=== PATIENT | male | born 1950 | race Caucasian/White ===

== ENCOUNTER 2016-08-16 12:45 | Observation (INO) | payer OTHER ==
[2016-08-16] MEDS ORDERED: SODIUM CHLORIDE 0.9% 1,000 ML IV STA (13:36)
[2016-08-16] MEDS ORDERED: methylPREDNISolone SOD SUCCI 125 MG/2 ML VIAL IV STA (13:36)
[2016-08-16] MEDS ORDERED: IPRATROPIUM-ALBUTEROL 3 ML NEB INHALATION STA ×2 (13:36→14:28)
--- NOTE | 2016-08-16 13:38 | ED ---
General Adult HPI - General Source: patient, RN notes reviewed Mode of arrival: ambulatory Limitations: no limitations <Lopez Pacheco - Last Filed: 08/16/16 15:39> <Nj Escobar - Last Filed: 08/16/16 15:45> - General Chief complaint: Shortness of Breath Stated complaint: ADAN Time Seen by Provider: 08/16/16 13:31 - History of Present Illness Initial comments: Patient 65-year-old male significant past medical history for COPD, who presents emergency room today with chief complaint of increased cough congestion over the last 4 days. Does admit to increased shortness of breath. States he went to [facility] and was advised come here to the emergency room. He does admit that he used to do breathing treatment in the past no longer has at home has not needed in several years. Patient does admit to cough congestion. He denies any other complaints or associated symptoms. Patient denies any recent fever, chills, chest pain, back pain, abdominal pain, nausea or vomiting, numbness or tingling, dysuria or hematuria, constipation or diarrhea, headaches or visual changes, or any other complaints. (Lopez Pacheco) - Related Data Allergies Allergy/AdvReac Type Severity Reaction Status Date / Time No Known Allergies Allergy Verified 08/16/16 12:49 Review of Systems ROS Other: All systems not noted in ROS Statement are negative. <Lopez Pacheco - Last Filed: 08/16/16 15:39> ROS Other: All systems not noted in ROS Statement are negative. <Nj Escobar - Last Filed: 08/16/16 15:45> ROS Statement: Those systems with pertinent positive or pertinent negative responses have been documented in the HPI. Past Medical History Past Medical History: Coronary Artery Disease (CAD), Cancer, Chest Pain / Angina , COPD, CVA/TIA, Hyperlipidemia, Hypertension, Myocardial Infarction ([place]) Additional Past Medical History / Comment(s): prostate cancer History of Any Multi-Drug Resistant Organisms: None Reported Past Surgical History: Coronary Bypass/CABG, Prostate Surgery Additional Past Surgical History / Comment(s): carotid endarectomy Past Psychological History: No Psychological Hx Reported 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 smoker Past Alcohol Use History: None Reported Past Drug Use History: None Reported <Lopez Pacheco - Last Filed: 08/16/16 15:39> General Exam Limitations: no limitations <Lopez Pacheco - Last Filed: 08/16/16 15:39> <Nj Escobar - Last Filed: 08/16/16 15:45> - General Exam Comments Initial Comments: General: The patient is awake and alert, in no distress, and does not appear acutely ill. Eye: Pupils are equal, round and reactive to light, extra-ocular movements are intact. No nystagmus. There is normal conjunctiva bilaterally. No signs of icterus. Ears, nose, mouth and throat: There are moist mucous membranes and no oral lesions. Neck: The neck is supple, there is no tenderness or JVD. Cardiovascular: There is a regular rate and rhythm. No murmur, rub or gallop is appreciated. Respiratory: Decreased breath sounds bilaterally with scattered wheezes and rhonchi. respirations are non-labored, breath sounds are equal. No stridor, rales. Musculoskeletal: Normal ROM, no tenderness. Strength 5/5. Sensation intact. Pulses equal bilaterally 2+. Neurological: A&O x 3. CN II-XII intact, There are no obvious motor or sensory deficits. Coordination appears grossly intact. Speech is normal. Skin: Skin is warm and dry and no rashes or lesions are noted. Psychiatric: Cooperative, appropriate mood & affect, normal judgment. (Lopez Pacheco) Medical Decision Making - Lab Data Result diagrams: 08/16/16 14:05 08/16/16 14:05 <Lopez Pacheco - Last Filed: 08/16/16 15:39> - Lab Data Result diagrams: 08/16/16 14:05 08/16/16 14:05 <Nj Escobar - Last Filed: 08/16/16 15:45> - Medical Decision Making Patient reexamined at this time shows no distress. States still feeling somewhat short of breath. Pulse ox currently 94% on room air. Patient does admit to improvement after breathing treatments. States still feeling somewhat short of breath. Patient has had cough congestion and sputum production over the last 4 days. Patient's chest x-ray reviewed and is negative for any evidence of a pneumonia. Cardiac enzymes negative. Remaining labs have been reviewed. Patient will be admitted to the hospital for continued breathing treatments and steroids for COPD exacerbation. (Lopez Pacheco) The patient is seen and examined. All diagnostics are reviewed. Case is discussed with internal medicine and they are agreeable with admission. The case is discussed with the PA and agree with the findings as documented. (Nj Escobar) - Lab Data Lab Results 08/16/16 08/16/16 08/16/16 Range/Units 14:05 14:05 14:05 WBC 6.0 (3.8-10.6) k/uL RBC 5.02 (4.30-5.90) m/uL Hgb 15.5 (13.0-17.5) gm/dL Hct 44.8 (39.0-53.0) % MCV 89.1 (80.0-100.0) fL MCH 30.8 (25.0-35.0) pg MCHC 34.6 (31.0-37.0) g/dL RDW 13.3 (11.5-15.5) % Plt Count 150 (150-450) k/uL Neutrophils % 74 % Lymphocytes % 12 % Monocytes % 10 % Eosinophils % 1 % Basophils % 1 % Neutrophils # 4.4 (1.3-7.7) k/uL Lymphocytes # 0.7 L (1.0-4.8) k/uL Monocytes # 0.6 (0-1.0) k/uL Eosinophils # 0.1 (0-0.7) k/uL Basophils # 0.0 (0-0.2) k/uL PT (9.0-12.0) sec INR (<1.1) APTT (22.0-30.0) sec Sodium 140 (137-145) mmol/L Potassium 4.3 (3.5-5.1) mmol/L Chloride 105 (98-107) mmol/L Carbon Dioxide 25 (22-30) mmol/L Anion Gap 10 mmol/L BUN 11 (9-20) mg/dL Creatinine 0.90 (0.66-1.25) mg/dL Est GFR (MDRD) Af Amer >60 (>60 ml/min/1.73 sqM) Est GFR (MDRD) Non-Af >60 (>60 ml/min/1.73 sqM) Glucose 116 H (74-99) mg/dL Calcium 9.5 (8.4-10.2) mg/dL Total Bilirubin 1.0 (0.2-1.3) mg/dL AST 48 (17-59) U/L ALT 39 (21-72) U/L Alkaline Phosphatase 71 (38-126) U/L Total Creatine Kinase 854 H (55-170) U/L CK-MB (CK-2) 4.5 H* (0.0-2.4) ng/mL CK-MB (CK-2) Rel Index 0.5 Troponin I 0.017 (0.000-0.034) ng/mL Total Protein 6.7 (6.3-8.2) g/dL Albumin 4.0 (3.5-5.0) g/dL 08/16/16 Range/Units 14:05 WBC (3.8-10.6) k/uL RBC (4.30-5.90) m/uL Hgb (13.0-17.5) gm/dL Hct (39.0-53.0) % MCV (80.0-100.0) fL MCH (25.0-35.0) pg MCHC (31.0-37.0) g/dL RDW (11.5-15.5) % Plt Count (150-450) k/uL Neutrophils % % Lymphocytes % % Monocytes % % Eosinophils % % Basophils % % Neutrophils # (1.3-7.7) k/uL Lymphocytes # (1.0-4.8) k/uL Monocytes # (0-1.0) k/uL Eosinophils # (0-0.7) k/uL Basophils # (0-0.2) k/uL PT 11.3 (9.0-12.0) sec INR 1.1 (<1.1) APTT 26.3 (22.0-30.0) sec Sodium (137-145) mmol/L Potassium (3.5-5.1) mmol/L Chloride (98-107) mmol/L Carbon Dioxide (22-30) mmol/L Anion Gap mmol/L BUN (9-20) mg/dL Creatinine (0.66-1.25) mg/dL Est GFR (MDRD) Af Amer (>60 ml/min/1.73 sqM) Est GFR (MDRD) Non-Af (>60 ml/min/1.73 sqM) Glucose (74-99) mg/dL Calcium (8.4-10.2) mg/dL Total Bilirubin (0.2-1.3) mg/dL AST (17-59) U/L ALT (21-72) U/L Alkaline Phosphatase (38-126) U/L Total Creatine Kinase (55-170) U/L CK-MB (CK-2) (0.0-2.4) ng/mL CK-MB (CK-2) Rel Index Troponin I (0.000-0.034) ng/mL Total Protein (6.3-8.2) g/dL Albumin (3.5-5.0) g/dL Disposition Time of Disposition: 15:32 <Lopez Pacheco - Last Filed: 08/16/16 15:39> <Nj Escobar - Last Filed: 08/16/16 15:45> Clinical Impression: COPD exacerbation, Acute bronchitis Disposition: ADMITTED IP TO THIS HOSP Condition: Stable Referrals: Michael Duran DO [Primary Care Provider] - 1-2 days
--- NOTE | 2016-08-16 14:24 | XR ---
EXAMINATION TYPE: XR chest 2V DATE OF EXAM: 08/16/2016 2:20 PM COMPARISON: 09/17/2012 TECHNIQUE: PA and lateral views submitted. HISTORY: Cough FINDINGS: The lungs are clear and there is no pneumothorax, pleural effusion, or focal pneumonia. Postoperati ve change and mild hyperinflation. Biapical pleural thickening. Arthropathy of the shoulder. Mild deg enerative change of the spine. Coronary artery stenting suggested with epicardial lead. IMPRESSION: 1. No acute process.
[2016-08-16] MEDS ORDERED: MORPHINE SULFATE 4 MG/ML SYRINGE IV STA (14:28)
[2016-08-16 14:31] LABS: Basophils % (A) 1 %; CH 30.6; CHCM 34.5; Eosinophils # (A) 0.1 k/uL (0-0.7); Eosinophils % (A) 1 %; HCT 44.8 % (39.0-53.0); HDW 2.87; HGB 15.5 gm/dL (13.0-17.5); Luc # (Auto) 0.12; Luc % (Auto) 2; Lymphocytes # (A) 0.7 k/uL (1.0-4.8); Lymphocytes % (A) 12 %; MCH 30.8 pg (25.0-35.0); MCHC 34.6 g/dL (31.0-37.0); MCV 89.1 fL (80.0-100.0); Monocytes # (A) 0.6 k/uL (0-1.0); Monocytes % (A) 10 %; Neutrophils # (A) 4.4 k/uL (1.3-7.7); Neutrophils % (A) 74 %; RBC 5.02 m/uL (4.30-5.90); RDW 13.3 % (11.5-15.5); WBC (Perox) 6.07
[2016-08-16 14:37] LABS: INR 1.1 (<1.1); Partial Thromboplastin Time 26.3 sec (22.0-30.0); Prothrombin Time 11.3 sec (9.0-12.0)
[2016-08-16 14:45] LABS: Anion Gap 10 mmol/L; Calcium 9.5 mg/dL (8.4-10.2); Carbon Dioxide 25 mmol/L (22-30); Chloride 105 mmol/L (98-107); Glucose 116 mg/dL (74-99); Non-African American GFR(MDRD) >60 (>60 ml/min/1.73 sqM); Sodium 140 mmol/L (137-145); Total Protein 6.7 g/dL (6.3-8.2)
[2016-08-16 14:46] LABS: ALT 39 U/L (21-72); AST 48 U/L (17-59); Blood Urea Nitrogen 11 mg/dL (9-20); Potassium 4.3 mmol/L (3.5-5.1)
[2016-08-16 14:47] LABS: Alkaline Phosphatase 71 U/L (38-126)
[2016-08-16 15:02] LABS: Troponin I 0.017 ng/mL (0.000-0.034)
[2016-08-16 15:04] LABS: Creatine Kinase MB 4.5 ng/mL (0.0-2.4)
[2016-08-16] MEDS ORDERED: LEVOFLOXACIN 500MG-D5W PMX 500 MG in DEXTROSE/WATER 1 100ML.BAG IVPB STA (15:35)
[2016-08-16] MEDS ORDERED: SODIUM CHLORIDE 0.9% 1,000 ML IV ONE (15:36)
[2016-08-16] MEDS ORDERED: IPRATROPIUM-ALBUTEROL 3 ML NEB INHALATION PRN (15:36)
[2016-08-16 17:33] LABS: Glucose,Whole Blood 133 mg/dL (75-99)
[2016-08-16 18:16] LABS: Hemoglobin A1C 5.4 % (4.2-6.1)
[2016-08-16] MEDS: methylPREDNISolone SOD SUCCI 125 MG/2 ML VIAL IV SCH ×2 (18:42→23:25)
[2016-08-16 21:18] LABS: Glucose,Whole Blood 167 mg/dL (75-99)
[2016-08-16] MEDS: INSULIN LISPRO (humaLOG) 300 UNIT/3 ML VIAL SQ SCH (21:34)
[2016-08-16] MEDS ORDERED: guaiFENesin-DM 100-10MG/5ML 10 ML CUP PO PRN (21:58)
[2016-08-16] MEDS ORDERED: LORazepam 1 MG TAB PO PRN (21:58)
[2016-08-16] MEDS ORDERED: HYDROcodone/APAP 5-325MG 1 EACH TAB PO PRN (22:05)
[2016-08-16] MEDS ORDERED: cloNIDine HCL 0.1 MG TAB PO PRN (22:15)
[2016-08-16] MEDS ORDERED: LEVOFLOXACIN 500MG-D5W PMX 500 MG in DEXTROSE/WATER 1 100ML.BAG IVPB SCH (23:00)
[2016-08-16] MEDS: TEMAZEPAM 30 MG CAP PO PRN (23:26)
[2016-08-16] MEDS: cloNIDine HCL 0.1 MG TAB PO SCH (23:26)
[2016-08-17] MEDS ORDERED: IPRATROPIUM-ALBUTEROL 3 ML NEB INHALATION PRN (04:15)
[2016-08-17] MEDS: methylPREDNISolone SOD SUCCI 125 MG/2 ML VIAL IV SCH ×4 (05:31→23:44)
[2016-08-17 06:34] LABS: Appearance,Urine Clear (Clear); Bilirubin,Urine Negative (Negative); Glucose,Urine (UA) 1+ (Negative); Ketones,Urine 1+ (Negative); Leukocyte Esterase,Urine Negative (Negative); Mucus,Urine Occasional /hpf; Nitrite,Urine Negative (Negative); Particle Count 2550; Protein,Urine Trace (Negative); RBC,Urine 4 /hpf (0-5); UA Billing (MACRO vs. MICRO) MICRO; Urobilinogen,Urine <2.0 mg/dL (<2.0)
[2016-08-17 07:30] LABS: Glucose,Whole Blood 157 mg/dL (75-99)
[2016-08-17] MEDS: IPRATROPIUM 0.5 MG/2.5 ML NEBU INHALATION SCH ×3 (08:02→19:46)
[2016-08-17] MEDS: LEVALBUTEROL NEB (CONC) 1.25 MG/0.5 ML AMP INHALATION SCH ×3 (08:02→19:46)
[2016-08-17] MEDS: BUDESONIDE 1 MG/2 ML NEBU INHALATION SCH ×2 (08:02→19:46)
[2016-08-17] MEDS: FORMOTEROL FUMARATE 20 MCG/2 ML NEBU INHALATION SCH ×2 (08:03→19:46)
[2016-08-17] MEDS: INSULIN LISPRO (humaLOG) 300 UNIT/3 ML VIAL SQ SCH ×4 (08:41→21:51)
[2016-08-17] MEDS: PANTOPRAZOLE 40 MG TABLET PO SCH (09:31)
[2016-08-17] MEDS: HEPARIN SODIUM,PORCINE 5,000 UNIT/ML 1 ML VIAL SQ SCH ×2 (09:31→21:26)
[2016-08-17] MEDS: cloNIDine HCL 0.1 MG TAB PO SCH ×2 (09:31→21:26)
[2016-08-17 09:49] LABS: Anion Gap 15 mmol/L; Blood Urea Nitrogen 18 mg/dL (9-20); Calcium 9.4 mg/dL (8.4-10.2); Carbon Dioxide 21 mmol/L (22-30); Chloride 104 mmol/L (98-107); Glucose 216 mg/dL (74-99); Non-African American GFR(MDRD) >60 (>60 ml/min/1.73 sqM); Potassium 3.9 mmol/L (3.5-5.1); Sodium 140 mmol/L (137-145)
--- NOTE | 2016-08-17 09:52 | HP ---
DATE OF ADMISSION: DATE OF SERVICE: 08/16/2016 This 65-year-old gentleman with a past medical history of COPD, history of CAD, history of CVA, TIA, hypertension, hyperlipidemia, myocardial infarction , DJD, history of pneumonia, history of prostate cancer, history of CAD, CABG with stent [facility] [place] [facility] [place] in [place] was complaining of shortness of breath for the past several days. The patient lives in a single level duplex and sister lives next door. The patient started smoking at age 10 until 1996, but subsequently patient started smoking cigar and quit in 2016. The patient had cough and congestion for the last 4 days and weakness, increasing difficulty. Patient came to [facility] and admitted for further evaluation and treatment. The COPD acute exacerbation was diagnosed and chest x-ray on admission in the ER showed no acute process. There is no history of fever, rigors or chills. PAST MEDICAL HISTORY: COPD, history of CAD, history of CVA, TIA, hypertension, hyperlipidemia, myocardial infarction, history of DJD, pneumonia. Medications prior to admission include home medications are: The list is not available. ALLERGIES: None. FAMILY HISTORY: History of myocardial infarction in the family. SOCIAL HISTORY: Previous history of smoking. Occasional alcohol intake per the patient. REVIEW OF SYSTEMS: ENT: No diminished hearing or vision. CARDIOVASCULAR SYSTEM: As mentioned earlier. RESPIRATORY SYSTEM: As mentioned earlier. GI: As mentioned earlier. : No dysuria. NERVOUS SYSTEM: Patient has diffuse tremors. ALLERGY/IMMUNOLOGY: No history of asthma. MUSCULOSKELETAL: As mentioned earlier. HEMATOLOGY/ONCOLOGY: No history of anemia. ENDOCRINE: No history of diabetes mellitus or hypothyroidism. CONSTITUTIONAL: As mentioned earlier. DERMATOLOGY: Negative. RHEUMATOLOGY: Negative. PSYCHIATRY: As mentioned earlier. PHYSICAL EXAMINATION: The patient is alert and oriented x3. Pulse is 101, blood pressure 175/100, respirations 22, temperature 97.8, pulse ox 96% on 2 L. HEENT: Conjunctivae normal. Oral mucosa moist. Otherwise, significant telangiectasia on the face at present. CARDIOVASCULAR: S1 and S2, muffled. No S3, no S4. RESPIRATORY: Breath sounds diminished at the bases. Bilateral scattered rhonchi and crackles. Expiratory wheezing. Accessory muscles of respiration acting. ABDOMEN: Soft, nontender. No mass palpable. No hepatosplenomegaly. LEGS: No edema, no swelling. NERVOUS SYSTEM: Higher function as mentioned. Moves all 4 limbs. No focal motor deficits. LYMPHATICS: No lymphadenopathy of neck, axillae or groin. SKIN: As mentioned earlier. JOINTS: No acting deformity. LABS: CBC within normal limits. Glucose 116 CK-MB is 4.5. Total creatine kinase 854. ASSESSMENT: 1. Chronic obstructive pulmonary disease acute exacerbation with acute purulent tracheobronchitis. 2. Diffuse tremors for evaluation. 3. Increased random blood sugar. 4. Increased creatine kinase with acute rhabdomyolysis. 5. History of chronic obstructive pulmonary disease. 6. History of coronary artery disease. 7. History of cerebrovascular accident, transient ischemic attack. 8. Hypertension, essential. 9. Hyperlipidemia. 10. History of myocardial infarction. 11. History of degenerative joint disease. 12. History of pneumonia. 13. History of prostate cancer. 14. History of coronary artery disease, coronary artery bypass graft, stent. 15. History of prostate surgery. 16. History of right carotid endarterectomy. 17. Remote history of nicotine dependence. 18. Multiple telangiectasia on the face. 19. NO CODE, NO CPR, NO VENTILATOR. RECOMMENDATIONS AND DISCUSSION: This 65-year-old gentleman who presented with multiple complex medical issues, will monitor the patient closely. Continue the current medications. Continue symptomatic treatment. Will initiate broad-spectrum IV antibiotics. Otherwise, would also recommend IV steroids. Pulmonary consultation. Monitor blood sugars closely. Guarded prognosis because of multiple complex medical issues. Further recommendations to follow. Will repeat labs and resume the home medication once the list is available. See orders for further details. Symptomatic treatment also provided. Ativan p.r.n. for anxiety, tremors and further recommendations to follow. A copy of dictation forwarded to Dr. Duran who is primary physician.
[2016-08-17 10:19] LABS: Basophils % (A) 0 %; CH 30.3; CHCM 32.9; Eosinophils % (A) 0 %; HCT 43.1 % (39.0-53.0); HDW 2.78; HGB 13.6 gm/dL (13.0-17.5); Luc # (Auto) 0.03; Luc % (Auto) 0; Lymphocytes # (A) 0.5 k/uL (1.0-4.8); Lymphocytes % (A) 5 %; MCH 29.3 pg (25.0-35.0); MCHC 31.7 g/dL (31.0-37.0); MCV 92.5 fL (80.0-100.0); Mean Platelet Volume 7.1; Monocytes # (A) 0.2 k/uL (0-1.0); Monocytes % (A) 3 %; Neutrophils # (A) 8.4 k/uL (1.3-7.7); Neutrophils % (A) 92 %; RBC 4.65 m/uL (4.30-5.90); RDW 13.3 % (11.5-15.5); WBC 9.2 k/uL (3.8-10.6); WBC (Perox) 9.82
[2016-08-17 12:01] LABS: Glucose,Whole Blood 108 mg/dL (75-99)
[2016-08-17] MEDS: MULTIVITAMINS, THERA 1 EACH TAB PO SCH (13:07)
[2016-08-17] MEDS: IPRATROPIUM-ALBUTEROL 3 ML NEB INHALATION SCH (13:45)
--- NOTE | 2016-08-17 14:51 | P.CNPUL ---
History of Present Illness Consult date: 08/17/16 Reason for consult: COPD History of present illness: 65-year-old male patient known history of mild COPD along with previous history of coronary artery disease and a bypass surgery and history of CVA/TIA and hypertension and hyperlipidemia and prostate cancer, who [facility] The patient started having increased shortness of breath along with some chest tightness and wheezing. No chest pain no pleurisy. No hemoptysis. No fever chills or night sweats. Review of his worsening shortness of breath the patient came into the hospital and she was diagnosed having an acute COPD exacerbation. His chest x-ray is free of any acute pulmonary infiltrates. He is never been on oxygen. He has never had any Ruiz bouts of pneumonias or respiratory tract infections of bronchitis. In fact this is his first admission for COPD related complications. He is doing well. His much improved. No new complaints otherwise for now. Over the past 24 hours the patient was being treated with accommodation bronco diets and systemic steroids. He has quit smoking and approximately 10 year ago. He carries more than [id number] smoking history. Review of Systems Full review of system was done and the positive findings are almost above in history of present illness Past Medical History Past Medical History: Coronary Artery Disease (CAD), Cancer, Chest Pain / Angina , COPD, CVA/TIA, Hyperlipidemia, Hypertension, Myocardial Infarction ([place]), Osteoarthritis ([place]), Pneumonia Additional Past Medical History / Comment(s): COPD, coronary artery disease with increased bypass surgery, CVA/TIA, hypertension, hyperlipidemia, prostate cancer, right lower extremity fracture, hypertension, osteoarthritis Last Myocardial Infarction Date:: UNK History of Any Multi-Drug Resistant Organisms: None Reported Past Surgical History: Coronary Bypass/CABG, Heart Catheterization With Stent, Prostate Surgery Additional Past Surgical History / Comment(s): Right carotid endarterectomy, coronary bypass surgery, prostatectomy, left shoulder surgery, ORIF of the right lower extremity fracture Past Anesthesia/Blood Transfusion Reactions: No Reported Reaction Date of Last Stent Placement:: UNK Past Psychological History: No Psychological Hx Reported Additional Psychological History / Comment(s): 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 SISTER LIVES IN DUPLEX NEXT DOOR. 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 smoker Past Alcohol Use History: Rare Additional Past Alcohol Use History / Comment(s): STARTED SMOKING AT AGE 10 OR 11 UNTIL 1996 THEN WENT FROM CIGARETTES TO CIGARS UNTIL HE QUIT 2015 Past Drug Use History: None Reported - Past Family History Father Family Medical History: Myocardial Infarction ([place]) Mother Family Medical History: CVA/TIA Medications and Allergies Home Medications Medication Instructions Recorded Confirmed Type Aspirin 325 mg PO DAILY 08/17/16 08/17/16 History Atorvastatin Calcium [Lipitor] 80 mg PO HS 08/17/16 08/17/16 History Clopidogrel Bisulfate [Plavix] 75 mg PO DAILY 08/17/16 08/17/16 History Lisinopril 40 mg PO DAILY 08/17/16 08/17/16 History Metoprolol Tartrate [Lopressor] 12.5 mg PO BID 08/17/16 08/17/16 History Naproxen Sodium [Aleve] 220 mg PO BID PRN 08/17/16 08/17/16 History Temazepam [Restoril] 30 mg PO HS 08/17/16 08/17/16 History amLODIPine BESYLATE [Norvasc] 10 mg PO DAILY 08/17/16 08/17/16 History Allergies Allergy/AdvReac Type Severity Reaction Status Date / Time No Known Allergies Allergy Verified 08/16/16 12:49 Physical Exam Vitals: Vital Signs Temp Pulse Pulse Resp BP BP Pulse Ox 08/17/16 13:56 92 08/17/16 13:46 92 08/17/16 08:25 88 08/17/16 08:15 88 08/17/16 08:14 88 08/17/16 08:06 88 98 08/17/16 07:00 97.4 F L 77 19 126/71 95 08/17/16 04:34 96 08/17/16 04:27 90 08/17/16 04:14 91 16 98 08/16/16 23:00 97.8 F 86 20 139/90 98 08/16/16 18:29 98.1 F 94 19 151/82 96 08/16/16 17:09 97.8 F 101 H 22 175/100 96 08/16/16 17:00 97.8 F 101 H 22 175/100 96 Intake and Output 08/16/16 08/17/16 08/17/16 22:59 06:59 14:59 Other: Voiding Method Toilet Toilet # Voids 2 1 1 Weight 70 kg Head exam was generally normal. There was no scleral icterus or corneal arcus. Mucous membranes were moist.Neck was supple and without jugular venous distension, thyromegaly, or carotid bruits. Carotids were easily palpable bilaterally. There was no adenopathy. Lung sounds are diminished otherwise clear. No wheezes or rhonchi.Cardiac exam revealed the PMI to be normally situated and sized. The rhythm was regular and no extrasystoles were noted during several minutes of auscultation. The first and second heart sounds were normal and physiologic splitting of the second heart sound was noted. There were no murmurs, rubs, clicks, or gallops. Abdominal exam revealed normal bowel sounds. The abdomen was soft, non-tender, and without masses, organomegaly , or appreciable enlargement of the abdominal aorta.Examination of the extremities revealed easily palpable radial, femoral and pedal pulses. There was no cyanosis, clubbing or edema. Results - Laboratory Findings CBC and BMP: 08/17/16 09:13 08/17/16 09:13 PT/INR, D-dimer PT 11.3 sec (9.0-12.0) 08/16/16 14:05 INR 1.1 (<1.1) 08/16/16 14:05 Abnormal lab findings: Abnormal Labs 08/16/16 08/16/16 08/17/16 17:32 21:01 05:40 Plt Count Neutrophils # Lymphocytes # Carbon Dioxide Glucose POC Glucose (mg/dL) 133 H 167 H Urine Protein Trace H Urine Glucose (UA) 1+ H Urine Ketones 1+ H Urine Blood Trace H Urine Mucus Occasional H Urine Opiates Screen Detected H U Benzodiazepines Scrn Detected H 08/17/16 08/17/16 08/17/16 07:21 09:13 09:13 Plt Count 147 L Neutrophils # 8.4 H Lymphocytes # 0.5 L Carbon Dioxide 21 L Glucose 216 H POC Glucose (mg/dL) 157 H Urine Protein Urine Glucose (UA) Urine Ketones Urine Blood Urine Mucus Urine Opiates Screen U Benzodiazepines Scrn 08/17/16 11:58 Plt Count Neutrophils # Lymphocytes # Carbon Dioxide Glucose POC Glucose (mg/dL) 108 H Urine Protein Urine Glucose (UA) Urine Ketones Urine Blood Urine Mucus Urine Opiates Screen U Benzodiazepines Scrn - Diagnostic Findings Chest x-ray: image reviewed Assessment and Plan Plan: Assessment 1 acute COPD exacerbation, improving 2 shortness of breath recovered. Shortness of breath was secondary to above 3 coronary artery disease with previous bypass surgery 4 prostate cancer status post prostatectomy 5 CVA/TIA with complete recovery 6 remote history of smoking 7 carotid artery disease with a previous endarterectomy. 8 hypertension 9 hyperlipidemia Plan Clinically stable. Shortness of breath improved. May discharge this patient home on albuterol rescue inhaler, Levaquin and a prednisone burst taper. Final decision will be left up to hospitalist. Will be that to follow them up on outpatient basis.
[2016-08-17] MEDS ORDERED: LEVOFLOXACIN 500 MG TAB PO SCH (16:00)
[2016-08-17 16:59] LABS: Glucose,Whole Blood 171 mg/dL (75-99)
--- NOTE | 2016-08-17 17:25 | P.PN ---
Subjective Date of service 08/17/2016. Progress note being dictated for Dr. Reeves. Interval history: This is a 65-year-old gentleman admitted with acute exacerbation of COPD, purulent tracheobronchitis and multiple other medical issues. Maintained on broad-spectrum IV antibiotics, systemic IV steroids, nebulized bronchodilators with breathing improving. Evaluated by pulmonary with recommendations noted. Objective - Vital Signs Vital signs: Vital Signs Temp 97.4 F L 08/17/16 07:00 Pulse 92 08/17/16 13:56 Resp 19 08/17/16 07:00 BP 126/71 08/17/16 07:00 Pulse Ox 98 08/17/16 08:06 Intake & Output 08/16/16 08/17/16 08/17/16 18:59 06:59 18:59 Weight 70 kg Other: Voiding Method Toilet Toilet # Voids 1 1 - Exam PHYSICAL EXAM: VITAL SIGNS: As above GENERAL: [Sitting up in bed, no acute distress] HEENT: [Pupils equal conjunctiva normal.] NECK: [Supple, no JVD] RESPIRATORY EFFORT:[Normal] LUNGS: [Bilateral bases diminished, no wheezes rhonchi or crackles] CARDIOVASCULAR[regular S1 and S2, no murmurs rubs or gallops, no edema] GI: [Abdomen soft, nontender, nondistended positive bowel sounds. No organomegaly] PSYCH: [Alert and oriented -3, mood and affect normal.] NEURO: No focal deficits, moves all 4 extremities, strength and sensation grossly intact - Labs CBC & Chem 7: 08/17/16 09:13 08/17/16 09:13 Labs: Abnormal Lab Results - Last 24 Hours (Table) 08/16/16 08/16/16 08/17/16 Range/Units 17:32 21:01 05:40 Plt Count (150-450) k/uL Neutrophils # (1.3-7.7) k/uL Lymphocytes # (1.0-4.8) k/uL Carbon Dioxide (22-30) mmol/L Glucose (74-99) mg/dL POC Glucose (mg/dL) 133 H 167 H (75-99) mg/dL Urine Protein Trace H (Negative) Urine Glucose (UA) 1+ H (Negative) Urine Ketones 1+ H (Negative) Urine Blood Trace H (Negative) Urine Mucus Occasional H (None) /hpf Urine Opiates Screen Detected H (NotDetected) U Benzodiazepines Scrn Detected H (NotDetected) 08/17/16 08/17/16 08/17/16 Range/Units 07:21 09:13 09:13 Plt Count 147 L (150-450) k/uL Neutrophils # 8.4 H (1.3-7.7) k/uL Lymphocytes # 0.5 L (1.0-4.8) k/uL Carbon Dioxide 21 L (22-30) mmol/L Glucose 216 H (74-99) mg/dL POC Glucose (mg/dL) 157 H (75-99) mg/dL Urine Protein (Negative) Urine Glucose (UA) (Negative) Urine Ketones (Negative) Urine Blood (Negative) Urine Mucus (None) /hpf Urine Opiates Screen (NotDetected) U Benzodiazepines Scrn (NotDetected) 08/17/16 08/17/16 Range/Units 11:58 16:57 Plt Count (150-450) k/uL Neutrophils # (1.3-7.7) k/uL Lymphocytes # (1.0-4.8) k/uL Carbon Dioxide (22-30) mmol/L Glucose (74-99) mg/dL POC Glucose (mg/dL) 108 H 171 H (75-99) mg/dL Urine Protein (Negative) Urine Glucose (UA) (Negative) Urine Ketones (Negative) Urine Blood (Negative) Urine Mucus (None) /hpf Urine Opiates Screen (NotDetected) U Benzodiazepines Scrn (NotDetected) Assessment and Plan Plan: 1. [Acute COPD exacerbation with pearly and tracheobronchitis]. 2. [Diffuse tremors further evaluation, treated with Ativan]. 3. [Acute rhabdomyolysis, elevated CK]. 4. [History of COPD]. 5. [CAD, history of [place], CABG]. 6. [History of CVA, TIA]. 7. [Essential hypertension]. 8. Degenerative joint disease 9. History of right carotid endarterectomy 10. History of [id number] nicotine dependence, quit 10 years ago. 11. Multiple telangiectasia on face. 12. No Code, No CPR, No Ventilator Plan: Continue on current medication regime, nebulized bronchodilators, steroids , antibiotics, monitoring and symptomatic treatment. Continue increasing activity as tolerated. Evaluated by pulmonary with recommendations appreciated. Discharge planning in progress for tomorrow. The impression and plan of care has been dictated as directed. : I performed a H&P examination of this patient and discussed the same with the dictator. I agree with the dictator's note. Any additional findings/opinions/ etc. will be noted.
[2016-08-17] MEDS: LEVOFLOXACIN 500MG-D5W PMX 500 MG in DEXTROSE/WATER 1 100ML.BAG IVPB SCH (17:33)
[2016-08-17 20:35] LABS: Glucose,Whole Blood 133 mg/dL (75-99)
--- NOTE | 2016-08-17 21:14 | PN ---
DATE OF SERVICE: 08/17/2016 This 65-year-old gentleman, admitted with COPD exacerbation, has improved significantly. The patient has diffuse tremors, which are also improving. Seen and evaluated the patient along with the nurse practitioner. Please refer to the nurse practitioner's notes and impressions documented as a scribe for further information. Guarded prognosis. Further recommendations to follow. Ativan for tremors. Patient did not give history of any alcohol intake at this time.
[2016-08-17] MEDS: TEMAZEPAM 30 MG CAP PO PRN (23:45)
[2016-08-18] MEDS: methylPREDNISolone SOD SUCCI 125 MG/2 ML VIAL IV SCH ×3 (06:26→17:44)
[2016-08-18 06:58] LABS: Glucose,Whole Blood 135 mg/dL (75-99)
[2016-08-18] MEDS: FORMOTEROL FUMARATE 20 MCG/2 ML NEBU INHALATION SCH ×2 (08:08→20:04)
[2016-08-18] MEDS: PANTOPRAZOLE 40 MG TABLET PO SCH (08:08)
[2016-08-18] MEDS: HEPARIN SODIUM,PORCINE 5,000 UNIT/ML 1 ML VIAL SQ SCH ×2 (08:08→21:13)
[2016-08-18] MEDS: cloNIDine HCL 0.1 MG TAB PO SCH ×2 (08:08→21:13)
[2016-08-18] MEDS: IPRATROPIUM-ALBUTEROL 3 ML NEB INHALATION SCH ×4 (08:08→20:04)
[2016-08-18] MEDS: BUDESONIDE 1 MG/2 ML NEBU INHALATION SCH ×2 (08:08→20:04)
[2016-08-18] MEDS: INSULIN LISPRO (humaLOG) 300 UNIT/3 ML VIAL SQ SCH ×4 (08:09→21:14)
[2016-08-18 09:20] LABS: Basophils % (A) 0 %; CH 30.3; CHCM 32.7; Eosinophils % (A) 0 %; HCT 41.6 % (39.0-53.0); HDW 2.78; HGB 13.7 gm/dL (13.0-17.5); Luc # (Auto) 0.03; Luc % (Auto) 0; Lymphocytes # (A) 0.6 k/uL (1.0-4.8); Lymphocytes % (A) 7 %; MCH 30.8 pg (25.0-35.0); MCHC 33.1 g/dL (31.0-37.0); MCV 93.1 fL (80.0-100.0); Mean Platelet Volume 7.4; Monocytes # (A) 0.2 k/uL (0-1.0); Monocytes % (A) 3 %; Neutrophils # (A) 7.7 k/uL (1.3-7.7); Neutrophils % (A) 90 %; RBC 4.47 m/uL (4.30-5.90); RDW 13.7 % (11.5-15.5); WBC 8.6 k/uL (3.8-10.6)
[2016-08-18 09:48] LABS: Anion Gap 15 mmol/L; Blood Urea Nitrogen 23 mg/dL (9-20); Calcium 9.3 mg/dL (8.4-10.2); Carbon Dioxide 22 mmol/L (22-30); Chloride 102 mmol/L (98-107); Glucose 226 mg/dL (74-99); Non-African American GFR(MDRD) >60 (>60 ml/min/1.73 sqM); Potassium 3.9 mmol/L (3.5-5.1); Sodium 139 mmol/L (137-145)
[2016-08-18 11:41] LABS: Glucose,Whole Blood 151 mg/dL (75-99)
[2016-08-18] MEDS: MULTIVITAMINS, THERA 1 EACH TAB PO SCH (12:25)
--- NOTE | 2016-08-18 12:33 | P.PN ---
Subjective 65-year-old male patient known history of mild COPD along with previous history of coronary artery disease and a bypass surgery and history of CVA/TIA and hypertension and hyperlipidemia and prostate cancer, who [facility] The patient started having increased shortness of breath along with some chest tightness and wheezing. No chest pain no pleurisy. No hemoptysis. No fever chills or night sweats. Review of his worsening shortness of breath the patient came into the hospital and she was diagnosed having an acute COPD exacerbation. His chest x-ray is free of any acute pulmonary infiltrates. He is never been on oxygen. He has never had any Ruiz bouts of pneumonias or respiratory tract infections of bronchitis. In fact this is his first admission for COPD related complications. He is doing well. His much improved. No new complaints otherwise for now. Over the past 24 hours the patient was being treated with accommodation bronco diets and systemic steroids. He has quit smoking and approximately 10 year ago. He carries more than [id number] smoking history. He is seen again today 08/18/2016 in follow-up on the regular medical floor. He is awake and alert in no acute distress. He states he is breathing much easier today as compared to yesterday. He is anxious to go home. He is maintaining good O2 saturations in the mid to upper 90s on room air. He's been afebrile. No leukocytosis. Culture reveals no growth to date. He has been treated for COPD exacerbation with IV Solu-Medrol, bronchodilators and empiric antibiotics in the form of Levaquin. Objective - Vital Signs Vital signs: Vital Signs Temp 98.0 F 08/18/16 07:00 Pulse 96 08/18/16 08:30 Resp 20 08/18/16 07:00 BP 129/79 08/18/16 07:00 Pulse Ox 95 08/18/16 07:00 Intake & Output 08/17/16 08/18/16 08/18/16 18:59 06:59 18:59 Other: Voiding Method Toilet Toilet # Voids 3 2 # Bowel Movements 1 0 - Exam Head exam was generally normal. There was no scleral icterus or corneal arcus. Mucous membranes were moist.Neck was supple and without jugular venous distension, thyromegaly, or carotid bruits. Carotids were easily palpable bilaterally. There was no adenopathy. Lung sounds are diminished otherwise clear. No wheezes or rhonchi.Cardiac exam revealed the PMI to be normally situated and sized. The rhythm was regular and no extrasystoles were noted during several minutes of auscultation. The first and second heart sounds were normal and physiologic splitting of the second heart sound was noted. There were no murmurs, rubs, clicks, or gallops. Abdominal exam revealed normal bowel sounds. The abdomen was soft, non-tender, and without masses, organomegaly , or appreciable enlargement of the abdominal aorta.Examination of the extremities revealed easily palpable radial, femoral and pedal pulses. There was no cyanosis, clubbing or edema. - Labs CBC & Chem 7: 08/18/16 08:53 08/18/16 08:53 Labs: Abnormal Lab Results - Last 24 Hours (Table) 08/17/16 08/17/16 08/18/16 Range/Units 16:57 20:33 06:57 Plt Count (150-450) k/uL Lymphocytes # (1.0-4.8) k/uL BUN (9-20) mg/dL Glucose (74-99) mg/dL POC Glucose (mg/dL) 171 H 133 H 135 H (75-99) mg/dL 08/18/16 08/18/16 08/18/16 Range/Units 08:53 08:53 11:39 Plt Count 132 L (150-450) k/uL Lymphocytes # 0.6 L (1.0-4.8) k/uL BUN 23 H (9-20) mg/dL Glucose 226 H (74-99) mg/dL POC Glucose (mg/dL) 151 H (75-99) mg/dL Assessment and Plan Plan: Assessment 1 acute COPD exacerbation, improving 2 shortness of breath recovered. Shortness of breath was secondary to above 3 coronary artery disease with previous bypass surgery 4 prostate cancer status post prostatectomy 5 CVA/TIA with complete recovery 6 remote history of smoking 7 carotid artery disease with a previous endarterectomy. 8 hypertension 9 hyperlipidemia Plan The patient was seen and evaluated by Dr. Vazquez. He is quite stable from the pulmonary standpoint. He could be discharged home today and completed a prednisone taper and his antibiotics in the form of Levaquin. He'll be utilizing albuterol rescue inhaler. We did see him in our office in 1-2 weeks' time and perform pulmonary function testing to evaluate the severity of his suspected COPD and make recommendations for her maintenance medications. He is however encouraged to call sooner with any recurrence of symptoms or any other questions or concerns.
[2016-08-18] MEDS: LEVOFLOXACIN 500MG-D5W PMX 500 MG in DEXTROSE/WATER 1 100ML.BAG IVPB SCH (17:04)
[2016-08-18 17:12] LABS: Glucose,Whole Blood 137 mg/dL (75-99)
[2016-08-18 20:31] LABS: Glucose,Whole Blood 140 mg/dL (75-99)
[2016-08-18] MEDS: TEMAZEPAM 30 MG CAP PO PRN (22:40)
[2016-08-18] MEDS: methylPREDNISolone SOD SUCCI 40 MG/ML 1 ML VIAL IV SCH (23:44)
[2016-08-19 07:05] LABS: Glucose,Whole Blood 131 mg/dL (75-99)
[2016-08-19 08:15] VITALS: BP 140/88; RESP 20; TEMP 97.5
[2016-08-19] MEDS: FORMOTEROL FUMARATE 20 MCG/2 ML NEBU INHALATION SCH (08:25)
[2016-08-19] MEDS: IPRATROPIUM-ALBUTEROL 3 ML NEB INHALATION SCH ×2 (08:25→12:17)
[2016-08-19] MEDS: BUDESONIDE 1 MG/2 ML NEBU INHALATION SCH (08:25)
[2016-08-19 08:40] LABS: Basophils % (A) 0 %; CH 30.2; CHCM 33.1; Eosinophils % (A) 0 %; HCT 42.2 % (39.0-53.0); HGB 13.8 gm/dL (13.0-17.5); Luc # (Auto) 0.03; Luc % (Auto) 0; Lymphocytes # (A) 0.5 k/uL (1.0-4.8); Lymphocytes % (A) 7 %; MCH 30.1 pg (25.0-35.0); MCHC 32.8 g/dL (31.0-37.0); MCV 91.9 fL (80.0-100.0); Mean Platelet Volume 7.4; Monocytes # (A) 0.3 k/uL (0-1.0); Monocytes % (A) 4 %; Neutrophils # (A) 6.8 k/uL (1.3-7.7); Neutrophils % (A) 89 %; RBC 4.59 m/uL (4.30-5.90); RDW 13.7 % (11.5-15.5); WBC 7.6 k/uL (3.8-10.6); WBC (Perox) 7.98
[2016-08-19 08:56] LABS: Anion Gap 11 mmol/L; Blood Urea Nitrogen 19 mg/dL (9-20); Calcium 9.6 mg/dL (8.4-10.2); Carbon Dioxide 25 mmol/L (22-30); Chloride 103 mmol/L (98-107); Glucose 147 mg/dL (74-99); Non-African American GFR(MDRD) >60 (>60 ml/min/1.73 sqM); Sodium 139 mmol/L (137-145)
[2016-08-19] MEDS: cloNIDine HCL 0.1 MG TAB PO SCH (09:54)
[2016-08-19] MEDS: PANTOPRAZOLE 40 MG TABLET PO SCH (09:54)
[2016-08-19] MEDS: HEPARIN SODIUM,PORCINE 5,000 UNIT/ML 1 ML VIAL SQ SCH (09:54)
[2016-08-19] MEDS: methylPREDNISolone SOD SUCCI 40 MG/ML 1 ML VIAL IV SCH (09:54)
[2016-08-19] MEDS: INSULIN LISPRO (humaLOG) 300 UNIT/3 ML VIAL SQ SCH ×2 (09:55→12:35)
--- NOTE | 2016-08-19 11:10 | PN ---
DATE OF SERVICE: 08/18/2016 This 65-year-old gentleman who was admitted with COPD acute exacerbation is being closely monitored. No chest pain. No palpitations. No fever. Patient also had some tremors, improving. On exam, alert and oriented times three. Pulse 82. Blood pressure 120/84. Respiratory rate 16. Temperature 97.7. Pulse ox 94% on room air. HEENT: Conjunctivae normal. NECK: No jugular venous distention. CARDIOVASCULAR: S1, S2 muffled. RESPIRATORY: Breath sounds diminished at the bases. A few scattered rhonchi and crackles. ABDOMEN: Soft, nontender. LEGS: No edema. No swelling. CENTRAL NERVOUS SYSTEM: No focal deficits. LABS: At this time shows CBC within normal limits. Platelets 132. ASSESSMENT: 1. Chronic obstructive pulmonary disease exacerbation, with acute purulent tracheobronchitis. 2. Diffuse tremors for evaluation treated with Ativan. 3. Acute rhabdomyolysis, elevated CK improving. 4. History of chronic obstructive pulmonary disease. 5. History of coronary artery disease, myocardial infarction, coronary artery bypass grafting. 6. Mild thrombocytopenia. 7. History of cerebrovascular accident, transient ischemic attack. 8. Essential hypertension. 9. Degenerative joint disease. 10. History of right carotid endarterectomy. 11. History of 50 pack year history of nicotine dependence. 12. History of events multiple . 13. NO CODE, NO CPR, NO VENTILATOR. RECOMMENDATIONS AND DISCUSSION: Recommend to continue current medications, continue to monitoring, symptomatic treatment. Otherwise, at this time, I recommend taper the steroids and continue to monitor. Follow the rest of the medications. Otherwise, closely follow with pulmonary. Further recommendations to follow. MTDD
[2016-08-19 12:30] LABS: Glucose,Whole Blood 110 mg/dL (75-99)
[2016-08-19] MEDS: MULTIVITAMINS, THERA 1 EACH TAB PO SCH (12:36)
[2016-08-19 15:12] VITALS: PULSE 86
--- NOTE | 2016-08-20 18:09 | DS ---
DATE OF ADMISSION: 08/16/2016 DATE OF DISCHARGE: 08/19/2016 FINAL DIAGNOSIS(ES): 1. Chronic obstructive pulmonary disease acute exacerbation with acute purulent tracheobronchitis. 2. Diffuse tremors for evaluation and treated with Ativan. 3. Acute rhabdomyolysis elevated CK improving. 4. History of chronic obstructive pulmonary disease. 5. History of coronary artery disease and coronary artery bypass grafting. 6. Mild thrombocytopenia. 7. History of cerebrovascular accident, transient ischemic attack. 8. Essential hypertension. 9. History of degenerative joint disease. 10. Right carotid endarterectomy. 11. History of 50 pack year history of nicotine dependence. 12. NO CODE, NO CPR, NO VENT. DISCHARGE DISPOSITION: Patient will be discharged in a stable condition with guarded prognosis Discharge cleared by pulmonary. HISTORY OF PRESENT ILLNESS: This 65-year-old gentleman with a past medical history of multiple medical problems admitted with COPD and multiple medical issues, treated symptomatically with bronchodilators and antibiotics. Pulmonary Dr. Vazquez saw the patient. Vitals are stable. CARDIOVASCULAR: S1, S2 muffled. RESPIRATORY: A few rhonchi. DISCHARGE ADVICE AND MEDICATIONS: 1. Diet is cardiac. 2. Follow-up with Dr. Michael Duran in 1 to 2 days. 3. Follow up with Dr. Vazquez in one week. 4. Aspirin 320 mg p.o. daily. 5. Lipitor 80 mg q.h.s. 6. Pulmicort 1 puff b.i.d. 7. Plavix 75 milligrams p.o. daily. 8. Albuterol Atrovent updrafts q.i.d. and p.r.n. 9. Ativan 1 mg p.o. t.i.d. 10. Levaquin 500 mg daily for 5 days. 11. Lisinopril 40 mg p.o. daily. 12. Lopressor 12.5 mg p.o. b.i.d. 13. Multivitamins one p.o. daily. 14. Aleve 220 mg b.i.d. p.r.n. 15. Protonix 40 mg daily. 16. Restoril 30 mg q.h.s. p.r.n. 17. Norvasc 10 mg p.o. daily. 18. Catapres 0.1 p.o. b.i.d. 19. Prednisone taper 40 mg daily for 3 days, 30 for 3 days, 20 for 3 days, 10 for three days and stop. Once again, the patient will be discharged in a stable condition with guarded prognosis.
== END 2016-08-19 13:12 | disposition home or self-care (01) ==
LOC: EC 12:45 → 4MS4W 16:30
PROVIDERS: ADMIT Hospitalist; ATTEND Hospitalist
DX: J44.1 Chronic obstructive pulmonary disease with (acute) exacerbation (principal); J44.0 Chronic obstructive pulmonary disease with (acute) lower respiratory infection; J20.9 Acute bronchitis, unspecified; R25.1 Tremor, unspecified; M62.82 Rhabdomyolysis; I25.10 Atherosclerotic heart disease of native coronary artery without angina pectoris; Z95.1 Presence of aortocoronary bypass graft; D69.6 Thrombocytopenia, unspecified; Z86.73 Personal history of transient ischemic attack (TIA), and cerebral infarction without residual deficits; I10 Essential (primary) hypertension; M19.90 Unspecified osteoarthritis, unspecified site; Z87.891 Personal history of nicotine dependence; E78.5 Hyperlipidemia, unspecified; I25.2 Old myocardial infarction; I78.1 Nevus, non-neoplastic; Z79.52 Long term (current) use of systemic steroids; Z79.82 Long term (current) use of aspirin; Z79.899 Other long term (current) drug therapy; Z87.01 Personal history of pneumonia (recurrent); Z95.5 Presence of coronary angioplasty implant and graft; Z79.02 Long term (current) use of antithrombotics/antiplatelets; Z85.46 Personal history of malignant neoplasm of prostate
CPT/HCPCS: 99285 ×2; 96365 ×2; 96375 ×2; 36415; 94640 ×8; 94760; 93005; 83880; 80053; 80048 ×3; 83036; 82550; 82553; 84484; 85025 ×4; 85610; 85730; 81001; 87040; 80306; 87502; 71020; G0378 ×4; J1644 ×3; J2920 ×2; J2930 ×3; J1956 ×3; 96366; 96372; 96376

== ENCOUNTER 2017-06-26 16:09 | Emergency (ER) | payer OTHER ==
[2017-06-26 16:16] VITALS: BP 143/91; PULSE 94; RESP 20; TEMP 98.6
[2017-06-26] MEDS ORDERED: SODIUM CHLORIDE 0.9% 1,000 ML IV STA (16:21)
[2017-06-26 16:24] LABS: Glucose,Whole Blood 90 mg/dL (75-99)
--- NOTE | 2017-06-26 16:27 | ED ---
General Adult HPI - General Chief complaint: Fall Stated complaint: Fall off Ladder Time Seen by Provider: 06/26/17 16:20 Source: patient, RN notes reviewed, old records reviewed Mode of arrival: wheelchair Limitations: no limitations - History of Present Illness Initial comments: This is a 66-year-old male the ER for evaluation. Patient was essay for evaluation regarding fall. Fall from ladder. Patient's called level II trauma secondary to mechanism of fall 10 feet and Plavix. Patient's complaining of left elbow pain left arm pain and bilateral knee pain. Patient denies any had no loss of consciousness denies chest pain shortness of breath or abdominal pain. - Related Data Home Medications Medication Instructions Recorded Confirmed Aspirin 325 mg PO DAILY 08/17/16 06/26/17 Atorvastatin Calcium [Lipitor] 80 mg PO HS 08/17/16 06/26/17 Clopidogrel Bisulfate [Plavix] 75 mg PO DAILY 08/17/16 06/26/17 Lisinopril 40 mg PO DAILY 08/17/16 06/26/17 Temazepam [Restoril] 30 mg PO HS 08/17/16 06/26/17 amLODIPine BESYLATE [Norvasc] 10 mg PO DAILY 08/17/16 06/26/17 Albuterol Inhaler [Ventolin Hfa 2 puff INHALATION RT-TID PRN 06/26/17 06/26/17 Inhaler] Budesonide/Formoterol Fumarate 1 puff INHALATION RT-BID 06/26/17 06/26/17 [Symbicort 160-4.5 Mcg Inhaler] Meloxicam 7.5 mg PO BID 06/26/17 06/26/17 Multivitamins, Thera [Multivitamin 1 tab PO DAILY 06/26/17 06/26/17 (formulary)] Allergies Allergy/AdvReac Type Severity Reaction Status Date / Time No Known Allergies Allergy Verified 06/26/17 18:01 Review of Systems ROS Statement: Those systems with pertinent positive or pertinent negative responses have been documented in the HPI. ROS Other: All systems not noted in ROS Statement are negative. Past Medical History Past Medical History: Coronary Artery Disease (CAD), Cancer, Chest Pain / Angina , COPD, CVA/TIA, Hyperlipidemia, Hypertension, Myocardial Infarction ([place]), Osteoarthritis (OA), Pneumonia Additional Past Medical History / Comment(s): COPD, coronary artery disease with increased bypass surgery, CVA/TIA, hypertension, hyperlipidemia, prostate cancer, right lower extremity fracture, hypertension, osteoarthritis Last Myocardial Infarction Date:: UNK History of Any Multi-Drug Resistant Organisms: None Reported Past Surgical History: Coronary Bypass/CABG, Heart Catheterization With Stent, Prostate Surgery Additional Past Surgical History / Comment(s): Right carotid endarterectomy, coronary bypass surgery, prostatectomy, left shoulder surgery, ORIF of the right lower extremity fracture Past Anesthesia/Blood Transfusion Reactions: No Reported Reaction Date of Last Stent Placement:: UNK Past Psychological History: No Psychological Hx Reported 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 smoker Past Alcohol Use History: Rare Past Drug Use History: None Reported - Past Family History Father Family Medical History: Myocardial Infarction ([place]) Mother Family Medical History: CVA/TIA General Exam Limitations: no limitations General appearance: alert, in no apparent distress Head exam: Present: atraumatic, normocephalic, normal inspection Eye exam: Present: normal appearance, PERRL, EOMI. Absent: scleral icterus, conjunctival injection, periorbital swelling ENT exam: Present: normal exam, mucous membranes moist Neck exam: Present: normal inspection. Absent: tenderness, meningismus, lymphadenopathy Respiratory exam: Present: normal lung sounds bilaterally. Absent: respiratory distress, wheezes, rales, rhonchi, stridor Cardiovascular Exam: Present: regular rate, normal rhythm, normal heart sounds. Absent: systolic murmur, diastolic murmur, rubs, gallop, clicks GI/Abdominal exam: Present: soft, normal bowel sounds. Absent: distended, tenderness, guarding, rebound, rigid Extremities exam: Present: normal inspection, full ROM, normal capillary refill. Absent: tenderness, pedal edema, joint swelling, calf tenderness Back exam: Present: normal inspection Neurological exam: Present: alert, oriented X3, CN II-XII intact Psychiatric exam: Present: normal affect, normal mood Skin exam: Present: warm, dry, intact, normal color. Absent: rash Course Vital Signs 06/26/17 16:13 Temperature 98.6 F Pulse Rate 94 Respiratory 20 Rate Blood Pressure 143/91 O2 Sat by Pulse 98 Oximetry - Reevaluation(s) Reevaluation #1: 06/26/17 20:33 Patient warned of elevated troponin, CT chest and pelvis is negative, second troponin is around same as the first troponin, patient again denies chest pain denies shortness of breath and wants to go home Reevaluation #2: Patient did have initially elevated troponin second troponin is the same, patient denies chest pain states he has significant history of heart disease and knows what heart pain feels like he has noted pain EKG Findings - EKG Comments: EKG Findings:: EKG shows sinus rhythm rate of 91, FL 140, QRS 100, QTC 450 Medical Decision Making - Medical Decision Making 66 male the ER for evaluation. Patient presents today for evaluation regards to fall. Testing is normal pain is controlled and patient can be discharged home( - Lab Data Result diagrams: 06/26/17 16:25 06/26/17 16:25 Lab Results 06/26/17 06/26/17 06/26/17 Range/Units 16:20 16:25 16:25 WBC 8.8 (3.8-10.6) k/uL RBC 4.49 (4.30-5.90) m/uL Hgb 13.2 (13.0-17.5) gm/dL Hct 40.5 (39.0-53.0) % MCV 90.4 (80.0-100.0) fL MCH 29.4 (25.0-35.0) pg MCHC 32.5 (31.0-37.0) g/dL RDW 12.5 (11.5-15.5) % Plt Count 244 (150-450) k/uL Neutrophils % 71 % Lymphocytes % 17 % Monocytes % 7 % Eosinophils % 3 % Basophils % 1 % Neutrophils # 6.3 (1.3-7.7) k/uL Lymphocytes # 1.5 (1.0-4.8) k/uL Monocytes # 0.6 (0-1.0) k/uL Eosinophils # 0.2 (0-0.7) k/uL Basophils # 0.1 (0-0.2) k/uL PT (9.0-12.0) sec INR (<1.2) APTT (22.0-30.0) sec Sodium 141 (137-145) mmol/L Potassium 4.4 (3.5-5.1) mmol/L Chloride 103 (98-107) mmol/L Carbon Dioxide 24 (22-30) mmol/L Anion Gap 14 mmol/L BUN 13 (9-20) mg/dL Creatinine 1.20 (0.66-1.25) mg/dL Est GFR (MDRD) Af Amer >60 (>60 ml/min/1.73 sqM) Est GFR (MDRD) Non-Af >60 (>60 ml/min/1.73 sqM) Glucose 89 (74-99) mg/dL POC Glucose (mg/dL) 90 (75-99) mg/dL POC Glu Operations Coordinator ID Ronan Xiong Plasma Lactic Acid [place] (0.7-2.0) mmol/L Calcium 9.9 (8.4-10.2) mg/dL Total Bilirubin 0.4 (0.2-1.3) mg/dL AST 27 (17-59) U/L ALT 30 (21-72) U/L Alkaline Phosphatase 86 (38-126) U/L Total Creatine Kinase (55-170) U/L CK-MB (CK-2) (0.0-2.4) ng/mL CK-MB (CK-2) Rel Index Troponin I (0.000-0.034) ng/mL Total Protein 7.1 (6.3-8.2) g/dL Albumin 4.7 (3.5-5.0) g/dL Amylase 70 (30-110) U/L Lipase 114 (23-300) U/L Urine Color Urine Appearance (Clear) Urine pH (5.0-8.0) Ur Specific [place] (1.001-1.035) Urine Protein (Negative) Urine Glucose (UA) (Negative) Urine Ketones (Negative) Urine Blood (Negative) Urine Nitrite (Negative) Urine Bilirubin (Negative) Urine Urobilinogen (<2.0) mg/dL Ur Leukocyte Esterase (Negative) Urine Opiates Screen (NotDetected) Ur Oxycodone Screen (NotDetected) Urine Methadone Screen (NotDetected) Ur Propoxyphene Screen (NotDetected) Ur Barbiturates Screen (NotDetected) U Tricyclic Antidepress (NotDetected) Ur Phencyclidine Scrn (NotDetected) Ur Amphetamines Screen (NotDetected) U Methamphetamines Scrn (NotDetected) U Benzodiazepines Scrn (NotDetected) Urine Cocaine Screen (NotDetected) U Marijuana (THC) Screen (NotDetected) Serum Alcohol <10 mg/dL Blood Type Blood Type Recheck Antibody Screen Spec Expiration Date 06/26/17 06/26/17 06/26/17 Range/Units 16:25 16:25 16:25 WBC (3.8-10.6) k/uL RBC (4.30-5.90) m/uL Hgb (13.0-17.5) gm/dL Hct (39.0-53.0) % MCV (80.0-100.0) fL MCH (25.0-35.0) pg MCHC (31.0-37.0) g/dL RDW (11.5-15.5) % Plt Count (150-450) k/uL Neutrophils % % Lymphocytes % % Monocytes % % Eosinophils % % Basophils % % Neutrophils # (1.3-7.7) k/uL Lymphocytes # (1.0-4.8) k/uL Monocytes # (0-1.0) k/uL Eosinophils # (0-0.7) k/uL Basophils # (0-0.2) k/uL PT 10.2 (9.0-12.0) sec INR 1.0 (<1.2) APTT 22.7 (22.0-30.0) sec Sodium (137-145) mmol/L Potassium (3.5-5.1) mmol/L Chloride (98-107) mmol/L Carbon Dioxide (22-30) mmol/L Anion Gap mmol/L BUN (9-20) mg/dL Creatinine (0.66-1.25) mg/dL Est GFR (MDRD) Af Amer (>60 ml/min/1.73 sqM) Est GFR (MDRD) Non-Af (>60 ml/min/1.73 sqM) Glucose (74-99) mg/dL POC Glucose (mg/dL) (75-99) mg/dL POC Glu Operations Coordinator ID Plasma Lactic Acid [place] 1.6 (0.7-2.0) mmol/L Calcium (8.4-10.2) mg/dL Total Bilirubin (0.2-1.3) mg/dL AST (17-59) U/L ALT (21-72) U/L Alkaline Phosphatase (38-126) U/L Total Creatine Kinase 221 H (55-170) U/L CK-MB (CK-2) 3.3 H* (0.0-2.4) ng/mL CK-MB (CK-2) Rel Index 1.5 Troponin I 0.047 H* (0.000-0.034) ng/mL Total Protein (6.3-8.2) g/dL Albumin (3.5-5.0) g/dL Amylase (30-110) U/L Lipase (23-300) U/L Urine Color Urine Appearance (Clear) Urine pH (5.0-8.0) Ur Specific [place] (1.001-1.035) Urine Protein (Negative) Urine Glucose (UA) (Negative) Urine Ketones (Negative) Urine Blood (Negative) Urine Nitrite (Negative) Urine Bilirubin (Negative) Urine Urobilinogen (<2.0) mg/dL Ur Leukocyte Esterase (Negative) Urine Opiates Screen (NotDetected) Ur Oxycodone Screen (NotDetected) Urine Methadone Screen (NotDetected) Ur Propoxyphene Screen (NotDetected) Ur Barbiturates Screen (NotDetected) U Tricyclic Antidepress (NotDetected) Ur Phencyclidine Scrn (NotDetected) Ur Amphetamines Screen (NotDetected) U Methamphetamines Scrn (NotDetected) U Benzodiazepines Scrn (NotDetected) Urine Cocaine Screen (NotDetected) U Marijuana (THC) Screen (NotDetected) Serum Alcohol mg/dL Blood Type Blood Type Recheck Antibody Screen Spec Expiration Date 06/26/17 06/26/17 06/26/17 Range/Units 16:25 19:07 19:34 WBC (3.8-10.6) k/uL RBC (4.30-5.90) m/uL Hgb (13.0-17.5) gm/dL Hct (39.0-53.0) % MCV (80.0-100.0) fL MCH (25.0-35.0) pg MCHC (31.0-37.0) g/dL RDW (11.5-15.5) % Plt Count (150-450) k/uL Neutrophils % % Lymphocytes % % Monocytes % % Eosinophils % % Basophils % % Neutrophils # (1.3-7.7) k/uL Lymphocytes # (1.0-4.8) k/uL Monocytes # (0-1.0) k/uL Eosinophils # (0-0.7) k/uL Basophils # (0-0.2) k/uL PT (9.0-12.0) sec INR (<1.2) APTT (22.0-30.0) sec Sodium (137-145) mmol/L Potassium (3.5-5.1) mmol/L Chloride (98-107) mmol/L Carbon Dioxide (22-30) mmol/L Anion Gap mmol/L BUN (9-20) mg/dL Creatinine (0.66-1.25) mg/dL Est GFR (MDRD) Af Amer (>60 ml/min/1.73 sqM) Est GFR (MDRD) Non-Af (>60 ml/min/1.73 sqM) Glucose (74-99) mg/dL POC Glucose (mg/dL) (75-99) mg/dL POC Glu Operations Coordinator ID Plasma Lactic Acid [place] (0.7-2.0) mmol/L Calcium (8.4-10.2) mg/dL Total Bilirubin (0.2-1.3) mg/dL AST (17-59) U/L ALT (21-72) U/L Alkaline Phosphatase (38-126) U/L Total Creatine Kinase (55-170) U/L CK-MB (CK-2) (0.0-2.4) ng/mL CK-MB (CK-2) Rel Index Troponin I 0.055 H* (0.000-0.034) ng/mL Total Protein (6.3-8.2) g/dL Albumin (3.5-5.0) g/dL Amylase (30-110) U/L Lipase (23-300) U/L Urine Color Colorless Urine Appearance Clear (Clear) Urine pH 6.5 (5.0-8.0) Ur Specific [place] 1.005 (1.001-1.035) Urine Protein Negative (Negative) Urine Glucose (UA) Negative (Negative) Urine Ketones Negative (Negative) Urine Blood Negative (Negative) Urine Nitrite Negative (Negative) Urine Bilirubin Negative (Negative) Urine Urobilinogen <2.0 (<2.0) mg/dL Ur Leukocyte Esterase Negative (Negative) Urine Opiates Screen Detected H (NotDetected) Ur Oxycodone Screen Not Detected (NotDetected) Urine Methadone Screen Not Detected (NotDetected) Ur Propoxyphene Screen Not Detected (NotDetected) Ur Barbiturates Screen Not Detected (NotDetected) U Tricyclic Antidepress Not Detected (NotDetected) Ur Phencyclidine Scrn Not Detected (NotDetected) Ur Amphetamines Screen Not Detected (NotDetected) U Methamphetamines Scrn Not Detected (NotDetected) U Benzodiazepines Scrn Detected H (NotDetected) Urine Cocaine Screen Not Detected (NotDetected) U Marijuana (THC) Screen Not Detected (NotDetected) Serum Alcohol mg/dL Blood Type A Positive Blood Type Recheck CABO Indicated Antibody Screen NEGATIVE Spec Expiration Date 06/29/2017 - 4039 - Radiology Data Radiology results: report reviewed (CT chest abdomen pelvis pain C-spine and multiple x-rays are all negative for traumatic injury), image reviewed Disposition Clinical Impression: Fall, Contusion of left arm, Contusion of leg Disposition: HOME SELF-CARE Condition: Good Instructions: Fall Prevention for Older Adults (ED), Contusion in Adults (ED) Referrals: [facility],Clinic [Primary Care Provider] - 1-2 days
--- NOTE | 2017-06-26 16:38 | XR ---
EXAMINATION TYPE: XR chest 1V portable DATE OF EXAM: 06/26/2017 Comparison: 08/16/2016 Clinical History: 66-year-old male trauma, pain after fall Findings: Median sternotomy wires are present with post-CABG clips in the mediastinum. Heart upper limits of no rmal in size. Mild interstitial prominence is unchanged. No consolidation, pneumothorax, or pleural e ffusion. Impression: Chronic changes without acute cardiopulmonary process.
[2017-06-26 16:40] LABS: Basophils # (A) 0.1 k/uL (0-0.2); Basophils % (A) 1 %; Eosinophils # (A) 0.2 k/uL (0-0.7); Eosinophils % (A) 3 %; HCT 40.5 % (39.0-53.0); HGB 13.2 gm/dL (13.0-17.5); Lymphocytes # (A) 1.5 k/uL (1.0-4.8); Lymphocytes % (A) 17 %; MCH 29.4 pg (25.0-35.0); MCHC 32.5 g/dL (31.0-37.0); MCV 90.4 fL (80.0-100.0); Monocytes # (A) 0.6 k/uL (0-1.0); Monocytes % (A) 7 %; Neutrophils # (A) 6.3 k/uL (1.3-7.7); Neutrophils % (A) 71 %; Platelet Count 244 k/uL (150-450); RBC 4.49 m/uL (4.30-5.90); RDW 12.5 % (11.5-15.5); WBC 8.8 k/uL (3.8-10.6)
--- NOTE | 2017-06-26 16:44 | XR ---
EXAMINATION TYPE: XR pelvis AP view DATE OF EXAM: 06/26/2017 COMPARISON: NONE HISTORY: Hip pain TECHNIQUE: Single view FINDINGS: The pelvic ring is intact. There are numerous surgical clips in the pelvis. Proximal femurs are intact. Sacroiliac joints appear normal. IMPRESSION: No acute abnormality of the pelvis.
[2017-06-26 16:50] LABS: Partial Thromboplastin Time 22.7 sec (22.0-30.0); Prothrombin Time 10.2 sec (9.0-12.0)
[2017-06-26 16:53] LABS: ALT 30 U/L (21-72); AST 27 U/L (17-59); Albumin 4.7 g/dL (3.5-5.0); Alcohol <10 mg/dL; Alkaline Phosphatase 86 U/L (38-126); Amylase 70 U/L (30-110); Anion Gap 14 mmol/L; Blood Urea Nitrogen 13 mg/dL (9-20); Calcium 9.9 mg/dL (8.4-10.2); Carbon Dioxide 24 mmol/L (22-30); Chloride 103 mmol/L (98-107); Glucose 89 mg/dL (74-99); Lipase 114 U/L (23-300); Potassium 4.4 mmol/L (3.5-5.1); Sodium 141 mmol/L (137-145); Total Bilirubin 0.4 mg/dL (0.2-1.3); Total Protein 7.1 g/dL (6.3-8.2)
--- NOTE | 2017-06-26 17:03 | CT ---
EXAMINATION TYPE: CT brain suzanne carpenter DATE OF EXAM: 06/26/2017 COMPARISON: NONE HISTORY: Fall from approx. 10 feet. Denies head injury CT DLP: 1459.2 mGycm Automated exposure control for dose reduction was used. TECHNIQUE: CT scan of the head and cervical spine are performed without contrast. FINDINGS: There is mild cerebral cortical atrophy. There is no mass effect nor midline shift. There is no sign of intracranial hemorrhage. The calvarium is intact. There is some deformity of the anter ior wall of the left maxillary sinus that could relate to an old fracture. The cervical vertebra have normal alignment. There is some narrowing and spurring at C4-5 C5-6 C6-7. Facet joints are intact. The skull base is intact. There is no sign of a fracture. IMPRESSION: Spondylotic changes in the cervical spine. No fracture. Cerebral atrophy. No acute intracranial abnormality. There is probably a 4 mm lacunar infarct in the anterior left internal capsule.
[2017-06-26 17:15] LABS: Creatine Kinase MB 3.3 ng/mL (0.0-2.4); Troponin I 0.047 ng/mL (0.000-0.034)
[2017-06-26] MEDS ORDERED: MORPHINE SULFATE 4 MG/ML SYRINGE IVP STA (17:40)
[2017-06-26] MEDS ORDERED: RX INFO: IV CONTRAST WAS GIVEN 1 EACH MISC MISCELLANE PRN (17:43)
--- NOTE | 2017-06-26 18:54 | CT ---
EXAMINATION TYPE: CT abdomen pelvis w con DATE OF EXAM: 06/26/2017 COMPARISON: NONE HISTORY: Fall today. Patient complains of back pain. CT DLP: 1239.7 mGycm Automated exposure control for dose reduction was used. TECHNIQUE: Helical acquisition of images was performed from the lung bases through the pelvis. CONTRAST: Performed without Oral Contrast and with IV Contrast, patient injected with 100 mL of Omnipaque 350. FINDINGS: Lung bases are clear. There is no pleural effusion. Liver spleen pancreas gallbladder appear normal. Bile ducts are not dilated. There is no adrenal mass. There is some vascular calcification. Kidneys s how satisfactory contrast opacification. There is no hydronephrosis. Ureters are not dilated. There i s no retroperitoneal adenopathy. There is no ascites. I see no intestinal wall thickening. There are no dilated loops. Appendix appears normal. Bladder distends smoothly. There is no sign of a pelvic ma ss. There are spondylotic mild changes in the lumbar spine. There is no sign of free air. Bony pelvis appears intact. IMPRESSION: NEGATIVE CT SCAN OF THE ABDOMEN AND PELVIS. NO EVIDENCE OF TRAUMATIC INJURY. I DO NOT SEE A CAUSE FOR BACK PAIN. MILD ATHEROSCLEROTIC VASCULAR DISEASE.
--- NOTE | 2017-06-26 18:58 | CT ---
EXAMINATION TYPE: CT angio chest DATE OF EXAM: 06/26/2017 6:47 PM COMPARISON: NONE HISTORY: Fall today. Patient complains of back pain. CT DLP: 345.7 mGycm Automated exposure control for dose reduction was used. CONTRAST: CTA scan of the thorax is performed with IV Contrast, patient injected with 100 mL of Omnipaque 350, pulmonary embolism protocol. There are 3-D post processed images.. FINDINGS: There is some mild bullous emphysema at the lung apices. There is no evidence of a pulmonary mass. Th oracic aorta is atheromatous. There is no mediastinal adenopathy. There are no hilar masses. There is no pericardial effusion. There is no pleural effusion. Thoracic aorta shows mild atheromatous change . There is no evidence of aneurysm or dissection. There is mild 10% anterior wedging of T8 vertebra t hat is probably old. I see no filling defects in the pulmonary arteries. IMPRESSION: NEGATIVE CT ANGIOGRAM OF THE CHEST. NO EVIDENCE OF PULMONARY EMBOLISM. MILD PULMONARY EMPHYSEMA.
[2017-06-26 19:17] LABS: Appearance,Urine Clear (Clear); Bilirubin,Urine Negative (Negative); Blood,Urine Negative (Negative); Color,Urine Colorless; Glucose,Urine (UA) Negative (Negative); Ketones,Urine Negative (Negative); Leukocyte Esterase,Urine Negative (Negative); Nitrite,Urine Negative (Negative); PH, Urine 6.5 (5.0-8.0); Protein,Urine Negative (Negative); Specific Gravity,Urine 1.005 (1.001-1.035); Urobilinogen,Urine <2.0 mg/dL (<2.0)
--- NOTE | 2017-06-26 19:23 | XR ---
EXAMINATION TYPE: XR ankle complete bilateral DATE OF EXAM: 06/26/2017 COMPARISON: NONE HISTORY: Pain TECHNIQUE: 6 views FINDINGS: The left and right ankle mortise is intact. Joint spaces are fairly well-maintained. There is a moderate left-sided plantar calcaneal spur. There is a small right-sided plantar calcaneal spur. IMPRESSION: Mild calcaneal spurring. No fracture.
--- NOTE | 2017-06-26 19:24 | XR ---
EXAMINATION TYPE: XR knee complete bilateral DATE OF EXAM: 06/26/2017 COMPARISON: NONE HISTORY: Knee pain TECHNIQUE: 6 views FINDINGS: I see no fracture nor dislocation. Joint spaces are normal. There is no sign of knee joint effusion. IMPRESSION: Negative bilateral knee exam.
--- NOTE | 2017-06-26 19:25 | XR ---
EXAMINATION TYPE: XR wrist complete LT DATE OF EXAM: 06/26/2017 COMPARISON: NONE HISTORY: Pain TECHNIQUE: 4 views FINDINGS: There is mild spurring at the first carpometacarpal joint. I see no fracture nor dislocatio n. There is a 4 mm metallic foreign body in the soft tissues posterior to the mid forearm. IMPRESSION: Metal foreign body in the forearm. No fracture.
--- NOTE | 2017-06-26 19:26 | XR ---
EXAMINATION TYPE: XR elbow complete LT DATE OF EXAM: 06/26/2017 COMPARISON: NONE HISTORY: Elbow pain TECHNIQUE: 3 views FINDINGS: I see no fracture nor dislocation. Joint spaces are fairly normal. There is no sign of elbo w joint effusion. IMPRESSION: Negative left elbow exam.
[2017-06-26 19:30] LABS: Amphetamine Screen,Urine Not Detected (NotDetected); Barbiturate Screen,Urine Not Detected (NotDetected); Benzodiazepines Screen,Urine Detected (NotDetected); Cocaine Screen,Urine Not Detected (NotDetected); Methadone Screen, Urine Not Detected (NotDetected); Opiate Screen,Urine Detected (NotDetected); Oxycodone Screen, Urine Not Detected (NotDetected); Phencyclidine Screen,Urine Not Detected (NotDetected); Tricyclic Antidepressant,Urine Not Detected (NotDetected); Urn Cannabinoid Scrn Not Detected (NotDetected)
== END 2017-06-26 21:24 | disposition home or self-care (01) ==
LOC: EC 16:09
DX: S40.022A Contusion of left upper arm, initial encounter (principal); S80.11XA Contusion of right lower leg, initial encounter; S80.12XA Contusion of left lower leg, initial encounter; R22.0 Localized swelling, mass and lump, head; I25.10 Atherosclerotic heart disease of native coronary artery without angina pectoris; J44.9 Chronic obstructive pulmonary disease, unspecified; E78.5 Hyperlipidemia, unspecified; I10 Essential (primary) hypertension; I25.2 Old myocardial infarction; Z87.891 Personal history of nicotine dependence; W11.XXXA Fall on and from ladder, initial encounter; Y92.009 Unspecified place in unspecified non-institutional (private) residence as the place of occurrence of the external cause; Z79.02 Long term (current) use of antithrombotics/antiplatelets; Z79.1 Long term (current) use of non-steroidal anti-inflammatories (NSAID); Z79.51 Long term (current) use of inhaled steroids; Z79.82 Long term (current) use of aspirin; Z79.899 Other long term (current) drug therapy
CPT/HCPCS: 36415; 93005; 86900; 86901; 80053; 82150; 82550; 82553; 83605; 83690; 84484; 85025; 85610; 85730; 86850; 81003; 80306; 80320; 73562; 73610; 72170; 73080; 73110; 71045; 72125; 70450; 71275; 74177; 99284; 96374; 96361 ×5; J2270; Q9967

== ENCOUNTER → 2017-08-01 | Outpatient (CLI) | payer OTHER ==
[~2017-08-01] MED LIST: REGADENOSON 0.4 MG/5 ML SYRINGE IV ONE
--- NOTE | 2017-08-01 11:04 | EST ---
EXERCISE STRESS DATE OF SERVICE: 08/01/2017 AGE: 66 SEX: Male HT: 65" WT: 164 pounds PROTOCOL: Lexiscan Cardiolite STAGE: DURATION OF EXERCISE: HEART RATE REST: 64 BLOOD PRESSURE REST: 149/86 MAXIMUM HEART RATE ACHIEVED: 81 MAXIMUM BLOOD PRESSURE: 122/83 85% MPHR: 133 100% MPHR: 156 METS: INDICATIONS: Physical. CLINICAL INFORMATION: Baseline EKG revealed normal sinus rhythm with evidence of old inferior LA, right bundle branch block pattern with repolarization abnormality. The patient was administered Lexiscan as per protocol. Heart rate changed from 64 to 81 beats per minute. Blood pressure changed from 149/86 to 122/83 and then came back to baseline. EKG remained inconclusive. Patient did not have any significant symptoms. By EKG criteria, this is an inconclusive Lexiscan stress test because of resting EKG changes. The nuclear scan results, which are more pertinent, will be reported by the radiologist. MMMONTYL / JAMIEN: [id number] /
--- NOTE | 2017-08-01 16:21 | NM ---
EXAMINATION TYPE: NM stress lexiscan cardiolite DATE OF EXAM: 08/01/2017 COMPARISON: NONE HISTORY: I 25.10 TECHNIQUE: After the intravenous administration of 10.2 mCi Tc 99m Sestamibi - Cardiolite resting SP ECT images acquired 45 minutes post injection. The patient received 0.4mg Lexiscan, 25 mCi Tc 99m Sestamibi - Stress images obtained 35 minutes post injection FINDINGS: Review of stress and rest SPECT images demonstrates decreased radiotracer uptake along the inferior a nd lateral left ventricle on stress and rest images. There is some decreased reaffirms aquatic along the lateral wall stress images as compared to rest images as well as some inferoseptal decreased upta ke on stress as compared to rest images. Gated analysis shows questionable paradoxical septal wall m otion, some global hypokinesis with an estimated left ventricular ejection fraction of 32 %. 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 [facility] staff to nurse practitioner following inter pretation of the exam.
== END | disposition home or self-care (01) ==
LOC: RADNMMAIN 07:45
DX: I25.10 Atherosclerotic heart disease of native coronary artery without angina pectoris (principal)
CPT/HCPCS: 93017; 78452; A9500; J2785

== ENCOUNTER → 2018-05-05 | Outpatient (CLI) | payer OTHER ==
--- NOTE | 2018-05-05 08:52 | XR ---
EXAMINATION TYPE: XR chest 2V DATE OF EXAM: 05/05/2018 COMPARISON: Prior chest x-ray June 26, 2017. HISTORY: Prostate cancer. TECHNIQUE: Frontal and lateral views of the chest are obtained. FINDINGS: Post-CABG changes with mediastinal clips and sternal wires is redemonstrated. There is chr onic parenchymal change without suspicious focal air space opacity, pleural effusion, or pneumothorax seen. The cardiac silhouette size is mildly enlarged with atherosclerotic aorta. There is coronary stent seen on lateral view. Epicardial pacer wires are present. The osseous structures are intact. IMPRESSION: Mild cardiomegaly without acute pulmonary process. No significant change from prior.
--- NOTE | 2018-05-05 10:30 | CT ---
EXAMINATION TYPE: CT abdomen pelvis w con DATE OF EXAM: 05/05/2018 COMPARISON: CT abdomen and pelvis June 26, 2017 HISTORY: Prostate CA CT DLP: 719.3 mGycm, Automated Exposure Control for Dose Reduction was Utilized. CONTRAST: CT scan of the abdomen and pelvis is performed with oral and with IV Contrast, patient injected with 100 mL of Isovue 300. FINDINGS: LUNG BASES: There is right coronary artery calcification and/or stent redemonstrated. LIVER/GB: No significant abnormality is appreciated. PANCREAS: No significant abnormality is seen. SPLEEN: No significant abnormality is seen. ADRENALS: No significant abnormality is seen. KIDNEYS: Symmetric cortical medullary uptake and excretion from both kidneys is seen without hydronep hrosis bilaterally. Bladder is felt within normal limits and midline of the anterior pelvis. BOWEL: Oral contrast extends to splenic flexure. There is no suspicious small or large bowel dilatati on. Few scattered colonic diverticula are seen without CT evidence for acute diverticulitis. PROSTATE/SEMINAL VESICLES: Prostate gland is redemonstrated surgically absent with numerous surgical clips in the pelvis extending into bilateral groin region redemonstrated. LYMPH NODES: No greater than 1cm abdominal or pelvic lymph nodes are appreciated. OSSEOUS STRUCTURES: Moderate disc space narrowing L3-L4 level is redemonstrated. There is multilevel facet arthropathy in the lower lumbar spine. Moderate axial joint space loss in both hips is seen. OTHER: Moderate mixed plaque in the aorta extends into branch vessels. IMPRESSION: No suspicious new mass or adenopathy identified to suggest recurrent or metastatic malig mary.
--- NOTE | 2018-05-05 12:54 | NM ---
EXAMINATION TYPE: NM bone scan whole body DATE OF EXAM: 05/05/2018 COMPARISON: Correlation CT same day HISTORY: 67-year-old male with prostate cancer Technique: Delayed whole-body scanning was performed following the injection of 24.2 mCi Tc 99m MDP. Whole-body anterior and posterior Images acquired 3 hours post injection. FINDINGS: The degenerative changes are seen at the left greater than right shoulder and also along the left-jackie ed posterior elements of the lower lumbar spine. No suspicious distribution of tracer to suggest osse ous metastatic disease. IMPRESSION: No scintigraphic evidence for osseous metastatic disease.
== END ==
LOC: RADNMMAIN 08:00
PROVIDERS: ATTEND Urology
DX: C61 Malignant neoplasm of prostate (principal); I51.7 Cardiomegaly
CPT/HCPCS: 82565; 84520; 71046; 74177; 78306; 36415; A9503; Q9967

== ENCOUNTER 2019-03-14 08:02 | Emergency (ER) | payer OTHER ==
[2019-03-14 08:25] VITALS: RESP 16
[2019-03-14] MEDS ORDERED: FUROSEMIDE 10 MG/ML 4 ML VIAL IV STA (08:37)
--- NOTE | 2019-03-14 08:41 | ED ---
General Adult HPI - General Chief complaint: Shortness of Breath Stated complaint: Diff Breathing Time Seen by Provider: 03/14/19 08:05 Source: patient, RN notes reviewed Mode of arrival: wheelchair Limitations: no limitations - History of Present Illness Initial comments: This is a 68-year-old male who presents emergency Department complaining of cough shortness of breath for 3-4 days. Patient states his cough up quite a bit of sputum but it's mostly clear. Patient states she does have a history of just heart failure and has had bypass surgery. Patient denies any known fever today. Patient denies any palpitations. Patient denies any chest pain. Patient denies abdominal pain patient denies nausea vomiting or diarrhea. Patient denies headache patient denies numbness weakness. Patient denies lightheadedness or dizziness. Patient denies swelling to the legs or calf tenderness. - Related Data Home Medications Medication Instructions Recorded Confirmed Aspirin 325 mg PO DAILY 08/17/16 03/14/19 Clopidogrel Bisulfate [Plavix] 75 mg PO DAILY 08/17/16 03/14/19 Lisinopril 40 mg PO DAILY 08/17/16 03/14/19 Temazepam [Restoril] 30 mg PO HS 08/17/16 03/14/19 amLODIPine BESYLATE [Norvasc] 10 mg PO DAILY 08/17/16 03/14/19 Budesonide/Formoterol Fumarate 1 puff INHALATION RT-BID PRN 06/26/17 03/14/19 [Symbicort 160-4.5 Mcg Inhaler] Albuterol Sulfate [Proair Hfa] 1 puff INHALATION RT-Q6H PRN 03/14/19 03/14/19 Atorvastatin [Lipitor] 40 mg PO DAILY 03/14/19 03/14/19 Metoprolol Tartrate [Lopressor] 25 mg PO DAILY 03/14/19 03/14/19 Previous Rx's Medication Instructions Recorded Albuterol Inhaler [Ventolin Hfa 1 - 2 puff INHALATION Q6HR PRN #2 03/14/19 Inhaler] puff Azithromycin [Zithromax Tri-Efraín] 500 mg PO DAILY #3 tab 03/14/19 predniSONE 40 mg PO DAILY #8 tab 03/14/19 Allergies Allergy/AdvReac Type Severity Reaction Status Date / Time No Known Allergies Allergy Verified 03/14/19 09:18 Review of Systems ROS Statement: Those systems with pertinent positive or pertinent negative responses have been documented in the HPI. ROS Other: All systems not noted in ROS Statement are negative. Past Medical History Past Medical History: Coronary Artery Disease (CAD), Cancer, Chest Pain / Angina, COPD, CVA/TIA, Hyperlipidemia, Hypertension, Myocardial Infarction ([place]), Osteoarthritis ([place]), Pneumonia Additional Past Medical History / Comment(s): COPD, coronary artery disease with increased bypass surgery, CVA/TIA, hypertension, hyperlipidemia, prostate cancer, right lower extremity fracture, hypertension, osteoarthritis Last Myocardial Infarction Date:: UNK History of Any Multi-Drug Resistant Organisms: None Reported Past Surgical History: Coronary Bypass/CABG, Heart Catheterization With Stent, Prostate Surgery Additional Past Surgical History / Comment(s): Right carotid endarterectomy, coronary bypass surgery, prostatectomy, left shoulder surgery, ORIF of the right lower extremity fracture Past Anesthesia/Blood Transfusion Reactions: No Reported Reaction Date of Last Stent Placement:: UNK Past Psychological History: No Psychological Hx Reported 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 smoker Past Alcohol Use History: Rare Past Drug Use History: None Reported - Past Family History Father Family Medical History: Myocardial Infarction ([place]) Mother Family Medical History: CVA/TIA General Exam - General Exam Comments Initial Comments: GENERAL: Patient is well-developed and well-nourished. Patient is nontoxic and well- hydrated and is in moderate distress. ENT: Neck is soft and supple. No significant lymphadenopathy is noted. Oropharynx is clear. Moist mucous membranes. Neck has full range of motion without eliciting any pain. EYES: The sclera were anicteric and conjunctiva were pink and moist. Extraocular movements were intact and pupils were equal round and reactive to light. Eyelids were unremarkable. PULMONARY: Patient has crackles throughout. CARDIOVASCULAR: There is a regular rate and rhythm without any murmurs gallops or rubs. ABDOMEN: Soft and nontender with normal bowel sounds. SKIN: Skin is clear with no lesions or rashes and otherwise unremarkable. NEUROLOGIC: Patient is alert and oriented x3. Cranial nerves II through XII are grossly intact. Motor and sensory are also intact. Normal speech, volume and content. Symmetrical smile. MUSCULOSKELETAL: Normal extremities with adequate strength and full range of motion. No lower extremity swelling or edema. No calf tenderness. LYMPHATICS: No significant lymphadenopathy is noted PSYCHIATRIC: Normal psychiatric evaluation. Limitations: no limitations Course Vital Signs 11/02/19 11/02/19 11/02/19 08:05 08:24 08:33 Temperature 98.2 F 98.6 F Pulse Rate 109 H 91 Respiratory 24 16 16 Rate Blood Pressure 111/76 127/75 O2 Sat by Pulse 94 L 96 Oximetry 03/14/19 03/14/19 03/14/19 08:40 09:23 09:33 Temperature 100.0 F H Pulse Rate 100 100 Respiratory Rate Blood Pressure O2 Sat by Pulse Oximetry 03/14/19 03/14/19 03/14/19 10:02 10:15 10:26 Temperature Pulse Rate 93 93 93 Respiratory 16 Rate Blood Pressure 129/90 O2 Sat by Pulse 98 Oximetry Medical Decision Making - Medical Decision Making EKG shows normal sinus rhythm at 92 bpm SC interval 150 QRS 108 QT interval is 354 QTC is 437. Patient's EKG shows no ST segment elevation or depression. There are T-wave inversions in leads V5 and V6. Patient has those same inversions in previous EKGs. Patient also has Q waves inferiorly which were also seen on an old EKG. Chest x-ray showed no acute abnormality Patient received antibiotics in the emergency room as well as albuterol and Jasmin u-Medrol. Patient was doing considerably better when I reevaluated the patient. Patient's lungs were clear. Patient stated he wanted to go home at this point. - Lab Data Result diagrams: 03/14/19 08:23 03/14/19 08:23 Lab Results 03/14/19 03/14/19 03/14/19 Range/Units 08:23 08:23 08:23 WBC 8.5 (3.8-10.6) k/uL RBC 4.62 (4.30-5.90) m/uL Hgb 14.1 (13.0-17.5) gm/dL Hct 41.0 (39.0-53.0) % MCV 88.7 (80.0-100.0) fL MCH 30.5 (25.0-35.0) pg MCHC 34.3 (31.0-37.0) g/dL RDW 12.7 (11.5-15.5) % Plt Count 192 (150-450) k/uL Neutrophils % 86 % Lymphocytes % 6 % Monocytes % 6 % Eosinophils % 1 % Basophils % 1 % Neutrophils # 7.3 (1.3-7.7) k/uL Lymphocytes # 0.5 L (1.0-4.8) k/uL Monocytes # 0.5 (0-1.0) k/uL Eosinophils # 0.1 (0-0.7) k/uL Basophils # 0.0 (0-0.2) k/uL PT (9.0-12.0) sec INR (<1.2) APTT (22.0-30.0) sec Sodium 138 (137-145) mmol/L Potassium 4.5 (3.5-5.1) mmol/L Chloride 103 (98-107) mmol/L Carbon Dioxide 24 (22-30) mmol/L Anion Gap 11 mmol/L BUN 16 (9-20) mg/dL Creatinine 1.04 (0.66-1.25) mg/dL Est GFR (CKD-EPI)AfAm 87 (>60 ml/min/1.73 sqM) Est GFR (CKD-EPI)NonAf 75 (>60 ml/min/1.73 sqM) Glucose 151 H (74-99) mg/dL Plasma Lactic Acid Lobito (0.7-2.0) mmol/L Calcium 9.5 (8.4-10.2) mg/dL Magnesium 2.0 (1.6-2.3) mg/dL Total Bilirubin 0.7 (0.2-1.3) mg/dL AST 27 (17-59) U/L ALT 28 (21-72) U/L Alkaline Phosphatase 86 (38-126) U/L Troponin I (0.000-0.034) ng/mL NT-Pro-B Natriuret Pep 516 pg/mL Total Protein 6.7 (6.3-8.2) g/dL Albumin 4.2 (3.5-5.0) g/dL 03/14/19 03/14/19 03/14/19 Range/Units 08:23 08:23 08:55 WBC (3.8-10.6) k/uL RBC (4.30-5.90) m/uL Hgb (13.0-17.5) gm/dL Hct (39.0-53.0) % MCV (80.0-100.0) fL MCH (25.0-35.0) pg MCHC (31.0-37.0) g/dL RDW (11.5-15.5) % Plt Count (150-450) k/uL Neutrophils % % Lymphocytes % % Monocytes % % Eosinophils % % Basophils % % Neutrophils # (1.3-7.7) k/uL Lymphocytes # (1.0-4.8) k/uL Monocytes # (0-1.0) k/uL Eosinophils # (0-0.7) k/uL Basophils # (0-0.2) k/uL PT 10.3 (9.0-12.0) sec INR 1.0 (<1.2) APTT 24.3 (22.0-30.0) sec Sodium (137-145) mmol/L Potassium (3.5-5.1) mmol/L Chloride (98-107) mmol/L Carbon Dioxide (22-30) mmol/L Anion Gap mmol/L BUN (9-20) mg/dL Creatinine (0.66-1.25) mg/dL Est GFR (CKD-EPI)AfAm (>60 ml/min/1.73 sqM) Est GFR (CKD-EPI)NonAf (>60 ml/min/1.73 sqM) Glucose (74-99) mg/dL Plasma Lactic Acid Lobito 3.2 H* (0.7-2.0) mmol/L Calcium (8.4-10.2) mg/dL Magnesium (1.6-2.3) mg/dL Total Bilirubin (0.2-1.3) mg/dL AST (17-59) U/L ALT (21-72) U/L Alkaline Phosphatase (38-126) U/L Troponin I 0.013 (0.000-0.034) ng/mL NT-Pro-B Natriuret Pep pg/mL Total Protein (6.3-8.2) g/dL Albumin (3.5-5.0) g/dL Disposition Clinical Impression: Acute exacerbation of chronic obstructive pulmonary disease, Acute bronchitis Disposition: HOME SELF-CARE Instructions (If sedation given, give patient instructions): Acute Bronchitis (ED), COPD (Chronic Obstructive Pulmonary Disease) (ED) Prescriptions: predniSONE 40 mg PO DAILY #8 tab Albuterol Inhaler [Ventolin Hfa Inhaler] 1 - 2 puff INHALATION Q6HR PRN #2 puff PRN Reason: Difficulty breathing Azithromycin [Zithromax Tri-Efraín] 500 mg PO DAILY #3 tab Is patient prescribed a controlled substance at d/c from ED?: No Referrals: [facility] [Primary Care Provider] - 1-2 days Time of Disposition: 10:55
[2019-03-14 08:57] LABS: Basophils % (A) 1 %; Eosinophils # (A) 0.1 k/uL (0-0.7); Eosinophils % (A) 1 %; HGB 14.1 gm/dL (13.0-17.5); Lymphocytes # (A) 0.5 k/uL (1.0-4.8); Lymphocytes % (A) 6 %; MCH 30.5 pg (25.0-35.0); MCHC 34.3 g/dL (31.0-37.0); MCV 88.7 fL (80.0-100.0); Mean Platelet Volume 6.6; Monocytes # (A) 0.5 k/uL (0-1.0); Monocytes % (A) 6 %; Neutrophils # (A) 7.3 k/uL (1.3-7.7); Neutrophils % (A) 86 %; Platelet Count 192 k/uL (150-450); RBC 4.62 m/uL (4.30-5.90); RDW 12.7 % (11.5-15.5); WBC 8.5 k/uL (3.8-10.6)
[2019-03-14 09:06] LABS: Partial Thromboplastin Time 24.3 sec (22.0-30.0); Prothrombin Time 10.3 sec (9.0-12.0)
[2019-03-14 09:07] LABS: Albumin 4.2 g/dL (3.5-5.0); Calcium 9.5 mg/dL (8.4-10.2); Potassium 4.5 mmol/L (3.5-5.1); Total Bilirubin 0.7 mg/dL (0.2-1.3); Total Protein 6.7 g/dL (6.3-8.2)
[2019-03-14] MEDS ORDERED: IPRATROPIUM-ALBUTEROL 3 ML NEB INHALATION STA ×2 (09:16→09:54)
--- NOTE | 2019-03-14 09:24 | XR ---
EXAMINATION TYPE: XR chest 2V DATE OF EXAM: 03/14/2019 HISTORY: difficulty breathing. REFERENCE: Previous study dated 05/05/2018. FINDINGS: There has been a midline sternotomy. The lungs are overinflated lungs are clear. The heart is not enlarged. Pleural spaces are clear. IMPRESSION: COPD.
[2019-03-14] MEDS ORDERED: ACETAMINOPHEN TAB 500 MG TAB PO STA (09:53)
[2019-03-14] MEDS ORDERED: SODIUM CHLORIDE 0.9% 1,000 ML IV ONE (09:53)
[2019-03-14] MEDS ORDERED: cefTRIAXone IN SWFI 1,000 MG/10 ML SYRINGE IVP STA (09:54)
[2019-03-14] MEDS ORDERED: methylPREDNISolone SOD SUCCI 125 MG/2 ML VIAL IV STA (09:54)
[2019-03-14 11:11] VITALS: BP 136/74; PULSE 91; TEMP 98.6
== END 2019-03-14 11:10 | disposition home or self-care (01) ==
LOC: EC 08:02
DX: J44.0 Chronic obstructive pulmonary disease with (acute) lower respiratory infection (principal); J20.9 Acute bronchitis, unspecified; J44.1 Chronic obstructive pulmonary disease with (acute) exacerbation; R94.31 Abnormal electrocardiogram [ECG] [EKG]; I25.119 Atherosclerotic heart disease of native coronary artery with unspecified angina pectoris; E78.5 Hyperlipidemia, unspecified; I11.0 Hypertensive heart disease with heart failure; I50.9 Heart failure, unspecified; I25.2 Old myocardial infarction; M19.90 Unspecified osteoarthritis, unspecified site; Z87.891 Personal history of nicotine dependence; Z79.02 Long term (current) use of antithrombotics/antiplatelets; Z79.51 Long term (current) use of inhaled steroids; Z79.82 Long term (current) use of aspirin; Z79.899 Other long term (current) drug therapy; Z85.46 Personal history of malignant neoplasm of prostate; Z86.73 Personal history of transient ischemic attack (TIA), and cerebral infarction without residual deficits; Z87.01 Personal history of pneumonia (recurrent); Z95.1 Presence of aortocoronary bypass graft; Z95.5 Presence of coronary angioplasty implant and graft; Z90.79 Acquired absence of other genital organ(s); Z82.49 Family history of ischemic heart disease and other diseases of the circulatory system
CPT/HCPCS: 36415; 94640 ×2; 93005; 83880; 80053; 83605; 83735; 84484; 85025; 85610; 85730; 87040; 71046; 99285; 96374; 96375 ×2; 96361; J1940; J2930; J0696

== ENCOUNTER → 2019-12-25 | Outpatient (CLI) | payer OTHER ==
--- NOTE | 2019-12-25 10:34 | US ---
EXAMINATION TYPE: US carotid duplex BILAT DATE OF EXAM: 12/25/2019 COMPARISON: NONE CLINICAL HISTORY: 69-year-old male I65.21 OCCLUSION AND STENOSIS OF RT CAROTID ARTERY. Stenosis, pt h as history of right endart 4-5 years ago TECHNIQUE: Carotid duplex ultrasound examination. Indirect Doppler criteria was utilized. FINDINGS: EXAM MEASUREMENTS: RIGHT: Peak Systolic Velocity (PSV) cm/sec ----- Right CCA: 73.4 ----- Right ICA: 58.2 ----- Right ECA: 107 ICA/CCA ratio: 0.8 RIGHT: End Diastole cm/sec ----- Right CCA: 12.9 ----- Right ICA: 13.2 ----- Right ECA: 13.8 LEFT: Peak Systolic Velocity (PSV) cm/sec ----- Left CCA: 85.2 ----- Left ICA: 103 ----- Left ECA: 130 ICA/CCA ratio: 1.2 LEFT: End Diastole cm/sec ----- Left CCA: 13.2 ----- Left ICA: 24.5 ----- Left ECA: 12.9 VERTEBRALS (direction of flow): Right Vertebral: Antegrade Left Vertebral: Antegrade Rhythm: Normal No significant stenosis seen IMPRESSION: No hemodynamically significant internal carotid artery stenosis on either side. Criteria for Assigning % of Stenosis / Diameter reduction (Estimation based on the indirect measurements of the internal carotid artery velocities (ICA PSV). 1. Normal (no stenosis)=ICA PSV < 125 cm/s: ratio < 2.0: ICA EDV<40 cm/s. 2. Less than 50% stenosis=ICA PSV < 125 cm/s: ratio < 2.0: ICA EDV<40 cm/s. 3. 50 to 69% stenosis=ICA PSV of 125 to 230 cm/s: ration 2.0 ? 4.0: ICA EDV 40-100 cm/s. 4. Greater than 70% stenosis to near occlusion= ICA PSV > 230 cm/s: ratio > 4.0: ICA EDV > 100 cm/s. 5. Near occlusion= ICA PSV velocities may be low or undetectable: variable ratio and ICA EDV. 6. Total occlusion=unable to detect flow.
== END | disposition home or self-care (01) ==
LOC: RADUSWWP 08:00
DX: I65.21 Occlusion and stenosis of right carotid artery (principal)
CPT/HCPCS: 93880

== ENCOUNTER → 2020-01-29 | Outpatient (CLI) | payer OTHER ==
--- NOTE | 2020-01-29 10:43 | XR ---
EXAMINATION TYPE: XR chest 2V DATE OF EXAM: 01/29/2020 COMPARISON: Prior chest x-ray 03/14/2019 HISTORY: Prostate carcinoma, abnormal PSA TECHNIQUE: Frontal and lateral views of the chest are obtained. FINDINGS: There is no focal air space opacity, pleural effusion, or pneumothorax seen. The cardiac silhouette size is within normal limits. The osseous structures are intact, patient is post median sternotomy and the shoulder show arthropathy, high riding shoulders may be indicative of chronic rota tor cuff tears. There is thoracic spondylosis present. Prominent lung volume may be indicative of und erlying COPD. There are coronary artery calcifications present as well as epicardial pacing lead. IMPRESSION: No acute cardiopulmonary process. Artery disease and emphysema. Additional findings abov e.
--- NOTE | 2020-01-29 14:08 | NM ---
EXAMINATION TYPE: NM bone scan whole body DATE OF EXAM: 01/29/2020 COMPARISON: CT same date, prior bone scan 05/05/2018 HISTORY: Prostate carcinoma Delayed whole-body scanning was performed following the injection of 25.3 mCi Tc 99m MDP. Images acq uired 3 hours post injection. FINDINGS: Mild uptake in the feet, knees, elbows, shoulders, sternoclavicular joints, spine is likely degenerat ankit. Soft tissue uptake is normal. No focal area of increased or decreased radio pharmaceutical uptak e to suggest metastatic disease. IMPRESSION: Metastatic disease is not evident.
--- NOTE | 2020-01-29 16:39 | CT ---
EXAMINATION TYPE: CT abdomen pelvis w con DATE OF EXAM: 01/29/2020 COMPARISON: 05/05/2018 CT abdomen pelvis HISTORY: Prostate CA CT DLP: 603.4 mGycm Automated exposure control for dose reduction was used. TECHNIQUE: Helical acquisition of images was performed from the lung bases through the pelvis. CONTRAST: Performed with Oral Contrast and with IV Contrast, patient injected with 100 mL of Isovue 300. FINDINGS: LUNG BASES: 3 mm left lower lobe pulmonary nodule unchanged versus 2018 comparison, likely benign. Ca lcified coronary artery disease. LIVER: Normal. BILIARY SYSTEM: Normal. PANCREAS: Normal. SPLEEN: Normal. ADRENALS: Normal. KIDNEYS: Normal. BOWEL: No obstruction or thickening. Minimal colonic diverticulosis. No acute diverticulitis. PERITONEUM: No free air is visualized. No free fluid. ADENOPATHY: No lymphadenopathy. PELVIS: Normal. VASCULATURE: No abdominal aortic aneurysm. MUSCULOSKELETAL: No aggressive lytic or blastic lesions. Degenerative changes of the spine. IMPRESSION: No evidence of recurrent or metastatic prostate cancer of the abdomen or pelvis.
== END | disposition home or self-care (01) ==
LOC: RADNMMAIN 09:47
PROVIDERS: ATTEND Urology
DX: J43.9 Emphysema, unspecified (principal); C61 Malignant neoplasm of prostate
CPT/HCPCS: 82565; 84520; 71046; 74177; 36415 ×2; 78306; A9503; Q9967

== ENCOUNTER 2020-12-26 15:11 | Emergency (ER) | payer OTHER ==
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
[2020-12-26 15:40] VITALS: TEMP 98.2
[2020-12-26 15:54] LABS: Basophils # (A) 0.1 k/uL (0-0.2); Basophils % (A) 1 %; Eosinophils # (A) 0.1 k/uL (0-0.7); Eosinophils % (A) 2 %; HCT 43.2 % (39.0-53.0); HGB 14.6 gm/dL (13.0-17.5); Lymphocytes # (A) 1.1 k/uL (1.0-4.8); Lymphocytes % (A) 17 %; MCH 30.8 pg (25.0-35.0); MCHC 33.7 g/dL (31.0-37.0); MCV 91.3 fL (80.0-100.0); Mean Platelet Volume 7.3; Monocytes # (A) 0.4 k/uL (0-1.0); Monocytes % (A) 6 %; Neutrophils # (A) 4.5 k/uL (1.3-7.7); Neutrophils % (A) 72 %; Platelet Count 172 k/uL (150-450); RBC 4.73 m/uL (4.30-5.90); RDW 13.1 % (11.5-15.5); WBC 6.3 k/uL (3.8-10.6)
[2020-12-26 16:10] LABS: Partial Thromboplastin Time 22.7 sec (22.0-30.0); Prothrombin Time 10.8 sec (9.0-12.0)
[2020-12-26 16:11] LABS: ALT 18 U/L (4-49); AST 27 U/L (17-59); Acetaminophen <10.0 ug/mL; African American GFR (CKD) >90 (>60 ml/min/1.73 sqM); Albumin 3.5 g/dL (3.5-5.0); Alcohol <10 mg/dL; Alkaline Phosphatase 75 U/L (38-126); Anion Gap 6 mmol/L; Blood Urea Nitrogen 17 mg/dL (9-20); Calcium 8.8 mg/dL (8.4-10.2); Carbon Dioxide 21 mmol/L (22-30); Chloride 106 mmol/L (98-107); Glucose 90 mg/dL (74-99); Non-African American GFR(CKD) 86 (>60 ml/min/1.73 sqM); Potassium 4.1 mmol/L (3.5-5.1); Salicylate <1.0 mg/dL; Sodium 133 mmol/L (137-145); Total Bilirubin 0.7 mg/dL (0.2-1.3); Total Protein 5.7 g/dL (6.3-8.2)
[2020-12-26 17:23] LABS: Amphetamine Screen,Urine Not Detected (NotDetected); Barbiturate Screen,Urine Not Detected (NotDetected); Benzodiazepines Screen,Urine Detected (NotDetected); Cocaine Screen,Urine Not Detected (NotDetected); Methadone Screen, Urine Not Detected (NotDetected); Opiate Screen,Urine Not Detected (NotDetected); Oxycodone Screen, Urine Not Detected (NotDetected); Phencyclidine Screen,Urine Not Detected (NotDetected); Tricyclic Antidepressant,Urine Not Detected (NotDetected); Urn Cannabinoid Scrn Not Detected (NotDetected)
[2020-12-26 22:02] LABS: Appearance,Urine Clear (Clear); Bilirubin,Urine Negative (Negative); Blood,Urine Negative (Negative); Color,Urine Light Yellow; Glucose,Urine (UA) Negative (Negative); Ketones,Urine Negative (Negative); Leukocyte Esterase,Urine Negative (Negative); Nitrite,Urine Negative (Negative); Protein,Urine Negative (Negative); Specific Gravity,Urine 1.005 (1.001-1.035); Urobilinogen,Urine <2.0 mg/dL (<2.0)
[2020-12-28 01:26] VITALS: PULSE 77; RESP 20
[2020-12-28 04:53] VITALS: BP 136/86
== END 2020-12-28 05:35 ==
LOC: EC 15:11
DX: S11.91XA Laceration without foreign body of unspecified part of neck, initial encounter (principal); R45.851 Suicidal ideations; J44.9 Chronic obstructive pulmonary disease, unspecified; I10 Essential (primary) hypertension; I25.10 Atherosclerotic heart disease of native coronary artery without angina pectoris; I25.2 Old myocardial infarction; E78.5 Hyperlipidemia, unspecified; M19.90 Unspecified osteoarthritis, unspecified site; Z95.1 Presence of aortocoronary bypass graft; Z86.73 Personal history of transient ischemic attack (TIA), and cerebral infarction without residual deficits; Z79.82 Long term (current) use of aspirin; Z79.899 Other long term (current) drug therapy; X78.1XXA Intentional self-harm by knife, initial encounter
CPT/HCPCS: 36415; 80053; 80143; 80179; 80306; 80320; 81003; 82075; 84443; 85025; 85610; 85730; 87635; 93005; 99285

== ENCOUNTER 2021-12-29 12:13 | Emergency (ER) | payer OTHER ==
--- NOTE | 2021-12-29 13:19 | ED ---
General Adult HPI - General Chief complaint: Fall Stated complaint: Eye Ltzeha-Hpwm-Dyusn Thinners Time Seen by Provider: 12/29/21 12:32 Source: patient, RN notes reviewed, old records reviewed Mode of arrival: ambulatory Limitations: no limitations - History of Present Illness Initial comments: 71-year-old male presents after syncopal episode. Patient states he was coughing after taking a sip of water and coughed so hard that he blacked out, fell striking the left side of his face. He states he was only momentarily unconscious. He contacted his provider today who requested he presented emergency department for evaluation. He does report he is on blood thinners but does not know which one. No neck pain. No focal numbness or weakness. No c hest pain or palpitations. - Related Data Home Medications Medication Instructions Recorded Confirmed Temazepam [Restoril] 30 mg PO HS 08/17/16 12/26/20 amLODIPine BESYLATE [Norvasc] 10 mg PO DAILY 08/17/16 12/26/20 Metoprolol Tartrate [Lopressor] 12.5 mg PO BID 03/14/19 12/26/20 Aspirin EC [Ecotrin Low Dose] 81 mg PO DAILY 12/26/20 12/26/20 Atorvastatin [Lipitor] 40 mg PO HS 12/26/20 12/26/20 Escitalopram [Lexapro] 20 mg PO DAILY 12/26/20 12/26/20 lisinopriL [Prinivil] 20 mg PO DAILY 12/26/20 12/26/20 Allergies Allergy/AdvReac Type Severity Reaction Status Date / Time No Known Allergies Allergy Verified 12/29/21 12:27 Review of Systems ROS Statement: Those systems with pertinent positive or pertinent negative responses have been documented in the HPI. ROS Other: All systems not noted in ROS Statement are negative. Past Medical History Past Medical History: Coronary Artery Disease (CAD), Cancer, Chest Pain / Angina, COPD, CVA/TIA, Hyperlipidemia, Hypertension, Myocardial Infarction ([place]), Osteoarthritis (OA), Pneumonia Additional Past Medical History / Comment(s): COPD, coronary artery disease with increased bypass surgery, CVA/TIA, hypertension, hyperlipidemia, prostate cancer, right lower extremity fracture, hypertension, osteoarthritis Last Myocardial Infarction Date:: UNK History of Any Multi-Drug Resistant Organisms: None Reported Past Surgical History: Coronary Bypass/CABG, Heart Catheterization With Stent, Prostate Surgery Additional Past Surgical History / Comment(s): Right carotid endarterectomy, coronary bypass surgery, prostatectomy, left shoulder surgery, ORIF of the right lower extremity fracture Past Anesthesia/Blood Transfusion Reactions: No Reported Reaction Date of Last Stent Placement:: UNK Past Psychological History: No Psychological Hx Reported Past Alcohol Use History: Rare Past Drug Use History: None Reported - Past Family History Father Family Medical History: Myocardial Infarction ([place]) Mother Family Medical History: CVA/TIA General Exam General appearance: alert, in no apparent distress Head exam: Present: other ((Frontal abrasion and ecchymosis) Eye exam: Present: PERRL, periorbital swelling, periorbital tenderness, other (Left subconjunctival hemorrhage) Neck exam: Present: normal inspection. Absent: tenderness, meningismus Respiratory exam: Present: normal lung sounds bilaterally. Absent: respiratory distress, wheezes Cardiovascular Exam: Present: regular rate, normal rhythm GI/Abdominal exam: Present: soft. Absent: distended, tenderness, guarding Extremities exam: Present: normal inspection, normal capillary refill. Absent: pedal edema Neurological exam: Present: alert, oriented X3, CN II-XII intact. Absent: motor sensory deficit Skin exam: Present: warm, dry Course Vital Signs 12/29/21 12/29/21 12:23 13:30 Temperature 98.2 F Pulse Rate 70 57 L Respiratory 18 18 Rate Blood Pressure 149/95 134/88 O2 Sat by Pulse 97 98 Oximetry EKG Findings - EKG Comments: EKG Findings:: EKG: Sinus bradycardia T-wave inversion in the lateral precordial leads ventricular rate of 52, MN interval 151, QRS duration 120, QTC [address] segment elevation. Medical Decision Making - Medical Decision Making 71-year-old male with fall facial trauma that occurred yesterday. Patient does have external signs of trauma, facial abrasion and subconjunctival hemorrhage. No hyphema. The extraocular motions are intact. Pupils are reactive. Head CT is negative for intracranial hemorrhage or mass effect. Facial bones negative for fracture dislocation. There is no subluxation or fracture of the cervical spine. Patient's laboratory testing is unremarkable with exception of a mildly low blood glucose are patient is fed in the emergency department. He should follow with his primary care physician. - Lab Data Result diagrams: 12/29/21 13:28 12/29/21 13:28 Lab Results 12/29/21 12/29/21 12/29/21 Range/Units 13:28 13:28 13:28 WBC 8.7 (3.8-10.6) k/uL RBC 5.80 (4.30-5.90) m/uL Hgb 16.7 (13.0-17.5) gm/dL Hct 50.9 (39.0-53.0) % MCV 87.8 (80.0-100.0) fL MCH 28.7 (25.0-35.0) pg MCHC 32.7 (31.0-37.0) g/dL RDW 14.0 (11.5-15.5) % Plt Count 181 (150-450) k/uL MPV 6.7 Neutrophils % 69 % Lymphocytes % 19 % Monocytes % 8 % Eosinophils % 2 % Basophils % 1 % Neutrophils # 6.0 (1.3-7.7) k/uL Lymphocytes # 1.7 (1.0-4.8) k/uL Monocytes # 0.7 (0-1.0) k/uL Eosinophils # 0.2 (0-0.7) k/uL Basophils # 0.1 (0-0.2) k/uL PT 10.9 (9.0-12.0) sec INR 1.0 (<1.2) APTT 23.4 (22.0-30.0) sec Sodium 138 (137-145) mmol/L Potassium 4.9 (3.5-5.1) mmol/L Chloride 102 (98-107) mmol/L Carbon Dioxide 25 (22-30) mmol/L Anion Gap 11 mmol/L BUN 12 (9-20) mg/dL Creatinine 1.03 (0.66-1.25) mg/dL Est GFR (CKD-EPI)AfAm 86 (>60 ml/min/1.73 sqM) Est GFR (CKD-EPI)NonAf 74 (>60 ml/min/1.73 sqM) Glucose 62 L (74-99) mg/dL Calcium 9.3 (8.4-10.2) mg/dL Magnesium 2.3 (1.6-2.3) mg/dL Total Bilirubin 0.5 (0.2-1.3) mg/dL AST 41 (17-59) U/L ALT 44 (4-49) U/L Alkaline Phosphatase 72 (38-126) U/L Troponin I (0.000-0.034) ng/mL Total Protein 6.8 (6.3-8.2) g/dL Albumin 4.3 (3.5-5.0) g/dL 12/29/21 Range/Units 13:28 WBC (3.8-10.6) k/uL RBC (4.30-5.90) m/uL Hgb (13.0-17.5) gm/dL Hct (39.0-53.0) % MCV (80.0-100.0) fL MCH (25.0-35.0) pg MCHC (31.0-37.0) g/dL RDW (11.5-15.5) % Plt Count (150-450) k/uL MPV Neutrophils % % Lymphocytes % % Monocytes % % Eosinophils % % Basophils % % Neutrophils # (1.3-7.7) k/uL Lymphocytes # (1.0-4.8) k/uL Monocytes # (0-1.0) k/uL Eosinophils # (0-0.7) k/uL Basophils # (0-0.2) k/uL PT (9.0-12.0) sec INR (<1.2) APTT (22.0-30.0) sec Sodium (137-145) mmol/L Potassium (3.5-5.1) mmol/L Chloride (98-107) mmol/L Carbon Dioxide (22-30) mmol/L Anion Gap mmol/L BUN (9-20) mg/dL Creatinine (0.66-1.25) mg/dL Est GFR (CKD-EPI)AfAm (>60 ml/min/1.73 sqM) Est GFR (CKD-EPI)NonAf (>60 ml/min/1.73 sqM) Glucose (74-99) mg/dL Calcium (8.4-10.2) mg/dL Magnesium (1.6-2.3) mg/dL Total Bilirubin (0.2-1.3) mg/dL AST (17-59) U/L ALT (4-49) U/L Alkaline Phosphatase (38-126) U/L Troponin I <0.012 (0.000-0.034) ng/mL Total Protein (6.3-8.2) g/dL Albumin (3.5-5.0) g/dL Disposition Clinical Impression: Concussion, Fall Disposition: HOME SELF-CARE Condition: Good Instructions (If sedation given, give patient instructions): Concussion (ED) Is patient prescribed a controlled substance at d/c from ED?: No Referrals: [facility] [REFERRING] - 1-2 days Time of Disposition: 14:24
--- NOTE | 2021-12-29 13:19 | CT ---
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 CT DLP: 1209.[address] of the brain was performed. The ventricles, basal cisterns and sulci overlying the cerebral convexities demonstrate mild to moder ate enlargement. There is no evidence for intracranial hemorrhage or sulcal effacement. There is decreased attenuatio n about the periventricular white matter and deep white matter of both cerebral hemispheres, compatib le with chronic small vessel ischemia. No mass effects are seen. If symptoms persist consider MRI. Osseous calvarium is intact. IMPRESSION: 1. Age related atrophic and chronic small vessel ischemic change without acute intracranial process seen at this time. CT Cervical Spine: Unenhanced CT of the cervical spine was performed with bone and soft tissue window settings submitted . Coronal and sagittal reconstruction is obtained. There is normal alignment and prevertebral soft tissues. No evidence for acute cervical fracture . Scattered degenerative disc disease and spondylosis. Biapical scarring. IMPRESSION: 1. No evidence for acute fracture or subluxation of the cervical spine.
--- NOTE | 2021-12-29 13:26 | CT ---
EXAMINATION TYPE: CT facial bones wo con DATE OF EXAM: 12/29/2021 COMPARISON: None HISTORY: Left Eye injury from fall. CT DLP: 1209.[address] of the facial bones was performed in the axial and coronal planes. Bone and soft tissu e window settings are submitted. Left infra-ocular soft tissue edema compatible with posttraumatic change. I do not see evidence for displaced facial bone fracture or depressed facial bone fracture. The globes are intact. Mucosal thickening posterior ethmoid air cells. IMPRESSION: 1. No evidence for depressed or displaced facial bone fracture.
[2021-12-29 13:45] LABS: Basophils # (A) 0.1 k/uL (0-0.2); Basophils % (A) 1 %; Eosinophils # (A) 0.2 k/uL (0-0.7); Eosinophils % (A) 2 %; HCT 50.9 % (39.0-53.0); HGB 16.7 gm/dL (13.0-17.5); Lymphocytes # (A) 1.7 k/uL (1.0-4.8); Lymphocytes % (A) 19 %; MCH 28.7 pg (25.0-35.0); MCHC 32.7 g/dL (31.0-37.0); MCV 87.8 fL (80.0-100.0); Mean Platelet Volume 6.7; Monocytes # (A) 0.7 k/uL (0-1.0); Monocytes % (A) 8 %; Neutrophils % (A) 69 %; Platelet Count 181 k/uL (150-450); WBC 8.7 k/uL (3.8-10.6)
--- NOTE | 2021-12-29 13:46 | XR ---
EXAMINATION TYPE: XR chest 2V DATE OF EXAM: 12/29/2021 COMPARISON: Chest x-ray January 29, 2020 HISTORY: Syncope and weakness. TECHNIQUE: Frontal and lateral views of the chest are obtained. FINDINGS: Overlying sternal wires and mediastinal clips are redemonstrated. There is no focal air sp re opacity, pleural effusion, or pneumothorax seen. Mild underlying emphysematous change felt prese nt. The cardiac silhouette size is stable and within normal limits. The osseous structures are inta ct. IMPRESSION: Chronic changes without acute pulmonary process. No significant change from prior chest x-ray.
[2021-12-29 13:58] LABS: Partial Thromboplastin Time 23.4 sec (22.0-30.0); Prothrombin Time 10.9 sec (9.0-12.0)
[2021-12-29 14:00] LABS: Albumin 4.3 g/dL (3.5-5.0); Calcium 9.3 mg/dL (8.4-10.2); Magnesium 2.3 mg/dL (1.6-2.3); Potassium 4.9 mmol/L (3.5-5.1); Total Bilirubin 0.5 mg/dL (0.2-1.3); Total Protein 6.8 g/dL (6.3-8.2)
[2021-12-29] MEDS ORDERED: ACETAMINOPHEN TAB 500 MG TAB PO STA (14:34)
[2021-12-29 14:57] VITALS: BP 134/70; PULSE 66; RESP 16; TEMP 98.1
== END 2021-12-29 14:56 | disposition home or self-care (01) ==
LOC: EC 12:13
DX: S06.0X9A Concussion with loss of consciousness of unspecified duration, initial encounter (principal); I25.10 Atherosclerotic heart disease of native coronary artery without angina pectoris; Z82.49 Family history of ischemic heart disease and other diseases of the circulatory system; E78.5 Hyperlipidemia, unspecified; I10 Essential (primary) hypertension; Z79.82 Long term (current) use of aspirin; W19.XXXA Unspecified fall, initial encounter
CPT/HCPCS: 36415; 70450; 70486; 71046; 72125; 80053; 83735; 84484; 85025; 85610; 85730; 93005

== ENCOUNTER 2022-05-04 14:33 | Inpatient (IN) | payer MEDICARE, OTHER ==
--- NOTE | 2022-05-04 14:42 | ED ---
SOB HPI - General Stated Complaint: SOB Time Seen by Provider: 05/04/22 14:33 Source: patient, EMS, RN notes reviewed Mode of arrival: EMS - History of Present Illness Initial Comments: 70-year-old male history of COPD history of [place] and stroke in the past with no residual deficits who was outside for about an hour today he started developing shortness of breath. EMS was called he was given 2 albuterol and Atrovent treatment with some improvement he denies any chest pain fevers chills or sweats per paramedics the was clammy and flushed upon her first contact. His respiratory rate was between 42 and 44 breaths per minute. He does have inhalers at home is a former smoker. Patient had a erratic heart rate and monitoring. This is per paramedics. MD Complaint: shortness of breath, cough - Related Data Home Medications Medication Instructions Recorded Confirmed Aspirin EC [Ecotrin Low Dose] 81 mg PO DAILY 12/26/20 05/04/22 Atorvastatin [Lipitor] 40 mg PO HS 12/26/20 05/04/22 Albuterol Inhaler [Ventolin Hfa 1 - 2 puff INHALATION RT-Q6H PRN 05/04/22 05/04/22 Inhaler] Melatonin 3 mg PO HS PRN 05/04/22 05/04/22 Metoprolol Succinate [Metoprolol 12.5 mg PO DAILY 05/04/22 05/04/22 Succinate ER] Mirtazapine [Remeron] 15 mg PO HS 05/04/22 05/04/22 Sertraline [Zoloft] 200 mg PO DAILY 05/04/22 05/04/22 hydrOXYzine pamoate [Vistaril] 25 mg PO HS PRN 05/04/22 05/04/22 lisinopriL [Zestril] 10 mg PO DAILY 05/04/22 05/04/22 Allergies Allergy/AdvReac Type Severity Reaction Status Date / Time No Known Allergies Allergy Verified 05/04/22 18:18 Review of Systems ROS Statement: Those systems with pertinent positive or pertinent negative responses have been documented in the HPI. ROS Other: All systems not noted in ROS Statement are negative. Past Medical History Past Medical History: Coronary Artery Disease (CAD), Cancer, Chest Pain / Angina, COPD, CVA/TIA, Hyperlipidemia, Hypertension, Myocardial Infarction ([place]), Osteoarthritis (OA), Pneumonia Additional Past Medical History / Comment(s): COPD, coronary artery disease with increased bypass surgery, CVA/TIA, hypertension, hyperlipidemia, prostate cancer, right lower extremity fracture, hypertension, osteoarthritis Last Myocardial Infarction Date:: UNK History of Any Multi-Drug Resistant Organisms: None Reported Past Surgical History: Coronary Bypass/CABG, Heart Catheterization With Stent, Prostate Surgery Additional Past Surgical History / Comment(s): Right carotid endarterectomy, coronary bypass surgery, prostatectomy, left shoulder surgery, ORIF of the right lower extremity fracture Past Anesthesia/Blood Transfusion Reactions: No Reported Reaction Date of Last Stent Placement:: UNK Past Psychological History: No Psychological Hx Reported Past Alcohol Use History: Rare Past Drug Use History: None Reported - Past Family History Father Family Medical History: Myocardial Infarction ([place]) Mother Family Medical History: CVA/TIA General Exam - General Exam Comments Initial Comments: This is a well-developed well-nourished awake alert oriented 4 male General appearance: alert, anxious Head exam: Present: atraumatic, normocephalic, normal inspection Eye exam: Present: normal appearance, PERRL, EOMI. Absent: scleral icterus, conjunctival injection, periorbital swelling ENT exam: Present: normal exam, mucous membranes moist Neck exam: Present: normal inspection, full ROM, other. Absent: tenderness, meningismus, lymphadenopathy Respiratory exam: Present: wheezes (No surgery or bruits), decreased breath sounds. Absent: respiratory distress, rales, rhonchi, stridor Cardiovascular Exam: Present: regular rate, normal rhythm, normal heart sounds. Absent: systolic murmur, diastolic murmur, rubs, gallop, clicks GI/Abdominal exam: Present: soft, normal bowel sounds. Absent: distended, tenderness, guarding, rebound, rigid Extremities exam: Present: normal inspection, full ROM, normal capillary refill. Absent: tenderness, pedal edema, joint swelling, calf tenderness Back exam: Present: normal inspection Neurological exam: Present: alert, oriented X3, CN II-XII intact Psychiatric exam: Present: normal affect, normal mood Skin exam: Present: warm, dry, intact, normal color. Absent: rash Course Vital Signs 05/04/22 05/04/22 05/04/22 14:35 15:53 18:00 Temperature 96.8 F L Pulse Rate 116 H 92 Respiratory 28 H 21 20 Rate Blood Pressure 84/63 112/67 102/53 O2 Sat by Pulse 100 97 Oximetry - Reevaluation(s) Reevaluation #1: 05/04/22 18:52 EKG compared with one dated 03/14/19 showing similar configuration Procedures - Sepsis Sepsis Focused Exam #1 Time Sepsis Criteria Met: 15:50 Sepsis Focused Exam Date: 05/04/22 Sepsis Focused Exam Time: 15:50 Sepsis Focused Exam Complete: Yes Vital Signs & RN Notes Reviewed: Yes Capillary Refill: > 2 Seconds: Fingers, Toes Peripheral Pulses: Normal: Radial (R), Radial (L) Skin Color: Erythema Respiratory Exam: decreased breath sounds Cardiovascular Exam: normal rhythm, other (Sepsis criteria met at 1550 p.m. evaluation done. Patient did respond to IV fluids. She he was initially hypotensive and didn't respond after 1 L lactic acid is elevated) Medical Decision Making - Medical Decision Making Was pt. sent in by a medical professional or institution? @ No-[by , PA, STAMP CLERK, urgent care, hospital, or care home] Did you speak to anyone other than the patient for history? @ EMS EMS-[EMS, parent, family, police, friend?] Did you review nursing and triage notes? @Yes and I agree-[agree or disagree, why?] Were old charts reviewed? @ Yes previous EKG compared to today's-[outside hosp., previous admissions, EMS record, old EKG, old radiological studies, urgent care reports/EKGs, care home records?] Differential Diagnosis? @ Dyspnea which included considerations of pneumonia pulmonary embolism pneumothorax -[chest pain, altered mental status abdominal pain women, abdominal pain men, vaginal bleeding, weakness, fever, dyspnea, syncope, headache, dizziness, GI bleed, back pain, seizure] EKG interpreted by me (3pts min.)? @ Yes old one also compared -[none] X-rays interpreted by me (1pt min.)? @ Yes right lower lobe infiltrate -[none] CT interpreted by me (1pt min.)? @ Yes right lower lobe infiltrate no PE-[none] U/S interpreted by me (1pt. min.)? @ -[none] What testing was considered but not performed? (CT, X-rays, U/S, labs)? Why? @ Not applicable [CT, X-rays, U/S, labs? Why?] What meds were considered but not given? Why? @ -[none] Did you discuss the management of the patient with other professionals? @ Yes with the admitting service-[professionals i.e. Dr, PA, STAMP CLERK, Lab, RT, Psych Nurse, Bond Runner, Compressor Mechanic, Teacher, Policy Issue Clerk, binder caser? Give summary] Did you reconcile home meds? @ Yes-[none] Was smoking cessation discussed for >3mins.? @ -[none] Was critical care preformed (if so, how long)? @ Yes 39 minutes-[none] Were there social determinants of health that impacted care today? How? (Homelessness, low income, unemployed, alcoholism, drug addiction, transportation, low edu. Level, literacy, decrease access to med. care, usp, rehab)? @ Applicable-[Homelessness, low income, unemployed, alcoholism, drug addiction, transportation, low edu. Level, literacy, decrease access to med. care, usp, rehab?] Was there de-escalation of care discussed even if they declined? (Discuss DNR or withdrawal of care, Hospice)? @ No-[Discuss DNR or withdrawal of care, Hospice?] What co-morbidities impacted this encounter? (DM, HTN, Smoking, COPD, CAD, Cancer, CVA, Hep., AIDS, mental health diagnosis, sleep apnea, morbid obesity)? @ COPD exacerbation, right lower lobe pneumonia, sepsis, hypotensive episode- [DM, HTN, Smoking, COPD, CAD, Cancer, CVA, Hep., AIDS, mental health diagnosis, sleep apnea, morbid obesity?] Was patient admitted / discharged? @ Patient was admitted-[hospital course] Undiagnosed new problem with uncertain prognosis? @ -[none] Drug Therapy requiring intensive monitoring for toxicity (Heparin, Nitro, Insulin, Cardizem)? @ -[none] Were any procedures done? @ -[none] Diagnosis/symptom? @ Right lower lobe pneumonia, COPD exacerbation, sepsis, hypotensive episode, dehydration-[default] Acute, or Chronic, or Acute on Chronic? @ -Acute [default] Uncomplicated (without systemic symptoms) or Complicated (systemic symptoms)? @ Complications with hypotension -[default] Side effects of treatment? @ -[none] Exacerbation, Progression, or Severe Exacerbation] @ -[no] Poses a threat to life or bodily function? @ Yes-[no] - Lab Data Result diagrams: 05/04/22 14:57 05/04/22 14:57 Lab Results 05/04/22 05/04/22 05/04/22 Range/Units 14:57 14:57 14:57 WBC 6.4 (3.8-10.6) k/uL RBC 5.89 (4.30-5.90) m/uL Hgb 17.7 H (13.0-17.5) gm/dL Hct 53.3 H (39.0-53.0) % MCV 90.5 (80.0-100.0) fL MCH 30.1 (25.0-35.0) pg MCHC 33.3 (31.0-37.0) g/dL RDW 13.1 (11.5-15.5) % Plt Count 140 L (150-450) k/uL MPV 7.5 Neutrophils % 62 % Lymphocytes % 27 % Monocytes % 4 % Eosinophils % 3 % Basophils % 1 % Neutrophils # 4.0 (1.3-7.7) k/uL Lymphocytes # 1.7 (1.0-4.8) k/uL Monocytes # 0.3 (0-1.0) k/uL Eosinophils # 0.2 (0-0.7) k/uL Basophils # 0.1 (0-0.2) k/uL PT 11.2 (9.0-12.0) sec INR 1.1 (<1.2) APTT 24.2 (22.0-30.0) sec D-Dimer 2.23 H (<0.60) mg/L FEU Sodium 138 (137-145) mmol/L Potassium 3.9 (3.5-5.1) mmol/L Chloride 102 (98-107) mmol/L Carbon Dioxide 14 L (22-30) mmol/L Anion Gap 22 mmol/L BUN 12 (9-20) mg/dL Creatinine 1.23 (0.66-1.25) mg/dL Est GFR (CKD-EPI)AfAm 69 (>60 ml/min/1.73 sqM) Est GFR (CKD-EPI)NonAf 60 (>60 ml/min/1.73 sqM) Glucose 165 H (74-99) mg/dL Lactic Ac Sepsis Rflx Plasma Lactic Acid Lobito (0.7-2.0) mmol/L Calcium 9.3 (8.4-10.2) mg/dL Magnesium 2.4 H (1.6-2.3) mg/dL Total Bilirubin 0.6 (0.2-1.3) mg/dL AST 91 H (17-59) U/L ALT 58 H (4-49) U/L Alkaline Phosphatase 103 (38-126) U/L Troponin I (0.000-0.034) ng/mL NT-Pro-B Natriuret Pep pg/mL Total Protein 7.3 (6.3-8.2) g/dL Albumin 4.8 (3.5-5.0) g/dL Coronavirus (PCR) (Not Detectd) Influenza Type A RNA (Not Detectd) Influenza Type B (PCR) (Not Detectd) 05/04/22 05/04/22 05/04/22 Range/Units 14:57 14:57 14:57 WBC (3.8-10.6) k/uL RBC (4.30-5.90) m/uL Hgb (13.0-17.5) gm/dL Hct (39.0-53.0) % MCV (80.0-100.0) fL MCH (25.0-35.0) pg MCHC (31.0-37.0) g/dL RDW (11.5-15.5) % Plt Count (150-450) k/uL MPV Neutrophils % % Lymphocytes % % Monocytes % % Eosinophils % % Basophils % % Neutrophils # (1.3-7.7) k/uL Lymphocytes # (1.0-4.8) k/uL Monocytes # (0-1.0) k/uL Eosinophils # (0-0.7) k/uL Basophils # (0-0.2) k/uL PT (9.0-12.0) sec INR (<1.2) APTT (22.0-30.0) sec D-Dimer (<0.60) mg/L FEU Sodium (137-145) mmol/L Potassium (3.5-5.1) mmol/L Chloride (98-107) mmol/L Carbon Dioxide (22-30) mmol/L Anion Gap mmol/L BUN (9-20) mg/dL Creatinine (0.66-1.25) mg/dL Est GFR (CKD-EPI)AfAm (>60 ml/min/1.73 sqM) Est GFR (CKD-EPI)NonAf (>60 ml/min/1.73 sqM) Glucose (74-99) mg/dL Lactic Ac Sepsis Rflx Plasma Lactic Acid Lobito (0.7-2.0) mmol/L Calcium (8.4-10.2) mg/dL Magnesium (1.6-2.3) mg/dL Total Bilirubin (0.2-1.3) mg/dL AST (17-59) U/L ALT (4-49) U/L Alkaline Phosphatase (38-126) U/L Troponin I 0.033 (0.000-0.034) ng/mL NT-Pro-B Natriuret Pep 672 pg/mL Total Protein (6.3-8.2) g/dL Albumin (3.5-5.0) g/dL Coronavirus (PCR) (Not Detectd) Influenza Type A RNA Not Detected (Not Detectd) Influenza Type B (PCR) Not Detected (Not Detectd) 05/04/22 05/04/22 05/04/22 Range/Units 14:57 14:57 15:47 WBC (3.8-10.6) k/uL RBC (4.30-5.90) m/uL Hgb (13.0-17.5) gm/dL Hct (39.0-53.0) % MCV (80.0-100.0) fL MCH (25.0-35.0) pg MCHC (31.0-37.0) g/dL RDW (11.5-15.5) % Plt Count (150-450) k/uL MPV Neutrophils % % Lymphocytes % % Monocytes % % Eosinophils % % Basophils % % Neutrophils # (1.3-7.7) k/uL Lymphocytes # (1.0-4.8) k/uL Monocytes # (0-1.0) k/uL Eosinophils # (0-0.7) k/uL Basophils # (0-0.2) k/uL PT (9.0-12.0) sec INR (<1.2) APTT (22.0-30.0) sec D-Dimer (<0.60) mg/L FEU Sodium (137-145) mmol/L Potassium (3.5-5.1) mmol/L Chloride (98-107) mmol/L Carbon Dioxide (22-30) mmol/L Anion Gap mmol/L BUN (9-20) mg/dL Creatinine (0.66-1.25) mg/dL Est GFR (CKD-EPI)AfAm (>60 ml/min/1.73 sqM) Est GFR (CKD-EPI)NonAf (>60 ml/min/1.73 sqM) Glucose (74-99) mg/dL Lactic Ac Sepsis Rflx Y Plasma Lactic Acid Lobito 8.9 H* (0.7-2.0) mmol/L Calcium (8.4-10.2) mg/dL Magnesium (1.6-2.3) mg/dL Total Bilirubin (0.2-1.3) mg/dL AST (17-59) U/L ALT (4-49) U/L Alkaline Phosphatase (38-126) U/L Troponin I (0.000-0.034) ng/mL NT-Pro-B Natriuret Pep pg/mL Total Protein (6.3-8.2) g/dL Albumin (3.5-5.0) g/dL Coronavirus (PCR) Not Detected (Not Detectd) Influenza Type A RNA (Not Detectd) Influenza Type B (PCR) (Not Detectd) - EKG Data -: EKG Interpreted by Me EKG Comments: EKG interpreted by me atrial flutter rate 119 QRS 136 QT since QTC 342/412 and ventricular conduction delay left ventricular hypertrophy nonspecific inferior changes - Radiology Data Interpreted by me: I did interpret the x-ray evidence of right lower lobe infiltrate. Computed tomography scan interpreted by me shows no evidence of PE or infiltrate as read demonstrated Critical Care Time Critical Care Time: Yes Total Critical Care Time: 39 Critical Care Time: Critical care time includes initial presentation with history physical discussed with paramedics labs x-rays multiple reevaluation the patient responsive therapy review of old charting was available discussed with the admitting physician initial orders sec mentation the above Disposition Clinical Impression: Pneumonia, Sepsis, COPD with exacerbation, Dehydration, Lactic acidosis, Hypotensive episode Disposition: ADMITTED IP TO THIS HOSP Condition: Fair Referrals: None,Stated [Primary Care Provider] - 1-2 days Decision Date: 05/04/22 Decision Time: 18:00
[2022-05-04] MEDS ORDERED: SODIUM CHLORIDE 0.9% 1,000 ML IV STA ×4 (14:43→15:57)
[2022-05-04 15:17] LABS: Basophils # (A) 0.1 k/uL (0-0.2); Basophils % (A) 1 %; Eosinophils # (A) 0.2 k/uL (0-0.7); Eosinophils % (A) 3 %; HCT 53.3 % (39.0-53.0); HGB 17.7 gm/dL (13.0-17.5); Lymphocytes # (A) 1.7 k/uL (1.0-4.8); Lymphocytes % (A) 27 %; MCH 30.1 pg (25.0-35.0); MCHC 33.3 g/dL (31.0-37.0); MCV 90.5 fL (80.0-100.0); Mean Platelet Volume 7.5; Monocytes # (A) 0.3 k/uL (0-1.0); Monocytes % (A) 4 %; Neutrophils % (A) 62 %; Platelet Count 140 k/uL (150-450); RBC 5.89 m/uL (4.30-5.90); RDW 13.1 % (11.5-15.5); WBC 6.4 k/uL (3.8-10.6)
--- NOTE | 2022-05-04 15:21 | XR ---
EXAMINATION TYPE: XR chest 2V DATE OF EXAM: 05/04/2022 COMPARISON: 12/29/2021 HISTORY: Difficulty breathing TECHNIQUE: Frontal and lateral views of the chest are obtained. FINDINGS: There is been interval development of a large partially consolidative airspace opacity in the right l ower lobe suspicious for pneumonia. The left lung is clear. Heart size normal. The pulmonary vasculature is not congested. There is been prior CABG surgery. There is no large pleural effusion or pneumothorax. IMPRESSION: Interval development of acute cardiopulmonary disease with a large partially consolidati ve infiltrate in the right lower lobe suspicious for pneumonia. Clinical correlation short-term follo w-up to resolution is recommended.
[2022-05-04 15:23] LABS: INR 1.1 (<1.2); Partial Thromboplastin Time 24.2 sec (22.0-30.0); Prothrombin Time 11.2 sec (9.0-12.0)
[2022-05-04 15:35] LABS: Albumin 4.8 g/dL (3.5-5.0); Calcium 9.3 mg/dL (8.4-10.2); Magnesium 2.4 mg/dL (1.6-2.3); Potassium 3.9 mmol/L (3.5-5.1); Total Bilirubin 0.6 mg/dL (0.2-1.3); Total Protein 7.3 g/dL (6.3-8.2)
[2022-05-04] MEDS ORDERED: cefTRIAXone IN SWFI 1,000 MG/10 ML SYRINGE IVP STA (15:58)
[2022-05-04] MEDS ORDERED: AZITHROMYCIN 500 MG in SODIUM CHLORIDE 0.9% 250 ML IVPB STA (16:03)
--- NOTE | 2022-05-04 16:31 | CT ---
EXAMINATION TYPE: CT angio chest DATE OF EXAM: 05/04/2022 4:23 PM COMPARISON: None HISTORY: PE suspected CT DLP: 547.3 mGycm Automated exposure control for dose reduction was used. CONTRAST: CTA scan of the thorax is performed with IV Contrast, patient injected with 100cc mL of Isovue 370, p ulmonary embolism protocol. 3-D postprocessing was performed.. FINDINGS: There are diffuse groundglass densities scattered throughout both lungs. There is no pleural effusion or pneumothorax. The great vessels chest are normal is no mediastinal, hilar or axillary adenopathy. There are no filling defects pulmonary artery or branches to suggest pulmonary embolism. The osseous structures are intact. Limited scanning through the upper abdomen reveals no gross abnormality. IMPRESSION: 1. No evidence of pulmonary and was an. 2. Diffuse groundglass densities within the lung consistent with acute inflammatory process possibly Covid pneumonia and clinical correlation is recommended.
[2022-05-04] MEDS ORDERED: VANCOMYCIN IV PER PHARMACY 1 EACH MISC MISCELLANE PRN (19:00)
[2022-05-04] MEDS: IPRATROPIUM-ALBUTEROL 3 ML NEB INHALATION SCH (19:38)
[2022-05-04] MEDS ORDERED: VANCOMYCIN 1,500 MG in SODIUM CHLORIDE 0.9% 500 ML 500 ML IVPB ONE (20:00)
[2022-05-04] MEDS ORDERED: PIPERACILLIN-TAZOBACTAM 3.375 GM in SODIUM CHLORIDE 0.9% 100 ML IVPB SCH (20:00)
[2022-05-04] MEDS: MIRTAZAPINE 15 MG TAB PO SCH (23:18)
[2022-05-04] MEDS: ACETAMINOPHEN TAB 325 MG TAB PO PRN (23:19)
[2022-05-04] MEDS: methylPREDNISolone SOD SUCCI 125 MG/2 ML VIAL IV SCH (23:26)
[2022-05-05] MEDS ORDERED: IPRATROPIUM-ALBUTEROL 3 ML NEB INHALATION SCH (02:00)
[2022-05-05] MEDS: methylPREDNISolone SOD SUCCI 125 MG/2 ML VIAL IV SCH ×4 (06:43→23:32)
[2022-05-05] MEDS: IPRATROPIUM-ALBUTEROL 3 ML NEB INHALATION SCH ×4 (07:47→19:54)
[2022-05-05] MEDS: PIPERACILLIN-TAZOBACTAM 3.375 GM in SODIUM CHLORIDE 0.9% 100 ML IVPB SCH ×3 (08:37→23:32)
[2022-05-05] MEDS: VANCOMYCIN 1,500 MG in SODIUM CHLORIDE 0.9% 500 ML 500 ML IVPB SCH (08:39)
[2022-05-05] MEDS: lisinopriL 10 MG TAB PO SCH (08:44)
[2022-05-05] MEDS: ASPIRIN 81 MG PO SCH (08:44)
[2022-05-05] MEDS: METOPROLOL TARTRATE 12.5 MG TAB PO SCH (08:44)
[2022-05-05] MEDS: PANTOPRAZOLE 40 MG/10 ML VIAL IV SCH (08:45)
[2022-05-05] MEDS: IPRATROPIUM-ALBUTEROL 3 ML NEB INHALATION PRN (08:50)
[2022-05-05] MEDS ORDERED: SERTRALINE 100 MG TAB PO SCH (09:00)
[2022-05-05] MEDS ORDERED: HEPARIN SODIUM 1,000 UN/ML (10ML VL) IV PRN (13:18)
[2022-05-05] MEDS ORDERED: HEPARIN SODIUM 1,000 UN/ML (10ML VL) IV ONE (13:18)
--- NOTE | 2022-05-05 13:46 | P.CNPUL ---
History of Present Illness Consult date: 05/05/22 Requesting physician: Dari Ho Reason for consult: pneumonia Chief complaint: shortness of breath History of present illness: this is a 71-year-old white male with history of COPD, previous history of [place], previous history of stroke without any residual deficits, patient was out in the cold yesterday for about one hour, and he developed shortness of breath cough and wheezing. EMS was called, patient was given albuterol and Atrovent treatment with minimal improvement, patient was brought into the ER, he had no fever, no chills, he had no chest pain, apparently when EMS arrived to pick him up, the patient was clammy and flushed upon his initial evaluation, his respiratory rate was in the 40s, patient was evaluated in the ER, chest x-ray and CT of the chest showed bilateral infiltrates, right more so than left, although the patient denies any history of aspiration, and no history of passing out episodes except he had 1 previous syncopal episode over [address] angiogram ruled out pulmonary embolism although he had a slightly elevated d- dimer of 2.23, and I reviewed the CT angiogram myself, definitely no evidence of pulmonary embolism. His WBC count is 6.4 hemoglobin is 17.7.lactic acid on it is initial evaluation was 8.9, went down to 1.6.his serology came back negative for carbon 19, influenza A, influenza B, and RSV.troponin was noted to be a bit high on presentation 0.033, follow-up troponin was 0.597, and BNP was normal. In spite of significant air space disease noted in both lungs especially in the right lung, patient maintained his O2 saturation, he was on room air with O2 sat showed 94%patient was placed on antibiotics in the form of Rocephin and Zith romax,initially, and he is now on Zosyn and vancomycin. he was also placed on bronchodilators and on steroids/methylprednisolone,considering his elevated troponin, patient was alsoplaced on heparin, full cardiac consultation is pending. Review of Systems constitutional: Negative. No fever no chills, no weight loss. HEENT: Negative Pulmonary: As noted in HPI Cardiac: As noted in HPI GI: Negative Genitourinary: Negative Musculoskeletal: Negative Hematologic: Negative Urologic: Negative Acute: Negative Past Medical History Past Medical History: Coronary Artery Disease (CAD), Cancer, Chest Pain / Angina, COPD, CVA/TIA, Hyperlipidemia, Hypertension, Myocardial Infarction ([place]), Osteoarthritis (OA), Pneumonia Additional Past Medical History / Comment(s): COPD, coronary artery disease with increased bypass surgery, CVA/TIA, hypertension, hyperlipidemia, prostate cancer, right lower extremity fracture, hypertension, osteoarthritis Last Myocardial Infarction Date:: UNK History of Any Multi-Drug Resistant Organisms: None Reported Past Surgical History: Coronary Bypass/CABG, Heart Catheterization With Stent, Prostate Surgery Additional Past Surgical History / Comment(s): Right carotid endarterectomy, coronary bypass surgery, prostatectomy, left shoulder surgery, ORIF of the right lower extremity fracture Past Anesthesia/Blood Transfusion Reactions: No Reported Reaction Date of Last Stent Placement:: UNK Past Psychological History: No Psychological Hx Reported Additional Psychological History / Comment(s): 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 SISTER LIVES IN DUPLEX NEXT DOOR. 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 smoker Past Alcohol Use History: Rare Additional Past Alcohol Use History / Comment(s): STARTED SMOKING AT AGE 10 OR 11 UNTIL 1996 THEN WENT FROM CIGARETTES TO CIGARS UNTIL HE QUIT 2015 Past Drug Use History: None Reported - Past Family History Father Family Medical History: Myocardial Infarction ([place]) Mother Family Medical History: CVA/TIA Medications and Allergies Home Medications Medication Instructions Recorded Confirmed Type Aspirin EC [Ecotrin Low Dose] 81 mg PO DAILY 12/26/20 05/04/22 History Atorvastatin [Lipitor] 40 mg PO HS 12/26/20 05/04/22 History Albuterol Inhaler [Ventolin Hfa 1 - 2 puff INHALATION RT-Q6H PRN 05/04/22 05/04/22 History Inhaler] Melatonin 3 mg PO HS PRN 05/04/22 05/04/22 History Metoprolol Succinate [Metoprolol 12.5 mg PO DAILY 05/04/22 05/04/22 History Succinate ER] Mirtazapine [Remeron] 15 mg PO HS 05/04/22 05/04/22 History Sertraline [Zoloft] 200 mg PO DAILY 05/04/22 05/04/22 History hydrOXYzine pamoate [Vistaril] 25 mg PO HS PRN 05/04/22 05/04/22 History lisinopriL [Zestril] 10 mg PO DAILY 05/04/22 05/04/22 History Allergies Allergy/AdvReac Type Severity Reaction Status Date / Time No Known Allergies Allergy Verified 05/04/22 18:18 Physical Exam Vitals: Vital Signs Temp Pulse Pulse Resp BP BP Pulse Ox 05/05/22 12:00 96.0 F L 82 24 117/66 94 L 05/05/22 11:53 78 05/05/22 11:41 76 05/05/22 09:00 88 05/05/22 08:50 88 05/05/22 08:30 97.6 F 75 16 133/76 95 05/05/22 07:47 96 05/05/22 04:00 98.1 F 72 19 112/62 96 05/05/22 00:13 98.0 F 72 20 122/72 96 05/05/22 00:09 22 05/04/22 22:46 98.1 F 59 L 20 116/72 98 05/04/22 22:02 90 29 H 129/87 100 05/04/22 19:45 84 05/04/22 19:40 88 05/04/22 18:00 20 102/53 05/04/22 15:53 92 21 112/67 97 05/04/22 14:35 96.8 F L 116 H 28 H 84/63 100 Intake and Output 05/04/22 05/05/22 05/05/22 22:59 06:59 14:59 Intake Total 118 Output Total 100 200 Balance -100 -82 Intake: Oral 118 Output: Urine 100 200 Other: Voiding Method Toilet Weight 79.379 kg Physical Exam: Revealed a 71-year-old white male, pleasant, in no distress, on room air. Head: Atraumatic, normocephalic. HEENT:[Neck is supple.] [No neck masses.] [No thyromegaly.] [No JVD.] Chest: diminished breath sounds at the bases, minimal crackles at the bases, some wheezing on forced expiratory maneuver Cardiac Exam: [Normal S1 and S2, no S3 gallop, no murmur.] Abdomen: [Soft, nontender, no megaly, no rebound, no guarding, normal bowel sounds.] Extremities: [No clubbing, no edema, no cyanosis.] Neurological Exam: [No focal neurologic deficit.]alert oriented 3. Psychiatric: Normal mood affect and normal mental status examination. Skin: No rashes. Results - Laboratory Findings CBC and BMP: 05/04/22 14:57 05/04/22 14:57 PT/INR, D-dimer PT 11.2 sec (9.0-12.0) 05/04/22 14:57 INR 1.1 (<1.2) 05/04/22 14:57 D-Dimer 2.23 mg/L FEU (<0.60) H 05/04/22 14:57 Abnormal lab findings: Abnormal Labs 05/04/22 05/04/22 05/04/22 14:57 14:57 14:57 Hgb 17.7 H Hct 53.3 H Plt Count 140 L D-Dimer 2.23 H Carbon Dioxide 14 L Glucose 165 H Plasma Lactic Acid Lobito Magnesium 2.4 H AST 91 H ALT 58 H Troponin I 05/04/22 05/05/22 14:57 11:03 Hgb Hct Plt Count D-Dimer Carbon Dioxide Glucose Plasma Lactic Acid Lobito 8.9 H* Magnesium AST ALT Troponin I 0.597 H* - Diagnostic Findings CT scan - chest: image reviewed (as noted in HPI, diffuse groundglass densities within both lungs, right more so than left,) Assessment and Plan Assessment: impression: Acute bilateral pneumonia, community-acquired, doubt aspiration pneumonia, doubt COVID-19 pneumonia considering the patient had negative screening for COVID-19 infection, negative screening for influenza A, influenza B, and RSV. Acute non-ST elevation myocardial infarction Acute exacerbation of COPD History of coronary artery disease and previous CABG History of previous CVA/TIA Benign essential hypertension Dyslipidemia History of prostate cancer Recommendations: antibiotics empirically Awaiting pro calcitonin level. Cardiology consultation for troponin trending up, and possible non-ST elevation myocardial infarction Continue bronchodilators including DuoNeb, and including methylprednisolone. Sputum and blood cultures Are pending CT angiogram of the chest was reviewed. We will continue to follow. Time with Patient: Greater than 30
[2022-05-05] MEDS: HEPARIN SOD,PORK IN 0.45% NACL 25,000 UNIT in 0.45% NACL 1 250ML.BAG IV SCH (15:31)
[2022-05-05] MEDS: ACETAMINOPHEN TAB 325 MG TAB PO PRN (15:37)
[2022-05-05] MEDS ORDERED: DEXTROSE 50% SYRINGE 50 ML IVP PRN ×2 (15:51)
[2022-05-05 17:11] LABS: Glucose,Whole Blood 203 mg/dL (70-110)
[2022-05-05] MEDS: INSULIN ASPART (NovoLOG) 100 UNIT/ML VIAL SQ SCH ×2 (17:58→19:56)
[2022-05-05 19:43] LABS: Glucose,Whole Blood 238 mg/dL (70-110)
[2022-05-05] MEDS: MIRTAZAPINE 15 MG TAB PO SCH (19:56)
[2022-05-05] MEDS: ATORVASTATIN 80 MG TAB PO SCH (19:56)
--- NOTE | 2022-05-05 21:54 | P.HPIM ---
History of Present Illness H&P Date: 05/05/22 Chief Complaint: Shortness of breath Patient is a 71-year-old male with a known history of coronary disease status post CABG, history of stent placement, hypertension, hyperlipidemia, history of GA, prostate cancer status postsurgery, COPD and prior history of smoking prese nts to ER with complaints of shortness of breath. Patient states that he went out in the cold to feed cats and felt very short of breath with cough and wheezing. Patient was able to come back inside the home and EMS was called. Patient was given albuterol Atrovent treatments with minimal improvement and was brought to ER. Patient was tachycardic, tachypneic on admission with blood pressure 84/63. Denies any complaints of fever or chills. Patient states that he has been having sinus infection and cough with yellow sputum production recently. Chest x-ray showed interval development of acute cardiopulmonary disease with large partially consolidated infiltrate in the right lower lobe suspicious for pneumonia. Clinical correlation and short-term follow-up to resolution is recommended. CTA chest showed no evidence of PE. Diffuse groundglass densities within the lung consistent with acute inflammatory process possibly COVID-pneumonia and clinical correlation is recommended. EKG showed atrial flutter/tachycardia with heart rate 119 Laboratory data WBC 6.4 hemoglobin 17.7 and platelets 140 D-dimer is 2.23 Sodium 138 potassium 3.9 chloride 102 bicarb is 40 BUN 12 and creatinine 1.23 a nd lactic acid 8.9 and magnesium 2.4, AST 91 ALT 58 and alk phos 103 Troponin 0.033 and 0.597 and proBNP 672 RSV, influenza A and B and coronavirus PCR not detected. Review of Systems Constitutional: Patient denies any fever or chills . No generalized weakness or weight loss. Abdomen: Patient denied nausea vomiting and diarrhea and abdominal pain. Cardiovascular: Patient denies any chest pain. Patient does have short of breath no palpitations. No leg swelling. Respiratory: Patient does have cough congestion and sputum production Elois. Shortness of breath and wheezing. neurologic: Patient denied any numbness or tingling headache. Musculoskeletal: Patient denies any complaints of joint swelling or deformity. Skin: Negative Psychiatric: Negative Endocrine: No heat or cold intolerance. No recent weight gain. Genitourinary: No dysuria or hematuria. All other 14 point ROS negative except the above Past Medical History Past Medical History: Coronary Artery Disease (CAD), Cancer, Chest Pain / Angina, COPD, CVA/TIA, Hyperlipidemia, Hypertension, Myocardial Infarction (GA), Osteoarthritis (OA), Pneumonia Additional Past Medical History / Comment(s): COPD, coronary artery disease with increased bypass surgery, CVA/TIA, hypertension, hyperlipidemia, prostate cancer, right lower extremity fracture, hypertension, osteoarthritis Last Myocardial Infarction Date:: UNK History of Any Multi-Drug Resistant Organisms: None Reported Past Surgical History: Coronary Bypass/CABG, Heart Catheterization With Stent, Prostate Surgery Additional Past Surgical History / Comment(s): Right carotid endarterectomy, coronary bypass surgery, prostatectomy, left shoulder surgery, ORIF of the right lower extremity fracture Past Anesthesia/Blood Transfusion Reactions: No Reported Reaction Date of Last Stent Placement:: UNK Past Psychological History: No Psychological Hx Reported Additional Psychological History / Comment(s): 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 SISTER LIVES IN DUPLEX NEXT DOOR. 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 smoker Past Alcohol Use History: Rare Additional Past Alcohol Use History / Comment(s): STARTED SMOKING AT AGE 10 OR 11 UNTIL 1996 THEN WENT FROM CIGARETTES TO CIGARS UNTIL HE QUIT 2015 Past Drug Use History: None Reported - Past Family History Father Family Medical History: Myocardial Infarction (GA) Mother Family Medical History: CVA/TIA Medications and Allergies Home Medications Medication Instructions Recorded Confirmed Type Aspirin EC [Ecotrin Low Dose] 81 mg PO DAILY 12/26/20 05/04/22 History Atorvastatin [Lipitor] 40 mg PO HS 12/26/20 05/04/22 History Albuterol Inhaler [Ventolin Hfa 1 - 2 puff INHALATION RT-Q6H PRN 05/04/22 05/04/22 History Inhaler] Melatonin 3 mg PO HS PRN 05/04/22 05/04/22 History Metoprolol Succinate [Metoprolol 12.5 mg PO DAILY 05/04/22 05/04/22 History Succinate ER] Mirtazapine [Remeron] 15 mg PO HS 05/04/22 05/04/22 History Sertraline [Zoloft] 200 mg PO DAILY 05/04/22 05/04/22 History hydrOXYzine pamoate [Vistaril] 25 mg PO HS PRN 05/04/22 05/04/22 History lisinopriL [Zestril] 10 mg PO DAILY 05/04/22 05/04/22 History Allergies Allergy/AdvReac Type Severity Reaction Status Date / Time No Known Allergies Allergy Verified 05/04/22 18:18 Physical Exam Vitals: Vital Signs Temp Pulse Pulse Resp BP BP Pulse Ox 05/05/22 09:00 88 05/05/22 08:50 88 05/05/22 07:47 96 05/05/22 04:00 98.1 F 72 19 112/62 96 05/05/22 00:13 98.0 F 72 20 122/72 96 05/05/22 00:09 22 05/04/22 22:46 98.1 F 59 L 20 116/72 98 05/04/22 22:02 90 29 H 129/87 100 05/04/22 19:45 84 05/04/22 19:40 88 05/04/22 18:00 20 102/53 05/04/22 15:53 92 21 112/67 97 05/04/22 14:35 96.8 F L 116 H 28 H 84/63 100 Intake and Output 05/04/22 05/05/22 05/05/22 22:59 06:59 14:59 Intake Total 118 Output Total 100 Balance -100 118 Intake: Oral 118 Output: Urine 100 Other: Voiding Method Toilet Weight 79.379 kg PHYSICAL EXAMINATION: Patient is lying in the bed comfortably, no acute distress, awake alert and oriented.. HEENT: Normocephalic. Neck is supple. Pupils reactive. Nostrils clear. Oral cavity is moist. Neck reveals no JVD, carotid bruits, or thyromegaly. CHEST EXAMINATION: Trachea is central. Symmetrical expansion. Right basilar crackles. Positive expiratory wheeze. Nonlabored breathing. CARDIAC: Normal S1, S2 with no gallops. No murmurs ABDOMEN: Soft. Bowel sounds normal. No organomegaly. No abdominal bruits. Extremities: reveal no edema. No clubbing or cyanosis Neurologically awake, alert, oriented x3 with well-coordinated movements. No focal deficits noted Skin: No rash or skin lesions. Psychiatric: Cooperative. Nonsuicidal Musculoskeletal: No joint swelling or deformity. Normal range of motion. Results CBC & Chem 7: 05/04/22 14:57 05/04/22 14:57 Labs: Abnormal Lab Results - Last 24 Hours (Table) 05/04/22 05/04/22 05/04/22 Range/Units 14:57 14:57 14:57 Hgb 17.7 H (13.0-17.5) gm/dL Hct 53.3 H (39.0-53.0) % Plt Count 140 L (150-450) k/uL D-Dimer 2.23 H (<0.60) mg/L FEU Carbon Dioxide 14 L (22-30) mmol/L Glucose 165 H (74-99) mg/dL Plasma Lactic Acid Lobito (0.7-2.0) mmol/L Magnesium 2.4 H (1.6-2.3) mg/dL AST 91 H (17-59) U/L ALT 58 H (4-49) U/L 05/04/22 Range/Units 14:57 Hgb (13.0-17.5) gm/dL Hct (39.0-53.0) % Plt Count (150-450) k/uL D-Dimer (<0.60) mg/L FEU Carbon Dioxide (22-30) mmol/L Glucose (74-99) mg/dL Plasma Lactic Acid Lobito 8.9 H* (0.7-2.0) mmol/L Magnesium (1.6-2.3) mg/dL AST (17-59) U/L ALT (4-49) U/L Thrombosis Risk Factor Assmnt - DVT/VTE Prophylaxis DVT/VTE Prophylaxis: Pharmacologic Prophylaxis ordered - Choose All That Apply Any of the Below Risk Factors Present?: Yes Each Factor Represents 1 point: Obesity (BMI >25) Other Risk Factors: Yes Each Risk Factor Represents 2 Points: Age 61-74 years Other congenital or acquired thrombophilia - If yes, enter type in comment: No Thrombosis Risk Factor Assessment Total Risk Factor Score: 3 Thrombosis Risk Factor Assessment Level: Moderate Risk Assessment and Plan Assessment: Right lower lobe pneumonia with consolidative changes in the CT thorax. COVID- 19 PCR not detected. Acute hypoxic respiratory failure secondary to above requiring oxygen 3 L via nasal cannula Acute COPD exacerbation Atrial flutter possible new onset Elevated troponin level Coronary arteries with history of CABG For history of CVA/TIA Prostate cancer status post surgery Hypertension Hyperlipidemia Prior history of smoking DVT prophylaxis. Plan: Patient will be continued on broad-spectrum antibiotics in the form of vancomycin and Zosyn. Continue with oxygen supplementation. Procalcitonin level was ordered. Continue with IV Solu-Medrol and duo nebs. Continue with home medications inclu ding metoprolol and cardiology was consulted due to elevated troponin level. Patient was started on heparin drip and follow-up closely. Pulmonary and cardiology is on board. Prognosis is guarded with multiple medical problems and comorbid conditions. Time with Patient: Greater than 30
[2022-05-05] MEDS: MELATONIN 3 MG TABLET PO PRN (22:24)
[2022-05-06] MEDS: VANCOMYCIN 1,500 MG in SODIUM CHLORIDE 0.9% 500 ML 500 ML IVPB SCH ×3 (00:47→23:59)
[2022-05-06 06:07] LABS: Glucose,Whole Blood 153 mg/dL (70-110)
[2022-05-06] MEDS: methylPREDNISolone SOD SUCCI 125 MG/2 ML VIAL IV SCH ×4 (06:33→23:59)
[2022-05-06] MEDS: INSULIN ASPART (NovoLOG) 100 UNIT/ML VIAL SQ SCH ×4 (06:34→21:37)
[2022-05-06 07:49] LABS: Basophils % (A) 0 %; Eosinophils % (A) 0 %; HCT 40.9 % (39.0-53.0); Lymphocytes # (A) 0.5 k/uL (1.0-4.8); Lymphocytes % (A) 4 %; MCH 29.2 pg (25.0-35.0); MCHC 31.9 g/dL (31.0-37.0); MCV 91.6 fL (80.0-100.0); Mean Platelet Volume 8.2; Monocytes # (A) 0.3 k/uL (0-1.0); Monocytes % (A) 3 %; Neutrophils % (A) 92 %; Platelet Count 124 k/uL (150-450); RBC 4.46 m/uL (4.30-5.90); RDW 13.5 % (11.5-15.5); WBC 10.9 k/uL (3.8-10.6)
[2022-05-06 08:05] LABS: African American GFR (CKD) >90 (>60 ml/min/1.73 sqM); Anion Gap 9 mmol/L; Blood Urea Nitrogen 13 mg/dL (9-20); Calcium 8.3 mg/dL (8.4-10.2); Carbon Dioxide 18 mmol/L (22-30); Chloride 111 mmol/L (98-107); Glucose 145 mg/dL (74-99); Non-African American GFR(CKD) 88 (>60 ml/min/1.73 sqM); Potassium 4.4 mmol/L (3.5-5.1); Sodium 138 mmol/L (137-145)
[2022-05-06] MEDS: PIPERACILLIN-TAZOBACTAM 3.375 GM in SODIUM CHLORIDE 0.9% 100 ML IVPB SCH ×3 (08:48→23:59)
[2022-05-06] MEDS: lisinopriL 10 MG TAB PO SCH (08:48)
[2022-05-06] MEDS: PANTOPRAZOLE 40 MG/10 ML VIAL IV SCH (08:48)
[2022-05-06] MEDS: ASPIRIN 81 MG PO SCH (08:48)
[2022-05-06] MEDS: METOPROLOL TARTRATE 12.5 MG TAB PO SCH (08:48)
[2022-05-06] MEDS: IPRATROPIUM-ALBUTEROL 3 ML NEB INHALATION SCH ×4 (09:16→20:24)
[2022-05-06] MEDS ORDERED: METOPROLOL TARTRATE 12.5 MG TAB PO STA (09:19)
[2022-05-06] MEDS: ISOSORBIDE MONONITRATE ER 30 MG TAB.ER.24H PO SCH (10:39)
--- NOTE | 2022-05-06 11:08 | CA ---
Transthoracic Echo Report Name: Dominic Pacheco Age: 71 Gender: M : 1950 Exam Date: 05/05/2022 12:23 Exam Location: [facility] Ht (in): 65 Wt (lb): 175 Ordering Physician: Tamara Harden Attending/Referring Phys: Torch Straightener Mary Carmen Denney RDCS Procedure CPT: Indications: Chest Pain Cardiac Hx: Technical Quality: Fair Contrast 1: Total Dose (mL): Contrast 2: Total Dose (mL): MEASUREMENTS (Male / Female) Normal Values 2D ECHO LV Diastolic Diameter PLAX 5.3 cm 4.2 - 5.9 / 3.9 - 5.3 cm LV Systolic Diameter PLAX 3.7 cm IVS Diastolic Thickness 1.4 cm 0.6 - 1.0 / 0.6 - 0.9 cm LVPW Diastolic Thickness 1.5 cm 0.6 - 1.0 / 0.6 - 0.9 cm LV Relative Wall Thickness 0.5 RV Internal Dim ED PLAX 3.8 cm LA Volume 75.6 cm??? 18 - 58 / 22 - 52 cm??? M-MODE Aortic Root Diameter MM 3.1 cm LA Systolic Diameter MM 5.4 cm LA Ao Ratio MM 1.7 AV Cusp Separation MM 1.7 cm DOPPLER AV Peak Velocity 191.9 cm/s AV Peak Gradient 14.7 mmHg LVOT Peak Velocity 131.4 cm/s LVOT Peak Gradient 6.9 mmHg MV Area PHT 4.2 cm??? Mitral E Point Velocity 98.6 cm/s Mitral A Point Velocity 52.7 cm/s Mitral E to A Ratio 1.9 MV Deceleration Time 180.0 ms TR Peak Velocity 199.4 cm/s TR Peak Gradient 15.9 mmHg Right Ventricular Systolic Press 20.6 mmHg FINDINGS Left Ventricle Mildly increased septal wall thickness. No obvious regional wall motion abnormalities. Left ventricular ejection fraction is estimated at 50-55 %. Abnormal (paradoxical) septal motion consistent with postoperative state. Right Ventricle Mild right ventricular dilatation. Right ventricular systolic pressure within normal limits. Right Atrium Normal right atrial size. Left Atrium Moderately increased left atrial volume. Mildly increased left atrial area. Mitral Valve Structurally normal mitral valve. Mitral valve thickened. Mild mitral annular calcification. Mild to moderate mitral regurgitation. Aortic Valve No aortic valve stenosis or regurgitation. Diffuse thickening of the aortic valve cusps with reduced excursion. Thickened aortic valve without stenosis. Tricuspid Valve Structurally normal tricuspid valve. Mild tricuspid regurgitation. Pulmonic Valve Trace pulmonic regurgitation. Pericardium No pericardial effusion. Aorta Normal size aortic root and proximal ascending aorta. CONCLUSIONS Normal LV systolic function Mild to moderate mitral regurgitation Aortic sclerosis without significant stenosis Previewed by: Dr. Ramo Tripp MD (Electronically Signed) Final Date: 06 May 2022 11:07
[2022-05-06 11:26] LABS: Glucose,Whole Blood 136 mg/dL (70-110)
--- NOTE | 2022-05-06 11:35 | P.CRDCN ---
History of Present Illness Consult date: 05/06/22 Reason for Consult (text): Elevated troponin, syncope History of present illness: HISTORY OF PRESENT ILLNESS This is a 71-year-old male with past medical history of hypertension, hyperlipidemia, coronary artery disease with previous OR 3, CABG, cardiac stent 5, COPD, TIA, carotid artery disease status post surgery, prostate cancer. 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 He denies having any stress test or cardiac catheterization this year. We have been asked to see the patient due to elevated troponins and syncope Patient presented to the hospital due to shortness of breath which is chronic and exacerbated as well as cough. He denies having any chest pain, no orthopnea. EKG CTA of the chest negative for pulmonary embolism. Diffuse groundglass densities within the lung consistent with acute inflammatory process possibly Covid pneumonia Chest x-ray right lower lobe pneumonia WBC 10.9, hemoglobin 13, platelet count 124. Potassium 4.4, BUN 13 creatinine 0.89. Pro-calcitonin 0.35. Troponin 0.033 and 0.59. Home cardiac medications: Aspirin 81 mg daily, Lipitor 40 mg daily, lisinopril 10 mg daily, metoprolol succinate 12.5 mg daily Echocardiogram on this admission reveals normal LV systolic function. Mild to moderate mitral regurgitation, aortic sclerosis without significant stenosis REVIEW OF SYSTEMS Constitutional: No fever, no chills. No weakness, fatigue or lethargy. EENT: No headache. No dizziness. Lungs: Reports chronic shortness of breath, reports cough, no sputum production. No wheezing. Cardiovascular: No chest pain, no lower extremity edema. No palpitations. No paroxysmal nocturnal dyspnea. No orthopnea. No lightheadedness or dizziness. No syncopal episodes. Abdominal: No abdominal pain. No nausea, vomiting. No diarrhea. No constipation. No bloody or tarry stools. No loss of appetite. Genitourinary: No dysuria.. No urinary retention. Musculoskeletal: No myalgias. No muscle weakness, no gait dysfunction, no frequent falls. No back pain. No neck pain. Integumentary: No wounds, no lesions. No rash or pruritus. No unusual bruisin g. Neurologic: No aphasia. No facial droop. No change in mentation. No head injury. No headache. No paralysis. No paresthesia. Psychiatric: No depression. No anxiety. Endocrine: No abnormal blood sugars. PHYSICAL EXAMINATION Gen: This is a 71-year-old male. He appears comfortable and in no acute distress VS: reviewed HEENT: Head is atraumatic, normocephalic. Pupils equal, round. Sclerae is anicteric. NECK: Supple. No JVD. No lymphadenopathy. No thyromegaly. LUNGS: A few crackles in the bases. No intercostal retractions. HEART: Regular rate and rhythm. No murmur. ABDOMEN: Soft. Bowel sounds are present. No masses. No tenderness. EXTREMITIES: No pedal edema. No calf tenderness. NEUROLOGICAL: Patient is awake, alert and oriented x3. Cranial nerves 2 through 12 are grossly intact. ASSESSMENT Acute non-ST elevated myocardial infarction Bilateral pneumonia Acute exacerbation of COPD No evidence of recent syncope. Patient states syncope happened 6-7 months ago when he was diagnosed with TIA Coronary artery disease with previous CABG and stents TIA Hypertension Hyperlipidemia PLAN Continue patient on heparin drip for 48 hours. At that time, patient may be ev aluated for stress testing and/or cardiac catheterization depending on stress test results Start patient on Imdur 30 mg daily Increase metoprolol to 25 mg twice daily Continue patient's other home cardiac medications Further recommendations to follow based upon clinical course Thank you kindly for this consultation. Nurse practitioner note has been reviewed, I agree with documented findings and plan of care. Patient was seen and examined. Past Medical History Past Medical History: Coronary Artery Disease (CAD), Cancer, Chest Pain / Angina, COPD, CVA/TIA, Hyperlipidemia, Hypertension, Myocardial Infarction (OR), Osteoarthritis (OA), Pneumonia Additional Past Medical History / Comment(s): COPD, coronary artery disease with increased bypass surgery, CVA/TIA, hypertension, hyperlipidemia, prostate cancer, right lower extremity fracture, hypertension, osteoarthritis Last Myocardial Infarction Date:: UNK History of Any Multi-Drug Resistant Organisms: None Reported Past Surgical History: Coronary Bypass/CABG, Heart Catheterization With Stent, Prostate Surgery Additional Past Surgical History / Comment(s): Right carotid endarterectomy, coronary bypass surgery, prostatectomy, left shoulder surgery, ORIF of the right lower extremity fracture Past Anesthesia/Blood Transfusion Reactions: No Reported Reaction Date of Last Stent Placement:: UNK Past Psychological History: No Psychological Hx Reported Additional Psychological History / Comment(s): 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 SISTER LIVES IN DUPLEX NEXT DOOR. 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 smoker Past Alcohol Use History: Rare Additional Past Alcohol Use History / Comment(s): STARTED SMOKING AT AGE 10 OR 11 UNTIL 1996 THEN WENT FROM CIGARETTES TO CIGARS UNTIL HE QUIT 2015 Past Drug Use History: None Reported - Past Family History Father Family Medical History: Myocardial Infarction (OR) Mother Family Medical History: CVA/TIA Medications and Allergies Home Medications Medication Instructions Recorded Confirmed Type Aspirin EC [Ecotrin Low Dose] 81 mg PO DAILY 12/26/20 05/04/22 History Atorvastatin [Lipitor] 40 mg PO HS 12/26/20 05/04/22 History Albuterol Inhaler [Ventolin Hfa 1 - 2 puff INHALATION RT-Q6H PRN 05/04/22 05/04/22 History Inhaler] Melatonin 3 mg PO HS PRN 05/04/22 05/04/22 History Metoprolol Succinate [Metoprolol 12.5 mg PO DAILY 05/04/22 05/04/22 History Succinate ER] Mirtazapine [Remeron] 15 mg PO HS 05/04/22 05/04/22 History Sertraline [Zoloft] 200 mg PO DAILY 05/04/22 05/04/22 History hydrOXYzine pamoate [Vistaril] 25 mg PO HS PRN 05/04/22 05/04/22 History lisinopriL [Zestril] 10 mg PO DAILY 05/04/22 05/04/22 History Allergies Allergy/AdvReac Type Severity Reaction Status Date / Time No Known Allergies Allergy Verified 05/04/22 18:18 Physical Exam Vitals: Vital Signs Temp Pulse Pulse Resp BP Pulse Ox 05/06/22 04:00 18 126/72 96 05/06/22 01:36 20 05/06/22 00:00 98.1 F 99 20 130/70 99 05/05/22 20:03 95 05/05/22 20:00 98.0 F 97 20 137/72 98 05/05/22 19:55 92 05/05/22 16:07 80 05/05/22 15:55 80 05/05/22 15:25 96.5 F L 87 18 111/80 94 L 05/05/22 12:00 96.0 F L 82 24 117/66 94 L 05/05/22 11:53 78 05/05/22 11:41 76 05/05/22 09:00 88 05/05/22 08:50 88 Intake and Output 05/05/22 05/06/22 05/06/22 22:59 06:59 14:59 Intake Total 600 76.041 Output Total 200 Balance 600 -123.959 Intake: Intake, IV Titration 76.041 Amount Heparin Sod,Pork in 0.45% 76.041 NaCl 25,000 unit In 0.45 % NaCl 1 250ml.bag @ 12 UNITS/KG/HR 9.525 mls/hr IV .Q24H [facility] Rx#: [id number] Oral 600 Output: Urine 200 Other: Voiding Method Toilet # Voids 1 Results 05/06/22 06:44 05/06/22 06:44 Cardiac Enzymes 05/05/22 Range/Units 11:03 Troponin I 0.597 H* (0.000-0.034) ng/mL Coagulation 05/05/22 05/06/22 Range/Units 21:11 06:44 APTT 59.3 H 53.9 H (22.0-30.0) sec CBC 05/06/22 Range/Units 06:44 WBC 10.9 H (3.8-10.6) k/uL RBC 4.46 (4.30-5.90) m/uL Hgb 13.0 D (13.0-17.5) gm/dL Hct 40.9 (39.0-53.0) % Plt Count 124 L (150-450) k/uL Comprehensive Metabolic Panel 05/06/22 Range/Units 06:44 Sodium 138 (137-145) mmol/L Potassium 4.4 (3.5-5.1) mmol/L Chloride 111 H (98-107) mmol/L Carbon Dioxide 18 L (22-30) mmol/L BUN 13 (9-20) mg/dL Creatinine 0.89 (0.66-1.25) mg/dL Glucose 145 H (74-99) mg/dL Calcium 8.3 L (8.4-10.2) mg/dL Current Medications Generic Name Dose Route Start Last Admin Trade Name Freq PRN Reason Stop Dose Admin Acetaminophen 650 mg 05/05/22 00:00 05/05/22 15:37 Acetaminophen Tab 325 Mg Tab PO 650 mg Q6HR PRN Administration Fever and/ or Pain Albuterol/Ipratropium 3 ml 05/04/22 20:00 05/05/22 19:54 Ipratropium-Albuterol 3 Ml Neb INHALATION 3 ml RT-QID JAYSON Administration Albuterol/Ipratropium 3 ml 05/04/22 19:24 05/05/22 08:50 Ipratropium-Albuterol 3 Ml Neb INHALATION 3 ml RT-Q2H PRN Administration Shortness Of Breath Or Wheezing Aspirin 81 mg 05/05/22 09:00 05/05/22 08:44 Aspirin 81 Mg PO 81 mg DAILY JAYSON Administration Atorvastatin Calcium 40 mg 05/05/22 21:00 05/05/22 19:56 Atorvastatin 80 Mg Tab PO 40 mg HS JAYSON Administration Dextrose/Water 25 ml 05/05/22 15:51 Dextrose 50% Syringe 50 Ml IVP PER PROTOCOL PRN Hypoglycemia Protocol Dextrose/Water 50 ml 05/05/22 15:51 Dextrose 50% Syringe 50 Ml IVP PER PROTOCOL PRN Hypoglycemia Protocol Heparin Sodium (Porcine) 0 unit 05/05/22 13:18 Heparin Sodium 1,000 Un/Ml (10ml Vl) IV PER PROTOCOL PRN Low PTT Protocol Hydroxyzine Pamoate 25 mg 05/04/22 23:30 Hydroxyzine Pamoate 25 Mg Cap PO HS PRN ANXIETY/SLEEP Vancomycin HCl 1,500 mg/ 500 mls @ 167 mls/hr 05/05/22 09:00 05/06/22 00:47 Sodium Chloride IVPB 167 mls/hr Q16H JAYSON Administration Piperacillin Sod/Tazobactam 100 mls @ 25 mls/hr 05/05/22 08:00 05/05/22 23:32 Sod 3.375 gm/ Sodium Chloride IVPB 25 mls/hr Q8H JAYSON Administration Heparin Sodium/Sodium Chloride 250 mls @ 9.525 mls/hr 05/05/22 13:30 05/05/22 23:30 25,000 unit/ Sodium Chloride IV 12 units/kg/hr .Q24H JAYSON 9.525 mls/hr Titration Protocol 12 UNITS/KG/HR Insulin Aspart 0 unit 05/05/22 17:30 05/06/22 06:34 Insulin Aspart (Novolog) 100 Unit/Ml Vial SQ 2 unit ACHS JAYSON Administration Protocol Lisinopril 10 mg 05/05/22 09:00 05/05/22 08:44 Lisinopril 10 Mg Tab PO 10 mg DAILY JAYSON Administration Melatonin 3 mg 05/04/22 23:15 05/05/22 22:24 Melatonin 3 Mg Tablet PO 3 mg HS PRN Administration SLEEP Methylprednisolone Sodium Succinate 60 mg 05/05/22 00:00 05/06/22 06:33 Methylprednisolone Sod Succi 125 Mg/2 Ml Vial IV 60 mg Q6HR JAYSON Administration Metoprolol Tartrate 12.5 mg 05/05/22 09:00 05/05/22 08:44 Metoprolol Tartrate 12.5 Mg Tab PO 12.5 mg DAILY JAYSON Administration Mirtazapine 15 mg 05/04/22 21:00 05/05/22 19:56 Mirtazapine 15 Mg Tab PO 15 mg HS JAYSON Administration Miscellaneous Information 0 each 05/07/22 08:00 Vancomycin Trough Due 1 Each Misc MISCELLANE 05/07/22 08:01 DIRECTED ONE Pantoprazole Sodium 40 mg 05/05/22 09:00 05/05/22 08:45 Pantoprazole 40 Mg/10 Ml Vial IV 40 mg DAILY JAYSON Administration Sertraline HCl 200 mg 05/06/22 21:00 Sertraline 100 Mg Tab PO HS JAYSON Intake and Output 05/05/22 05/06/22 05/06/22 22:59 06:59 14:59 Intake Total 600 76.041 Output Total 200 Balance 600 -123.959 Intake: Intake, IV Titration 76.041 Amount Heparin Sod,Pork in 0.45% 76.041 NaCl 25,000 unit In 0.45 % NaCl 1 250ml.bag @ 12 UNITS/KG/HR 9.525 mls/hr IV .Q24H [facility] Rx#: [id number] Oral 600 Output: Urine 200 Other: Voiding Method Toilet # Voids 1 05/06/22 06:44 05/06/22 06:44
--- NOTE | 2022-05-06 12:02 | P.PN ---
Subjective Progress Note Date: 05/06/22 Principal diagnosis: Acute bilateral pneumonia this is a 71-year-old white male with history of COPD, previous history of MA, previous history of stroke without any residual deficits, patient was out in the cold yesterday for about one hour, and he developed shortness of breath cough and wheezing. EMS was called, patient was given albuterol and Atrovent treatment with minimal improvement, patient was brought into the ER, he had no fever, no chills, he had no chest pain, apparently when EMS arrived to pick him up, the patient was clammy and flushed upon his initial evaluation, his respiratory rate was in the 40s, patient was evaluated in the ER, chest x-ray and CT of the chest showed bilateral infiltrates, right more so than left, although the patient denies any history of aspiration, and no history of passing out episodes except he had 1 previous syncopal episode over [address] angiogram ruled out pulmonary embolism although he had a slightly elevated d-dimer of 2.23, and I reviewed the CT angiogram myself, definitely no evidence of pulmonary embolism. His WBC count is 6.4 hemoglobin is 17.7.lactic acid on it is initial evaluation was 8.9, went down to 1.6.his serology came back negative for carbon 19, influenza A, influenza B, and RSV.troponin was noted to be a bit high on presentation 0.033, follow-up troponin was 0.597, and BNP was normal. In spite of significant air space disease noted in both lungs especially in the right lung, patient maintained his O2 saturation, he was on room air with O2 sat showed 94%patient was placed on antibiotics in the form of Rocephin and Zithromax,initially, and he is now on Zosyn and vancomycin. he was also placed on bronchodilators and on steroids/methylprednisolone,considering his elevated troponin, patient was alsoplaced on heparin, full cardiac consultation is pending. Reevaluated today on 05/06/22, patient is doing better today, breathing easier, less cough and less wheezing less shortness of breath, remains on room air, does not seem to be in any distress, he does have intermittent cough, his cough is nonproductive. No fever no chills no hemoptysis no chest pain. CBC is relatively normal electrolytes are normal renal profile is normal, COVID-19 screening RSV screening were negative. Pro-calcitonin level was elevated at 0.35. Objective - Vital Signs Vital signs: Vital Signs Temp 98.2 F 05/06/22 08:35 Pulse 80 05/06/22 09:29 Resp 22 05/06/22 08:35 BP 117/69 05/06/22 08:35 Pulse Ox 94 L 05/06/22 08:35 FiO2 Intake & Output 05/05/22 05/06/22 05/06/22 18:59 06:59 18:59 Intake Total 718 76.041 260.963 Output Total 200 200 Balance 518 -123.959 260.963 Intake: Intake, IV Titration 76.041 80.963 Amount Heparin Sod,Pork in 0.45% 76.041 80.963 NaCl 25,000 unit In 0.45 % NaCl 1 250ml.bag @ 12 UNITS/KG/HR 9.525 mls/hr IV .Q24H [facility] Rx#: [id number] Oral 718 180 Output: Urine 200 200 Other: Voiding Method Toilet Toilet # Voids 1 - Exam Physical Exam: Revealed a 71-year-old white male, pleasant, in no distress, on room air. Head: Atraumatic, normocephalic. HEENT:[Neck is supple.] [No neck masses.] [No thyromegaly.] [No JVD.] Chest: diminished breath sounds at the bases, minimal crackles at the bases, some wheezing on forced expiratory maneuver Cardiac Exam: [Normal S1 and S2, no S3 gallop, no murmur.] Abdomen: [Soft, nontender, no megaly, no rebound, no guarding, normal bowel sounds.] Extremities: [No clubbing, no edema, no cyanosis.] Neurological Exam: [No focal neurologic deficit.]alert oriented 3. Psychiatric: Normal mood affect and normal mental status examination. Skin: No rashes. - Labs CBC & Chem 7: 05/06/22 06:44 05/06/22 06:44 Labs: Abnormal Lab Results - Last 24 Hours (Table) 05/05/22 05/05/22 05/05/22 Range/Units 11:03 11:03 16:42 WBC (3.8-10.6) k/uL Plt Count (150-450) k/uL Neutrophils # (1.3-7.7) k/uL Lymphocytes # (1.0-4.8) k/uL APTT (22.0-30.0) sec Chloride (98-107) mmol/L Carbon Dioxide (22-30) mmol/L Glucose (74-99) mg/dL POC Glucose (mg/dL) 203 H (70-110) mg/dL Calcium (8.4-10.2) mg/dL Troponin I 0.597 H* (0.000-0.034) ng/mL Procalcitonin 0.35 H (0.02-0.09) ng/mL 05/05/22 05/05/22 05/06/22 Range/Units 19:41 21:11 06:06 WBC (3.8-10.6) k/uL Plt Count (150-450) k/uL Neutrophils # (1.3-7.7) k/uL Lymphocytes # (1.0-4.8) k/uL APTT 59.3 H (22.0-30.0) sec Chloride (98-107) mmol/L Carbon Dioxide (22-30) mmol/L Glucose (74-99) mg/dL POC Glucose (mg/dL) 238 H 153 H (70-110) mg/dL Calcium (8.4-10.2) mg/dL Troponin I (0.000-0.034) ng/mL Procalcitonin (0.02-0.09) ng/mL 05/06/22 05/06/22 05/06/22 Range/Units 06:44 06:44 06:44 WBC 10.9 H (3.8-10.6) k/uL Plt Count 124 L (150-450) k/uL Neutrophils # 10.0 H (1.3-7.7) k/uL Lymphocytes # 0.5 L (1.0-4.8) k/uL APTT 53.9 H (22.0-30.0) sec Chloride 111 H (98-107) mmol/L Carbon Dioxide 18 L (22-30) mmol/L Glucose 145 H (74-99) mg/dL POC Glucose (mg/dL) (70-110) mg/dL Calcium 8.3 L (8.4-10.2) mg/dL Troponin I (0.000-0.034) ng/mL Procalcitonin (0.02-0.09) ng/mL 05/06/22 Range/Units 11:24 WBC (3.8-10.6) k/uL Plt Count (150-450) k/uL Neutrophils # (1.3-7.7) k/uL Lymphocytes # (1.0-4.8) k/uL APTT (22.0-30.0) sec Chloride (98-107) mmol/L Carbon Dioxide (22-30) mmol/L Glucose (74-99) mg/dL POC Glucose (mg/dL) 136 H (70-110) mg/dL Calcium (8.4-10.2) mg/dL Troponin I (0.000-0.034) ng/mL Procalcitonin (0.02-0.09) ng/mL Microbiology - Last 24 Hours (Table) 05/04/22 14:58 Blood Culture - Preliminary Blood No Growth after 24 hours 05/04/22 14:57 Blood Culture - Preliminary Blood No Growth after 24 hours Assessment and Plan Assessment: impression: Acute bilateral pneumonia, community-acquired, doubt aspiration pneumonia, doubt COVID-19 pneumonia considering the patient had negative screening for COVID-19 infection, negative screening for influenza A, influenza B, and RSV. Acute non-ST elevation myocardial infarction Acute exacerbation of COPD History of coronary artery disease and previous CABG History of previous CVA/TIA Benign essential hypertension Dyslipidemia History of prostate cancer Recommendations: Continue antibiotics, pro calcitonin level is elevated Cardiology is seeing for elevated troponin Continue bronchodilators including DuoNeb, and including methylprednisolone. Sputum and blood cultures Are pending Repeat chest x-ray in a.m. We will continue to follow. Time with Patient: Less than 30
[2022-05-06] MEDS: HEPARIN SOD,PORK IN 0.45% NACL 25,000 UNIT in 0.45% NACL 1 250ML.BAG IV SCH (16:07)
[2022-05-06 16:31] LABS: Glucose,Whole Blood 184 mg/dL (70-110)
[2022-05-06 19:50] LABS: Glucose,Whole Blood 95 mg/dL (70-110)
[2022-05-06] MEDS: ATORVASTATIN 80 MG TAB PO SCH (21:35)
[2022-05-06] MEDS: METOPROLOL TARTRATE 25 MG TAB PO SCH (21:36)
[2022-05-06] MEDS: MELATONIN 3 MG TABLET PO PRN (21:36)
[2022-05-06] MEDS: SERTRALINE 100 MG TAB PO SCH (21:36)
[2022-05-06] MEDS: MIRTAZAPINE 15 MG TAB PO SCH (21:37)
[2022-05-07] MEDS: hydrOXYzine pamoate 25 MG CAP PO PRN (03:20)
[2022-05-07] MEDS: IPRATROPIUM-ALBUTEROL 3 ML NEB INHALATION PRN (03:32)
[2022-05-07 05:49] LABS: Glucose,Whole Blood 163 mg/dL (70-110)
[2022-05-07] MEDS: methylPREDNISolone SOD SUCCI 125 MG/2 ML VIAL IV SCH ×4 (07:04→23:38)
[2022-05-07] MEDS: INSULIN ASPART (NovoLOG) 100 UNIT/ML VIAL SQ SCH ×4 (07:04→21:05)
[2022-05-07] MEDS: ACETAMINOPHEN TAB 325 MG TAB PO PRN (07:06)
--- NOTE | 2022-05-07 07:11 | XR ---
EXAMINATION TYPE: XR chest 1V portable DATE OF EXAM: 05/07/2022 6:56 AM COMPARISON: Chest radiographs from 05/04/2022 TECHNIQUE: XR chest 1V portable Portable AP radiograph of the chest. CLINICAL INDICATION:Male, 71 years old with history of pneumonia; FINDINGS: Lungs/Pleura: Improved aeration of lungs on today's exam with persistent airspace opacities scattered throughout the lungs. No evidence of pneumothorax or large pleural effusion. Pulmonary vascularity: Unremarkable. Heart/mediastinum: Cardiomediastinal silhouette is enlarged and stable. Musculoskeletal: No acute osseous pathology. Midline sternotomy wires are noted. IMPRESSION: Improved aeration of the lungs with persistent multifocal airspace opacities.
[2022-05-07] MEDS: IPRATROPIUM-ALBUTEROL 3 ML NEB INHALATION SCH ×4 (07:38→19:44)
[2022-05-07] MEDS: PIPERACILLIN-TAZOBACTAM 3.375 GM in SODIUM CHLORIDE 0.9% 100 ML IVPB SCH ×3 (08:26→23:38)
[2022-05-07] MEDS: lisinopriL 10 MG TAB PO SCH (08:27)
[2022-05-07] MEDS: ISOSORBIDE MONONITRATE ER 30 MG TAB.ER.24H PO SCH (08:27)
[2022-05-07] MEDS: PANTOPRAZOLE 40 MG/10 ML VIAL IV SCH (08:27)
[2022-05-07] MEDS: ASPIRIN 81 MG PO SCH (08:27)
[2022-05-07] MEDS: METOPROLOL TARTRATE 25 MG TAB PO SCH ×2 (08:27→21:05)
[2022-05-07] MEDS ORDERED: VANCOMYCIN TROUGH DUE 1 EACH MISC MISCELLANE ONE (11:00)
[2022-05-07 11:45] LABS: Basophils % (A) 0 %; Eosinophils % (A) 0 %; HCT 35.3 % (39.0-53.0); HGB 11.7 gm/dL (13.0-17.5); Lymphocytes # (A) 0.3 k/uL (1.0-4.8); Lymphocytes % (A) 4 %; MCHC 33.2 g/dL (31.0-37.0); MCV 90.3 fL (80.0-100.0); Mean Platelet Volume 8.2; Monocytes # (A) 0.4 k/uL (0-1.0); Monocytes % (A) 5 %; Neutrophils # (A) 7.4 k/uL (1.3-7.7); Neutrophils % (A) 90 %; Platelet Count 128 k/uL (150-450); RBC 3.91 m/uL (4.30-5.90); RDW 13.7 % (11.5-15.5); WBC 8.2 k/uL (3.8-10.6)
[2022-05-07 12:02] LABS: Glucose,Whole Blood 142 mg/dL (70-110)
--- NOTE | 2022-05-07 12:36 | P.PN ---
Subjective Progress Note Date: 05/07/22 this is a 71-year-old white male with history of COPD, previous history of ME, previous history of stroke without any residual deficits, patient was out in the cold yesterday for about one hour, and he developed shortness of breath cough and wheezing. EMS was called, patient was given albuterol and Atrovent treatment with minimal improvement, patient was brought into the ER, he had no fever, no chills, he had no chest pain, apparently when EMS arrived to pick him up, the patient was clammy and flushed upon his initial evaluation, his respiratory rate was in the 40s, patient was evaluated in the ER, chest x-ray and CT of the chest showed bilateral infiltrates, right more so than left, although the patient denies any history of aspiration, and no history of passing out episodes except he had 1 previous syncopal episode over [address] angiogram ruled out pulmonary embolism although he had a slightly elevated d- dimer of 2.23, and I reviewed the CT angiogram myself, definitely no evidence of pulmonary embolism. His WBC count is 6.4 hemoglobin is 17.7.lactic acid on it is initial evaluation was 8.9, went down to 1.6.his serology came back negative for carbon 19, influenza A, influenza B, and RSV.troponin was noted to be a bit high on presentation 0.033, follow-up troponin was 0.597, and BNP was normal. In spite of significant air space disease noted in both lungs especially in the right lung, patient maintained his O2 saturation, he was on room air with O2 sat showed 94%patient was placed on antibiotics in the form of Rocephin and Zithromax,initially, and he is now on Zosyn and vancomycin. he was also placed on bronchodilators and on steroids/methylprednisolone,considering his elevated troponin, patient was alsoplaced on heparin, full cardiac consultation is pending. Reevaluated today on 05/06/22, patient is doing better today, breathing easier, less cough and less wheezing less shortness of breath, remains on room air, does not seem to be in any distress, he does have intermittent cough, his cough is nonproductive. No fever no chills no hemoptysis no chest pain. CBC is relatively normal electrolytes are normal renal profile is normal, COVID-19 screening RSV screening were negative. Pro-calcitonin level was elevated at 0.35. The patient is seen today 05/07/2022 in follow-up on the selective care unit. He is currently resting comfortably in bed. Awake and alert in no acute distress. He is maintaining O2 saturations in the 90s on room air. He is still short of breath with minimal exertion. He continues with crackles in the right lung. He remains on Zosyn. He is on a heparin drip per cardiology. Non-ST segment elevation myocardial infarction. Echocardiogram revealed preserved left ventricular systolic function. Today's chest x-ray does reveal improved aeration of the lungs with persistent multifocal airspace opacities. Blood cultures reveal no growth. White count 8.2. Hemoglobin 11.7. Platelets 128. Glucose 142. He remains on antibiotics in the form of vancomycin and Zosyn. Continued on bronchodilators, IV Solu-Medrol. Objective - Vital Signs Vital signs: Vital Signs Temp 98.5 F 05/07/22 08:25 Pulse 72 05/07/22 11:56 Resp 20 05/07/22 08:25 BP 110/58 05/07/22 08:25 Pulse Ox 95 05/07/22 08:25 FiO2 Intake & Output 05/06/22 05/07/22 05/07/22 18:59 06:59 18:59 Intake Total 2478.274 420 Balance 2478.274 420 Intake: Intake, IV Titration 858.274 Amount Heparin Sod,Pork in 0.45% 158.274 NaCl 25,000 unit In 0.45 % NaCl 1 250ml.bag @ 12 UNITS/KG/HR 9.525 mls/hr IV .Q24H [facility] Rx#: [id number] Piperacillin-Tazobactam 3 200 .375 gm In Sodium Chloride 0.9% 100 ml @ 25 mls/hr IVPB Q8H [facility] Rx#: [id number] Vancomycin 1,500 mg In 500 Sodium Chloride 0.9% 500 ml 500 ml @ 167 mls/hr IVPB Q12H [facility] Rx#: [id number] Oral 1620 420 Other: Voiding Method Toilet Toilet Toilet # Voids 3 2 - Exam GENERAL EXAM: Alert, pleasant 71-year-old male patient, currently on room air, comfortable in no apparent distress. HEAD: Normocephalic. EYES: Normal reaction of pupils, equal size. NOSE: Clear with pink turbinates. THROAT: No erythema or exudates. NECK: No masses, no JVD. CHEST: No chest wall deformity. LUNGS: Equal air entry with bilateral scattered rhonchi more so on the right lung. CVS: S1 and S2 normal with no audible murmur, regular rhythm. ABDOMEN: No hepatosplenomegaly, normal bowel sounds, no guarding or rigidity. SPINE: No scoliosis or deformity SKIN: No rashes CENTRAL NERVOUS SYSTEM: No focal deficits, tone is normal in all 4 extremities. EXTREMITIES: There is no peripheral edema. No clubbing, no cyanosis. Peripheral pulses are intact. - Labs CBC & Chem 7: 05/07/22 10:59 05/06/22 06:44 Labs: Abnormal Lab Results - Last 24 Hours (Table) 05/06/22 05/07/22 05/07/22 Range/Units 16:30 05:47 10:59 RBC 3.91 L (4.30-5.90) m/uL Hgb 11.7 L (13.0-17.5) gm/dL Hct 35.3 L (39.0-53.0) % Plt Count 128 L (150-450) k/uL Lymphocytes # 0.3 L (1.0-4.8) k/uL APTT (22.0-30.0) sec POC Glucose (mg/dL) 184 H 163 H (70-110) mg/dL 05/07/22 05/07/22 Range/Units 11:05 12:00 RBC (4.30-5.90) m/uL Hgb (13.0-17.5) gm/dL Hct (39.0-53.0) % Plt Count (150-450) k/uL Lymphocytes # (1.0-4.8) k/uL APTT 80.6 H (22.0-30.0) sec POC Glucose (mg/dL) 142 H (70-110) mg/dL Microbiology - Last 24 Hours (Table) 05/04/22 14:58 Blood Culture - Preliminary Blood No Growth after 48 hours 05/04/22 14:57 Blood Culture - Preliminary Blood No Growth after 48 hours Assessment and Plan Assessment: Acute bilateral pneumonia, community-acquired, doubt aspiration pneumonia, doubt COVID-19 pneumonia considering the patient had negative screening for COVID-19 infection, negative screening for influenza A, influenza B, and RSV. Acute non-ST elevation myocardial infarction Acute exacerbation of COPD History of coronary artery disease and previous CABG History of previous CVA/TIA Benign essential hypertension Dyslipidemia History of prostate cancer Plan: The patient was seen and evaluated Chest x-ray, labs and medications reviewed Continue vancomycin and Zosyn Continue bronchodilators Continued on a heparin drip per cardiology We will continue to follow and make further recommendations based on his clinical status I have personally seen and examined the patient, performed the documentation and the assessment and plan as written. Number of minutes spent on the visit: 10.
--- NOTE | 2022-05-07 12:42 | P.PN ---
Subjective Progress Note Date: 05/07/22 HISTORY OF PRESENT ILLNESS This is a 71-year-old male with past medical history of hypertension, hyperlipi demia, coronary artery disease with previous [place] 3, CABG, cardiac stent 5, COPD, TIA, carotid artery disease status post surgery, prostate cancer. 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 He denies having any stress test or cardiac catheterization this year. We have been asked to see the patient due to elevated troponins and syncope Patient presented to the hospital due to shortness of breath which is chronic and exacerbated as well as cough. He denies having any chest pain, no orthopnea. EKG sinus rhythm with ST-T wave changes but same when compared to old EKGs CTA of the chest negative for pulmonary embolism. Diffuse groundglass densities within the lung consistent with acute inflammatory process possibly Covid pneumonia Chest x-ray right lower lobe pneumonia WBC 10.9, hemoglobin 13, platelet count 124. Potassium 4.4, BUN 13 creatinine 0.89. Pro-calcitonin 0.35. Troponin 0.033 and 0.59. Home cardiac medications: Aspirin 81 mg daily, Lipitor 40 mg daily, lisinopril 10 mg daily, metoprolol succinate 12.5 mg daily Echocardiogram on this admission reveals normal LV systolic function. Mild to moderate mitral regurgitation, aortic sclerosis without significant stenosis 05/07 Patient complains of shortness of breath with exertion and wheezing states it is hard to take a deep breath. Heart rate has been in the 80s, blood pressure 110/58. Repeat chest x-ray reveals improved aeration of the lungs with persistent multifocal airspace opacities. Patient is currently on a heparin drip. Yesterday we added indoor and increase metoprolol frequency.. No intercostal retractions. PHYSICAL EXAMINATION Gen: This is a 71-year-old male. He appears comfortable and in no acute distress VS: reviewed HEENT: Head is atraumatic, normocephalic. Pupils equal, round. Sclerae is anicteric. NECK: Supple. No JVD. No lymphadenopathy. No thyromegaly. LUNGS: Bilateral rhonchi and expiratory wheeze. HEART: Regular rate and rhythm. No murmur. ABDOMEN: Soft. Bowel sounds are present. No masses. No tenderness. EXTREMITIES: No pedal edema. No calf tenderness. NEUROLOGICAL: Patient is awake, alert and oriented x3. Cranial nerves 2 through 12 are grossly intact. ASSESSMENT Acute non-ST elevated myocardial infarction Bilateral pneumonia Acute exacerbation of COPD No evidence of recent syncope. Patient states syncope happened 6-7 months ago when he was diagnosed with TIA Coronary artery disease with previous CABG and stents TIA Hypertension Hyperlipidemia PLAN Discontinue heparin drip and start patient on subcu heparin Recommended medical therapy at this point and patient may follow-up with his possum trapper at [place] following discharge and have outpatient stress testing done. Continue patient on Imdur 30 mg daily Continue increased frequency of metoprolol 25 mg twice daily Continue patient's other home cardiac medications. Nurse practitioner note has been reviewed, I agree with documented findings and plan of care. Patient was seen and examined. Objective - Vital Signs Vital signs: Vital Signs Temp 98.2 F 05/07/22 00:00 Pulse 86 05/07/22 07:48 Resp 20 05/07/22 04:00 BP 133/83 05/07/22 04:00 Pulse Ox 95 05/07/22 07:41 FiO2 Intake & Output 05/06/22 05/07/22 05/07/22 18:59 06:59 18:59 Intake Total 2478.274 Balance 2478.274 Intake: Intake, IV Titration 858.274 Amount Heparin Sod,Pork in 0.45% 158.274 NaCl 25,000 unit In 0.45 % NaCl 1 250ml.bag @ 12 UNITS/KG/HR 9.525 mls/hr IV .Q24H [facility] Rx#: [id number] Piperacillin-Tazobactam 3 200 .375 gm In Sodium Chloride 0.9% 100 ml @ 25 mls/hr IVPB Q8H [facility] Rx#: [id number] Vancomycin 1,500 mg In 500 Sodium Chloride 0.9% 500 ml 500 ml @ 167 mls/hr IVPB Q12H [facility] Rx#: [id number] Oral 1620 Other: Voiding Method Toilet Toilet # Voids 3 2 - Labs CBC & Chem 7: 05/07/22 10:59 05/07/22 10:59 Labs: Abnormal Lab Results - Last 24 Hours (Table) 05/06/22 05/06/22 05/07/22 Range/Units 11:24 16:30 05:47 POC Glucose (mg/dL) 136 H 184 H 163 H (70-110) mg/dL Microbiology - Last 24 Hours (Table) 05/04/22 14:58 Blood Culture - Preliminary Blood No Growth after 48 hours 05/04/22 14:57 Blood Culture - Preliminary Blood No Growth after 48 hours
[2022-05-07 12:53] LABS: Potassium 4.3 mmol/L (3.5-5.1)
[2022-05-07] MEDS: VANCOMYCIN 1,500 MG in SODIUM CHLORIDE 0.9% 500 ML 500 ML IVPB SCH ×2 (12:58→23:38)
[2022-05-07] MEDS: HEPARIN SODIUM,PORCINE/PF 5,000 UNIT/0.5 ML SYRINGE SQ SCH ×2 (16:07→23:38)
[2022-05-07 16:21] LABS: Glucose,Whole Blood 190 mg/dL (70-110)
[2022-05-07 20:31] LABS: Glucose,Whole Blood 160 mg/dL (70-110)
[2022-05-07] MEDS: ATORVASTATIN 80 MG TAB PO SCH (21:05)
[2022-05-07] MEDS: SERTRALINE 100 MG TAB PO SCH (21:05)
[2022-05-07] MEDS: MIRTAZAPINE 15 MG TAB PO SCH (21:05)
[2022-05-07] MEDS: MELATONIN 3 MG TABLET PO PRN (21:05)
[2022-05-08] MEDS: hydrOXYzine pamoate 25 MG CAP PO PRN (03:26)
[2022-05-08] MEDS: IPRATROPIUM-ALBUTEROL 3 ML NEB INHALATION PRN ×2 (03:42→22:42)
[2022-05-08 06:00] LABS: Glucose,Whole Blood 156 mg/dL (70-110)
[2022-05-08] MEDS: INSULIN ASPART (NovoLOG) 100 UNIT/ML VIAL SQ SCH ×4 (06:28→21:04)
[2022-05-08] MEDS: methylPREDNISolone SOD SUCCI 125 MG/2 ML VIAL IV SCH ×4 (06:28→23:20)
[2022-05-08] MEDS: IPRATROPIUM-ALBUTEROL 3 ML NEB INHALATION SCH ×4 (07:38→20:10)
[2022-05-08 08:44] LABS: Basophils % (A) 0 %; Eosinophils # (A) 0.1 k/uL (0-0.7); Eosinophils % (A) 0 %; HCT 43.5 % (39.0-53.0); HGB 14.5 gm/dL (13.0-17.5); Hypochromasia Slight; Lymphocytes # (A) 0.6 k/uL (1.0-4.8); Lymphocytes % (A) 4 %; MCH 31.1 pg (25.0-35.0); MCHC 33.5 g/dL (31.0-37.0); MCV 92.9 fL (80.0-100.0); Mean Platelet Volume 7.9; Monocytes # (A) 0.8 k/uL (0-1.0); Monocytes % (A) 5 %; Neutrophils # (A) 14.4 k/uL (1.3-7.7); Neutrophils % (A) 91 %; Platelet Count 167 k/uL (150-450); RBC 4.68 m/uL (4.30-5.90); RDW 13.6 % (11.5-15.5); WBC 15.9 k/uL (3.8-10.6)
[2022-05-08 08:53] LABS: Calcium 8.5 mg/dL (8.4-10.2); Potassium 4.3 mmol/L (3.5-5.1)
[2022-05-08] MEDS: PIPERACILLIN-TAZOBACTAM 3.375 GM in SODIUM CHLORIDE 0.9% 100 ML IVPB SCH ×2 (09:42→17:38)
[2022-05-08] MEDS: lisinopriL 10 MG TAB PO SCH (09:44)
[2022-05-08] MEDS: HEPARIN SODIUM,PORCINE/PF 5,000 UNIT/0.5 ML SYRINGE SQ SCH ×3 (09:44→23:20)
[2022-05-08] MEDS: PANTOPRAZOLE 40 MG/10 ML VIAL IV SCH (09:44)
[2022-05-08] MEDS: ISOSORBIDE MONONITRATE ER 30 MG TAB.ER.24H PO SCH (09:44)
[2022-05-08] MEDS: ASPIRIN 81 MG PO SCH (09:44)
[2022-05-08] MEDS: METOPROLOL TARTRATE 25 MG TAB PO SCH ×2 (09:44→21:04)
[2022-05-08 11:20] LABS: Glucose,Whole Blood 138 mg/dL (70-110)
[2022-05-08] MEDS: VANCOMYCIN 1,500 MG in SODIUM CHLORIDE 0.9% 500 ML 500 ML IVPB SCH (12:05)
--- NOTE | 2022-05-08 14:08 | P.PN ---
Subjective Progress Note Date: 05/08/22 this is a 71-year-old white male with history of COPD, previous history of NV, previous history of stroke without any residual deficits, patient was out in the cold yesterday for about one hour, and he developed shortness of breath cough and wheezing. EMS was called, patient was given albuterol and Atrovent treatment with minimal improvement, patient was brought into the ER, he had no fever, no chills, he had no chest pain, apparently when EMS arrived to pick him up, the patient was clammy and flushed upon his initial evaluation, his respiratory rate was in the 40s, patient was evaluated in the ER, chest x-ray and CT of the chest showed bilateral infiltrates, right more so than left, although the patient denies any history of aspiration, and no history of passing out episodes except he had 1 previous syncopal episode over [address] angiogram ruled out pulmonary embolism although he had a slightly elevated d- dimer of 2.23, and I reviewed the CT angiogram myself, definitely no evidence of pulmonary embolism. His WBC count is 6.4 hemoglobin is 17.7.lactic acid on it is initial evaluation was 8.9, went down to 1.6.his serology came back negative for carbon 19, influenza A, influenza B, and RSV.troponin was noted to be a bit high on presentation 0.033, follow-up troponin was 0.597, and BNP was normal. In spite of significant air space disease noted in both lungs especially in the right lung, patient maintained his O2 saturation, he was on room air with O2 sat showed 94%patient was placed on antibiotics in the form of Rocephin and Zithromax,initially, and he is now on Zosyn and vancomycin. he was also placed on bronchodilators and on steroids/methylprednisolone,considering his elevated troponin, patient was alsoplaced on heparin, full cardiac consultation is pending. Reevaluated today on 05/06/22, patient is doing better today, breathing easier, less cough and less wheezing less shortness of breath, remains on room air, does not seem to be in any distress, he does have intermittent cough, his cough is nonproductive. No fever no chills no hemoptysis no chest pain. CBC is relatively normal electrolytes are normal renal profile is normal, COVID-19 screening RSV screening were negative. Pro-calcitonin level was elevated at 0.35. The patient is seen today 05/07/2022 in follow-up on the selective care unit. He is currently resting comfortably in bed. Awake and alert in no acute distress. He is maintaining O2 saturations in the 90s on room air. He is still short of breath with minimal exertion. He continues with crackles in the right lung. He remains on Zosyn. He is on a heparin drip per cardiology. Non-ST segment elevation myocardial infarction. Echocardiogram revealed preserved left ventricular systolic function. Today's chest x-ray does reveal improved aeration of the lungs with persistent multifocal airspace opacities. Blood cultures reveal no growth. White count 8.2. Hemoglobin 11.7. Platelets 128. Glucose 142. He remains on antibiotics in the form of vancomycin and Zosyn. Continued on bronchodilators, IV Solu-Medrol. Patient is seen today 05/08/2022 in follow-up on the selective care unit. He is currently sitting up in a chair at the bedside. Awake and alert in no acute distress. His O2 saturations drop in the mid 80s while on room air and up and walking. Recovers into the 90s on 2 L/m per nasal cannula. Blood cultures revealed no growth. We count 15.9. Hemoglobin 14.5. Sodium 141. Potassium 4.3. BUN 20. Creatinine 1.07. Glucose 118. He remains on Symbicort, DuoNeb inhalations, IV Solu-Medrol. Antibiotics in the form of Zosyn. Vancomycin discontinued. Objective - Vital Signs Vital signs: Vital Signs Temp 97.9 F 05/08/22 08:00 Pulse 89 05/08/22 11:58 Resp 24 05/08/22 08:00 BP 161/99 05/08/22 08:00 Pulse Ox 91 L 05/08/22 11:58 FiO2 Intake & Output 05/07/22 05/08/22 05/08/22 18:59 06:59 18:59 Intake Total 1360 180 Balance 1360 180 Intake: Intake, IV Titration 100 Amount Piperacillin-Tazobactam 3 100 .375 gm In Sodium Chloride 0.9% 100 ml @ 25 mls/hr IVPB Q8H JAYSON Rx#: [id number] Oral 1260 180 Other: Voiding Method Toilet Toilet Toilet # Voids 2 2 - Exam GENERAL EXAM: Alert, 71-year-old male patient, currently on 2 L nasal cannula, up in a chair, comfortable in no apparent distress. HEAD: Normocephalic. EYES: Normal reaction of pupils, equal size. NOSE: Clear with pink turbinates. THROAT: No erythema or exudates. NECK: No masses, no JVD. CHEST: No chest wall deformity. LUNGS: Equal air entry with bilateral scattered rhonchi more so on the right lung. CVS: S1 and S2 normal with no audible murmur, regular rhythm. ABDOMEN: No hepatosplenomegaly, normal bowel sounds, no guarding or rigidity. SPINE: No scoliosis or deformity SKIN: No rashes CENTRAL NERVOUS SYSTEM: No focal deficits, tone is normal in all 4 extremities. EXTREMITIES: There is no peripheral edema. No clubbing, no cyanosis. Peripheral pulses are intact. - Labs CBC & Chem 7: 05/08/22 08:11 05/08/22 08:11 Labs: Abnormal Lab Results - Last 24 Hours (Table) 05/07/22 05/07/22 05/08/22 Range/Units 16:20 20:30 05:59 WBC (3.8-10.6) k/uL Neutrophils # (1.3-7.7) k/uL Lymphocytes # (1.0-4.8) k/uL Chloride (98-107) mmol/L Carbon Dioxide (22-30) mmol/L Glucose (74-99) mg/dL POC Glucose (mg/dL) 190 H 160 H 156 H (70-110) mg/dL 05/08/22 05/08/22 05/08/22 Range/Units 08:11 08:11 11:19 WBC 15.9 H (3.8-10.6) k/uL Neutrophils # 14.4 H (1.3-7.7) k/uL Lymphocytes # 0.6 L (1.0-4.8) k/uL Chloride 110 H (98-107) mmol/L Carbon Dioxide 21 L (22-30) mmol/L Glucose 118 H (74-99) mg/dL POC Glucose (mg/dL) 138 H (70-110) mg/dL Microbiology - Last 24 Hours (Table) 05/04/22 14:57 Blood Culture - Preliminary Blood No Growth after 72 hours 05/04/22 14:58 Blood Culture - Preliminary Blood No Growth after 72 hours Assessment and Plan Assessment: Acute bilateral pneumonia, community-acquired, doubt aspiration pneumonia, doubt COVID-19 pneumonia considering the patient had negative screening for COVID-19 infection, negative screening for influenza A, influenza B, and RSV. Acute non-ST elevation myocardial infarction Acute exacerbation of COPD History of coronary artery disease and previous CABG History of previous CVA/TIA Benign essential hypertension Dyslipidemia History of prostate cancer Plan: The patient was seen and evaluated Labs and medications reviewed Continue Zosyn Continue bronchodilators Titrate the FiO2 as tolerated, may need home oxygen Follow-up chest x-ray in a.m. We will continue to follow I have personally seen and examined the patient, performed the documentation and the assessment and plan as written. Number of minutes spent on the visit: 10.
[2022-05-08] MEDS ORDERED: FUROSEMIDE 10 MG/ML 2 ML VIAL IV ONE (14:34)
[2022-05-08 16:12] LABS: Glucose,Whole Blood 227 mg/dL (70-110)
[2022-05-08] MEDS: SYMBICORT 160-4.5 MCG INHALER INHALATION SCH (20:10)
[2022-05-08 20:23] LABS: Glucose,Whole Blood 122 mg/dL (70-110)
[2022-05-08] MEDS: ATORVASTATIN 80 MG TAB PO SCH (21:03)
[2022-05-08] MEDS: MIRTAZAPINE 15 MG TAB PO SCH (21:04)
[2022-05-08] MEDS: SERTRALINE 100 MG TAB PO SCH (21:04)
[2022-05-08] MEDS: MELATONIN 3 MG TABLET PO PRN (23:22)
[2022-05-09] MEDS: PIPERACILLIN-TAZOBACTAM 3.375 GM in SODIUM CHLORIDE 0.9% 100 ML IVPB SCH ×3 (00:28→16:43)
[2022-05-09] MEDS: diphenhydrAMINE 25 MG CAP PO PRN ×2 (03:27→20:30)
[2022-05-09] MEDS: IPRATROPIUM-ALBUTEROL 3 ML NEB INHALATION PRN ×2 (05:01→18:25)
[2022-05-09 05:56] LABS: Glucose,Whole Blood 162 mg/dL (70-110)
[2022-05-09] MEDS: methylPREDNISolone SOD SUCCI 125 MG/2 ML VIAL IV SCH ×3 (06:23→18:11)
[2022-05-09] MEDS: INSULIN ASPART (NovoLOG) 100 UNIT/ML VIAL SQ SCH ×4 (06:24→20:26)
[2022-05-09] MEDS: IPRATROPIUM-ALBUTEROL 3 ML NEB INHALATION SCH ×5 (07:48→19:25)
[2022-05-09] MEDS: SYMBICORT 160-4.5 MCG INHALER INHALATION SCH ×3 (07:48→19:25)
--- NOTE | 2022-05-09 08:26 | PN ---
PROGRESS NOTE SUBJECTIVE: Mr. Pacheco had a mxq-[id number] [place] and also pneumonia. He is, however, doing better today. He has no chest pain. He has some shortness of breath, which has been stable. I am recommending that we continue his current medical regimen and risk factor modification. EKG revealed sinus mechanism with precordial nonspecific ST-T changes and LVH-type picture. His pulmonary status has also shown some improvement. He has history of CAD, prior bypass surgery, and PCI and also carotid disease. PHYSICAL EXAMINATION: VITALS: Stable. HEART: S1, S2 heard normally. Short systolic murmur audible at the base. Second heart sound is preserved. LUNGS: Reveal diminished air entry. ABDOMEN: Soft, nontender. LOWER EXTREMITIES: Reveal diminished pulses. CENTRAL NERVOUS SYSTEM: Grossly within normal limits. IMPRESSION: 1. Exacerbation of chronic obstructive pulmonary disease. 2. Mzx-PE-ycmeqnpca myocardial infarction, probably with oxygen mismatch. 3. Known coronary artery disease with prior bypass surgery and PCI. RECOMMENDATIONS: Optimize medical therapy and patient can be discharged. We will see him as needed. MMODL / IJN: [id number] /
[2022-05-09] MEDS: HEPARIN SODIUM,PORCINE/PF 5,000 UNIT/0.5 ML SYRINGE SQ SCH ×2 (09:09→16:44)
[2022-05-09] MEDS: lisinopriL 10 MG TAB PO SCH (09:09)
[2022-05-09] MEDS: ASPIRIN 81 MG PO SCH (09:09)
[2022-05-09] MEDS: ISOSORBIDE MONONITRATE ER 30 MG TAB.ER.24H PO SCH (09:09)
[2022-05-09] MEDS: PANTOPRAZOLE 40 MG/10 ML VIAL IV SCH (09:10)
[2022-05-09] MEDS: METOPROLOL TARTRATE 25 MG TAB PO SCH ×2 (09:10→20:26)
--- NOTE | 2022-05-09 10:38 | XR ---
EXAMINATION TYPE: XR chest 2V DATE OF EXAM: 05/09/2022 6:19 AM COMPARISON: Chest radiograph from two days prior. TECHNIQUE: XR chest 2V Frontal and lateral views of the chest. CLINICAL INDICATION:Male, 71 years old with history of Follow up pneumonia; FINDINGS: Lungs/Pleura: Worsening scattered airspace opacities throughout the lungs. There is no evidence of pl eural effusion, focal consolidation, or pneumothorax. Pulmonary vascularity: Pulmonary vascular congestion. Heart/mediastinum: Cardiomediastinal silhouette is enlarged and stable. Musculoskeletal: No acute osseous pathology. Midline sternotomy wires are noted. IMPRESSION: Worsening scattered airspace opacities correlate for pneumonia. Correlate with serum BNP to rule out superimposed underlying congestive heart failure.
[2022-05-09] MEDS ORDERED: VANCOMYCIN TROUGH DUE 1 EACH MISC MISCELLANE ONE (11:00)
[2022-05-09 11:39] LABS: Glucose,Whole Blood 259 mg/dL (70-110)
--- NOTE | 2022-05-09 11:45 | CDI ---
Documentation Clarification Form Date: 05/09/2022 11:23:47 AM From: Michelle Dias CCS, CCDS Admit Date: 05/04/2022 07:00:00 PM Patient Name: Dominic Pacheco Visit Number: [id number] Discharge Date: ATTENTION: The Clinical Documentation Specialists (CDI) and [facility] Coding Staff appreciate your assistance in clarifying documentation. Please respond to the clarification below the line at the bottom and electronically sign. The CDI & [facility] Coding staff will review the response and follow-up if needed. Please note: Queries are made part of the Legal Health Record. If you have any questions, please contact the author of this message via ITS. Dr. Madison Finch: Acute Non-STEMI is documented in the 05/05 Pulmonary Consult and the 05/06 Cardiology Consult and also in subsequent Progress Notes. Per the 05/08 Cardiology Progress Note: Cez-WQ-wrwbyvrpp myocardial infarction, probably with oxygen mismatch. Additional clarification regarding the type of IL is requested. Patient History/Risk Factors per the 05/05 H/P: CAD status post CABG and Heart Catheterization with Stent, TIA, Prostate Cancer status post Prostatectomy, Hypertension, Hyperlipidemia, Former smoker. Clinical Indicators: Presented to the ED on 05/04 with SOB via EMS from home. Admit with Sepsis, Pneumonia, COPD with exacerbation, Dehydration, Lactic Acid, Hypotensive episode. 05/04 VS: T 96.8, P 116, R 28, BP 84/63, PO 100 3Lnc 05/04 LAB: D dimer 2.23; CO2 14, Glucose 165, Lactic Acid 8.9, Magnesium 2.4, AST 91, ALT 58, Troponin 0.033, 0.597. 05/04 RAD: CXR: Interval development of acute cardiopulmonary disease partially consolidative infiltrate in the right lower lobe suspicious for pneumonia. CT Chest: Diffuse groundglass densities within the lung consistent with acute inflammatory process possibly COVID pneumonia. 05/04 EKG: R 119 Atrial flutter/Tachycardia w/RVR, Intraventricular conduction delay, Left ventricular hypertrophy & ST-T change, Inferior IL of indeterminate age, Abnormal ECG. Treatment 05/04: Blood cultures, O2 3Lnc, IVF 1,000 mls @ 999 mls/hr q1H x2, IV Rocephin 2,000 mg x1, IV Azithromycin 250 mls @ 250 mls/hr x1, INH Duoneb 3 ml q2H/prn, - QID; IV zosyn 100 mls @ 25 mls/hr q8H, IV Vancomycin 500 mls @ 157 mls/hr x1. Please clarify the Type of IL if known: [ ] Type 2 IL, please specify cause if known: [ ] NSTEMI [ ] Unable to determine [ ] Other, please specify: (Template Last Revised: July 2020) MTDD
[2022-05-09 12:20] LABS: Calcium 8.1 mg/dL (8.4-10.2); Potassium 3.7 mmol/L (3.5-5.1)
[2022-05-09 14:22] VITALS: BMI 29.1
--- NOTE | 2022-05-09 14:31 | P.PN ---
Subjective Progress Note Date: 05/09/22 this is a 71-year-old white male with history of COPD, previous history of DC, previous history of stroke without any residual deficits, patient was out in the cold yesterday for about one hour, and he developed shortness of breath cough and wheezing. EMS was called, patient was given albuterol and Atrovent treatment with minimal improvement, patient was brought into the ER, he had no fever, no chills, he had no chest pain, apparently when EMS arrived to pick him up, the patient was clammy and flushed upon his initial evaluation, his respiratory rate was in the 40s, patient was evaluated in the ER, chest x-ray and CT of the chest showed bilateral infiltrates, right more so than left, although the patient denies any history of aspiration, and no history of passing out episodes except he had 1 previous syncopal episode over [address] angiogram ruled out pulmonary embolism although he had a slightly elevated d- dimer of 2.23, and I reviewed the CT angiogram myself, definitely no evidence of pulmonary embolism. His WBC count is 6.4 hemoglobin is 17.7.lactic acid on it is initial evaluation was 8.9, went down to 1.6.his serology came back negative for carbon 19, influenza A, influenza B, and RSV.troponin was noted to be a bit high on presentation 0.033, follow-up troponin was 0.597, and BNP was normal. In spite of significant air space disease noted in both lungs especially in the right lung, patient maintained his O2 saturation, he was on room air with O2 sat showed 94%patient was placed on antibiotics in the form of Rocephin and Zithromax,initially, and he is now on Zosyn and vancomycin. he was also placed on bronchodilators and on steroids/methylprednisolone,considering his elevated troponin, patient was alsoplaced on heparin, full cardiac consultation is pending. Reevaluated today on 05/06/22, patient is doing better today, breathing easier, less cough and less wheezing less shortness of breath, remains on room air, does not seem to be in any distress, he does have intermittent cough, his cough is nonproductive. No fever no chills no hemoptysis no chest pain. CBC is relatively normal electrolytes are normal renal profile is normal, COVID-19 screening RSV screening were negative. Pro-calcitonin level was elevated at 0.35. The patient is seen today 05/07/2022 in follow-up on the selective care unit. He is currently resting comfortably in bed. Awake and alert in no acute distress. He is maintaining O2 saturations in the 90s on room air. He is still short of breath with minimal exertion. He continues with crackles in the right lung. He remains on Zosyn. He is on a heparin drip per cardiology. Non-ST segment elevation myocardial infarction. Echocardiogram revealed preserved left ventricular systolic function. Today's chest x-ray does reveal improved aeration of the lungs with persistent multifocal airspace opacities. Blood cultures reveal no growth. White count 8.2. Hemoglobin 11.7. Platelets 128. Glucose 142. He remains on antibiotics in the form of vancomycin and Zosyn. Continued on bronchodilators, IV Solu-Medrol. Patient is seen today 05/08/2022 in follow-up on the selective care unit. He is currently sitting up in a chair at the bedside. Awake and alert in no acute distress. His O2 saturations drop in the mid 80s while on room air and up and walking. Recovers into the 90s on 2 L/m per nasal cannula. Blood cultures revealed no growth. We count 15.9. Hemoglobin 14.5. Sodium 141. Potassium 4.3. BUN 20. Creatinine 1.07. Glucose 118. He remains on Symbicort, DuoNeb inhalations, IV Solu-Medrol. Antibiotics in the form of Zosyn. Vancomycin discontinued. The patient is seen today 05/09/2022 in follow-up on the selective care unit. He is currently resting comfortably in bed. Awake and alert in no acute distress. He is doing better today compared to yesterday. Not quite back to his baseline. Still congested. Still is some spasm and wheezing. He is maintaining O2 saturations in the 90s on 4 L/m per nasal cannula. Follow-up chest x-ray reveals worsening airspace opacities. No evidence of pleural effusion. No focal consolidation. No pneumothorax. Blood cultures revealed no growth. Sputum cultures pending. Sodium 138. Potassium 3.7. BUN 24. Creatinine 1.05. Glucose 262. He is continued on DuoNeb inhalations, Symbicort, IV Solu-Medrol. Antibiotics in the form of Zosyn. Objective - Vital Signs Vital signs: Vital Signs Temp 97.9 F 05/09/22 12:15 Pulse 90 05/09/22 12:15 Resp 20 05/09/22 12:15 BP 118/70 05/09/22 12:15 Pulse Ox 91 L 05/09/22 12:15 FiO2 Intake & Output 05/08/22 05/09/22 05/09/22 18:59 06:59 18:59 Intake Total 540 750 Output Total 500 Balance 40 750 Weight 79.379 kg Intake: IV 20 Invasive Line 1 10 Invasive Line 2 10 Oral 540 730 Output: Urine 500 Other: Voiding Method Toilet Toilet Toilet # Voids 3 3 1 - Exam GENERAL EXAM: Alert, 71-year-old male, currently on 4 L nasal cannula, comfortable in no apparent distress. HEAD: Normocephalic. EYES: Normal reaction of pupils, equal size. NOSE: Clear with pink turbinates. THROAT: No erythema or exudates. NECK: No masses, no JVD. CHEST: No chest wall deformity. LUNGS: Equal air entry with bilateral scattered rhonchi more so on the right lung. CVS: S1 and S2 normal with no audible murmur, regular rhythm. ABDOMEN: No hepatosplenomegaly, normal bowel sounds, no guarding or rigidity. SPINE: No scoliosis or deformity SKIN: No rashes CENTRAL NERVOUS SYSTEM: No focal deficits, tone is normal in all 4 extremities. EXTREMITIES: There is no peripheral edema. No clubbing, no cyanosis. Peripheral pulses are intact. - Labs CBC & Chem 7: 05/08/22 08:11 05/09/22 11:10 Labs: Abnormal Lab Results - Last 24 Hours (Table) 05/08/22 05/08/22 05/09/22 Range/Units 16:10 20:22 05:54 Chloride (98-107) mmol/L BUN (9-20) mg/dL Glucose (74-99) mg/dL POC Glucose (mg/dL) 227 H 122 H 162 H (70-110) mg/dL Calcium (8.4-10.2) mg/dL 05/09/22 05/09/22 Range/Units 11:10 11:38 Chloride 108 H (98-107) mmol/L BUN 24 H (9-20) mg/dL Glucose 262 H (74-99) mg/dL POC Glucose (mg/dL) 259 H (70-110) mg/dL Calcium 8.1 L (8.4-10.2) mg/dL Microbiology - Last 24 Hours (Table) 05/08/22 10:00 Gram Stain - Preliminary Sputum Sputum Culture - Preliminary 05/04/22 14:58 Blood Culture - Preliminary Blood No Growth after 96 hours 05/04/22 14:57 Blood Culture - Preliminary Blood No Growth after 96 hours Assessment and Plan Assessment: Acute bilateral pneumonia, community-acquired, doubt aspiration pneumonia, doubt COVID-19 pneumonia considering the patient had negative screening for COVID-19 infection, negative screening for influenza A, influenza B, and RSV. Acute non-ST elevation myocardial infarction Acute exacerbation of COPD History of coronary artery disease and previous CABG History of previous CVA/TIA Benign essential hypertension Dyslipidemia History of prostate cancer Plan: The patient was seen and evaluated Chest x-ray, labs and medications reviewed Still with significant bilateral infiltrates Continue Zosyn Continue bronchodilators Titrate the FiO2 as tolerated We will continue to follow I have personally seen and examined the patient, performed the documentation and the assessment and plan as written. Number of minutes spent on the visit: 10.
[2022-05-09 14:49] LABS: Basophils % (A) 0 %; Eosinophils % (A) 0 %; HCT 34.5 % (39.0-53.0); HGB 11.6 gm/dL (13.0-17.5); Lymphocytes # (A) 0.2 k/uL (1.0-4.8); Lymphocytes % (A) 2 %; MCH 30.6 pg (25.0-35.0); MCHC 33.5 g/dL (31.0-37.0); MCV 91.3 fL (80.0-100.0); Mean Platelet Volume 8.6; Monocytes # (A) 0.5 k/uL (0-1.0); Monocytes % (A) 6 %; Neutrophils # (A) 8.3 k/uL (1.3-7.7); Neutrophils % (A) 91 %; Platelet Count 134 k/uL (150-450); RBC 3.79 m/uL (4.30-5.90); WBC 9.1 k/uL (3.8-10.6)
[2022-05-09 16:36] LABS: Glucose,Whole Blood 128 mg/dL (70-110)
[2022-05-09 19:56] LABS: Glucose,Whole Blood 272 mg/dL (70-110)
[2022-05-09] MEDS: MIRTAZAPINE 15 MG TAB PO SCH (20:25)
[2022-05-09] MEDS: SERTRALINE 100 MG TAB PO SCH (20:25)
[2022-05-09] MEDS: ATORVASTATIN 80 MG TAB PO SCH (20:26)
[2022-05-09] MEDS: MELATONIN 3 MG TABLET PO PRN (20:26)
--- NOTE | 2022-05-09 23:44 | P.PN ---
Subjective Progress Note Date: 05/06/22 Patient is a 71-year-old male with a known history of coronary disease status post CABG, history of stent placement, hypertension, hyperlipidemia, history of [place], prostate cancer status postsurgery, COPD and prior history of smoking presents to ER with complaints of shortness of breath. Patient states that he went out in the cold to feed cats and felt very short of breath with cough and wheezing. Patient was able to come back inside the home and EMS was called. Patient was given albuterol Atrovent treatments with minimal improvement and was brought to ER. Patient was tachycardic, tachypneic on admission with blood pressure 84/63. Denies any complaints of fever or chills. Patient states that he has been having sinus infection and cough with yellow sputum production recently. Chest x-ray showed interval development of acute cardiopulmonary disease with large partially consolidated infiltrate in the right lower lobe suspicious for pneumonia. Clinical correlation and short-term follow-up to resolution is recommended. CTA chest showed no evidence of PE. Diffuse groundglass densities within the lung consistent with acute inflammatory process possibly COVID-pneumonia and clinical correlation is recommended. EKG showed atrial flutter/tachycardia with heart rate 119 Laboratory data WBC 6.4 hemoglobin 17.7 and platelets 140 D-dimer is 2.23 Sodium 138 potassium 3.9 chloride 102 bicarb is 40 BUN 12 and creatinine 1.23 and lactic acid 8.9 and magnesium 2.4, AST 91 ALT 58 and alk phos 103 Troponin 0.033 and 0.597 and proBNP 672 RSV, influenza A and B and coronavirus PCR not detected. 05/06/2022 Patient is currently sitting in the bed. Awake alert and oriented x3. Currently requiring oxygen and is being titrated down to room air. Saturating at 94%. Patient does have cough without any sputum production. No fever no chills. Is better. Procalcitonin level is elevated 0.35. Patient is being arranged antibiotics in the form of Zosyn. Pulmonary is on board. Current medications reviewed. Objective - Vital Signs Vital signs: Vital Signs Temp 98 F 05/06/22 12:00 Pulse 82 05/06/22 12:30 Resp 20 05/06/22 12:00 BP 114/62 05/06/22 12:00 Pulse Ox 94 L 05/06/22 12:00 FiO2 Intake & Output 1205/06/22 05/06/22 18:59 06:59 18:59 Intake Total 718 76.041 260.963 Output Total 200 200 Balance 518 -123.959 260.963 Intake: Intake, IV Titration 76.041 80.963 Amount Heparin Sod,Pork in 0.45% 76.041 80.963 NaCl 25,000 unit In 0.45 % NaCl 1 250ml.bag @ 12 UNITS/KG/HR 9.525 mls/hr IV .Q24H [facility] Rx#: [id number] Oral 718 180 Output: Urine 200 200 Other: Voiding Method Toilet Toilet # Voids 1 - Exam PHYSICAL EXAMINATION: Patient is lying in the bed comfortably, no acute distress, awake alert and oriented.. HEENT: Normocephalic. Neck is supple. Pupils reactive. Nostrils clear. Oral cavity is moist. Neck reveals no JVD, carotid bruits, or thyromegaly. CHEST EXAMINATION: Trachea is central. Symmetrical expansion. Right basilar crackles. Positive expiratory wheeze. Nonlabored breathing. CARDIAC: Normal S1, S2 with no gallops. No murmurs ABDOMEN: Soft. Bowel sounds normal. No organomegaly. No abdominal bruits. Extremities: reveal no edema. No clubbing or cyanosis Neurologically awake, alert, oriented x3 with well-coordinated movements. No focal deficits noted Skin: No rash or skin lesions. Psychiatric: Cooperative. Nonsuicidal Musculoskeletal: No joint swelling or deformity. Normal range of motion. - Labs CBC & Chem 7: 05/09/22 11:10 05/09/22 11:10 Labs: Abnormal Lab Results - Last 24 Hours (Table) 05/05/22 05/05/22 05/05/22 Range/Units 11:03 16:42 19:41 WBC (3.8-10.6) k/uL Plt Count (150-450) k/uL Neutrophils # (1.3-7.7) k/uL Lymphocytes # (1.0-4.8) k/uL APTT (22.0-30.0) sec Chloride (98-107) mmol/L Carbon Dioxide (22-30) mmol/L Glucose (74-99) mg/dL POC Glucose (mg/dL) 203 H 238 H (70-110) mg/dL Calcium (8.4-10.2) mg/dL Procalcitonin 0.35 H (0.02-0.09) ng/mL 05/05/22 05/06/22 05/06/22 Range/Units 21:11 06:06 06:44 WBC (3.8-10.6) k/uL Plt Count (150-450) k/uL Neutrophils # (1.3-7.7) k/uL Lymphocytes # (1.0-4.8) k/uL APTT 59.3 H (22.0-30.0) sec Chloride 111 H (98-107) mmol/L Carbon Dioxide 18 L (22-30) mmol/L Glucose 145 H (74-99) mg/dL POC Glucose (mg/dL) 153 H (70-110) mg/dL Calcium 8.3 L (8.4-10.2) mg/dL Procalcitonin (0.02-0.09) ng/mL 05/06/22 05/06/22 05/06/22 Range/Units 06:44 06:44 11:24 WBC 10.9 H (3.8-10.6) k/uL Plt Count 124 L (150-450) k/uL Neutrophils # 10.0 H (1.3-7.7) k/uL Lymphocytes # 0.5 L (1.0-4.8) k/uL APTT 53.9 H (22.0-30.0) sec Chloride (98-107) mmol/L Carbon Dioxide (22-30) mmol/L Glucose (74-99) mg/dL POC Glucose (mg/dL) 136 H (70-110) mg/dL Calcium (8.4-10.2) mg/dL Procalcitonin (0.02-0.09) ng/mL Microbiology - Last 24 Hours (Table) 05/04/22 14:58 Blood Culture - Preliminary Blood No Growth after 24 hours 05/04/22 14:57 Blood Culture - Preliminary Blood No Growth after 24 hours Assessment and Plan Assessment: Right lower lobe pneumonia with consolidative changes in the CT thorax. Likely community-acquired pneumonia. COVID-19 PCR not detected. Acute hypoxic respiratory failure secondary to above requiring oxygen 3 L via nasal cannula. Titrate down to room air. Acute COPD exacerbation Atrial flutter possible new onset Elevated troponin level Coronary arteries with history of CABG For history of CVA/TIA Prostate cancer status post surgery Hypertension Hyperlipidemia Prior history of smoking DVT prophylaxis. Plan: Patient will be continued on broad-spectrum antibiotics in the form of Zosyn. Continue with oxygen supplementation. Vancomycin has been discontinued. Titrated down to oxygen to room air. Continue with IV Solu-Medrol and duo nebs. Continue with home medications including metoprolol and cardiology was consulted due to elevated troponin level. Patient was seen by cardiology. Unlikely ACS. Heparin drip has been disconti nued. Pulmonary and cardiology is on board. Prognosis is guarded with multiple medical problems and comorbid conditions. Time with Patient: Greater than 30
--- NOTE | 2022-05-09 23:48 | P.PN ---
Subjective Progress Note Date: 05/07/22 Patient is a 71-year-old male with a known history of coronary disease status post CABG, history of stent placement, hypertension, hyperlipidemia, history of [place], prostate cancer status postsurgery, COPD and prior history of smoking presents to ER with complaints of shortness of breath. Patient states that he went out in the cold to feed cats and felt very short of breath with cough and wheezing. Patient was able to come back inside the home and EMS was called. Patient was given albuterol Atrovent treatments with minimal improvement and was brought to ER. Patient was tachycardic, tachypneic on admission with blood pressure 84/63. Denies any complaints of fever or chills. Patient states that he has been having sinus infection and cough with yellow sputum production recently. Chest x-ray showed interval development of acute cardiopulmonary disease with large partially consolidated infiltrate in the right lower lobe suspicious for pneumonia. Clinical correlation and short-term follow-up to resolution is recommended. CTA chest showed no evidence of PE. Diffuse groundglass densities within the lung consistent with acute inflammatory process possibly COVID-pneumonia and clinical correlation is recommended. EKG showed atrial flutter/tachycardia with heart rate 119 Laboratory data WBC 6.4 hemoglobin 17.7 and platelets 140 D-dimer is 2.23 Sodium 138 potassium 3.9 chloride 102 bicarb is 40 BUN 12 and creatinine 1.23 and lactic acid 8.9 and magnesium 2.4, AST 91 ALT 58 and alk phos 103 Troponin 0.033 and 0.597 and proBNP 672 RSV, influenza A and B and coronavirus PCR not detected. 05/06/2022 Patient is currently sitting in the bed. Awake alert and oriented x3. Currently requiring oxygen and is being titrated down to room air. Saturating at 94%. Patient does have cough without any sputum production. No fever no chills. Is better. Procalcitonin level is elevated 0.35. Patient is being arranged antibiotics in the form of Zosyn. Pulmonary is on board. 05/07/2022 Patient is currently resting in bed. Awake alert and oriented. Saturating at 90% on room air. Still having shortness of breath with minimal exertion. Patient is being continued antibiotics in the form of Zosyn. Chest x-ray showed improved aeration of the lungs with persistent multifocal airspace opacities. Cultures have been negative. Blood cultures negative. Laboratory data showed WBC 8.2 hemoglobin 11.7 and platelets 128 Sodium 137 potassium 4.3 chloride 109 bicarb is 20 BUN 23 and creatinine 1.0 and blood sugar is 168. Cardiology is on board. Heparin is being continued. 2D echocardiogram was done. Showed normal LV systolic function. Moderate MR. Aortic sclerosis without significant stenosis.. Current medications reviewed. Objective - Vital Signs Vital signs: Vital Signs Temp 97.8 F 05/07/22 12:43 Pulse 80 05/07/22 19:54 Resp 18 05/07/22 16:05 BP 115/66 05/07/22 16:05 Pulse Ox 93 L 05/07/22 16:05 FiO2 Intake & Output 05/07/22 05/07/22 05/08/22 06:59 18:59 06:59 Intake Total 1360 Balance 1360 Intake: Intake, IV Titration 100 Amount Piperacillin-Tazobactam 3 100 .375 gm In Sodium Chloride 0.9% 100 ml @ 25 mls/hr IVPB Q8H [facility] Rx#: [id number] Oral 1260 Other: Voiding Method Toilet Toilet # Voids 2 2 - Exam PHYSICAL EXAMINATION: Patient is lying in the bed comfortably, no acute distress, awake alert and oriented.. HEENT: Normocephalic. Neck is supple. Pupils reactive. Nostrils clear. Oral cavity is moist. Neck reveals no JVD, carotid bruits, or thyromegaly. CHEST EXAMINATION: Trachea is central. Symmetrical expansion. Right basilar crackles. no wheeze. Nonlabored breathing. CARDIAC: Normal S1, S2 with no gallops. No murmurs ABDOMEN: Soft. Bowel sounds normal. No organomegaly. No abdominal bruits. Extremities: reveal no edema. No clubbing or cyanosis Neurologically awake, alert, oriented x3 with well-coordinated movements. No focal deficits noted Skin: No rash or skin lesions. Psychiatric: Cooperative. Nonsuicidal Musculoskeletal: No joint swelling or deformity. Normal range of motion. - Labs CBC & Chem 7: 05/09/22 11:10 05/09/22 11:10 Labs: Abnormal Lab Results - Last 24 Hours (Table) 05/07/22 05/07/22 05/07/22 Range/Units 05:47 10:59 10:59 RBC 3.91 L (4.30-5.90) m/uL Hgb 11.7 L (13.0-17.5) gm/dL Hct 35.3 L (39.0-53.0) % Plt Count 128 L (150-450) k/uL Lymphocytes # 0.3 L (1.0-4.8) k/uL APTT (22.0-30.0) sec Chloride 109 H (98-107) mmol/L Carbon Dioxide 20 L (22-30) mmol/L BUN 23 H (9-20) mg/dL Glucose 168 H (74-99) mg/dL POC Glucose (mg/dL) 163 H (70-110) mg/dL Calcium 8.0 L (8.4-10.2) mg/dL 05/07/22 05/07/22 05/07/22 Range/Units 11:05 12:00 16:20 RBC (4.30-5.90) m/uL Hgb (13.0-17.5) gm/dL Hct (39.0-53.0) % Plt Count (150-450) k/uL Lymphocytes # (1.0-4.8) k/uL APTT 80.6 H (22.0-30.0) sec Chloride (98-107) mmol/L Carbon Dioxide (22-30) mmol/L BUN (9-20) mg/dL Glucose (74-99) mg/dL POC Glucose (mg/dL) 142 H 190 H (70-110) mg/dL Calcium (8.4-10.2) mg/dL 05/07/22 Range/Units 20:30 RBC (4.30-5.90) m/uL Hgb (13.0-17.5) gm/dL Hct (39.0-53.0) % Plt Count (150-450) k/uL Lymphocytes # (1.0-4.8) k/uL APTT (22.0-30.0) sec Chloride (98-107) mmol/L Carbon Dioxide (22-30) mmol/L BUN (9-20) mg/dL Glucose (74-99) mg/dL POC Glucose (mg/dL) 160 H (70-110) mg/dL Calcium (8.4-10.2) mg/dL Microbiology - Last 24 Hours (Table) 05/04/22 14:57 Blood Culture - Preliminary Blood No Growth after 72 hours 05/04/22 14:58 Blood Culture - Preliminary Blood No Growth after 72 hours Assessment and Plan Assessment: Right lower lobe pneumonia with consolidative changes in the CT thorax. Likely community-acquired pneumonia. COVID-19 PCR not detected. Acute hypoxic respiratory failure secondary to above requiring oxygen 3 L via nasal cannula. Titrate down to room air. Acute COPD exacerbation Elevated troponin levelLikely demand mismatch.No new EKG changes compared to old Coronary arteries with history of CABG For history of CVA/TIA Prostate cancer status post surgery Hypertension Hyperlipidemia Prior history of smoking DVT prophylaxis. Plan: Patient will be continued on broad-spectrum antibiotics in the form of Zosyn. Continue with oxygen supplementation. Vancomycin has been discontinued. Titrated down to oxygen to room air. Continue with IV Solu-Medrol and duo nebs. Continue with home medications including metoprolol and cardiology was consulted due to elevated troponin level. Patient was seen by cardiology. Unlikely ACS. Heparin drip has been discontinued. Pulmonary and cardiology is on board. Prognosis is guarded with multiple medical problems and comorbid conditions. Time with Patient: Greater than 30
--- NOTE | 2022-05-09 23:50 | P.PN ---
Subjective Progress Note Date: 05/08/22 Patient is a 71-year-old male with a known history of coronary disease status post CABG, history of stent placement, hypertension, hyperlipidemia, history of [place], prostate cancer status postsurgery, COPD and prior history of smoking presents to ER with complaints of shortness of breath. Patient states that he went out in the cold to feed cats and felt very short of breath with cough and wheezing. Patient was able to come back inside the home and EMS was called. Patient was given albuterol Atrovent treatments with minimal improvement and was brought to ER. Patient was tachycardic, tachypneic on admission with blood pressure 84/63. Denies any complaints of fever or chills. Patient states that he has been having sinus infection and cough with yellow sputum production recently. Chest x-ray showed interval development of acute cardiopulmonary disease with large partially consolidated infiltrate in the right lower lobe suspicious for pneumonia. Clinical correlation and short-term follow-up to resolution is recommended. CTA chest showed no evidence of PE. Diffuse groundglass densities within the lung consistent with acute inflammatory process possibly COVID-pneumonia and clinical correlation is recommended. EKG showed atrial flutter/tachycardia with heart rate 119 Laboratory data WBC 6.4 hemoglobin 17.7 and platelets 140 D-dimer is 2.23 Sodium 138 potassium 3.9 chloride 102 bicarb is 40 BUN 12 and creatinine 1.23 and lactic acid 8.9 and magnesium 2.4, AST 91 ALT 58 and alk phos 103 Troponin 0.033 and 0.597 and proBNP 672 RSV, influenza A and B and coronavirus PCR not detected. 05/06/2022 Patient is currently sitting in the bed. Awake alert and oriented x3. Currently requiring oxygen and is being titrated down to room air. Saturating at 94%. Patient does have cough without any sputum production. No fever no chills. Is better. Procalcitonin level is elevated 0.35. Patient is being arranged antibiotics in the form of Zosyn. Pulmonary is on board. 05/07/2022 Patient is currently resting in bed. Awake alert and oriented. Saturating at 90% on room air. Still having shortness of breath with minimal exertion. Patient is being continued antibiotics in the form of Zosyn. Chest x-ray showed improved aeration of the lungs with persistent multifocal airspace opacities. Cultures have been negative. Blood cultures negative. Laboratory data showed WBC 8.2 hemoglobin 11.7 and platelets 128 Sodium 137 potassium 4.3 chloride 109 bicarb is 20 BUN 23 and creatinine 1.0 and blood sugar is 168. Cardiology is on board. Heparin is being continued. 2D echocardiogram was done. Showed normal LV systolic function. Moderate MR. Aortic sclerosis without significant stenosis.. 05/08/2022 Patient is sitting in the bed. Awake alert and oriented x3. Patient is requiring oxygen today at 2 L via nasal cannula. No complaints of chest pain. Still having exertional dyspnea. No nausea vomiting abdominal pain or diarrhea. Patient is being current on antibiotics in form of Zosyn. Laboratory data showed WBC 15.9 hemoglobin 14.4 and platelets 167 Sodium 141 potassium 4.3 chloride 110 bicarb is 21 BUN 20 and creatinine 1.07 calcium 8.5. Pulmonary and cardiology is on board. Patient is also being continued on IV Solu-Medrol and duo nebs. Current medications reviewed. Objective - Vital Signs Vital signs: Vital Signs Temp 97.6 F 05/08/22 20:00 Pulse 82 05/08/22 20:22 Resp 14 05/08/22 20:00 BP 146/74 05/08/22 20:00 Pulse Ox 94 L 05/08/22 20:00 FiO2 Intake & Output 05/08/22 05/08/22 05/09/22 06:59 18:59 06:59 Intake Total 540 Output Total 500 Balance 40 Intake: Oral 540 Output: Urine 500 Other: Voiding Method Toilet Toilet # Voids 2 3 - Exam PHYSICAL EXAMINATION: Patient is lying in the bed comfortably, no acute distress, awake alert and oriented.. HEENT: Normocephalic. Neck is supple. Pupils reactive. Nostrils clear. Oral cavity is moist. Neck reveals no JVD, carotid bruits, or thyromegaly. CHEST EXAMINATION: Trachea is central. Symmetrical expansion. Right basilar crackles. no wheeze. Nonlabored breathing. CARDIAC: Normal S1, S2 with no gallops. No murmurs ABDOMEN: Soft. Bowel sounds normal. No organomegaly. No abdominal bruits. Extremities: reveal no edema. No clubbing or cyanosis Neurologically awake, alert, oriented x3 with well-coordinated movements. No focal deficits noted Skin: No rash or skin lesions. Psychiatric: Cooperative. Nonsuicidal Musculoskeletal: No joint swelling or deformity. Normal range of motion. - Labs CBC & Chem 7: 05/09/22 11:10 05/09/22 11:10 Labs: Abnormal Lab Results - Last 24 Hours (Table) 05/08/22 05/08/22 05/08/22 Range/Units 05:59 08:11 08:11 WBC 15.9 H (3.8-10.6) k/uL Neutrophils # 14.4 H (1.3-7.7) k/uL Lymphocytes # 0.6 L (1.0-4.8) k/uL Chloride 110 H (98-107) mmol/L Carbon Dioxide 21 L (22-30) mmol/L Glucose 118 H (74-99) mg/dL POC Glucose (mg/dL) 156 H (70-110) mg/dL 05/08/22 05/08/22 05/08/22 Range/Units 11:19 16:10 20:22 WBC (3.8-10.6) k/uL Neutrophils # (1.3-7.7) k/uL Lymphocytes # (1.0-4.8) k/uL Chloride (98-107) mmol/L Carbon Dioxide (22-30) mmol/L Glucose (74-99) mg/dL POC Glucose (mg/dL) 138 H 227 H 122 H (70-110) mg/dL Microbiology - Last 24 Hours (Table) 05/08/22 10:00 Sputum Culture - Preliminary Sputum 05/04/22 14:58 Blood Culture - Preliminary Blood No Growth after 96 hours 05/04/22 14:57 Blood Culture - Preliminary Blood No Growth after 96 hours Assessment and Plan Assessment: Right lower lobe pneumonia with consolidative changes in the CT thorax. Likely community-acquired pneumonia. COVID-19 PCR not detected. Acute hypoxic respiratory failure secondary to above requiring oxygen 3 L via nasal cannula. On 2 L oxygen today. Acute COPD exacerbation Elevated troponin levelLikely demand mismatch.No new EKG changes compared to old Coronary arteries with history of CABG For history of CVA/TIA Prostate cancer status post surgery Hypertension Hyperlipidemia Prior history of smoking DVT prophylaxis. Plan: Patient will be continued on broad-spectrum antibiotics in the form of Zosyn. Continue with oxygen supplementation. Vancomycin has been discontinued. Titrated down to oxygen to room air. Continue with IV Solu-Medrol and duo nebs. Continue with home medications including metoprolol.. Patient was seen by cardiology. Unlikely ACS. Heparin drip has been discontinued. Today echocardiogram showed normal ejection fraction. Moderate MR. Pulmonary and cardiology is on board. Prognosis is guarded with multiple medical problems and comorbid conditions. Time with Patient: Greater than 30
--- NOTE | 2022-05-09 23:54 | P.PN ---
Subjective Progress Note Date: 05/09/22 Patient is a 71-year-old male with a known history of coronary disease status post CABG, history of stent placement, hypertension, hyperlipidemia, history of SC, prostate cancer status postsurgery, COPD and prior history of smoking presents to ER with complaints of shortness of breath. Patient states that he went out in the cold to feed cats and felt very short of breath with cough and wheezing. Patient was able to come back inside the home and EMS was called. Patient was given albuterol Atrovent treatments with minimal improvement and was brought to ER. Patient was tachycardic, tachypneic on admission with blood pressure 84/63. Denies any complaints of fever or chills. Patient states that he has been having sinus infection and cough with yellow sputum production recently. Chest x-ray showed interval development of acute cardiopulmonary disease with large partially consolidated infiltrate in the right lower lobe suspicious for pneumonia. Clinical correlation and short-term follow-up to resolution is recommended. CTA chest showed no evidence of PE. Diffuse groundglass densities within the lung consistent with acute inflammatory process possibly COVID-pneumonia and clinical correlation is recommended. EKG showed atrial flutter/tachycardia with heart rate 119 Laboratory data WBC 6.4 hemoglobin 17.7 and platelets 140 D-dimer is 2.23 Sodium 138 potassium 3.9 chloride 102 bicarb is 40 BUN 12 and creatinine 1.23 and lactic acid 8.9 and magnesium 2.4, AST 91 ALT 58 and alk phos 103 Troponin 0.033 and 0.597 and proBNP 672 RSV, influenza A and B and coronavirus PCR not detected. 05/06/2022 Patient is currently sitting in the bed. Awake alert and oriented x3. Currently requiring oxygen and is being titrated down to room air. Saturating at 94%. Patient does have cough without any sputum production. No fever no chills. Is better. Procalcitonin level is elevated 0.35. Patient is being arranged antibiotics in the form of Zosyn. Pulmonary is on board. 05/07/2022 Patient is currently resting in bed. Awake alert and oriented. Saturating at 90% on room air. Still having shortness of breath with minimal exertion. Patient is being continued antibiotics in the form of Zosyn. Chest x-ray showed improved aeration of the lungs with persistent multifocal airspace opacities. Cultures have been negative. Blood cultures negative. Laboratory data showed WBC 8.2 hemoglobin 11.7 and platelets 128 Sodium 137 potassium 4.3 chloride 109 bicarb is 20 BUN 23 and creatinine 1.0 and blood sugar is 168. Cardiology is on board. Heparin is being continued. 2D echocardiogram was done. Showed normal LV systolic function. Moderate MR. Aortic sclerosis without significant stenosis.. 05/08/2022 Patient is sitting in the bed. Awake alert and oriented x3. Patient is requiring oxygen today at 2 L via nasal cannula. No complaints of chest pain. Still having exertional dyspnea. No nausea vomiting abdominal pain or diarrhea. Patient is being current on antibiotics in form of Zosyn. Laboratory data showed WBC 15.9 hemoglobin 14.4 and platelets 167 Sodium 141 potassium 4.3 chloride 110 bicarb is 21 BUN 20 and creatinine 1.07 calcium 8.5. Pulmonary and cardiology is on board. Patient is also being continued on IV Solu-Medrol and duo nebs. 05/09/2022 Patient is able to walk to the bathroom. Breathing status is about the same. Today patient is requiring oxygen at 4 L via nasal cannula. No complaints of chest pain. No nausea vomiting abdominal pain or diarrhea. Chest x-ray showed worsening scattered airspace opacities correlate for pneumonia. Correlate with serum BNP to rule out superimposed underlying congestive heart failure. Patient remains on antibiotics Zosyn and also IV steroids. Patient was given a dose of IV Lasix yesterday. Current medications reviewed. Objective - Vital Signs Vital signs: Vital Signs Temp 98 F 05/09/22 20:00 Pulse 100 05/09/22 20:00 Resp 18 05/09/22 20:00 BP 129/63 05/09/22 20:00 Pulse Ox 90 L 05/09/22 20:00 FiO2 Intake & Output 05/09/22 05/09/22 05/10/22 06:59 18:59 06:59 Intake Total 1040 Balance 1040 Weight 79.379 kg Intake: IV 40 Invasive Line 1 20 Invasive Line 2 20 Oral 1000 Other: Voiding Method Toilet Toilet # Voids 3 1 - Exam PHYSICAL EXAMINATION: Patient is lying in the bed comfortably, no acute distress, awake alert and oriented.. HEENT: Normocephalic. Neck is supple. Pupils reactive. Nostrils clear. Oral cavity is moist. Neck reveals no JVD, carotid bruits, or thyromegaly. CHEST EXAMINATION: Trachea is central. Symmetrical expansion. Right basilar crackles. no wheeze. Nonlabored breathing. CARDIAC: Normal S1, S2 with no gallops. No murmurs ABDOMEN: Soft. Bowel sounds normal. No organomegaly. No abdominal bruits. Extremities: reveal no edema. No clubbing or cyanosis Neurologically awake, alert, oriented x3 with well-coordinated movements. No focal deficits noted Skin: No rash or skin lesions. Psychiatric: Cooperative. Nonsuicidal Musculoskeletal: No joint swelling or deformity. Normal range of motion. - Labs CBC & Chem 7: 05/09/22 11:10 05/09/22 11:10 Labs: Abnormal Lab Results - Last 24 Hours (Table) 05/09/22 05/09/22 05/09/22 Range/Units 05:54 11:10 11:10 RBC 3.79 L (4.30-5.90) m/uL Hgb 11.6 L (13.0-17.5) gm/dL Hct 34.5 L (39.0-53.0) % Plt Count 134 L (150-450) k/uL Neutrophils # 8.3 H (1.3-7.7) k/uL Lymphocytes # 0.2 L (1.0-4.8) k/uL Chloride 108 H (98-107) mmol/L BUN 24 H (9-20) mg/dL Glucose 262 H (74-99) mg/dL POC Glucose (mg/dL) 162 H (70-110) mg/dL Calcium 8.1 L (8.4-10.2) mg/dL 05/09/22 05/09/22 05/09/22 Range/Units 11:38 16:35 19:55 RBC (4.30-5.90) m/uL Hgb (13.0-17.5) gm/dL Hct (39.0-53.0) % Plt Count (150-450) k/uL Neutrophils # (1.3-7.7) k/uL Lymphocytes # (1.0-4.8) k/uL Chloride (98-107) mmol/L BUN (9-20) mg/dL Glucose (74-99) mg/dL POC Glucose (mg/dL) 259 H 128 H 272 H (70-110) mg/dL Calcium (8.4-10.2) mg/dL Microbiology - Last 24 Hours (Table) 05/04/22 14:58 Blood Culture - Preliminary Blood No Growth after 120 hours 05/04/22 14:57 Blood Culture - Preliminary Blood No Growth after 120 hours 05/08/22 10:00 Gram Stain - Preliminary Sputum Sputum Culture - Preliminary Assessment and Plan Assessment: Right lower lobe pneumonia with consolidative changes in the CT thorax. Likely community-acquired pneumonia. COVID-19 PCR not detected. Acute hypoxic respiratory failure secondary to above requiring oxygen 3 L via nasal cannula. On 4 L oxygen today. Acute COPD exacerbation Elevated troponin levelLikely demand mismatch.No new EKG changes compared to old Coronary arteries with history of CABG For history of CVA/TIA Prostate cancer status post surgery Hypertension Hyperlipidemia Prior history of smoking DVT prophylaxis. Plan: Patient will be continued on broad-spectrum antibiotics in the form of Zosyn. Continue with oxygen supplementation. She will be given a dose of IV Lasix. Vancomycin has been discontinued. Titrated down to oxygen to room air. Continue with IV Solu-Medrol and duo nebs. Continue with home medications including metoprolol.. Patient was seen by cardiology. Unlikely ACS. Heparin drip has been discontinued. Today echocardiogram showed normal ejection fraction. Moderate MR. Pulmonary and cardiology is on board. Prognosis is guarded with multiple medical problems and comorbid conditions. Time with Patient: Greater than 30
[2022-05-10] MEDS: FUROSEMIDE 10 MG/ML 2 ML VIAL IV SCH ×2 (00:04→09:49)
[2022-05-10] MEDS: methylPREDNISolone SOD SUCCI 125 MG/2 ML VIAL IV SCH ×5 (00:06→23:05)
[2022-05-10] MEDS: HEPARIN SODIUM,PORCINE/PF 5,000 UNIT/0.5 ML SYRINGE SQ SCH ×4 (00:07→23:05)
[2022-05-10] MEDS: PIPERACILLIN-TAZOBACTAM 3.375 GM in SODIUM CHLORIDE 0.9% 100 ML IVPB SCH ×4 (00:09→23:05)
[2022-05-10] MEDS: IPRATROPIUM-ALBUTEROL 3 ML NEB INHALATION PRN ×2 (00:50→03:35)
[2022-05-10 06:04] LABS: Glucose,Whole Blood 173 mg/dL (70-110)
[2022-05-10] MEDS: INSULIN ASPART (NovoLOG) 100 UNIT/ML VIAL SQ SCH ×4 (06:27→19:59)
[2022-05-10] MEDS: IPRATROPIUM-ALBUTEROL 3 ML NEB INHALATION SCH ×4 (07:29→19:37)
[2022-05-10] MEDS: SYMBICORT 160-4.5 MCG INHALER INHALATION SCH (07:40)
[2022-05-10 09:47] LABS: Basophils % (A) 0 %; Eosinophils % (A) 0 %; HCT 35.4 % (39.0-53.0); HGB 11.8 gm/dL (13.0-17.5); Lymphocytes # (A) 0.2 k/uL (1.0-4.8); Lymphocytes % (A) 2 %; MCH 30.1 pg (25.0-35.0); MCHC 33.3 g/dL (31.0-37.0); MCV 90.4 fL (80.0-100.0); Mean Platelet Volume 8.3; Monocytes # (A) 0.4 k/uL (0-1.0); Monocytes % (A) 4 %; Neutrophils # (A) 9.2 k/uL (1.3-7.7); Neutrophils % (A) 93 %; Platelet Count 121 k/uL (150-450); RBC 3.92 m/uL (4.30-5.90); RDW 14.1 % (11.5-15.5); WBC 9.9 k/uL (3.8-10.6)
[2022-05-10] MEDS: ISOSORBIDE MONONITRATE ER 30 MG TAB.ER.24H PO SCH (09:49)
[2022-05-10] MEDS: ASPIRIN 81 MG PO SCH (09:49)
[2022-05-10] MEDS: PANTOPRAZOLE 40 MG/10 ML VIAL IV SCH (09:49)
[2022-05-10] MEDS: lisinopriL 10 MG TAB PO SCH (09:50)
[2022-05-10] MEDS: hydrOXYzine pamoate 25 MG CAP PO PRN (09:50)
[2022-05-10] MEDS: METOPROLOL TARTRATE 25 MG TAB PO SCH ×2 (09:50→20:11)
[2022-05-10 10:23] LABS: Potassium 3.8 mmol/L (3.5-5.1)
[2022-05-10 11:32] LABS: Glucose,Whole Blood 163 mg/dL (70-110)
--- NOTE | 2022-05-10 14:02 | CDI ---
Documentation Clarification Form Date: 05/10/2022 01:54:03 PM From: Michelle Dias CCS, CCDS Admit Date: 05/04/2022 07:00:00 PM Patient Name: Dominic Pacheco Visit Number: [id number] Discharge Date: ATTENTION: The Clinical Documentation Specialists (CDI) and [facility] Coding Staff appreciate your assistance in clarifying documentation. Please respond to the clarification below the line at the bottom and electronically sign. The CDI & [facility] Coding staff will review the response and follow-up if needed. Please note: Queries are made part of the Legal Health Record. If you have any questions, please contact the author of this message via ITS. Dr. Minna Reeves: The patient presented with the following clinical indicators. Additional clarification regarding the etiology/cause of the clinical indicators is requested. Per the 05/04 ED Note, admit with Pneumonia, Sepsis, COPD with Exacerbation, Dehydration, Lactic Acidosis & Hypotensive Episode. History/Risk Factors per the H/P 05/05: CAD status post CABG & stent placement, Hypertension, Hyperlipidemia, Prostate Cancer status post surgery, COPD, Former smoker. Clinical Indicators: Presented to the ED on 05/04 via EMS from home, became SOB after being outside for about an hour. Admit as per above. 05/04 VS: T 96.8, P 116, R 28, BP 84/63, PO 100 3Lnc, BMI: 29.1 05/04 LAB: WBC 6.4, Hgb 17.7, Hct 53.3, Plt Ct 140, Neutrophils 4.0; D Dimer 2.23; CO2 14, Glucose 165, Lactic Acid 8.9, Mag 2.4, AST 91, ALT 58. 05/04 CXR: Interval development of acute cardiopulmonary disease with a large partially consolidative infiltrate in the right lower lobe suspicious for pneumonia. Treatment 05/04: Blood cultures, O2, IV Na Chl 1,000 mls @ 999 mls/hr q1H x2, IV Rocephin 2,000 mg x1, IV Azithromycin 250 mls @ 250 mls/hr x1, INH Duoneb 3 ml q2H/prn - QID, IV Zosyn 100 mls @ 25 mls/hr q8H, IV Vancomycin 500 mls @ 167 mls/hr x1 In your professional opinion, please clarify if these findings signify one of the following conditions: [ ] Sepsis POA [ ] Sepsis, Not POA [ ] Sepsis ruled out [ ] Severe Sepsis with organ failure [ ] Other, please specify: [ ] Unable to determine (Template Last Reviewed: June 2020) Unable to determine MTDD
--- NOTE | 2022-05-10 16:03 | P.PN ---
Subjective Progress Note Date: 05/10/22 this is a 71-year-old white male with history of COPD, previous history of DE, previous history of stroke without any residual deficits, patient was out in the cold yesterday for about one hour, and he developed shortness of breath cough and wheezing. EMS was called, patient was given albuterol and Atrovent treatment with minimal improvement, patient was brought into the ER, he had no fever, no chills, he had no chest pain, apparently when EMS arrived to pick him up, the patient was clammy and flushed upon his initial evaluation, his respiratory rate was in the 40s, patient was evaluated in the ER, chest x-ray and CT of the chest showed bilateral infiltrates, right more so than left, although the patient denies any history of aspiration, and no history of passing out episodes except he had 1 previous syncopal episode over [address] angiogram ruled out pulmonary embolism although he had a slightly elevated d- dimer of 2.23, and I reviewed the CT angiogram myself, definitely no evidence of pulmonary embolism. His WBC count is 6.4 hemoglobin is 17.7.lactic acid on it is initial evaluation was 8.9, went down to 1.6.his serology came back negative for carbon 19, influenza A, influenza B, and RSV.troponin was noted to be a bit high on presentation 0.033, follow-up troponin was 0.597, and BNP was normal. In spite of significant air space disease noted in both lungs especially in the right lung, patient maintained his O2 saturation, he was on room air with O2 sat showed 94%patient was placed on antibiotics in the form of Rocephin and Zithromax,initially, and he is now on Zosyn and vancomycin. he was also placed on bronchodilators and on steroids/methylprednisolone,considering his elevated troponin, patient was alsoplaced on heparin, full cardiac consultation is pending. Reevaluated today on 05/06/22, patient is doing better today, breathing easier, less cough and less wheezing less shortness of breath, remains on room air, does not seem to be in any distress, he does have intermittent cough, his cough is nonproductive. No fever no chills no hemoptysis no chest pain. CBC is relatively normal electrolytes are normal renal profile is normal, COVID-19 screening RSV screening were negative. Pro-calcitonin level was elevated at 0.35. The patient is seen today 05/07/2022 in follow-up on the selective care unit. He is currently resting comfortably in bed. Awake and alert in no acute distress. He is maintaining O2 saturations in the 90s on room air. He is still short of breath with minimal exertion. He continues with crackles in the right lung. He remains on Zosyn. He is on a heparin drip per cardiology. Non-ST segment elevation myocardial infarction. Echocardiogram revealed preserved left ventricular systolic function. Today's chest x-ray does reveal improved aeration of the lungs with persistent multifocal airspace opacities. Blood cultures reveal no growth. White count 8.2. Hemoglobin 11.7. Platelets 128. Glucose 142. He remains on antibiotics in the form of vancomycin and Zosyn. Continued on bronchodilators, IV Solu-Medrol. Patient is seen today 05/08/2022 in follow-up on the selective care unit. He is currently sitting up in a chair at the bedside. Awake and alert in no acute distress. His O2 saturations drop in the mid 80s while on room air and up and walking. Recovers into the 90s on 2 L/m per nasal cannula. Blood cultures revealed no growth. We count 15.9. Hemoglobin 14.5. Sodium 141. Potassium 4.3. BUN 20. Creatinine 1.07. Glucose 118. He remains on Symbicort, DuoNeb inhalations, IV Solu-Medrol. Antibiotics in the form of Zosyn. Vancomycin discontinued. The patient is seen today 05/09/2022 in follow-up on the selective care unit. He is currently resting comfortably in bed. Awake and alert in no acute distress. He is doing better today compared to yesterday. Not quite back to his baseline. Still congested. Still is some spasm and wheezing. He is maintaining O2 saturations in the 90s on 4 L/m per nasal cannula. Follow-up chest x-ray reveals worsening airspace opacities. No evidence of pleural effusion. No focal consolidation. No pneumothorax. Blood cultures revealed no growth. Sputum cultures pending. Sodium 138. Potassium 3.7. BUN 24. Creatinine 1.05. Glucose 262. He is continued on DuoNeb inhalations, Symbicort, IV Solu-Medrol. Antibiotics in the form of Zosyn. The patient is seen today 05/10/2022 in follow-up on the selective care unit. He did have an episode of worsening shortness of breath and oxygen desaturations last evening. He required BiPAP support which is currently on at 16/8 and 60% FiO2. Sputum culture revealed no growth. Blood cultures revealed no growth. White count 9.9. Hemoglobin 11.8. Platelets 121. Sodium 138. Potassium 3.8. BUN 25. Creatinine 1.0. Glucose 164. ProBNP 7690. ProCalcitonin 0.56. Brooks virus by PCR not detected. He remains on Zosyn, IV Solu-Medrol, Symbicort and DuoNeb inhalations. Heparin for DVT prophylaxis. Continued on IV diuretics. No accurate I&O recorded. Objective - Vital Signs Vital signs: Vital Signs Temp 97.4 F L 05/10/22 15:21 Pulse 82 05/10/22 15:46 Resp 24 05/10/22 15:21 BP 117/79 05/10/22 15:21 Pulse Ox 95 05/10/22 15:21 FiO2 60 05/10/22 15:45 Intake & Output 05/09/22 05/10/22 05/10/22 18:59 06:59 18:59 Intake Total 1040 173 Output Total 1350 Balance 1040 -1177 Weight 79.379 kg Intake: IV 40 Invasive Line 1 20 Invasive Line 2 20 Oral 1000 173 Output: Urine 1350 Other: Voiding Method Toilet Urinal Urinal # Voids 1 3 1 - Exam GENERAL EXAM: Alert, 71-year-old male, currently on BiPAP 16/6 and 60% FiO2, comfortable in no apparent distress. HEAD: Normocephalic. EYES: Normal reaction of pupils, equal size. NOSE: Clear with pink turbinates. THROAT: No erythema or exudates. NECK: No masses, no JVD. CHEST: No chest wall deformity. LUNGS: Equal air entry with bilateral scattered rhonchi more so on the right lung. CVS: S1 and S2 normal with no audible murmur, regular rhythm. ABDOMEN: No hepatosplenomegaly, normal bowel sounds, no guarding or rigidity. SPINE: No scoliosis or deformity SKIN: No rashes CENTRAL NERVOUS SYSTEM: No focal deficits, tone is normal in all 4 extremities. EXTREMITIES: There is no peripheral edema. No clubbing, no cyanosis. Peripheral pulses are intact. - Labs CBC & Chem 7: 05/10/22 08:57 05/10/22 08:57 Labs: Abnormal Lab Results - Last 24 Hours (Table) 05/09/22 05/09/22 05/10/22 Range/Units 16:35 19:55 06:03 RBC (4.30-5.90) m/uL Hgb (13.0-17.5) gm/dL Hct (39.0-53.0) % Plt Count (150-450) k/uL Neutrophils # (1.3-7.7) k/uL Lymphocytes # (1.0-4.8) k/uL Chloride (98-107) mmol/L BUN (9-20) mg/dL Glucose (74-99) mg/dL POC Glucose (mg/dL) 128 H 272 H 173 H (70-110) mg/dL Calcium (8.4-10.2) mg/dL Procalcitonin (0.02-0.09) ng/mL 05/10/22 05/10/22 05/10/22 Range/Units 08:57 08:57 08:57 RBC 3.92 L (4.30-5.90) m/uL Hgb 11.8 L (13.0-17.5) gm/dL Hct 35.4 L (39.0-53.0) % Plt Count 121 L (150-450) k/uL Neutrophils # 9.2 H (1.3-7.7) k/uL Lymphocytes # 0.2 L (1.0-4.8) k/uL Chloride 109 H (98-107) mmol/L BUN 25 H (9-20) mg/dL Glucose 164 H (74-99) mg/dL POC Glucose (mg/dL) (70-110) mg/dL Calcium 8.0 L (8.4-10.2) mg/dL Procalcitonin 0.56 H (0.02-0.09) ng/mL 05/10/22 Range/Units 11:30 RBC (4.30-5.90) m/uL Hgb (13.0-17.5) gm/dL Hct (39.0-53.0) % Plt Count (150-450) k/uL Neutrophils # (1.3-7.7) k/uL Lymphocytes # (1.0-4.8) k/uL Chloride (98-107) mmol/L BUN (9-20) mg/dL Glucose (74-99) mg/dL POC Glucose (mg/dL) 163 H (70-110) mg/dL Calcium (8.4-10.2) mg/dL Procalcitonin (0.02-0.09) ng/mL Microbiology - Last 24 Hours (Table) 05/08/22 10:00 Gram Stain - Final Sputum Sputum Culture - Final 05/04/22 14:58 Blood Culture - Preliminary Blood No Growth after 120 hours 05/04/22 14:57 Blood Culture - Preliminary Blood No Growth after 120 hours Assessment and Plan Assessment: Acute hypoxic respiratory failure requiring BiPAP support secondary to an acute bilateral pneumonia, community-acquired, doubt aspiration pneumonia, doubt COVID-19 pneumonia considering the patient had negative screening for COVID-19 infection, negative screening for influenza A, influenza B, and RSV. The patient developed worsening shortness of breath and hypoxemia on 05/09/2022 requiring BiPAP support. Acute non-ST elevation myocardial infarction Acute exacerbation of suspected diastolic congestive heart failure Acute exacerbation of COPD History of coronary artery disease and previous CABG History of previous CVA/TIA Benign essential hypertension Dyslipidemia History of prostate cancer Plan: The patient was seen and evaluated Labs and medications reviewed Still with significant bilateral infiltrates Worsening oxygen requirements Increase Lasix to 40 mg IV every 12 hours Continue Zosyn Discontinue Symbicort, add Pulmicort and Perforomist inhalations Continue IV Solu-Medrol 60 mg every 6 hours Titrate the FiO2 as tolerated The patient is a DO NOT RESUSCITATE/DO NOT INTUBATE CODE STATUS We will continue to follow I have personally seen and examined the patient, performed the documentation and the assessment and plan as written. Number of minutes spent on the visit: 10.
[2022-05-10 16:31] LABS: Glucose,Whole Blood 161 mg/dL (70-110)
[2022-05-10] MEDS: FORMOTEROL FUMARATE 20 MCG/2 ML NEBU INHALATION SCH (19:37)
[2022-05-10] MEDS: BUDESONIDE 1 MG/2 ML NEBU INHALATION SCH (19:37)
[2022-05-10 19:58] LABS: Glucose,Whole Blood 147 mg/dL (70-110)
[2022-05-10] MEDS: ACETAMINOPHEN TAB 325 MG TAB PO PRN (20:11)
[2022-05-10] MEDS: FUROSEMIDE 10 MG/ML 4 ML VIAL IV SCH (20:11)
[2022-05-10] MEDS: SERTRALINE 100 MG TAB PO SCH (20:11)
[2022-05-10] MEDS: ATORVASTATIN 80 MG TAB PO SCH (20:11)
[2022-05-10] MEDS: MIRTAZAPINE 15 MG TAB PO SCH (20:11)
[2022-05-10] MEDS: MELATONIN 3 MG TABLET PO PRN (20:16)
[2022-05-10] MEDS: diphenhydrAMINE 25 MG CAP PO PRN (20:16)
[2022-05-11 01:03] LABS: Basophils % (A) 0 %; Eosinophils # (A) 0.1 k/uL (0-0.7); Eosinophils % (A) 1 %; HCT 34.2 % (39.0-53.0); HGB 11.4 gm/dL (13.0-17.5); Lymphocytes # (A) 0.2 k/uL (1.0-4.8); Lymphocytes % (A) 2 %; MCH 30.4 pg (25.0-35.0); MCHC 33.4 g/dL (31.0-37.0); MCV 91.1 fL (80.0-100.0); Mean Platelet Volume 8.1; Monocytes # (A) 0.5 k/uL (0-1.0); Monocytes % (A) 5 %; Neutrophils # (A) 8.7 k/uL (1.3-7.7); Neutrophils % (A) 92 %; Platelet Count 120 k/uL (150-450); RBC 3.75 m/uL (4.30-5.90); RDW 13.5 % (11.5-15.5); WBC 9.5 k/uL (3.8-10.6)
[2022-05-11 03:41] LABS: Calcium 7.8 mg/dL (8.4-10.2)
[2022-05-11 03:53] LABS: Potassium 3.9 mmol/L (3.5-5.1)
[2022-05-11 05:59] LABS: Glucose,Whole Blood 162 mg/dL (70-110)
[2022-05-11] MEDS: INSULIN ASPART (NovoLOG) 100 UNIT/ML VIAL SQ SCH ×4 (06:04→20:55)
[2022-05-11] MEDS: methylPREDNISolone SOD SUCCI 125 MG/2 ML VIAL IV SCH ×4 (06:12→23:31)
[2022-05-11] MEDS: FORMOTEROL FUMARATE 20 MCG/2 ML NEBU INHALATION SCH ×2 (07:32→20:16)
[2022-05-11] MEDS: IPRATROPIUM-ALBUTEROL 3 ML NEB INHALATION SCH ×4 (07:32→20:16)
[2022-05-11] MEDS: BUDESONIDE 1 MG/2 ML NEBU INHALATION SCH ×2 (07:32→20:15)
[2022-05-11 08:00] LABS: Basophils % (A) 0 %; Eosinophils % (A) 0 %; HCT 36.7 % (39.0-53.0); HGB 12.3 gm/dL (13.0-17.5); Lymphocytes # (A) 0.2 k/uL (1.0-4.8); Lymphocytes % (A) 2 %; MCH 30.4 pg (25.0-35.0); MCHC 33.5 g/dL (31.0-37.0); MCV 90.7 fL (80.0-100.0); Monocytes # (A) 0.4 k/uL (0-1.0); Monocytes % (A) 4 %; Neutrophils # (A) 9.4 k/uL (1.3-7.7); Neutrophils % (A) 93 %; Platelet Count 141 k/uL (150-450); RBC 4.04 m/uL (4.30-5.90); RDW 13.9 % (11.5-15.5); WBC 10.1 k/uL (3.8-10.6)
[2022-05-11] MEDS: HEPARIN SODIUM,PORCINE/PF 5,000 UNIT/0.5 ML SYRINGE SQ SCH ×3 (08:36→23:31)
[2022-05-11] MEDS: PANTOPRAZOLE 40 MG/10 ML VIAL IV SCH (08:36)
[2022-05-11] MEDS: FUROSEMIDE 10 MG/ML 4 ML VIAL IV SCH ×2 (08:36→20:54)
[2022-05-11] MEDS: PIPERACILLIN-TAZOBACTAM 3.375 GM in SODIUM CHLORIDE 0.9% 100 ML IVPB SCH ×3 (08:36→23:32)
[2022-05-11] MEDS: ISOSORBIDE MONONITRATE ER 30 MG TAB.ER.24H PO SCH (08:36)
[2022-05-11] MEDS: METOPROLOL TARTRATE 25 MG TAB PO SCH ×2 (08:36→20:54)
[2022-05-11] MEDS: ASPIRIN 81 MG PO SCH (08:36)
[2022-05-11] MEDS: lisinopriL 10 MG TAB PO SCH (08:36)
[2022-05-11 08:45] LABS: Potassium 3.3 mmol/L (3.5-5.1)
--- NOTE | 2022-05-11 08:51 | XR ---
EXAMINATION TYPE: XR chest 1V portable DATE OF EXAM: 05/11/2022 Comparison: 05/09/2022 Clinical History: 71-year-old male shortness of breath Findings: Median sternotomy wires and post-CABG clips the mediastinum. Bilateral airspace opacities persist wit hout significant change. No pleural effusion. Heart borderline in size. Impression: Diffuse bilateral airspace opacities, not significantly changed.
[2022-05-11 12:07] LABS: Glucose,Whole Blood 164 mg/dL (70-110)
[2022-05-11] MEDS: POTASSIUM CHLORIDE ER 20 MEQ TAB.ER PO SCH ×2 (12:36→13:53)
--- NOTE | 2022-05-11 14:51 | P.PN ---
Subjective Progress Note Date: 05/11/22 this is a 71-year-old white male with history of COPD, previous history of NC, previous history of stroke without any residual deficits, patient was out in the cold yesterday for about one hour, and he developed shortness of breath cough and wheezing. EMS was called, patient was given albuterol and Atrovent treatment with minimal improvement, patient was brought into the ER, he had no fever, no chills, he had no chest pain, apparently when EMS arrived to pick him up, the patient was clammy and flushed upon his initial evaluation, his respiratory rate was in the 40s, patient was evaluated in the ER, chest x-ray and CT of the chest showed bilateral infiltrates, right more so than left, although the patient denies any history of aspiration, and no history of passing out episodes except he had 1 previous syncopal episode over [address] angiogram ruled out pulmonary embolism although he had a slightly elevated d- dimer of 2.23, and I reviewed the CT angiogram myself, definitely no evidence of pulmonary embolism. His WBC count is 6.4 hemoglobin is 17.7.lactic acid on it is initial evaluation was 8.9, went down to 1.6.his serology came back negative for carbon 19, influenza A, influenza B, and RSV.troponin was noted to be a bit high on presentation 0.033, follow-up troponin was 0.597, and BNP was normal. In spite of significant air space disease noted in both lungs especially in the right lung, patient maintained his O2 saturation, he was on room air with O2 sat showed 94%patient was placed on antibiotics in the form of Rocephin and Zithromax,initially, and he is now on Zosyn and vancomycin. he was also placed on bronchodilators and on steroids/methylprednisolone,considering his elevated troponin, patient was alsoplaced on heparin, full cardiac consultation is pending. Reevaluated today on 05/06/22, patient is doing better today, breathing easier, less cough and less wheezing less shortness of breath, remains on room air, does not seem to be in any distress, he does have intermittent cough, his cough is nonproductive. No fever no chills no hemoptysis no chest pain. CBC is relatively normal electrolytes are normal renal profile is normal, COVID-19 screening RSV screening were negative. Pro-calcitonin level was elevated at 0.35. The patient is seen today 05/07/2022 in follow-up on the selective care unit. He is currently resting comfortably in bed. Awake and alert in no acute distress. He is maintaining O2 saturations in the 90s on room air. He is still short of breath with minimal exertion. He continues with crackles in the right lung. He remains on Zosyn. He is on a heparin drip per cardiology. Non-ST segment elevation myocardial infarction. Echocardiogram revealed preserved left ventricular systolic function. Today's chest x-ray does reveal improved aeration of the lungs with persistent multifocal airspace opacities. Blood cultures reveal no growth. White count 8.2. Hemoglobin 11.7. Platelets 128. Glucose 142. He remains on antibiotics in the form of vancomycin and Zosyn. Continued on bronchodilators, IV Solu-Medrol. Patient is seen today 05/08/2022 in follow-up on the selective care unit. He is currently sitting up in a chair at the bedside. Awake and alert in no acute distress. His O2 saturations drop in the mid 80s while on room air and up and walking. Recovers into the 90s on 2 L/m per nasal cannula. Blood cultures revealed no growth. We count 15.9. Hemoglobin 14.5. Sodium 141. Potassium 4.3. BUN 20. Creatinine 1.07. Glucose 118. He remains on Symbicort, DuoNeb inhalations, IV Solu-Medrol. Antibiotics in the form of Zosyn. Vancomycin discontinued. The patient is seen today 05/09/2022 in follow-up on the selective care unit. He is currently resting comfortably in bed. Awake and alert in no acute distress. He is doing better today compared to yesterday. Not quite back to his baseline. Still congested. Still is some spasm and wheezing. He is maintaining O2 saturations in the 90s on 4 L/m per nasal cannula. Follow-up chest x-ray reveals worsening airspace opacities. No evidence of pleural effusion. No focal consolidation. No pneumothorax. Blood cultures revealed no growth. Sputum cultures pending. Sodium 138. Potassium 3.7. BUN 24. Creatinine 1.05. Glucose 262. He is continued on DuoNeb inhalations, Symbicort, IV Solu-Medrol. Antibiotics in the form of Zosyn. The patient is seen today 05/10/2022 in follow-up on the selective care unit. He did have an episode of worsening shortness of breath and oxygen desaturations last evening. He required BiPAP support which is currently on at 16/8 and 60% FiO2. Sputum culture revealed no growth. Blood cultures revealed no growth. White count 9.9. Hemoglobin 11.8. Platelets 121. Sodium 138. Potassium 3.8. BUN 25. Creatinine 1.0. Glucose 164. ProBNP 7690. ProCalcitonin 0.56. Brooks virus by PCR not detected. He remains on Zosyn, IV Solu-Medrol, Symbicort and DuoNeb inhalations. Heparin for DVT prophylaxis. Continued on IV diuretics. No accurate I&O recorded. Patient is seen today 05/11/2022 in follow-up on the selective care unit. He is currently resting fairly comfortably in bed. Awake and alert in no acute distress. He remains on BiPAP 16/80 and 60% FiO2. He was attempted on high flow nasal cannula with oxygen desaturations down into the 70s. He'll be given a trial of AirVo high flow oxygen at 60 L and 85% FiO2 for meals. Chest x-ray revealed diffuse bilateral airspace opacities. No significant change compared to previous. He is continued on bronchodilators, IV Solu-Medrol, antibiotics in the form of Zosyn. Remains on IV diuretics. Currently in a -2.6 L balance. Blood cultures revealed no growth. Sputum culture revealed no growth. White count 10.1. Hemoglobin 13.3. Sodium 141 potassium 3.3. Bicarb 32. BUN 31. Creatinine 1.07. Glucose 164. Objective - Vital Signs Vital signs: Vital Signs Temp 97.3 F L 05/11/22 12:31 Pulse 92 05/11/22 12:31 Resp 22 05/11/22 12:31 BP 124/72 05/11/22 12:31 Pulse Ox 97 05/11/22 12:31 FiO2 80 05/11/22 12:38 Intake & Output 05/10/22 05/11/22 05/11/22 18:59 06:59 18:59 Intake Total 173 600 Output Total 1350 1500 350 Balance -1177 -1500 250 Intake: Oral 173 600 Output: Urine 1350 1500 350 Other: Voiding Method Urinal Urinal Urinal # Voids 1 1 - Exam GENERAL EXAM: Alert, pleasant 71-year-old male, currently on BiPAP 16/8 and 60% FiO2, fairly comfortable in no apparent distress. HEAD: Normocephalic. EYES: Normal reaction of pupils, equal size. NOSE: Clear with pink turbinates. THROAT: No erythema or exudates. NECK: No masses, no JVD. CHEST: No chest wall deformity. LUNGS: Equal air entry with bilateral scattered rhonchi more so on the right lung. CVS: S1 and S2 normal with no audible murmur, regular rhythm. ABDOMEN: No hepatosplenomegaly, normal bowel sounds, no guarding or rigidity. SPINE: No scoliosis or deformity SKIN: No rashes CENTRAL NERVOUS SYSTEM: No focal deficits, tone is normal in all 4 extremities. EXTREMITIES: There is no peripheral edema. No clubbing, no cyanosis. Peripheral pulses are intact. - Labs CBC & Chem 7: 05/11/22 07:15 05/11/22 07:15 Labs: Abnormal Lab Results - Last 24 Hours (Table) 05/10/22 05/10/22 05/10/22 Range/Units 08:57 16:29 19:57 RBC (4.30-5.90) m/uL Hgb (13.0-17.5) gm/dL Hct (39.0-53.0) % Plt Count (150-450) k/uL Neutrophils # (1.3-7.7) k/uL Lymphocytes # (1.0-4.8) k/uL Potassium (3.5-5.1) mmol/L Carbon Dioxide (22-30) mmol/L BUN (9-20) mg/dL Glucose (74-99) mg/dL POC Glucose (mg/dL) 161 H 147 H (70-110) mg/dL Calcium (8.4-10.2) mg/dL Procalcitonin 0.56 H (0.02-0.09) ng/mL 05/10/22 05/11/22 05/11/22 Range/Units 23:57 02:56 05:55 RBC 3.75 L (4.30-5.90) m/uL Hgb 11.4 L (13.0-17.5) gm/dL Hct 34.2 L (39.0-53.0) % Plt Count 120 L (150-450) k/uL Neutrophils # 8.7 H (1.3-7.7) k/uL Lymphocytes # 0.2 L (1.0-4.8) k/uL Potassium (3.5-5.1) mmol/L Carbon Dioxide (22-30) mmol/L BUN 31 H (9-20) mg/dL Glucose 164 H (74-99) mg/dL POC Glucose (mg/dL) 162 H (70-110) mg/dL Calcium 7.8 L (8.4-10.2) mg/dL Procalcitonin (0.02-0.09) ng/mL 05/11/22 05/11/22 05/11/22 Range/Units 07:15 07:15 12:05 RBC 4.04 L (4.30-5.90) m/uL Hgb 12.3 L (13.0-17.5) gm/dL Hct 36.7 L (39.0-53.0) % Plt Count 141 L (150-450) k/uL Neutrophils # 9.4 H (1.3-7.7) k/uL Lymphocytes # 0.2 L (1.0-4.8) k/uL Potassium 3.3 L (3.5-5.1) mmol/L Carbon Dioxide 32 H (22-30) mmol/L BUN 31 H (9-20) mg/dL Glucose 162 H (74-99) mg/dL POC Glucose (mg/dL) 164 H (70-110) mg/dL Calcium 8.0 L (8.4-10.2) mg/dL Procalcitonin (0.02-0.09) ng/mL Microbiology - Last 24 Hours (Table) 05/04/22 14:58 Blood Culture - Final Blood No Growth after 144 hours 05/04/22 14:57 Blood Culture - Final Blood No Growth after 144 hours 05/08/22 10:00 Gram Stain - Final Sputum Sputum Culture - Final Assessment and Plan Assessment: Acute hypoxic respiratory failure requiring BiPAP support secondary to an acute bilateral pneumonia, community-acquired, doubt aspiration pneumonia, doubt COVID-19 pneumonia considering the patient had negative screening for COVID-19 infection, negative screening for influenza A, influenza B, and RSV. The patient developed worsening shortness of breath and hypoxemia on 05/09/2022 requiring BiPAP support. Acute non-ST elevation myocardial infarction Acute exacerbation of suspected diastolic congestive heart failure Acute exacerbation of COPD History of coronary artery disease and previous CABG History of previous CVA/TIA Benign essential hypertension Dyslipidemia History of prostate cancer Plan: The patient was seen and evaluated Chest x-ray, labs and medications reviewed Continue Lasix to 40 mg IV every 12 hours Continue Zosyn, Pulmicort and Perforomist inhalations Continue IV Solu-Medrol 60 mg every 6 hours Titrate the FiO2 as tolerated DO NOT RESUSCITATE/DO NOT INTUBATE CODE STATUS We will continue to follow I have personally seen and examined the patient, performed the documentation and the assessment and plan as written. Number of minutes spent on the visit: 10.
[2022-05-11 16:57] LABS: Glucose,Whole Blood 155 mg/dL (70-110)
[2022-05-11 20:20] LABS: Glucose,Whole Blood 239 mg/dL (70-110)
[2022-05-11] MEDS: MIRTAZAPINE 15 MG TAB PO SCH (20:54)
[2022-05-11] MEDS: SERTRALINE 100 MG TAB PO SCH (20:54)
[2022-05-11] MEDS: ATORVASTATIN 80 MG TAB PO SCH (20:55)
[2022-05-11] MEDS: MELATONIN 3 MG TABLET PO PRN (21:07)
[2022-05-12] MEDS: methylPREDNISolone SOD SUCCI 125 MG/2 ML VIAL IV SCH ×4 (05:25→23:34)
[2022-05-12 06:12] LABS: Glucose,Whole Blood 174 mg/dL (70-110)
[2022-05-12] MEDS: INSULIN ASPART (NovoLOG) 100 UNIT/ML VIAL SQ SCH ×5 (06:19→20:29)
[2022-05-12] MEDS: FORMOTEROL FUMARATE 20 MCG/2 ML NEBU INHALATION SCH ×2 (08:34→19:14)
[2022-05-12] MEDS: BUDESONIDE 1 MG/2 ML NEBU INHALATION SCH ×2 (08:34→19:14)
[2022-05-12] MEDS: IPRATROPIUM-ALBUTEROL 3 ML NEB INHALATION SCH ×4 (08:35→19:14)
[2022-05-12 08:42] LABS: Basophils # (A) 0.1 k/uL (0-0.2); Basophils % (A) 0 %; Eosinophils # (A) 0.1 k/uL (0-0.7); Eosinophils % (A) 0 %; HCT 37.2 % (39.0-53.0); HGB 12.7 gm/dL (13.0-17.5); Lymphocytes # (A) 0.2 k/uL (1.0-4.8); Lymphocytes % (A) 1 %; MCHC 34.2 g/dL (31.0-37.0); MCV 90.5 fL (80.0-100.0); Mean Platelet Volume 8.3; Monocytes # (A) 0.4 k/uL (0-1.0); Monocytes % (A) 3 %; Neutrophils # (A) 12.4 k/uL (1.3-7.7); Neutrophils % (A) 93 %; Platelet Count 147 k/uL (150-450); RBC 4.11 m/uL (4.30-5.90); RDW 13.9 % (11.5-15.5); WBC 13.3 k/uL (3.8-10.6)
[2022-05-12 08:56] LABS: Calcium 8.1 mg/dL (8.4-10.2); Potassium 3.5 mmol/L (3.5-5.1)
[2022-05-12] MEDS: ASPIRIN 81 MG PO SCH (09:01)
[2022-05-12] MEDS: PIPERACILLIN-TAZOBACTAM 3.375 GM in SODIUM CHLORIDE 0.9% 100 ML IVPB SCH (09:01)
[2022-05-12] MEDS: lisinopriL 10 MG TAB PO SCH (09:01)
[2022-05-12] MEDS: METOPROLOL TARTRATE 25 MG TAB PO SCH ×2 (09:01→20:29)
[2022-05-12] MEDS: PANTOPRAZOLE 40 MG/10 ML VIAL IV SCH (09:01)
[2022-05-12] MEDS: FUROSEMIDE 10 MG/ML 4 ML VIAL IV SCH ×2 (09:01→20:29)
[2022-05-12] MEDS: HEPARIN SODIUM,PORCINE/PF 5,000 UNIT/0.5 ML SYRINGE SQ SCH ×3 (09:01→23:34)
[2022-05-12] MEDS: ISOSORBIDE MONONITRATE ER 30 MG TAB.ER.24H PO SCH (09:01)
[2022-05-12] MEDS: ACETAMINOPHEN TAB 325 MG TAB PO PRN (09:13)
[2022-05-12 11:46] LABS: Glucose,Whole Blood 260 mg/dL (70-110)
--- NOTE | 2022-05-12 12:43 | P.PN ---
Subjective Progress Note Date: 05/10/22 Patient is a 71-year-old male with a known history of coronary disease status post CABG, history of stent placement, hypertension, hyperlipidemia, history of MD, prostate cancer status postsurgery, COPD and prior history of smoking presents to ER with complaints of shortness of breath. Patient states that he went out in the cold to feed cats and felt very short of breath with cough and wheezing. Patient was able to come back inside the home and EMS was called. Patient was given albuterol Atrovent treatments with minimal improvement and was brought to ER. Patient was tachycardic, tachypneic on admission with blood pressure 84/63. Denies any complaints of fever or chills. Patient states that he has been having sinus infection and cough with yellow sputum production recently. Chest x-ray showed interval development of acute cardiopulmonary disease with large partially consolidated infiltrate in the right lower lobe suspicious for pneumonia. Clinical correlation and short-term follow-up to resolution is recommended. CTA chest showed no evidence of PE. Diffuse groundglass densities within the lung consistent with acute inflammatory process possibly COVID-pneumonia and clinical correlation is recommended. EKG showed atrial flutter/tachycardia with heart rate 119 Laboratory data WBC 6.4 hemoglobin 17.7 and platelets 140 D-dimer is 2.23 Sodium 138 potassium 3.9 chloride 102 bicarb is 40 BUN 12 and creatinine 1.23 and lactic acid 8.9 and magnesium 2.4, AST 91 ALT 58 and alk phos 103 Troponin 0.033 and 0.597 and proBNP 672 RSV, influenza A and B and coronavirus PCR not detected. 05/06/2022 Patient is currently sitting in the bed. Awake alert and oriented x3. Currently requiring oxygen and is being titrated down to room air. Saturating at 94%. Patient does have cough without any sputum production. No fever no chills. Is better. Procalcitonin level is elevated 0.35. Patient is being arranged antibiotics in the form of Zosyn. Pulmonary is on board. 05/07/2022 Patient is currently resting in bed. Awake alert and oriented. Saturating at 90% on room air. Still having shortness of breath with minimal exertion. Patient is being continued antibiotics in the form of Zosyn. Chest x-ray showed improved aeration of the lungs with persistent multifocal airspace opacities. Cultures have been negative. Blood cultures negative. Laboratory data showed WBC 8.2 hemoglobin 11.7 and platelets 128 Sodium 137 potassium 4.3 chloride 109 bicarb is 20 BUN 23 and creatinine 1.0 and blood sugar is 168. Cardiology is on board. Heparin is being continued. 2D echocardiogram was done. Showed normal LV systolic function. Moderate MR. Aortic sclerosis without significant stenosis.. 05/08/2022 Patient is sitting in the bed. Awake alert and oriented x3. Patient is requiring oxygen today at 2 L via nasal cannula. No complaints of chest pain. Still having exertional dyspnea. No nausea vomiting abdominal pain or diarrhea. Patient is being current on antibiotics in form of Zosyn. Laboratory data showed WBC 15.9 hemoglobin 14.4 and platelets 167 Sodium 141 potassium 4.3 chloride 110 bicarb is 21 BUN 20 and creatinine 1.07 calcium 8.5. Pulmonary and cardiology is on board. Patient is also being continued on IV Solu-Medrol and duo nebs. 05/09/2022 Patient is able to walk to the bathroom. Breathing status is about the same. Today patient is requiring oxygen at 4 L via nasal cannula. No complaints of chest pain. No nausea vomiting abdominal pain or diarrhea. Chest x-ray showed worsening scattered airspace opacities correlate for pneumonia. Correlate with serum BNP to rule out superimposed underlying congestive heart failure. Patient remains on antibiotics Zosyn and also IV steroids. Patient was given a dose of IV Lasix yesterday. 05/10/2022 Patient is in the telemetry unit. Currently on BiPAP. Patient seems to be drowsy and lethargic. Able to open his eyes with verbal stimuli. No complaints of chest pain. Patient has been afebrile. Cultures have been negative. Patient is being continued on IV Solu-Medrol and also IV diuretics and duo nebs. proBNP increased to 70 690. Other laboratory test showed WBC 9.9 hemoglobin 11.8 and platelets 121 sodium 138 potassium 3.8 chloride 109 bicarb is 26 BUN 25 and creatinine 1.1 and calcium 8.0 and procalcitonin level is 0.56. Patient remains on antibiotics in the form of Zosyn. Current medications reviewed. Objective - Vital Signs Vital signs: Vital Signs Temp 97.7 F 05/10/22 19:45 Pulse 80 05/10/22 19:58 Resp 26 H 05/10/22 19:45 BP 123/76 05/10/22 19:45 Pulse Ox 97 05/10/22 19:45 FiO2 60 05/10/22 19:45 Intake & Output 05/10/22 05/10/22 05/11/22 06:59 18:59 06:59 Intake Total 173 Output Total 1350 Balance -1177 Intake: Oral 173 Output: Urine 1350 Other: Voiding Method Urinal Urinal Urinal # Voids 3 1 - Exam PHYSICAL EXAMINATION: Patient is lying in the bed comfortably, no acute distress, awake alert and oriented.. HEENT: Normocephalic. Neck is supple. Pupils reactive. Nostrils clear. Oral cavity is moist. Neck reveals no JVD, carotid bruits, or thyromegaly. CHEST EXAMINATION: Trachea is central. Symmetrical expansion. Right basilar crackles. no wheeze. Nonlabored breathing. CARDIAC: Normal S1, S2 with no gallops. No murmurs ABDOMEN: Soft. Bowel sounds normal. No organomegaly. No abdominal bruits. Extremities: reveal no edema. No clubbing or cyanosis Neurologically awake, alert, oriented x3 with well-coordinated movements. No focal deficits noted Skin: No rash or skin lesions. Psychiatric: Cooperative. Nonsuicidal Musculoskeletal: No joint swelling or deformity. Normal range of motion. - Labs CBC & Chem 7: 05/12/22 07:59 05/12/22 07:59 Labs: Abnormal Lab Results - Last 24 Hours (Table) 05/10/22 05/10/22 05/10/22 Range/Units 06:03 08:57 08:57 RBC 3.92 L (4.30-5.90) m/uL Hgb 11.8 L (13.0-17.5) gm/dL Hct 35.4 L (39.0-53.0) % Plt Count 121 L (150-450) k/uL Neutrophils # 9.2 H (1.3-7.7) k/uL Lymphocytes # 0.2 L (1.0-4.8) k/uL Chloride 109 H (98-107) mmol/L BUN 25 H (9-20) mg/dL Glucose 164 H (74-99) mg/dL POC Glucose (mg/dL) 173 H (70-110) mg/dL Calcium 8.0 L (8.4-10.2) mg/dL Procalcitonin (0.02-0.09) ng/mL 05/10/22 05/10/22 05/10/22 Range/Units 08:57 11:30 16:29 RBC (4.30-5.90) m/uL Hgb (13.0-17.5) gm/dL Hct (39.0-53.0) % Plt Count (150-450) k/uL Neutrophils # (1.3-7.7) k/uL Lymphocytes # (1.0-4.8) k/uL Chloride (98-107) mmol/L BUN (9-20) mg/dL Glucose (74-99) mg/dL POC Glucose (mg/dL) 163 H 161 H (70-110) mg/dL Calcium (8.4-10.2) mg/dL Procalcitonin 0.56 H (0.02-0.09) ng/mL 05/10/22 Range/Units 19:57 RBC (4.30-5.90) m/uL Hgb (13.0-17.5) gm/dL Hct (39.0-53.0) % Plt Count (150-450) k/uL Neutrophils # (1.3-7.7) k/uL Lymphocytes # (1.0-4.8) k/uL Chloride (98-107) mmol/L BUN (9-20) mg/dL Glucose (74-99) mg/dL POC Glucose (mg/dL) 147 H (70-110) mg/dL Calcium (8.4-10.2) mg/dL Procalcitonin (0.02-0.09) ng/mL Microbiology - Last 24 Hours (Table) 05/04/22 14:58 Blood Culture - Final Blood No Growth after 144 hours 05/04/22 14:57 Blood Culture - Final Blood No Growth after 144 hours 05/08/22 10:00 Gram Stain - Final Sputum Sputum Culture - Final Assessment and Plan Assessment: Right lower lobe pneumonia with consolidative changes in the CT thorax. Likely community-acquired pneumonia. COVID-19 PCR not detected. Acute hypoxic respiratory failure secondary to above requiring oxygen 3 L via nasal cannula. On 4 L oxygen ---Requiring BiPAP now. Acute COPD exacerbation Acute CHF with preserved ejection fraction. Mild to moderate MR. Elevated troponin levelLikely demand mismatch.No new EKG changes compared to old Coronary arteries with history of CABG For history of CVA/TIA Prostate cancer status post surgery Hypertension Hyperlipidemia Prior history of smoking DVT prophylaxis. Plan: Patient will be started on IV Lasix increased to 40 mg twice daily. Continue with antibiotics , zosyn and IV steroids. Vancomycin has been discontinued. Continue with IV Solu-Medrol and duo nebs. Continue with home medications including metoprolol.. Patient was seen by cardiology. Unlikely ACS. Heparin drip has been discontinued. Today echocardiogram showed normal ejection fraction. Moderate MR. Pulmonary and cardiology is on board. Prognosis is guarded with multiple medical problems and comorbid conditions. Time with Patient: Greater than 30
--- NOTE | 2022-05-12 12:45 | P.PN ---
Subjective Progress Note Date: 05/11/22 Patient is a 71-year-old male with a known history of coronary disease status post CABG, history of stent placement, hypertension, hyperlipidemia, history of MD, prostate cancer status postsurgery, COPD and prior history of smoking presents to ER with complaints of shortness of breath. Patient states that he went out in the cold to feed cats and felt very short of breath with cough and wheezing. Patient was able to come back inside the home and EMS was called. Patient was given albuterol Atrovent treatments with minimal improvement and was brought to ER. Patient was tachycardic, tachypneic on admission with blood pressure 84/63. Denies any complaints of fever or chills. Patient states that he has been having sinus infection and cough with yellow sputum production recently. Chest x-ray showed interval development of acute cardiopulmonary disease with large partially consolidated infiltrate in the right lower lobe suspicious for pneumonia. Clinical correlation and short-term follow-up to resolution is recommended. CTA chest showed no evidence of PE. Diffuse groundglass densities within the lung consistent with acute inflammatory process possibly COVID-pneumonia and clinical correlation is recommended. EKG showed atrial flutter/tachycardia with heart rate 119 Laboratory data WBC 6.4 hemoglobin 17.7 and platelets 140 D-dimer is 2.23 Sodium 138 potassium 3.9 chloride 102 bicarb is 40 BUN 12 and creatinine 1.23 and lactic acid 8.9 and magnesium 2.4, AST 91 ALT 58 and alk phos 103 Troponin 0.033 and 0.597 and proBNP 672 RSV, influenza A and B and coronavirus PCR not detected. 05/06/2022 Patient is currently sitting in the bed. Awake alert and oriented x3. Currently requiring oxygen and is being titrated down to room air. Saturating at 94%. Patient does have cough without any sputum production. No fever no chills. Is better. Procalcitonin level is elevated 0.35. Patient is being arranged antibiotics in the form of Zosyn. Pulmonary is on board. 05/07/2022 Patient is currently resting in bed. Awake alert and oriented. Saturating at 90% on room air. Still having shortness of breath with minimal exertion. Patient is being continued antibiotics in the form of Zosyn. Chest x-ray showed improved aeration of the lungs with persistent multifocal airspace opacities. Cultures have been negative. Blood cultures negative. Laboratory data showed WBC 8.2 hemoglobin 11.7 and platelets 128 Sodium 137 potassium 4.3 chloride 109 bicarb is 20 BUN 23 and creatinine 1.0 and blood sugar is 168. Cardiology is on board. Heparin is being continued. 2D echocardiogram was done. Showed normal LV systolic function. Moderate MR. Aortic sclerosis without significant stenosis.. 05/08/2022 Patient is sitting in the bed. Awake alert and oriented x3. Patient is requiring oxygen today at 2 L via nasal cannula. No complaints of chest pain. Still having exertional dyspnea. No nausea vomiting abdominal pain or diarrhea. Patient is being current on antibiotics in form of Zosyn. Laboratory data showed WBC 15.9 hemoglobin 14.4 and platelets 167 Sodium 141 potassium 4.3 chloride 110 bicarb is 21 BUN 20 and creatinine 1.07 calcium 8.5. Pulmonary and cardiology is on board. Patient is also being continued on IV Solu-Medrol and duo nebs. 05/09/2022 Patient is able to walk to the bathroom. Breathing status is about the same. Today patient is requiring oxygen at 4 L via nasal cannula. No complaints of chest pain. No nausea vomiting abdominal pain or diarrhea. Chest x-ray showed worsening scattered airspace opacities correlate for pneumonia. Correlate with serum BNP to rule out superimposed underlying congestive heart failure. Patient remains on antibiotics Zosyn and also IV steroids. Patient was given a dose of IV Lasix yesterday. 05/10/2022 Patient is in the telemetry unit. Currently on BiPAP. Patient seems to be drowsy and lethargic. Able to open his eyes with verbal stimuli. No complaints of chest pain. Patient has been afebrile. Cultures have been negative. Patient is being continued on IV Solu-Medrol and also IV diuretics and duo nebs. proBNP increased to 70 690. Other laboratory test showed WBC 9.9 hemoglobin 11.8 and platelets 121 sodium 138 potassium 3.8 chloride 109 bicarb is 26 BUN 25 and creatinine 1.1 and calcium 8.0 and procalcitonin level is 0.56. Patient remains on antibiotics in the form of Zosyn. 05/11/2022 Patient is in the psych care unit. Patient is more awake and oriented today. Tolerating BiPAP. Plan is To transition to high flow oxygen. Pulmonary is on board. Continued on IV Lasix with negative balance of 2.6 L. Patient is also on antibiotics and IV steroids. Chest x-ray today showed diffuse bilateral airspace opacities not significantly changed. Laboratory test showed WBC 10.1 hemoglobin 12.3 and platelets 141 sodium 141 potassium 3.3 which is being replaced Chloride 104 bicarb is 32 BUN 31 and creatinine 1.07 and blood sugar is 162 and calcium 8.0. Pulmonary is on board. Current medications reviewed. Objective - Vital Signs Vital signs: Vital Signs Temp 98.1 F 05/11/22 20:45 Pulse 118 H 05/11/22 20:45 Resp 22 05/11/22 20:45 BP 140/77 05/11/22 20:45 Pulse Ox 96 05/11/22 20:45 FiO2 80 05/11/22 20:45 Intake & Output 05/11/22 05/11/22 05/12/22 06:59 18:59 06:59 Intake Total 940 Output Total 1500 675 Balance -1500 265 Intake: IV 10 Invasive Line 3 10 Oral 930 Output: Urine 1500 675 Other: Voiding Method Urinal Urinal Urinal # Voids 1 - Exam PHYSICAL EXAMINATION: Patient is lying in the bed comfortably, no acute distress, awake alert and oriented.. HEENT: Normocephalic. Neck is supple. Pupils reactive. Nostrils clear. Oral cavity is moist. Neck reveals no JVD, carotid bruits, or thyromegaly. CHEST EXAMINATION: Trachea is central. Symmetrical expansion. Right basilar crackles. no wheeze. Nonlabored breathing. CARDIAC: Normal S1, S2 with no gallops. No murmurs ABDOMEN: Soft. Bowel sounds normal. No organomegaly. No abdominal bruits. Extremities: reveal no edema. No clubbing or cyanosis Neurologically awake, alert, oriented x3 with well-coordinated movements. No focal deficits noted Skin: No rash or skin lesions. Psychiatric: Cooperative. Nonsuicidal Musculoskeletal: No joint swelling or deformity. Normal range of motion. - Labs CBC & Chem 7: 05/12/22 07:59 05/12/22 07:59 Labs: Abnormal Lab Results - Last 24 Hours (Table) 05/10/22 05/11/22 05/11/22 Range/Units 23:57 02:56 05:55 RBC 3.75 L (4.30-5.90) m/uL Hgb 11.4 L (13.0-17.5) gm/dL Hct 34.2 L (39.0-53.0) % Plt Count 120 L (150-450) k/uL Neutrophils # 8.7 H (1.3-7.7) k/uL Lymphocytes # 0.2 L (1.0-4.8) k/uL Potassium (3.5-5.1) mmol/L Carbon Dioxide (22-30) mmol/L BUN 31 H (9-20) mg/dL Glucose 164 H (74-99) mg/dL POC Glucose (mg/dL) 162 H (70-110) mg/dL Calcium 7.8 L (8.4-10.2) mg/dL 05/11/22 05/11/22 05/11/22 Range/Units 07:15 07:15 12:05 RBC 4.04 L (4.30-5.90) m/uL Hgb 12.3 L (13.0-17.5) gm/dL Hct 36.7 L (39.0-53.0) % Plt Count 141 L (150-450) k/uL Neutrophils # 9.4 H (1.3-7.7) k/uL Lymphocytes # 0.2 L (1.0-4.8) k/uL Potassium 3.3 L (3.5-5.1) mmol/L Carbon Dioxide 32 H (22-30) mmol/L BUN 31 H (9-20) mg/dL Glucose 162 H (74-99) mg/dL POC Glucose (mg/dL) 164 H (70-110) mg/dL Calcium 8.0 L (8.4-10.2) mg/dL 05/11/22 05/11/22 Range/Units 16:55 20:19 RBC (4.30-5.90) m/uL Hgb (13.0-17.5) gm/dL Hct (39.0-53.0) % Plt Count (150-450) k/uL Neutrophils # (1.3-7.7) k/uL Lymphocytes # (1.0-4.8) k/uL Potassium (3.5-5.1) mmol/L Carbon Dioxide (22-30) mmol/L BUN (9-20) mg/dL Glucose (74-99) mg/dL POC Glucose (mg/dL) 155 H 239 H (70-110) mg/dL Calcium (8.4-10.2) mg/dL Assessment and Plan Assessment: Right lower lobe pneumonia with consolidative changes in the CT thorax. Likely community-acquired pneumonia. COVID-19 PCR not detected. Acute hypoxic respiratory failure secondary to above requiring oxygen 3 L via nasal cannula. On 4 L oxygen ---Requiring BiPAP now. Acute COPD exacerbation Acute CHF with preserved ejection fraction. Mild to moderate MR. Elevated troponin levelLikely demand mismatch.No new EKG changes compared to old Coronary arteries with history of CABG For history of CVA/TIA Prostate cancer status post surgery Hypertension Hyperlipidemia Prior history of smoking DVT prophylaxis. Plan: Patient will be started on IV Lasix increased to 40 mg twice daily. Continue with antibiotics , zosyn and IV steroids. Vancomycin has been discontinued. Continue with IV Solu-Medrol and duo nebs. Continue with home medications including metoprolol.. Patient was seen by cardiology. Unlikely ACS. Heparin drip has been discontinued. Today echocardiogram showed normal ejection fraction. Moderate MR. Pulmonary and cardiology is on board. Prognosis is guarded with multiple medical problems and comorbid conditions. Time with Patient: Greater than 30
--- NOTE | 2022-05-12 13:13 | P.PN ---
Subjective Progress Note Date: 05/12/22 this is a 71-year-old white male with history of COPD, previous history of [place], previous history of stroke without any residual deficits, patient was out in the cold yesterday for about one hour, and he developed shortness of breath cough and wheezing. EMS was called, patient was given albuterol and Atrovent treatment with minimal improvement, patient was brought into the ER, he had no fever, no chills, he had no chest pain, apparently when EMS arrived to pick him up, the patient was clammy and flushed upon his initial evaluation, his respiratory rate was in the 40s, patient was evaluated in the ER, chest x-ray and CT of the chest showed bilateral infiltrates, right more so than left, although the patient denies any history of aspiration, and no history of passing out episodes except he had 1 previous syncopal episode over [address] angiogram ruled out pulmonary embolism although he had a slightly elevated d- dimer of 2.23, and I reviewed the CT angiogram myself, definitely no evidence of pulmonary embolism. His WBC count is 6.4 hemoglobin is 17.7.lactic acid on it is initial evaluation was 8.9, went down to 1.6.his serology came back negative for carbon 19, influenza A, influenza B, and RSV.troponin was noted to be a bit high on presentation 0.033, follow-up troponin was 0.597, and BNP was normal. In spite of significant air space disease noted in both lungs especially in the right lung, patient maintained his O2 saturation, he was on room air with O2 sat showed 94%patient was placed on antibiotics in the form of Rocephin and Zithromax,initially, and he is now on Zosyn and vancomycin. he was also placed on bronchodilators and on steroids/methylprednisolone,considering his elevated troponin, patient was alsoplaced on heparin, full cardiac consultation is pending. Reevaluated today on 05/06/22, patient is doing better today, breathing easier, less cough and less wheezing less shortness of breath, remains on room air, does not seem to be in any distress, he does have intermittent cough, his cough is nonproductive. No fever no chills no hemoptysis no chest pain. CBC is relatively normal electrolytes are normal renal profile is normal, COVID-19 screening RSV screening were negative. Pro-calcitonin level was elevated at 0.35. The patient is seen today 05/07/2022 in follow-up on the selective care unit. He is currently resting comfortably in bed. Awake and alert in no acute distress. He is maintaining O2 saturations in the 90s on room air. He is still short of breath with minimal exertion. He continues with crackles in the right lung. He remains on Zosyn. He is on a heparin drip per cardiology. Non-ST segment elevation myocardial infarction. Echocardiogram revealed preserved left ventricular systolic function. Today's chest x-ray does reveal improved aeration of the lungs with persistent multifocal airspace opacities. Blood cultures reveal no growth. White count 8.2. Hemoglobin 11.7. Platelets 128. Glucose 142. He remains on antibiotics in the form of vancomycin and Zosyn. Continued on bronchodilators, IV Solu-Medrol. Patient is seen today 05/08/2022 in follow-up on the selective care unit. He is currently sitting up in a chair at the bedside. Awake and alert in no acute distress. His O2 saturations drop in the mid 80s while on room air and up and walking. Recovers into the 90s on 2 L/m per nasal cannula. Blood cultures revealed no growth. We count 15.9. Hemoglobin 14.5. Sodium 141. Potassium 4.3. BUN 20. Creatinine 1.07. Glucose 118. He remains on Symbicort, DuoNeb inhalations, IV Solu-Medrol. Antibiotics in the form of Zosyn. Vancomycin discontinued. The patient is seen today 05/09/2022 in follow-up on the selective care unit. He is currently resting comfortably in bed. Awake and alert in no acute distress. He is doing better today compared to yesterday. Not quite back to his baseline. Still congested. Still is some spasm and wheezing. He is maintaining O2 saturations in the 90s on 4 L/m per nasal cannula. Follow-up chest x-ray reveals worsening airspace opacities. No evidence of pleural effusion. No focal consolidation. No pneumothorax. Blood cultures revealed no growth. Sputum cultures pending. Sodium 138. Potassium 3.7. BUN 24. Creatinine 1.05. Glucose 262. He is continued on DuoNeb inhalations, Symbicort, IV Solu-Medrol. Antibiotics in the form of Zosyn. The patient is seen today 05/10/2022 in follow-up on the selective care unit. He did have an episode of worsening shortness of breath and oxygen desaturations last evening. He required BiPAP support which is currently on at 16/8 and 60% FiO2. Sputum culture revealed no growth. Blood cultures revealed no growth. White count 9.9. Hemoglobin 11.8. Platelets 121. Sodium 138. Potassium 3.8. BUN 25. Creatinine 1.0. Glucose 164. ProBNP 7690. ProCalcitonin 0.56. Brooks virus by PCR not detected. He remains on Zosyn, IV Solu-Medrol, Symbicort and DuoNeb inhalations. Heparin for DVT prophylaxis. Continued on IV diuretics. No accurate I&O recorded. Patient is seen today 05/11/2022 in follow-up on the selective care unit. He is currently resting fairly comfortably in bed. Awake and alert in no acute distress. He remains on BiPAP 16/80 and 60% FiO2. He was attempted on high flow nasal cannula with oxygen desaturations down into the 70s. He'll be given a trial of AirVo high flow oxygen at 60 L and 85% FiO2 for meals. Chest x-ray revealed diffuse bilateral airspace opacities. No significant change compared to previous. He is continued on bronchodilators, IV Solu-Medrol, antibiotics in the form of Zosyn. Remains on IV diuretics. Currently in a -2.6 L balance. Blood cultures revealed no growth. Sputum culture revealed no growth. White count 10.1. Hemoglobin 13.3. Sodium 141 potassium 3.3. Bicarb 32. BUN 31. Creatinine 1.07. Glucose 164. The patient is seen today 05/12/2022 in follow-up on the selective care unit. He is sitting up in bed. Awake and alert in no acute distress. Remains on AirVo high flow oxygen currently at 60 L and 75% FiO2. BiPAP has been discontinued. He remains on DuoNeb inhalations, Pulmicort and Perforomist inhalations, IV Solu-Medrol. Heparin for DVT prophylaxis. Remains on IV diuretics. Currently in a -1.6 L balance. Pleaded his course of Zosyn. White count 13.3. Hemoglobin 12.7. Platelets 147. Sodium 142. Potassium 3.5. BUN 44. Creatinine 1.08. Follow-up proBNP 7370. Follow-up pro-calcitonin pending. COVID-19 screen negative. Objective - Vital Signs Vital signs: Vital Signs Temp 98.1 F 05/12/22 04:00 Pulse 114 H 05/12/22 12:05 Resp 20 05/12/22 12:04 BP 96/61 05/12/22 12:04 Pulse Ox 97 05/12/22 12:04 FiO2 75 05/12/22 11:54 Intake & Output 05/11/22 05/12/22 05/12/22 18:59 06:59 18:59 Intake Total 940 180 Output Total 675 1900 Balance 265 -1900 180 Weight 80.2 kg Intake: IV 10 Invasive Line 3 10 Oral 930 180 Output: Urine 675 1900 Other: Voiding Method Urinal Urinal Urinal # Bowel Movements 1 - Exam GENERAL EXAM: Alert, pleasant 71-year-old male, currently on AirVo high flow oxygen and 60 L and 75% FiO2, fairly comfortable in no apparent distress. HEAD: Normocephalic. EYES: Normal reaction of pupils, equal size. NOSE: Clear with pink turbinates. THROAT: No erythema or exudates. NECK: No masses, no JVD. CHEST: No chest wall deformity. LUNGS: Equal air entry with bilateral scattered rhonchi more so on the right lung. CVS: S1 and S2 normal with no audible murmur, regular rhythm. ABDOMEN: No hepatosplenomegaly, normal bowel sounds, no guarding or rigidity. SPINE: No scoliosis or deformity SKIN: No rashes CENTRAL NERVOUS SYSTEM: No focal deficits, tone is normal in all 4 extremities. EXTREMITIES: There is no peripheral edema. No clubbing, no cyanosis. Peripheral pulses are intact. - Labs CBC & Chem 7: 05/12/22 07:59 05/12/22 07:59 Labs: Abnormal Lab Results - Last 24 Hours (Table) 05/11/22 05/11/22 05/12/22 Range/Units 16:55 20:19 06:10 WBC (3.8-10.6) k/uL RBC (4.30-5.90) m/uL Hgb (13.0-17.5) gm/dL Hct (39.0-53.0) % Plt Count (150-450) k/uL Neutrophils # (1.3-7.7) k/uL Lymphocytes # (1.0-4.8) k/uL Carbon Dioxide (22-30) mmol/L BUN (9-20) mg/dL Glucose (74-99) mg/dL POC Glucose (mg/dL) 155 H 239 H 174 H (70-110) mg/dL Calcium (8.4-10.2) mg/dL 05/12/22 05/12/22 05/12/22 Range/Units 07:59 07:59 11:45 WBC 13.3 H (3.8-10.6) k/uL RBC 4.11 L (4.30-5.90) m/uL Hgb 12.7 L (13.0-17.5) gm/dL Hct 37.2 L (39.0-53.0) % Plt Count 147 L (150-450) k/uL Neutrophils # 12.4 H (1.3-7.7) k/uL Lymphocytes # 0.2 L (1.0-4.8) k/uL Carbon Dioxide 33 H (22-30) mmol/L BUN 44 H (9-20) mg/dL Glucose 161 H (74-99) mg/dL POC Glucose (mg/dL) 260 H (70-110) mg/dL Calcium 8.1 L (8.4-10.2) mg/dL Assessment and Plan Assessment: Acute hypoxic respiratory failure requiring BiPAP support secondary to an acute bilateral pneumonia, community-acquired, doubt aspiration pneumonia, doubt COVID-19 pneumonia considering the patient had negative screening for COVID-19 infection, negative screening for influenza A, influenza B, and RSV. The patient developed worsening shortness of breath and hypoxemia on 05/09/2022 requiring BiPAP support. Today 05/12/2022 the patient remains on interval high flow oxygen at 60 L and 75% FiO2 Acute non-ST elevation myocardial infarction Acute exacerbation of suspected diastolic congestive heart failure Acute exacerbation of COPD History of coronary artery disease and previous CABG History of previous CVA/TIA Benign essential hypertension Dyslipidemia History of prostate cancer Plan: The patient was seen and evaluated Labs and medications reviewed Continue the current treatment plan Completed a course of Zosyn, follow-up pro-calcitonin pending Continued on IV diuretics, remains in a negative balance Continue AirVo high flow oxygen, titrate the FiO2 as tolerated We will continue to follow I have personally seen and examined the patient, performed the documentation and the assessment and plan as written. Number of minutes spent on the visit: 10.
--- NOTE | 2022-05-12 15:50 | P.PN ---
Subjective Progress Note Date: 05/12/22 Patient is a 71-year-old male with a known history of coronary disease status post CABG, history of stent placement, hypertension, hyperlipidemia, history of [place], prostate cancer status postsurgery, COPD and prior history of smoking presents to ER with complaints of shortness of breath. Patient states that he went out in the cold to feed cats and felt very short of breath with cough and wheezing. Patient was able to come back inside the home and EMS was called. Patient was given albuterol Atrovent treatments with minimal improvement and was brought to ER. Patient was tachycardic, tachypneic on admission with blood pressure 84/63. Denies any complaints of fever or chills. Patient states that he has been having sinus infection and cough with yellow sputum production recently. Chest x-ray showed interval development of acute cardiopulmonary disease with large partially consolidated infiltrate in the right lower lobe suspicious for pneumonia. Clinical correlation and short-term follow-up to resolution is recommended. CTA chest showed no evidence of PE. Diffuse groundglass densities within the lung consistent with acute inflammatory process possibly COVID-pneumonia and clinical correlation is recommended. EKG showed atrial flutter/tachycardia with heart rate 119 Laboratory data WBC 6.4 hemoglobin 17.7 and platelets 140 D-dimer is 2.23 Sodium 138 potassium 3.9 chloride 102 bicarb is 40 BUN 12 and creatinine 1.23 and lactic acid 8.9 and magnesium 2.4, AST 91 ALT 58 and alk phos 103 Troponin 0.033 and 0.597 and proBNP 672 RSV, influenza A and B and coronavirus PCR not detected. 05/06/2022 Patient is currently sitting in the bed. Awake alert and oriented x3. Currently requiring oxygen and is being titrated down to room air. Saturating at 94%. Patient does have cough without any sputum production. No fever no chills. Is better. Procalcitonin level is elevated 0.35. Patient is being arranged antibiotics in the form of Zosyn. Pulmonary is on board. 05/07/2022 Patient is currently resting in bed. Awake alert and oriented. Saturating at 90% on room air. Still having shortness of breath with minimal exertion. Patient is being continued antibiotics in the form of Zosyn. Chest x-ray showed improved aeration of the lungs with persistent multifocal airspace opacities. Cultures have been negative. Blood cultures negative. Laboratory data showed WBC 8.2 hemoglobin 11.7 and platelets 128 Sodium 137 potassium 4.3 chloride 109 bicarb is 20 BUN 23 and creatinine 1.0 and blood sugar is 168. Cardiology is on board. Heparin is being continued. 2D echocardiogram was done. Showed normal LV systolic function. Moderate MR. Aortic sclerosis without significant stenosis.. 05/08/2022 Patient is sitting in the bed. Awake alert and oriented x3. Patient is requiring oxygen today at 2 L via nasal cannula. No complaints of chest pain. Still having exertional dyspnea. No nausea vomiting abdominal pain or diarrhea. Patient is being current on antibiotics in form of Zosyn. Laboratory data showed WBC 15.9 hemoglobin 14.4 and platelets 167 Sodium 141 potassium 4.3 chloride 110 bicarb is 21 BUN 20 and creatinine 1.07 calcium 8.5. Pulmonary and cardiology is on board. Patient is also being continued on IV Solu-Medrol and duo nebs. 05/09/2022 Patient is able to walk to the bathroom. Breathing status is about the same. Today patient is requiring oxygen at 4 L via nasal cannula. No complaints of chest pain. No nausea vomiting abdominal pain or diarrhea. Chest x-ray showed worsening scattered airspace opacities correlate for pneumonia. Correlate with serum BNP to rule out superimposed underlying congestive heart failure. Patient remains on antibiotics Zosyn and also IV steroids. Patient was given a dose of IV Lasix yesterday. 05/10/2022 Patient is in the telemetry unit. Currently on BiPAP. Patient seems to be drowsy and lethargic. Able to open his eyes with verbal stimuli. No complaints of chest pain. Patient has been afebrile. Cultures have been negative. Patient is being continued on IV Solu-Medrol and also IV diuretics and duo nebs. proBNP increased to 70 690. Other laboratory test showed WBC 9.9 hemoglobin 11.8 and platelets 121 sodium 138 potassium 3.8 chloride 109 bicarb is 26 BUN 25 and creatinine 1.1 and calcium 8.0 and procalcitonin level is 0.56. Patient remains on antibiotics in the form of Zosyn. 05/11/2022 Patient is in the psych care unit. Patient is more awake and oriented today. Tolerating BiPAP. Plan is To transition to high flow oxygen. Pulmonary is on board. Continued on IV Lasix with negative balance of 2.6 L. Patient is also on antibiotics and IV steroids. Chest x-ray today showed diffuse bilateral airspace opacities not significantly changed. Laboratory test showed WBC 10.1 hemoglobin 12.3 and platelets 141 sodium 141 potassium 3.3 which is being replaced Chloride 104 bicarb is 32 BUN 31 and creatinine 1.07 and blood sugar is 162 and calcium 8.0. Pulmonary is on board. 05/12/2022 Patient continues to be monitored on stepdown unit. Has been transitioned to Airvo with 75%/60 L FiO2, he reports breathing better. Continues with cough, however is improving. maintained on IV zosyn, IV lasix and IV solumedrol. Tolerating oral intake in small amounts. White count today 13.3, hgb 12.7. BUN 4 4, creatinine 1.08. Glucose in the mid 200s. proBNP elevated today at 7370. Negative 2.4 L off in the last 24 hours. Heart rate in the 110s today, blood pressure in the high 90s systolic. Serologies, Sputum and blood culture all negative. Review of Systems Constitutional: Denied any fatigue denied any fever. Cardio vascular: denied any chest pain, palpitations Gastrointestinal: denied any nausea, vomiting, diarrhea Pulmonary: Reports shortness of breath, cough Neurologic denied any new focal deficits All inpatient medications were reviewed and appropriate changes in these medications as dictated in the interval history and assessment and plan. PHYSICAL EXAMINATION: GENERAL: The patient is alert and oriented x3, not in any acute distress. Well developed, well nourished. Maintained on 60 L Airvo HEENT: Pupils are round and equally reacting to light. EOMI. No scleral icterus. No conjunctival pallor. Normocephalic, atraumatic. No pharyngeal erythema. No thyromegaly. CARDIOVASCULAR: S1 and S2 present. No murmurs, rubs, or gallops. PULMONARY: Right basilar crackles ABDOMEN: Soft, nontender, nondistended, normoactive bowel sounds. No palpable organomegaly. MUSCULOSKELETAL: No joint swelling or deformity. EXTREMITIES: No cyanosis, clubbing, or pedal edema. NEUROLOGICAL: Gross neurological examination did not reveal any focal deficits. SKIN: No rashes. Assessment and plan Assessment Right lower lobe pneumonia with consolidative changes in the CT thorax. Likely community-acquired pneumonia. COVID-19 PCR not detected. Acute hypoxic respiratory failure multifocal secondary to likely community acquired pneumonia and acute heart failure requiring supplemental oxygen curr ently on airvo 75/60. Acute COPD exacerbation Acute CHF with preserved ejection fraction. Mild to moderate MR. Elevated troponin level Likely demand mismatch.No new EKG changes compared to old Hyperglycemia likely from steroids, will check A1C Coronary arteries with history of CABG, PCI For history of CVA/TIA Prostate cancer status post surgery Hypertension Hyperlipidemia Prior history of smoking DVT prophylaxis. Plan: Continue with IV lasix Q12, proBNP continues to be elevated Continue Duonebs, IV solumedrol IV zosyn has been discontinued, procalcitonin has been repeated and is pending at this time Vancomycin has been discontinued. Patient was seen by cardiology. Unlikely ACS. Cardiology has signed off at this time to follow up outpatient. May need reconsultation to cardiology Pulmonary following. Prognosis is guarded with multiple medical problems and comorbid conditions. The impression and plan of care has been dictated by Kasandra West, Nurse Practitioner as directed. Dr. Prosper MD I have performed a history and physical examination and medical decision making of this patient, discussed the same with the dictator, and agree with the dictators assessment and plan as written, documented as a scribe. Based on total visit time, I have performed more than 50% of this visit. Objective - Vital Signs Vital signs: Vital Signs Temp 98.1 F 05/12/22 04:00 Pulse 111 H 05/12/22 09:40 Resp 20 05/12/22 09:40 BP 123/70 05/12/22 08:58 Pulse Ox 94 L 05/12/22 08:58 FiO2 76 05/12/22 08:35 Intake & Output 05/11/22 05/12/22 05/12/22 18:59 06:59 18:59 Intake Total 940 Output Total 675 1900 Balance 265 -1900 Weight 80.2 kg Intake: IV 10 Invasive Line 3 10 Oral 930 Output: Urine 675 1900 Other: Voiding Method Urinal Urinal Urinal # Bowel Movements 1 - Labs CBC & Chem 7: 05/12/22 07:59 05/12/22 07:59 Labs: Abnormal Lab Results - Last 24 Hours (Table) 05/11/22 05/11/22 05/11/22 Range/Units 12:05 16:55 20:19 WBC (3.8-10.6) k/uL RBC (4.30-5.90) m/uL Hgb (13.0-17.5) gm/dL Hct (39.0-53.0) % Plt Count (150-450) k/uL Neutrophils # (1.3-7.7) k/uL Lymphocytes # (1.0-4.8) k/uL Carbon Dioxide (22-30) mmol/L BUN (9-20) mg/dL Glucose (74-99) mg/dL POC Glucose (mg/dL) 164 H 155 H 239 H (70-110) mg/dL Calcium (8.4-10.2) mg/dL 05/12/22 05/12/22 05/12/22 Range/Units 06:10 07:59 07:59 WBC 13.3 H (3.8-10.6) k/uL RBC 4.11 L (4.30-5.90) m/uL Hgb 12.7 L (13.0-17.5) gm/dL Hct 37.2 L (39.0-53.0) % Plt Count 147 L (150-450) k/uL Neutrophils # 12.4 H (1.3-7.7) k/uL Lymphocytes # 0.2 L (1.0-4.8) k/uL Carbon Dioxide 33 H (22-30) mmol/L BUN 44 H (9-20) mg/dL Glucose 161 H (74-99) mg/dL POC Glucose (mg/dL) 174 H (70-110) mg/dL Calcium 8.1 L (8.4-10.2) mg/dL Assessment and Plan Time with Patient: Greater than 30
[2022-05-12 17:09] LABS: Glucose,Whole Blood 318 mg/dL (70-110)
[2022-05-12 20:13] LABS: Glucose,Whole Blood 197 mg/dL (70-110)
[2022-05-12] MEDS: MIRTAZAPINE 15 MG TAB PO SCH (20:29)
[2022-05-12] MEDS: SERTRALINE 100 MG TAB PO SCH (20:29)
[2022-05-12] MEDS: ATORVASTATIN 80 MG TAB PO SCH (20:29)
[2022-05-12] MEDS: MELATONIN 3 MG TABLET PO PRN (20:37)
[2022-05-12] MEDS ORDERED: INSULIN DETEMIR (LEVEMIR) 100 UNIT/ML SYR SQ SCH (21:00)
[2022-05-12] MEDS: diphenhydrAMINE 25 MG CAP PO PRN (23:34)
[2022-05-13] MEDS: methylPREDNISolone SOD SUCCI 125 MG/2 ML VIAL IV SCH ×4 (06:37→23:09)
[2022-05-13] MEDS: BUDESONIDE 1 MG/2 ML NEBU INHALATION SCH ×2 (07:15→19:12)
[2022-05-13] MEDS: IPRATROPIUM-ALBUTEROL 3 ML NEB INHALATION SCH ×4 (07:15→19:12)
[2022-05-13] MEDS: FORMOTEROL FUMARATE 20 MCG/2 ML NEBU INHALATION SCH ×2 (07:15→19:12)
[2022-05-13 07:17] LABS: Glucose,Whole Blood 168 mg/dL (70-110)
[2022-05-13] MEDS: INSULIN ASPART (NovoLOG) 100 UNIT/ML VIAL SQ SCH ×7 (07:23→20:37)
[2022-05-13] MEDS: FUROSEMIDE 10 MG/ML 4 ML VIAL IV SCH ×2 (09:39→20:37)
[2022-05-13] MEDS: PANTOPRAZOLE 40 MG/10 ML VIAL IV SCH (09:39)
[2022-05-13] MEDS: METOPROLOL TARTRATE 25 MG TAB PO SCH ×2 (09:40→20:37)
[2022-05-13] MEDS: lisinopriL 10 MG TAB PO SCH (09:40)
[2022-05-13] MEDS: ASPIRIN 81 MG PO SCH (09:40)
[2022-05-13] MEDS: HEPARIN SODIUM,PORCINE/PF 5,000 UNIT/0.5 ML SYRINGE SQ SCH ×4 (09:40→23:09)
[2022-05-13] MEDS: ISOSORBIDE MONONITRATE ER 30 MG TAB.ER.24H PO SCH (09:40)
[2022-05-13] MEDS: ACETAMINOPHEN TAB 325 MG TAB PO PRN (09:40)
[2022-05-13 10:20] LABS: HGB 11.7 gm/dL (13.0-17.5); MCH 30.5 pg (25.0-35.0); MCHC 33.4 g/dL (31.0-37.0); MCV 91.4 fL (80.0-100.0); Mean Platelet Volume 8.4; Platelet Count 130 k/uL (150-450); RBC 3.83 m/uL (4.30-5.90); RDW 13.7 % (11.5-15.5); WBC 10.2 k/uL (3.8-10.6)
[2022-05-13 10:33] LABS: African American GFR (CKD) >90 (>60 ml/min/1.73 sqM); Anion Gap 5 mmol/L; Blood Urea Nitrogen 48 mg/dL (9-20); Calcium 7.9 mg/dL (8.4-10.2); Carbon Dioxide 29 mmol/L (22-30); Chloride 102 mmol/L (98-107); Glucose 213 mg/dL (74-99); Magnesium 2.5 mg/dL (1.6-2.3); Non-African American GFR(CKD) 81 (>60 ml/min/1.73 sqM); Potassium 3.6 mmol/L (3.5-5.1); Sodium 136 mmol/L (137-145)
[2022-05-13 11:47] LABS: Glucose,Whole Blood 208 mg/dL (70-110)
--- NOTE | 2022-05-13 11:58 | P.PN ---
Subjective Progress Note Date: 05/13/22 this is a 71-year-old white male with history of COPD, previous history of [place], previous history of stroke without any residual deficits, patient was out in the cold yesterday for about one hour, and he developed shortness of breath cough and wheezing. EMS was called, patient was given albuterol and Atrovent treatment with minimal improvement, patient was brought into the ER, he had no fever, no chills, he had no chest pain, apparently when EMS arrived to pick him up, the patient was clammy and flushed upon his initial evaluation, his respiratory rate was in the 40s, patient was evaluated in the ER, chest x-ray and CT of the chest showed bilateral infiltrates, right more so than left, although the patient denies any history of aspiration, and no history of passing out episodes except he had 1 previous syncopal episode over [address] angiogram ruled out pulmonary embolism although he had a slightly elevated d- dimer of 2.23, and I reviewed the CT angiogram myself, definitely no evidence of pulmonary embolism. His WBC count is 6.4 hemoglobin is 17.7.lactic acid on it is initial evaluation was 8.9, went down to 1.6.his serology came back negative for carbon 19, influenza A, influenza B, and RSV.troponin was noted to be a bit high on presentation 0.033, follow-up troponin was 0.597, and BNP was normal. In spite of significant air space disease noted in both lungs especially in the right lung, patient maintained his O2 saturation, he was on room air with O2 sat showed 94%patient was placed on antibiotics in the form of Rocephin and Zithromax,initially, and he is now on Zosyn and vancomycin. he was also placed on bronchodilators and on steroids/methylprednisolone,considering his elevated troponin, patient was alsoplaced on heparin, full cardiac consultation is pending. Reevaluated today on 05/06/22, patient is doing better today, breathing easier, less cough and less wheezing less shortness of breath, remains on room air, does not seem to be in any distress, he does have intermittent cough, his cough is nonproductive. No fever no chills no hemoptysis no chest pain. CBC is relatively normal electrolytes are normal renal profile is normal, COVID-19 screening RSV screening were negative. Pro-calcitonin level was elevated at 0.35. The patient is seen today 05/07/2022 in follow-up on the selective care unit. He is currently resting comfortably in bed. Awake and alert in no acute distress. He is maintaining O2 saturations in the 90s on room air. He is still short of breath with minimal exertion. He continues with crackles in the right lung. He remains on Zosyn. He is on a heparin drip per cardiology. Non-ST segment elevation myocardial infarction. Echocardiogram revealed preserved left ventricular systolic function. Today's chest x-ray does reveal improved aeration of the lungs with persistent multifocal airspace opacities. Blood cultures reveal no growth. White count 8.2. Hemoglobin 11.7. Platelets 128. Glucose 142. He remains on antibiotics in the form of vancomycin and Zosyn. Continued on bronchodilators, IV Solu-Medrol. Patient is seen today 05/08/2022 in follow-up on the selective care unit. He is currently sitting up in a chair at the bedside. Awake and alert in no acute distress. His O2 saturations drop in the mid 80s while on room air and up and walking. Recovers into the 90s on 2 L/m per nasal cannula. Blood cultures revealed no growth. We count 15.9. Hemoglobin 14.5. Sodium 141. Potassium 4.3. BUN 20. Creatinine 1.07. Glucose 118. He remains on Symbicort, DuoNeb inhalations, IV Solu-Medrol. Antibiotics in the form of Zosyn. Vancomycin discontinued. The patient is seen today 05/09/2022 in follow-up on the selective care unit. He is currently resting comfortably in bed. Awake and alert in no acute distress. He is doing better today compared to yesterday. Not quite back to his baseline. Still congested. Still is some spasm and wheezing. He is maintaining O2 saturations in the 90s on 4 L/m per nasal cannula. Follow-up chest x-ray reveals worsening airspace opacities. No evidence of pleural effusion. No focal consolidation. No pneumothorax. Blood cultures revealed no growth. Sputum cultures pending. Sodium 138. Potassium 3.7. BUN 24. Creatinine 1.05. Glucose 262. He is continued on DuoNeb inhalations, Symbicort, IV Solu-Medrol. Antibiotics in the form of Zosyn. The patient is seen today 05/10/2022 in follow-up on the selective care unit. He did have an episode of worsening shortness of breath and oxygen desaturations last evening. He required BiPAP support which is currently on at 16/8 and 60% FiO2. Sputum culture revealed no growth. Blood cultures revealed no growth. White count 9.9. Hemoglobin 11.8. Platelets 121. Sodium 138. Potassium 3.8. BUN 25. Creatinine 1.0. Glucose 164. ProBNP 7690. ProCalcitonin 0.56. Brooks virus by PCR not detected. He remains on Zosyn, IV Solu-Medrol, Symbicort and DuoNeb inhalations. Heparin for DVT prophylaxis. Continued on IV diuretics. No accurate I&O recorded. Patient is seen today 05/11/2022 in follow-up on the selective care unit. He is currently resting fairly comfortably in bed. Awake and alert in no acute distress. He remains on BiPAP 16/80 and 60% FiO2. He was attempted on high flow nasal cannula with oxygen desaturations down into the 70s. He'll be given a trial of AirVo high flow oxygen at 60 L and 85% FiO2 for meals. Chest x-ray revealed diffuse bilateral airspace opacities. No significant change compared to previous. He is continued on bronchodilators, IV Solu-Medrol, antibiotics in the form of Zosyn. Remains on IV diuretics. Currently in a -2.6 L balance. Blood cultures revealed no growth. Sputum culture revealed no growth. White count 10.1. Hemoglobin 13.3. Sodium 141 potassium 3.3. Bicarb 32. BUN 31. Creatinine 1.07. Glucose 164. The patient is seen today 05/12/2022 in follow-up on the selective care unit. He is sitting up in bed. Awake and alert in no acute distress. Remains on AirVo high flow oxygen currently at 60 L and 75% FiO2. BiPAP has been discontinued. He remains on DuoNeb inhalations, Pulmicort and Perforomist inhalations, IV Solu-Medrol. Heparin for DVT prophylaxis. Remains on IV diuretics. Currently in a -1.6 L balance. Pleaded his course of Zosyn. White count 13.3. Hemoglobin 12.7. Platelets 147. Sodium 142. Potassium 3.5. BUN 44. Creatinine 1.08. Follow-up proBNP 7370. Follow-up pro-calcitonin pending. COVID-19 screen negative. The patient is seen today 05/13/2022 in follow-up on the selective care unit. He is currently sitting up in a chair at the bedside. Continues to require AirVo high flow oxygen currently at 60 L and 75% FiO2. He is feeling slightly better today. Still not near his baseline. White count 10.2. Hemoglobin 11.7. Sodium 136. Potassium 3.6. BUN 48. Creatinine 0.96. Follow-up pro- calcitonin still 0.64. Blood and sputum cultures revealed no growth. White count 10.2. Hemoglobin 11.7. Platelet count 130. Sodium 136. Potassium 3.6. Bicarb 29. BUN 48. Creatinine 0.96. Glucose 213. He is continued on DuoNeb inhalations, Pulmicort and Perforomist inhalations, IV Solu-Medrol. Remains on IV diuretics. Currently in a -1.3 L balance. Objective - Vital Signs Vital signs: Vital Signs Temp 98.3 F 05/13/22 04:00 Pulse 204 H 05/13/22 11:15 Resp 19 05/13/22 04:00 BP 100/60 05/13/22 04:00 Pulse Ox 98 05/13/22 11:04 FiO2 75 05/13/22 11:04 Intake & Output 05/12/22 05/13/22 05/13/22 18:59 06:59 18:59 Intake Total 540 180 Output Total 950 900 Balance -410 -900 180 Weight 80.3 kg Intake: Oral 540 180 Output: Urine 950 900 Other: Voiding Method Urinal Urinal # Voids 1 # Bowel Movements 1 - Exam GENERAL EXAM: Alert, pleasant 71-year-old male, up in a chair at the bedside, currently on AirVo high flow oxygen and 60 L and 75% FiO2, fairly comfortable in no apparent distress. HEAD: Normocephalic. EYES: Normal reaction of pupils, equal size. NOSE: Clear with pink turbinates. THROAT: No erythema or exudates. NECK: No masses, no JVD. CHEST: No chest wall deformity. LUNGS: Equal air entry with bilateral scattered rhonchi more so on the right lung. CVS: S1 and S2 normal with no audible murmur, regular rhythm. ABDOMEN: No hepatosplenomegaly, normal bowel sounds, no guarding or rigidity. SPINE: No scoliosis or deformity SKIN: No rashes CENTRAL NERVOUS SYSTEM: No focal deficits, tone is normal in all 4 extremities. EXTREMITIES: There is no peripheral edema. No clubbing, no cyanosis. Peripheral pulses are intact. - Labs CBC & Chem 7: 05/13/22 09:36 05/13/22 09:36 Labs: Abnormal Lab Results - Last 24 Hours (Table) 05/12/22 05/12/22 05/12/22 Range/Units 07:59 17:08 20:11 RBC (4.30-5.90) m/uL Hgb (13.0-17.5) gm/dL Hct (39.0-53.0) % Plt Count (150-450) k/uL Sodium (137-145) mmol/L BUN (9-20) mg/dL Glucose (74-99) mg/dL POC Glucose (mg/dL) 318 H 197 H (70-110) mg/dL Calcium (8.4-10.2) mg/dL Magnesium (1.6-2.3) mg/dL Procalcitonin 0.64 H (0.02-0.09) ng/mL 05/13/22 05/13/22 05/13/22 Range/Units 07:15 09:36 09:36 RBC 3.83 L (4.30-5.90) m/uL Hgb 11.7 L (13.0-17.5) gm/dL Hct 35.0 L (39.0-53.0) % Plt Count 130 L (150-450) k/uL Sodium 136 L (137-145) mmol/L BUN 48 H (9-20) mg/dL Glucose 213 H (74-99) mg/dL POC Glucose (mg/dL) 168 H (70-110) mg/dL Calcium 7.9 L (8.4-10.2) mg/dL Magnesium 2.5 H (1.6-2.3) mg/dL Procalcitonin (0.02-0.09) ng/mL 05/13/22 Range/Units 11:46 RBC (4.30-5.90) m/uL Hgb (13.0-17.5) gm/dL Hct (39.0-53.0) % Plt Count (150-450) k/uL Sodium (137-145) mmol/L BUN (9-20) mg/dL Glucose (74-99) mg/dL POC Glucose (mg/dL) 208 H (70-110) mg/dL Calcium (8.4-10.2) mg/dL Magnesium (1.6-2.3) mg/dL Procalcitonin (0.02-0.09) ng/mL Assessment and Plan Assessment: Acute hypoxic respiratory failure requiring BiPAP support secondary to an acute bilateral pneumonia, community-acquired, doubt aspiration pneumonia, doubt COVID-19 pneumonia considering the patient had negative screening for COVID-19 infection, negative screening for influenza A, influenza B, and RSV. The patient developed worsening shortness of breath and hypoxemia on 05/09/2022 requiring BiPAP support. Today 05/13/2022 the patient remains on AirVo high flow oxygen at 60 L and 75% FiO2 Acute non-ST elevation myocardial infarction Acute exacerbation of suspected diastolic congestive heart failure Acute exacerbation of COPD History of coronary artery disease and previous CABG History of previous CVA/TIA Benign essential hypertension Dyslipidemia History of prostate cancer Plan: The patient was seen and evaluated Labs and medications reviewed Completed a course of Zosyn Continued on IV diuretics, remains in a negative balance Continue AirVo high flow oxygen, titrate the FiO2 as tolerated We will continue to follow I have personally seen and examined the patient, performed the documentation and the assessment and plan as written. Number of minutes spent on the visit: 10.
--- NOTE | 2022-05-13 14:16 | P.PN ---
Subjective Progress Note Date: 05/13/22 Patient is a 71-year-old male with a known history of coronary disease status post CABG, history of stent placement, hypertension, hyperlipidemia, history of MO, prostate cancer status postsurgery, COPD and prior history of smoking presents to ER with complaints of shortness of breath. Patient states that he went out in the cold to feed cats and felt very short of breath with cough and wheezing. Patient was able to come back inside the home and EMS was called. Patient was given albuterol Atrovent treatments with minimal improvement and was brought to ER. Patient was tachycardic, tachypneic on admission with blood pressure 84/63. Denies any complaints of fever or chills. Patient states that he has been having sinus infection and cough with yellow sputum production recently. Chest x-ray showed interval development of acute cardiopulmonary disease with large partially consolidated infiltrate in the right lower lobe suspicious for pneumonia. Clinical correlation and short-term follow-up to resolution is recommended. CTA chest showed no evidence of PE. Diffuse groundglass densities within the lung consistent with acute inflammatory process possibly COVID-pneumonia and clinical correlation is recommended. EKG showed atrial flutter/tachycardia with heart rate 119 Laboratory data WBC 6.4 hemoglobin 17.7 and platelets 140 D-dimer is 2.23 Sodium 138 potassium 3.9 chloride 102 bicarb is 40 BUN 12 and creatinine 1.23 and lactic acid 8.9 and magnesium 2.4, AST 91 ALT 58 and alk phos 103 Troponin 0.033 and 0.597 and proBNP 672 RSV, influenza A and B and coronavirus PCR not detected. 05/06/2022 Patient is currently sitting in the bed. Awake alert and oriented x3. Currently requiring oxygen and is being titrated down to room air. Saturating at 94%. Patient does have cough without any sputum production. No fever no chills. Is better. Procalcitonin level is elevated 0.35. Patient is being arranged antibiotics in the form of Zosyn. Pulmonary is on board. 05/07/2022 Patient is currently resting in bed. Awake alert and oriented. Saturating at 90% on room air. Still having shortness of breath with minimal exertion. Patient is being continued antibiotics in the form of Zosyn. Chest x-ray showed improved aeration of the lungs with persistent multifocal airspace opacities. Cultures have been negative. Blood cultures negative. Laboratory data showed WBC 8.2 hemoglobin 11.7 and platelets 128 Sodium 137 potassium 4.3 chloride 109 bicarb is 20 BUN 23 and creatinine 1.0 and blood sugar is 168. Cardiology is on board. Heparin is being continued. 2D echocardiogram was done. Showed normal LV systolic function. Moderate MR. Aortic sclerosis without significant stenosis.. 05/08/2022 Patient is sitting in the bed. Awake alert and oriented x3. Patient is requiring oxygen today at 2 L via nasal cannula. No complaints of chest pain. Still having exertional dyspnea. No nausea vomiting abdominal pain or diarrhea. Patient is being current on antibiotics in form of Zosyn. Laboratory data showed WBC 15.9 hemoglobin 14.4 and platelets 167 Sodium 141 potassium 4.3 chloride 110 bicarb is 21 BUN 20 and creatinine 1.07 calcium 8.5. Pulmonary and cardiology is on board. Patient is also being continued on IV Solu-Medrol and duo nebs. 05/09/2022 Patient is able to walk to the bathroom. Breathing status is about the same. Today patient is requiring oxygen at 4 L via nasal cannula. No complaints of chest pain. No nausea vomiting abdominal pain or diarrhea. Chest x-ray showed worsening scattered airspace opacities correlate for pneumonia. Correlate with serum BNP to rule out superimposed underlying congestive heart failure. Patient remains on antibiotics Zosyn and also IV steroids. Patient was given a dose of IV Lasix yesterday. 05/10/2022 Patient is in the telemetry unit. Currently on BiPAP. Patient seems to be drowsy and lethargic. Able to open his eyes with verbal stimuli. No complaints of chest pain. Patient has been afebrile. Cultures have been negative. Patient is being continued on IV Solu-Medrol and also IV diuretics and duo nebs. proBNP increased to 70 690. Other laboratory test showed WBC 9.9 hemoglobin 11.8 and platelets 121 sodium 138 potassium 3.8 chloride 109 bicarb is 26 BUN 25 and creatinine 1.1 and calcium 8.0 and procalcitonin level is 0.56. Patient remains on antibiotics in the form of Zosyn. 05/11/2022 Patient is in the psych care unit. Patient is more awake and oriented today. Tolerating BiPAP. Plan is To transition to high flow oxygen. Pulmonary is on board. Continued on IV Lasix with negative balance of 2.6 L. Patient is also on antibiotics and IV steroids. Chest x-ray today showed diffuse bilateral airspace opacities not significantly changed. Laboratory test showed WBC 10.1 hemoglobin 12.3 and platelets 141 sodium 141 potassium 3.3 which is being replaced Chloride 104 bicarb is 32 BUN 31 and creatinine 1.07 and blood sugar is 162 and calcium 8.0. Pulmonary is on board. 05/12/2022 Patient continues to be monitored on stepdown unit. Has been transitioned to Airvo with 75%/60 L FiO2, he reports breathing better. Continues with cough, however is improving. maintained on IV zosyn, IV lasix and IV solumedrol. Tolerating oral intake in small amounts. White count today 13.3, hgb 12.7. BUN 4 4, creatinine 1.08. Glucose in the mid 200s. proBNP elevated today at 7370. Negative 2.4 L off in the last 24 hours. Heart rate in the 110s today, blood pressure in the high 90s systolic. Serologies, Sputum and blood culture all negative. 05/13/2022 Patient is monitored on stepdown unit. Continues on Airvo 75/60. Continues with cough. He has completed a course of IV zosyn therapy and is being monitored off antibiotics at this time. Repeat procalcitonin level 0.64. ProBNP remains elevated at 7370 and continues on IV lasix Q12 with negative 1.8 L fluid balance. A1C 6.3 consistent with diabetes mellitus. Continue on insulin while inpatient, continues to receive IV solumedrol 60 mg every 6 hours. Sodium 136 today, potassium 3.6, BUN 48, creatinine 0.96. Glucose in the 200s. White count 10.2, hemoglobin 11.7. Review of Systems Constitutional: Denied any fatigue denied any fever. Cardio vascular: denied any chest pain, palpitations Gastrointestinal: denied any nausea, vomiting, diarrhea Pulmonary: Reports shortness of breath, cough Neurologic denied any new focal deficits All inpatient medications were reviewed and appropriate changes in these medications as dictated in the interval history and assessment and plan. PHYSICAL EXAMINATION: GENERAL: The patient is alert and oriented x3, not in any acute distress. Well developed, well nourished. Maintained on 60 L Airvo HEENT: Pupils are round and equally reacting to light. EOMI. No scleral icterus. No conjunctival pallor. Normocephalic, atraumatic. No pharyngeal erythema. No thyromegaly. CARDIOVASCULAR: S1 and S2 present. No murmurs, rubs, or gallops. PULMONARY: Right basilar crackles ABDOMEN: Soft, nontender, nondistended, normoactive bowel sounds. No palpable organomegaly. MUSCULOSKELETAL: No joint swelling or deformity. EXTREMITIES: No cyanosis, clubbing, or pedal edema. NEUROLOGICAL: Gross neurological examination did not reveal any focal deficits. SKIN: No rashes. Assessment and plan Assessment Right lower lobe pneumonia with consolidative changes in the CT thorax. Likely community-acquired pneumonia. COVID-19 PCR not detected. Acute hypoxic respiratory failure multifocal secondary to likely community acquired pneumonia and acute heart failure requiring supplemental oxygen currently on airvo 75/60. Acute COPD exacerbation Acute CHF with preserved ejection fraction. Mild to moderate MR. Elevated troponin level Likely demand mismatch.No new EKG changes compared to old Diabetes Mellitus type 2 with hgb A1C 6.3. Coronary arteries with history of CABG, PCI For history of CVA/TIA Prostate cancer status post surgery Hypertension Hyperlipidemia Prior history of smoking DVT prophylaxis. Plan: Continue with IV lasix Q12, proBNP continues to be elevated Continue Duonebs, IV solumedrol IV zosyn has been discontinued, procalcitonin has been repeated and patient is being monitored off antibiotics Patient was seen by cardiology. Unlikely ACS. Cardiology has signed off at this time to follow up outpatient. May need reconsultation to cardiology Pulmonary following. Prognosis is guarded with multiple medical problems and comorbid conditions. The impression and plan of care has been dictated by Kasandra West, Nurse Practitioner as directed. Dr. Prosper MD I have performed a history and physical examination and medical decision making of this patient, discussed the same with the dictator, and agree with the dictators assessment and plan as written, documented as a scribe. Based on total visit time, I have performed more than 50% of this visit. Objective - Vital Signs Vital signs: Vital Signs Temp 98.3 F 05/13/22 04:00 Pulse 204 H 05/13/22 11:15 Resp 19 05/13/22 04:00 BP 100/60 05/13/22 04:00 Pulse Ox 98 05/13/22 11:04 FiO2 75 05/13/22 11:04 Intake & Output 05/12/22 05/13/22 05/13/22 18:59 06:59 18:59 Intake Total 540 360 Output Total 950 900 Balance -410 -900 360 Weight 80.3 kg Intake: Oral 540 360 Output: Urine 950 900 Other: Voiding Method Urinal Urinal # Voids 1 # Bowel Movements 1 - Labs CBC & Chem 7: 05/13/22 09:36 05/13/22 09:36 Labs: Abnormal Lab Results - Last 24 Hours (Table) 05/12/22 05/12/22 05/12/22 Range/Units 07:59 16:16 17:08 RBC (4.30-5.90) m/uL Hgb (13.0-17.5) gm/dL Hct (39.0-53.0) % Plt Count (150-450) k/uL Sodium (137-145) mmol/L BUN (9-20) mg/dL Glucose (74-99) mg/dL POC Glucose (mg/dL) 318 H (70-110) mg/dL Hemoglobin A1c 6.3 H (0.0-6.0) % Calcium (8.4-10.2) mg/dL Magnesium (1.6-2.3) mg/dL Procalcitonin 0.64 H (0.02-0.09) ng/mL 05/12/22 05/13/22 05/13/22 Range/Units 20:11 07:15 09:36 RBC 3.83 L (4.30-5.90) m/uL Hgb 11.7 L (13.0-17.5) gm/dL Hct 35.0 L (39.0-53.0) % Plt Count 130 L (150-450) k/uL Sodium (137-145) mmol/L BUN (9-20) mg/dL Glucose (74-99) mg/dL POC Glucose (mg/dL) 197 H 168 H (70-110) mg/dL Hemoglobin A1c (0.0-6.0) % Calcium (8.4-10.2) mg/dL Magnesium (1.6-2.3) mg/dL Procalcitonin (0.02-0.09) ng/mL 05/13/22 05/13/22 Range/Units 09:36 11:46 RBC (4.30-5.90) m/uL Hgb (13.0-17.5) gm/dL Hct (39.0-53.0) % Plt Count (150-450) k/uL Sodium 136 L (137-145) mmol/L BUN 48 H (9-20) mg/dL Glucose 213 H (74-99) mg/dL POC Glucose (mg/dL) 208 H (70-110) mg/dL Hemoglobin A1c (0.0-6.0) % Calcium 7.9 L (8.4-10.2) mg/dL Magnesium 2.5 H (1.6-2.3) mg/dL Procalcitonin (0.02-0.09) ng/mL Assessment and Plan Time with Patient: Less than 30
[2022-05-13] MEDS: POTASSIUM CHLORIDE ER 20 MEQ TAB.ER PO SCH (16:11)
[2022-05-13 16:43] LABS: Glucose,Whole Blood 202 mg/dL (70-110)
[2022-05-13] MEDS: guaiFENesin SYRUP 100MG/5ML 200 MG/10 ML CUP PO PRN (18:30)
[2022-05-13 20:08] LABS: Glucose,Whole Blood 223 mg/dL (70-110)
[2022-05-13] MEDS: ATORVASTATIN 80 MG TAB PO SCH (20:37)
[2022-05-13] MEDS: MIRTAZAPINE 15 MG TAB PO SCH (20:37)
[2022-05-13] MEDS: SERTRALINE 100 MG TAB PO SCH (20:38)
[2022-05-13] MEDS: INSULIN DETEMIR (LEVEMIR) 100 UNIT/ML SYR SQ SCH (20:42)
[2022-05-13] MEDS: MELATONIN 3 MG TABLET PO PRN (23:09)
[2022-05-14] MEDS: methylPREDNISolone SOD SUCCI 125 MG/2 ML VIAL IV SCH ×4 (06:49→23:11)
[2022-05-14 06:50] LABS: Glucose,Whole Blood 162 mg/dL (70-110)
[2022-05-14] MEDS: INSULIN ASPART (NovoLOG) 100 UNIT/ML VIAL SQ SCH ×7 (06:53→20:58)
[2022-05-14 08:30] LABS: Calcium 8.4 mg/dL (8.4-10.2); Potassium 3.8 mmol/L (3.5-5.1)
[2022-05-14] MEDS: IPRATROPIUM-ALBUTEROL 3 ML NEB INHALATION SCH ×4 (08:46→20:37)
[2022-05-14] MEDS: BUDESONIDE 1 MG/2 ML NEBU INHALATION SCH ×2 (08:46→20:36)
[2022-05-14] MEDS: FORMOTEROL FUMARATE 20 MCG/2 ML NEBU INHALATION SCH ×2 (08:46→20:37)
[2022-05-14] MEDS: lisinopriL 10 MG TAB PO SCH (09:58)
[2022-05-14] MEDS: POTASSIUM CHLORIDE ER 20 MEQ TAB.ER PO SCH (09:58)
[2022-05-14] MEDS: METOPROLOL TARTRATE 25 MG TAB PO SCH ×2 (09:58→20:58)
[2022-05-14] MEDS: ASPIRIN 81 MG PO SCH (09:58)
[2022-05-14] MEDS: FUROSEMIDE 10 MG/ML 4 ML VIAL IV SCH ×2 (09:59→20:58)
[2022-05-14] MEDS: HEPARIN SODIUM,PORCINE/PF 5,000 UNIT/0.5 ML SYRINGE SQ SCH ×3 (09:59→23:11)
[2022-05-14] MEDS: ISOSORBIDE MONONITRATE ER 30 MG TAB.ER.24H PO SCH (09:59)
[2022-05-14] MEDS: PANTOPRAZOLE 40 MG/10 ML VIAL IV SCH (10:00)
[2022-05-14 11:32] LABS: Glucose,Whole Blood 232 mg/dL (70-110)
--- NOTE | 2022-05-14 14:07 | P.PN ---
Subjective Progress Note Date: 05/14/22 this is a 71-year-old white male with history of COPD, previous history of MS, previous history of stroke without any residual deficits, patient was out in the cold yesterday for about one hour, and he developed shortness of breath cough and wheezing. EMS was called, patient was given albuterol and Atrovent treatment with minimal improvement, patient was brought into the ER, he had no fever, no chills, he had no chest pain, apparently when EMS arrived to pick him up, the patient was clammy and flushed upon his initial evaluation, his respiratory rate was in the 40s, patient was evaluated in the ER, chest x-ray and CT of the chest showed bilateral infiltrates, right more so than left, although the patient denies any history of aspiration, and no history of passing out episodes except he had 1 previous syncopal episode over [address] angiogram ruled out pulmonary embolism although he had a slightly elevated d- dimer of 2.23, and I reviewed the CT angiogram myself, definitely no evidence of pulmonary embolism. His WBC count is 6.4 hemoglobin is 17.7.lactic acid on it is initial evaluation was 8.9, went down to 1.6.his serology came back negative for carbon 19, influenza A, influenza B, and RSV.troponin was noted to be a bit high on presentation 0.033, follow-up troponin was 0.597, and BNP was normal. In spite of significant air space disease noted in both lungs especially in the right lung, patient maintained his O2 saturation, he was on room air with O2 sat showed 94%patient was placed on antibiotics in the form of Rocephin and Zithromax,initially, and he is now on Zosyn and vancomycin. he was also placed on bronchodilators and on steroids/methylprednisolone,considering his elevated troponin, patient was alsoplaced on heparin, full cardiac consultation is pending. Reevaluated today on 05/06/22, patient is doing better today, breathing easier, less cough and less wheezing less shortness of breath, remains on room air, does not seem to be in any distress, he does have intermittent cough, his cough is nonproductive. No fever no chills no hemoptysis no chest pain. CBC is relatively normal electrolytes are normal renal profile is normal, COVID-19 screening RSV screening were negative. Pro-calcitonin level was elevated at 0.35. The patient is seen today 05/07/2022 in follow-up on the selective care unit. He is currently resting comfortably in bed. Awake and alert in no acute distress. He is maintaining O2 saturations in the 90s on room air. He is still short of breath with minimal exertion. He continues with crackles in the right lung. He remains on Zosyn. He is on a heparin drip per cardiology. Non-ST segment elevation myocardial infarction. Echocardiogram revealed preserved left ventricular systolic function. Today's chest x-ray does reveal improved aeration of the lungs with persistent multifocal airspace opacities. Blood cultures reveal no growth. White count 8.2. Hemoglobin 11.7. Platelets 128. Glucose 142. He remains on antibiotics in the form of vancomycin and Zosyn. Continued on bronchodilators, IV Solu-Medrol. Patient is seen today 05/08/2022 in follow-up on the selective care unit. He is currently sitting up in a chair at the bedside. Awake and alert in no acute distress. His O2 saturations drop in the mid 80s while on room air and up and walking. Recovers into the 90s on 2 L/m per nasal cannula. Blood cultures revealed no growth. We count 15.9. Hemoglobin 14.5. Sodium 141. Potassium 4.3. BUN 20. Creatinine 1.07. Glucose 118. He remains on Symbicort, DuoNeb inhalations, IV Solu-Medrol. Antibiotics in the form of Zosyn. Vancomycin discontinued. The patient is seen today 05/09/2022 in follow-up on the selective care unit. He is currently resting comfortably in bed. Awake and alert in no acute distress. He is doing better today compared to yesterday. Not quite back to his baseline. Still congested. Still is some spasm and wheezing. He is maintaining O2 saturations in the 90s on 4 L/m per nasal cannula. Follow-up chest x-ray reveals worsening airspace opacities. No evidence of pleural effusion. No focal consolidation. No pneumothorax. Blood cultures revealed no growth. Sputum cultures pending. Sodium 138. Potassium 3.7. BUN 24. Creatinine 1.05. Glucose 262. He is continued on DuoNeb inhalations, Symbicort, IV Solu-Medrol. Antibiotics in the form of Zosyn. The patient is seen today 05/10/2022 in follow-up on the selective care unit. He did have an episode of worsening shortness of breath and oxygen desaturations last evening. He required BiPAP support which is currently on at 16/8 and 60% FiO2. Sputum culture revealed no growth. Blood cultures revealed no growth. White count 9.9. Hemoglobin 11.8. Platelets 121. Sodium 138. Potassium 3.8. BUN 25. Creatinine 1.0. Glucose 164. ProBNP 7690. ProCalcitonin 0.56. Brooks virus by PCR not detected. He remains on Zosyn, IV Solu-Medrol, Symbicort and DuoNeb inhalations. Heparin for DVT prophylaxis. Continued on IV diuretics. No accurate I&O recorded. Patient is seen today 05/11/2022 in follow-up on the selective care unit. He is currently resting fairly comfortably in bed. Awake and alert in no acute distress. He remains on BiPAP 16/80 and 60% FiO2. He was attempted on high flow nasal cannula with oxygen desaturations down into the 70s. He'll be given a trial of AirVo high flow oxygen at 60 L and 85% FiO2 for meals. Chest x-ray revealed diffuse bilateral airspace opacities. No significant change compared to previous. He is continued on bronchodilators, IV Solu-Medrol, antibiotics in the form of Zosyn. Remains on IV diuretics. Currently in a -2.6 L balance. Blood cultures revealed no growth. Sputum culture revealed no growth. White count 10.1. Hemoglobin 13.3. Sodium 141 potassium 3.3. Bicarb 32. BUN 31. Creatinine 1.07. Glucose 164. The patient is seen today 05/12/2022 in follow-up on the selective care unit. He is sitting up in bed. Awake and alert in no acute distress. Remains on AirVo high flow oxygen currently at 60 L and 75% FiO2. BiPAP has been discontinued. He remains on DuoNeb inhalations, Pulmicort and Perforomist inhalations, IV Solu-Medrol. Heparin for DVT prophylaxis. Remains on IV diuretics. Currently in a -1.6 L balance. Pleaded his course of Zosyn. White count 13.3. Hemoglobin 12.7. Platelets 147. Sodium 142. Potassium 3.5. BUN 44. Creatinine 1.08. Follow-up proBNP 7370. Follow-up pro-calcitonin pending. COVID-19 screen negative. The patient is seen today 05/13/2022 in follow-up on the selective care unit. He is currently sitting up in a chair at the bedside. Continues to require AirVo high flow oxygen currently at 60 L and 75% FiO2. He is feeling slightly better today. Still not near his baseline. White count 10.2. Hemoglobin 11.7. Sodium 136. Potassium 3.6. BUN 48. Creatinine 0.96. Follow-up pro- calcitonin still 0.64. Blood and sputum cultures revealed no growth. White count 10.2. Hemoglobin 11.7. Platelet count 130. Sodium 136. Potassium 3.6. Bicarb 29. BUN 48. Creatinine 0.96. Glucose 213. He is continued on DuoNeb inhalations, Pulmicort and Perforomist inhalations, IV Solu-Medrol. Remains on IV diuretics. Currently in a -1.3 L balance. The patient is seen today 05/14/2022 in follow-up on the selective care unit. He is awake and alert in no acute distress. Sitting up in a chair at the bedside. Continues on oxygen 60% FiO2. He states he is feeling better each day. Breathing easier. Blood cultures revealed no growth. Sputum culture revealed no growth. Sodium 137. Potassium 3.8. Bicarb 34. BUN 46. Creatinine 0.99. Glucose 139. He is continued on DuoNeb inhalations, Pulmicort and Perforomist inhalations, IV Solu-Medrol. Remains on IV diuretics. Currently in a negative 960 ML balance. Objective - Vital Signs Vital signs: Vital Signs Temp 97.7 F 05/14/22 12:00 Pulse 90 05/14/22 12:16 Resp 19 05/14/22 12:00 BP 101/56 05/14/22 12:00 Pulse Ox 94 L 05/14/22 12:06 FiO2 60 05/14/22 12:06 Intake & Output 05/13/22 05/14/22 05/14/22 18:59 06:59 18:59 Intake Total 540 180 Output Total 800 700 Balance -260 -700 180 Weight 80.2 kg Intake: Oral 540 180 Output: Urine 800 700 Other: Voiding Method Urinal Bedside Commode Urinal # Voids 1 2 # Bowel Movements 2 1 1 - Exam GENERAL EXAM: Alert, pleasant 71-year-old male, up in a chair, on AirVo high flow oxygen and 60 L and 60% FiO2, comfortable in no apparent distress. HEAD: Normocephalic. EYES: Normal reaction of pupils, equal size. NOSE: Clear with pink turbinates. THROAT: No erythema or exudates. NECK: No masses, no JVD. CHEST: No chest wall deformity. LUNGS: Equal air entry with bilateral scattered rhonchi more so on the right lung. CVS: S1 and S2 normal with no audible murmur, regular rhythm. ABDOMEN: No hepatosplenomegaly, normal bowel sounds, no guarding or rigidity. SPINE: No scoliosis or deformity SKIN: No rashes CENTRAL NERVOUS SYSTEM: No focal deficits, tone is normal in all 4 extremities. EXTREMITIES: There is no peripheral edema. No clubbing, no cyanosis. Peripheral pulses are intact. - Labs CBC & Chem 7: 05/13/22 09:36 05/14/22 07:41 Labs: Abnormal Lab Results - Last 24 Hours (Table) 05/13/22 05/13/22 05/14/22 Range/Units 16:42 20:06 06:49 Carbon Dioxide (22-30) mmol/L BUN (9-20) mg/dL Glucose (74-99) mg/dL POC Glucose (mg/dL) 202 H 223 H 162 H (70-110) mg/dL 05/14/22 05/14/22 Range/Units 07:41 11:31 Carbon Dioxide 34 H (22-30) mmol/L BUN 46 H (9-20) mg/dL Glucose 139 H (74-99) mg/dL POC Glucose (mg/dL) 232 H (70-110) mg/dL Assessment and Plan Assessment: Acute hypoxic respiratory failure requiring BiPAP support secondary to an acute bilateral pneumonia, community-acquired, doubt aspiration pneumonia, doubt COVID-19 pneumonia considering the patient had negative screening for COVID-19 infection, negative screening for influenza A, influenza B, and RSV. The patient developed worsening shortness of breath and hypoxemia on 05/09/2022 requiring BiPAP support. Today 05/14/2022 the patient remains on AirVo high flow oxygen at 60 L and 60% FiO2 and completed a course of Zosyn Acute non-ST elevation myocardial infarction Acute exacerbation of suspected diastolic congestive heart failure Acute exacerbation of COPD History of coronary artery disease and previous CABG History of previous CVA/TIA Benign essential hypertension Dyslipidemia History of prostate cancer Plan: The patient was seen and evaluated Labs and medications reviewed Continued on IV diuretics, remains in a negative balance Continue AirVo high flow oxygen, titrate the FiO2 as tolerated Encouraged increased use of the incentive spirometer Follow-up chest x-ray in the a.m. Increase his activity as tolerate We will continue to follow I have personally seen and examined the patient, performed the documentation and the assessment and plan as written. Number of minutes spent on the visit: 10.
[2022-05-14 16:36] LABS: Glucose,Whole Blood 204 mg/dL (70-110)
[2022-05-14 20:37] LABS: Glucose,Whole Blood 207 mg/dL (70-110)
--- NOTE | 2022-05-14 20:40 | P.PN ---
Subjective Progress Note Date: 05/14/22 Patient is a 71-year-old male with a known history of coronary disease status post CABG, history of stent placement, hypertension, hyperlipidemia, history of OK, prostate cancer status postsurgery, COPD and prior history of smoking presents to ER with complaints of shortness of breath. Patient states that he went out in the cold to feed cats and felt very short of breath with cough and wheezing. Patient was able to come back inside the home and EMS was called. Patient was given albuterol Atrovent treatments with minimal improvement and was brought to ER. Patient was tachycardic, tachypneic on admission with blood pressure 84/63. Denies any complaints of fever or chills. Patient states that he has been having sinus infection and cough with yellow sputum production recently. Chest x-ray showed interval development of acute cardiopulmonary disease with large partially consolidated infiltrate in the right lower lobe suspicious for pneumonia. Clinical correlation and short-term follow-up to resolution is recommended. CTA chest showed no evidence of PE. Diffuse groundglass densities within the lung consistent with acute inflammatory process possibly COVID-pneumonia and clinical correlation is recommended. EKG showed atrial flutter/tachycardia with heart rate 119 Laboratory data WBC 6.4 hemoglobin 17.7 and platelets 140 D-dimer is 2.23 Sodium 138 potassium 3.9 chloride 102 bicarb is 40 BUN 12 and creatinine 1.23 and lactic acid 8.9 and magnesium 2.4, AST 91 ALT 58 and alk phos 103 Troponin 0.033 and 0.597 and proBNP 672 RSV, influenza A and B and coronavirus PCR not detected. 05/06/2022 Patient is currently sitting in the bed. Awake alert and oriented x3. Currently requiring oxygen and is being titrated down to room air. Saturating at 94%. Patient does have cough without any sputum production. No fever no chills. Is better. Procalcitonin level is elevated 0.35. Patient is being arranged antibiotics in the form of Zosyn. Pulmonary is on board. 05/07/2022 Patient is currently resting in bed. Awake alert and oriented. Saturating at 90% on room air. Still having shortness of breath with minimal exertion. Patient is being continued antibiotics in the form of Zosyn. Chest x-ray showed improved aeration of the lungs with persistent multifocal airspace opacities. Cultures have been negative. Blood cultures negative. Laboratory data showed WBC 8.2 hemoglobin 11.7 and platelets 128 Sodium 137 potassium 4.3 chloride 109 bicarb is 20 BUN 23 and creatinine 1.0 and blood sugar is 168. Cardiology is on board. Heparin is being continued. 2D echocardiogram was done. Showed normal LV systolic function. Moderate MR. Aortic sclerosis without significant stenosis.. 05/08/2022 Patient is sitting in the bed. Awake alert and oriented x3. Patient is requiri ng oxygen today at 2 L via nasal cannula. No complaints of chest pain. Still having exertional dyspnea. No nausea vomiting abdominal pain or diarrhea. Patient is being current on antibiotics in form of Zosyn. Laboratory data showed WBC 15.9 hemoglobin 14.4 and platelets 167 Sodium 141 potassium 4.3 chloride 110 bicarb is 21 BUN 20 and creatinine 1.07 calcium 8.5. Pulmonary and cardiology is on board. Patient is also being continued on IV Solu-Medrol and duo nebs. 05/09/2022 Patient is able to walk to the bathroom. Breathing status is about the same. Today patient is requiring oxygen at 4 L via nasal cannula. No complaints of chest pain. No nausea vomiting abdominal pain or diarrhea. Chest x-ray showed worsening scattered airspace opacities correlate for pneumonia. Correlate with serum BNP to rule out superimposed underlying congestive heart failure. Patient remains on antibiotics Zosyn and also IV steroids. Patient was given a dose of IV Lasix yesterday. 05/10/2022 Patient is in the telemetry unit. Currently on BiPAP. Patient seems to be drowsy and lethargic. Able to open his eyes with verbal stimuli. No complaints of chest pain. Patient has been afebrile. Cultures have been negative. Patient is being continued on IV Solu-Medrol and also IV diuretics and duo nebs. proBNP increased to 70 690. Other laboratory test showed WBC 9.9 hemoglobin 11.8 and platelets 121 sodium 138 potassium 3.8 chloride 109 bicarb is 26 BUN 25 and creatinine 1.1 and calcium 8.0 and procalcitonin level is 0.56. Patient remains on antibiotics in the form of Zosyn. 05/11/2022 Patient is in the psych care unit. Patient is more awake and oriented today. Tolerating BiPAP. Plan is To transition to high flow oxygen. Pulmonary is on board. Continued on IV Lasix with negative balance of 2.6 L. Patient is also on antibiotics and IV steroids. Chest x-ray today showed diffuse bilateral airspace opacities not significantly changed. Laboratory test showed WBC 10.1 hemoglobin 12.3 and platelets 141 sodium 141 potassium 3.3 which is being replaced Chloride 104 bicarb is 32 BUN 31 and creatinine 1.07 and blood sugar is 162 and calcium 8.0. Pulmonary is on board. 05/12/2022 Patient continues to be monitored on stepdown unit. Has been transitioned to Airvo with 75%/60 L FiO2, he reports breathing better. Continues with cough, however is improving. maintained on IV zosyn, IV lasix and IV solumedrol. Tolerating oral intake in small amounts. White count today 13.3, hgb 12.7. BUN 44, creatinine 1.08. Glucose in the mid 200s. proBNP elevated today at 7370. Negative 2.4 L off in the last 24 hours. Heart rate in the 110s today, blood pressure in the high 90s systolic. Serologies, Sputum and blood culture all negative. 05/13/2022 Patient is monitored on stepdown unit. Continues on Airvo 75/60. Continues with cough. He has completed a course of IV zosyn therapy and is being monitored off antibiotics at this time. Repeat procalcitonin level 0.64. ProBNP remains elevated at 7370 and continues on IV lasix Q12 with negative 1.8 L fluid balance. A1C 6.3 consistent with diabetes mellitus. Continue on insulin while inpatient, continues to receive IV solumedrol 60 mg every 6 hours. Sodium 136 today, potassium 3.6, BUN 48, creatinine 0.96. Glucose in the 200s. White count 10.2, hemoglobin 11.7. 05/14/2022 Patient is seen and evaluated in follow-up today continues on airvo 60/60 currently sitting up in the chair. Pulmonary is following and patient is maintained on IV Lasix along with IV steroids. Patient reports he continues to be extremely dyspneic and short of breath although feels somewhat better. Blood sugars being monitored with Accu-Cheks before meals and at bedtime and recommend continue with current regimen. Will encourage increased activity as tolerated once respiratory status is more stable. Patient is maintained on DuoNeb treatments along with Pulmicort and Perforomist and will continue. Will follow- up with chest x-ray in the a.m. Patient is currently afebrile denies chest pain or palpitations. Patient reports to tolerating diet with no reports of nausea or vomiting noted. Review of Systems Constitutional: Denied any fatigue denied any fever. Cardio vascular: denied any chest pain, palpitations Gastrointestinal: denied any nausea, vomiting, diarrhea Pulmonary: Reports shortness of breath and feels is somewhat improved, cough Neurologic denied any new focal deficits Active Medications Acetaminophen (Acetaminophen Tab 325 Mg Tab) 650 mg PO Q6HR PRN PRN Reason: Fever and/ or Pain Last Admin: 05/13/22 09:40 Dose: 650 mg Albuterol/Ipratropium (Ipratropium-Albuterol 3 Ml Neb) 3 ml INHALATION RT-QID [facility] Last Admin: 05/14/22 20:37 Dose: 3 ml Albuterol/Ipratropium (Ipratropium-Albuterol 3 Ml Neb) 3 ml INHALATION RT-Q2H PRN PRN Reason: Shortness Of Breath Or Wheezing Last Admin: 05/10/22 03:35 Dose: 3 ml Aspirin (Aspirin 81 Mg) 81 mg PO DAILY [facility] Last Admin: 05/14/22 09:58 Dose: 81 mg Atorvastatin Calcium (Atorvastatin 80 Mg Tab) 40 mg PO HS [facility] Last Admin: 05/13/22 20:37 Dose: 40 mg Budesonide (Budesonide 1 Mg/2 Ml Nebu) 1 mg INHALATION RT-BID [facility] Last Admin: 05/14/22 20:36 Dose: 1 mg Dextrose/Water (Dextrose 50% Syringe 50 Ml) 25 ml IVP PER PROTOCOL PRN; Protoco l PRN Reason: Hypoglycemia Dextrose/Water (Dextrose 50% Syringe 50 Ml) 50 ml IVP PER PROTOCOL PRN; Protocol PRN Reason: Hypoglycemia Diphenhydramine HCl (Diphenhydramine 25 Mg Cap) 25 mg PO TID PRN PRN Reason: Cough Last Admin: 05/12/22 23:34 Dose: 25 mg Formoterol Fumarate (Formoterol Fumarate 20 Mcg/2 Ml Nebu) 20 mcg INHALATION RT-BID [facility] Last Admin: 05/14/22 20:37 Dose: 20 mcg Furosemide (Furosemide 10 Mg/Ml 4 Ml Vial) 40 mg IV Q12HR [facility] Last Admin: 05/14/22 09:59 Dose: 40 mg Guaifenesin (Guaifenesin Syrup 100mg/5ml 200 Mg/10 Ml Cup) 200 mg PO Q6HR PRN PRN Reason: Cough Last Admin: 05/13/22 18:30 Dose: 200 mg Heparin Sodium (Porcine) (Heparin Sodium,Porcine/Pf 5,000 Unit/0.5 Ml Syringe) 5,000 unit SQ Q8HR [facility] Last Admin: 05/14/22 17:10 Dose: 5,000 unit Hydroxyzine Pamoate (Hydroxyzine Pamoate 25 Mg Cap) 25 mg PO HS PRN PRN Reason: ANXIETY/SLEEP Last Admin: 05/10/22 09:50 Dose: 25 mg Insulin Aspart (Insulin Aspart (Novolog) 100 Unit/Ml Vial) 0 unit SQ ACHS [facility]; Protocol Last Admin: 05/14/22 17:09 Dose: 4 unit Insulin Aspart (Insulin Aspart (Novolog) 100 Unit/Ml Vial) 4 unit SQ AC-TID [facility] Last Admin: 05/14/22 17:10 Dose: 4 unit Insulin Detemir (Insulin Detemir (Levemir) 100 Unit/Ml Syr) 15 unit SQ HS [facility] Last Admin: 05/13/22 20:42 Dose: 15 unit Isosorbide Mononitrate (Isosorbide Mononitrate Er 30 Mg Tab.Er.24h) 30 mg PO DAILY [facility] Last Admin: 05/14/22 09:59 Dose: 30 mg Lisinopril (Lisinopril 10 Mg Tab) 10 mg PO DAILY [facility] Last Admin: 05/14/22 09:58 Dose: 10 mg Lorazepam (Lorazepam 0.5 Mg Tab) 0.5 mg PO BID PRN PRN Reason: Agitation or Acute Anxiety Melatonin (Melatonin 3 Mg Tablet) 3 mg PO HS PRN PRN Reason: SLEEP Last Admin: 05/13/22 23:09 Dose: 3 mg Methylprednisolone Sodium Succinate (Methylprednisolone Sod Succi 125 Mg/2 Ml Vial) 60 mg IV Q6HR [facility] Last Admin: 05/14/22 17:10 Dose: 60 mg Metoprolol Tartrate (Metoprolol Tartrate 25 Mg Tab) 25 mg PO BID [facility] Last Admin: 05/14/22 09:58 Dose: 25 mg Mirtazapine (Mirtazapine 15 Mg Tab) 15 mg PO HS [facility] Last Admin: 05/13/22 20:37 Dose: 15 mg Pantoprazole Sodium (Pantoprazole 40 Mg/10 Ml Vial) 40 mg IV DAILY [facility] Last Admin: 05/14/22 10:00 Dose: 40 mg Potassium Chloride (Potassium Chloride Er 20 Meq Tab.Er) 20 meq PO DAILY [facility] Last Admin: 05/14/22 09:58 Dose: 20 meq Sertraline HCl (Sertraline 100 Mg Tab) 200 mg PO HS [facility] Last Admin: 05/13/22 20:38 Dose: 200 mg PHYSICAL EXAMINATION: GENERAL: The patient is alert and oriented x3, currently sitting up in the chair Well developed, well nourished. Maintained on 60/60 L Airvo HEENT: Pupils are round and equally reacting to light. EOMI. No scleral icterus. No conjunctival pallor. Normocephalic, atraumatic. No pharyngeal erythema. No thyromegaly. CARDIOVASCULAR: S1 and S2 muffled PULMONARY: Diminished breath sounds bilaterally with Right basilar crackles ABDOMEN: Soft, nontender, nondistended, normoactive bowel sounds. No palpable organomegaly. MUSCULOSKELETAL: No joint swelling or deformity. EXTREMITIES: No cyanosis, clubbing, or pedal edema. NEUROLOGICAL: Gross neurological examination did not reveal any focal deficits. SKIN: No rashes. Assessment: Right lower lobe pneumonia with consolidative changes in the CT thorax. Likely community-acquired pneumonia. COVID-19 PCR not detected. Acute hypoxic respiratory failure multi-focal secondary to likely community acquired pneumonia and acute heart failure requiring supplemental oxygen currently on airvo 60/60. Acute COPD exacerbation Acute CHF with preserved ejection fraction. Mild to moderate MR. Elevated troponin level Likely demand mismatch.No new EKG changes compared to old Diabetes Mellitus type 2 with hgb A1C 6.3. Coronary arteries with history of CABG, PCI For history of CVA/TIA Prostate cancer status post surgery Hypertension Hyperlipidemia Prior history of smoking DVT prophylaxis. No code Plan: Continue with IV lasix Q12, doorknobs along with IV steroids being closely monitored off antibiotics. Repeat labs show improved kidney functions and electrolytes within normal limits . Will follow-up with repeat magnesium after replacement Patient is continued on airvo and weaning as tolerated currently on 60/60 FiO2 Patient was seen by cardiology. Unlikely ACS. Cardiology has signed off at this time to follow up outpatient. May need reconsultation to cardiology for CHF Pulmonary following as well and repeat chest x-ray ordered in the a.m. Patient will need PT/OT therapy this patient is significantly weak and has had prolonged hospitalization Prognosis is guarded with multiple medical problems and comorbid conditions. The impression and plan of care has been dictated by Bernice Renteria, Nurse Practitioner as directed. Dr. Leandro MD I have performed a history and examination and MDM of this patient, discussed the same with the dictator, and agree with the dictator's assessment and plan as written ,documented as a scribe. Based on total visit time, I have performed more than 50% of the visit. Objective - Vital Signs Vital signs: Vital Signs Temp 97.7 F 05/14/22 12:00 Pulse 90 05/14/22 12:16 Resp 19 05/14/22 12:00 BP 101/56 05/14/22 12:00 Pulse Ox 94 L 05/14/22 12:06 FiO2 60 05/14/22 12:06 Intake & Output 05/13/22 05/14/22 05/14/22 18:59 06:59 18:59 Intake Total 540 180 Output Total 800 700 Balance -260 -700 180 Weight 80.2 kg Intake: Oral 540 180 Output: Urine 800 700 Other: Voiding Method Urinal Bedside Commode Urinal # Voids 1 2 # Bowel Movements 2 1 1 - Labs CBC & Chem 7: 05/13/22 09:36 05/14/22 07:41 Labs: Abnormal Lab Results - Last 24 Hours (Table) 05/13/22 05/13/22 05/14/22 Range/Units 16:42 20:06 06:49 Carbon Dioxide (22-30) mmol/L BUN (9-20) mg/dL Glucose (74-99) mg/dL POC Glucose (mg/dL) 202 H 223 H 162 H (70-110) mg/dL 05/14/22 05/14/22 Range/Units 07:41 11:31 Carbon Dioxide 34 H (22-30) mmol/L BUN 46 H (9-20) mg/dL Glucose 139 H (74-99) mg/dL POC Glucose (mg/dL) 232 H (70-110) mg/dL
[2022-05-14] MEDS: INSULIN DETEMIR (LEVEMIR) 100 UNIT/ML SYR SQ SCH (20:58)
[2022-05-14] MEDS: MELATONIN 3 MG TABLET PO PRN (20:58)
[2022-05-14] MEDS: ATORVASTATIN 80 MG TAB PO SCH (20:58)
[2022-05-14] MEDS: MIRTAZAPINE 15 MG TAB PO SCH (20:58)
[2022-05-14] MEDS: SERTRALINE 100 MG TAB PO SCH (20:58)
[2022-05-14] MEDS: hydrOXYzine pamoate 25 MG CAP PO PRN (23:12)
[2022-05-15 06:34] LABS: Glucose,Whole Blood 159 mg/dL (70-110)
[2022-05-15] MEDS: methylPREDNISolone SOD SUCCI 125 MG/2 ML VIAL IV SCH ×4 (06:46→22:55)
[2022-05-15] MEDS: INSULIN ASPART (NovoLOG) 100 UNIT/ML VIAL SQ SCH ×7 (06:47→20:23)
[2022-05-15] MEDS: BUDESONIDE 1 MG/2 ML NEBU INHALATION SCH ×2 (07:21→20:16)
[2022-05-15] MEDS: FORMOTEROL FUMARATE 20 MCG/2 ML NEBU INHALATION SCH ×2 (07:21→20:16)
[2022-05-15] MEDS: IPRATROPIUM-ALBUTEROL 3 ML NEB INHALATION SCH ×4 (07:21→20:16)
--- NOTE | 2022-05-15 08:19 | XR ---
EXAMINATION TYPE: XR chest 1V portable DATE OF EXAM: 05/15/2022 6:41 AM COMPARISON: Chest radiographs from 05/11/2022 TECHNIQUE: XR chest 1V portable Portable AP radiograph of the chest. CLINICAL INDICATION:Male, 71 years old with history of shortness of breath; FINDINGS: Lungs/Pleura: Similar multifocal airspace opacities. No evidence of pneumothorax or pleural effusion. Pulmonary vascularity: Unremarkable. Heart/mediastinum: Cardiomediastinal silhouette is enlarged and stable. Musculoskeletal: No acute osseous pathology. Midline sternotomy wires are noted. IMPRESSION: Similar multifocal airspace opacities correlate for volume overload in the setting of congestive hear t failure and/or diffuse atypical pneumonia.
[2022-05-15] MEDS: PANTOPRAZOLE 40 MG/10 ML VIAL IV SCH (09:07)
[2022-05-15] MEDS: ASPIRIN 81 MG PO SCH (09:07)
[2022-05-15] MEDS: lisinopriL 10 MG TAB PO SCH (09:07)
[2022-05-15] MEDS: FUROSEMIDE 10 MG/ML 4 ML VIAL IV SCH ×2 (09:07→20:22)
[2022-05-15] MEDS: ISOSORBIDE MONONITRATE ER 30 MG TAB.ER.24H PO SCH (09:07)
[2022-05-15] MEDS: METOPROLOL TARTRATE 25 MG TAB PO SCH ×2 (09:07→20:22)
[2022-05-15] MEDS: POTASSIUM CHLORIDE ER 20 MEQ TAB.ER PO SCH (09:07)
[2022-05-15] MEDS: HEPARIN SODIUM,PORCINE/PF 5,000 UNIT/0.5 ML SYRINGE SQ SCH ×3 (09:08→22:55)
[2022-05-15 11:26] LABS: Glucose,Whole Blood 214 mg/dL (70-110)
--- NOTE | 2022-05-15 14:47 | P.PN ---
Subjective Progress Note Date: 05/15/22 this is a 71-year-old white male with history of COPD, previous history of ID, previous history of stroke without any residual deficits, patient was out in the cold yesterday for about one hour, and he developed shortness of breath cough and wheezing. EMS was called, patient was given albuterol and Atrovent treatment with minimal improvement, patient was brought into the ER, he had no fever, no chills, he had no chest pain, apparently when EMS arrived to pick him up, the patient was clammy and flushed upon his initial evaluation, his respiratory rate was in the 40s, patient was evaluated in the ER, chest x-ray and CT of the chest showed bilateral infiltrates, right more so than left, although the patient denies any history of aspiration, and no history of passing out episodes except he had 1 previous syncopal episode over [address] angiogram ruled out pulmonary embolism although he had a slightly elevated d- dimer of 2.23, and I reviewed the CT angiogram myself, definitely no evidence of pulmonary embolism. His WBC count is 6.4 hemoglobin is 17.7.lactic acid on it is initial evaluation was 8.9, went down to 1.6.his serology came back negative for carbon 19, influenza A, influenza B, and RSV.troponin was noted to be a bit high on presentation 0.033, follow-up troponin was 0.597, and BNP was normal. In spite of significant air space disease noted in both lungs especially in the right lung, patient maintained his O2 saturation, he was on room air with O2 sat showed 94%patient was placed on antibiotics in the form of Rocephin and Zithromax,initially, and he is now on Zosyn and vancomycin. he was also placed on bronchodilators and on steroids/methylprednisolone,considering his elevated troponin, patient was alsoplaced on heparin, full cardiac consultation is pending. Reevaluated today on 05/06/22, patient is doing better today, breathing easier, less cough and less wheezing less shortness of breath, remains on room air, does not seem to be in any distress, he does have intermittent cough, his cough is nonproductive. No fever no chills no hemoptysis no chest pain. CBC is relatively normal electrolytes are normal renal profile is normal, COVID-19 screening RSV screening were negative. Pro-calcitonin level was elevated at 0.35. The patient is seen today 05/07/2022 in follow-up on the selective care unit. He is currently resting comfortably in bed. Awake and alert in no acute distress. He is maintaining O2 saturations in the 90s on room air. He is still short of breath with minimal exertion. He continues with crackles in the right lung. He remains on Zosyn. He is on a heparin drip per cardiology. Non-ST segment elevation myocardial infarction. Echocardiogram revealed preserved left ventricular systolic function. Today's chest x-ray does reveal improved aeration of the lungs with persistent multifocal airspace opacities. Blood cultures reveal no growth. White count 8.2. Hemoglobin 11.7. Platelets 128. Glucose 142. He remains on antibiotics in the form of vancomycin and Zosyn. Continued on bronchodilators, IV Solu-Medrol. Patient is seen today 05/08/2022 in follow-up on the selective care unit. He is currently sitting up in a chair at the bedside. Awake and alert in no acute distress. His O2 saturations drop in the mid 80s while on room air and up and walking. Recovers into the 90s on 2 L/m per nasal cannula. Blood cultures revealed no growth. We count 15.9. Hemoglobin 14.5. Sodium 141. Potassium 4.3. BUN 20. Creatinine 1.07. Glucose 118. He remains on Symbicort, DuoNeb inhalations, IV Solu-Medrol. Antibiotics in the form of Zosyn. Vancomycin discontinued. The patient is seen today 05/09/2022 in follow-up on the selective care unit. He is currently resting comfortably in bed. Awake and alert in no acute distress. He is doing better today compared to yesterday. Not quite back to his baseline. Still congested. Still is some spasm and wheezing. He is maintaining O2 saturations in the 90s on 4 L/m per nasal cannula. Follow-up chest x-ray reveals worsening airspace opacities. No evidence of pleural effusion. No focal consolidation. No pneumothorax. Blood cultures revealed no growth. Sputum cultures pending. Sodium 138. Potassium 3.7. BUN 24. Creatinine 1.05. Glucose 262. He is continued on DuoNeb inhalations, Symbicort, IV Solu-Medrol. Antibiotics in the form of Zosyn. The patient is seen today 05/10/2022 in follow-up on the selective care unit. He did have an episode of worsening shortness of breath and oxygen desaturations last evening. He required BiPAP support which is currently on at 16/8 and 60% FiO2. Sputum culture revealed no growth. Blood cultures revealed no growth. White count 9.9. Hemoglobin 11.8. Platelets 121. Sodium 138. Potassium 3.8. BUN 25. Creatinine 1.0. Glucose 164. ProBNP 7690. ProCalcitonin 0.56. Brooks virus by PCR not detected. He remains on Zosyn, IV Solu-Medrol, Symbicort and DuoNeb inhalations. Heparin for DVT prophylaxis. Continued on IV diuretics. No accurate I&O recorded. Patient is seen today 05/11/2022 in follow-up on the selective care unit. He is currently resting fairly comfortably in bed. Awake and alert in no acute distress. He remains on BiPAP 16/80 and 60% FiO2. He was attempted on high flow nasal cannula with oxygen desaturations down into the 70s. He'll be given a trial of AirVo high flow oxygen at 60 L and 85% FiO2 for meals. Chest x-ray revealed diffuse bilateral airspace opacities. No significant change compared to previous. He is continued on bronchodilators, IV Solu-Medrol, antibiotics in the form of Zosyn. Remains on IV diuretics. Currently in a -2.6 L balance. Blood cultures revealed no growth. Sputum culture revealed no growth. White count 10.1. Hemoglobin 13.3. Sodium 141 potassium 3.3. Bicarb 32. BUN 31. Creatinine 1.07. Glucose 164. The patient is seen today 05/12/2022 in follow-up on the selective care unit. He is sitting up in bed. Awake and alert in no acute distress. Remains on AirVo high flow oxygen currently at 60 L and 75% FiO2. BiPAP has been discontinued. He remains on DuoNeb inhalations, Pulmicort and Perforomist inhalations, IV Solu-Medrol. Heparin for DVT prophylaxis. Remains on IV diuretics. Currently in a -1.6 L balance. Pleaded his course of Zosyn. White count 13.3. Hemoglobin 12.7. Platelets 147. Sodium 142. Potassium 3.5. BUN 44. Creatinine 1.08. Follow-up proBNP 7370. Follow-up pro-calcitonin pending. COVID-19 screen negative. The patient is seen today 05/13/2022 in follow-up on the selective care unit. He is currently sitting up in a chair at the bedside. Continues to require AirVo high flow oxygen currently at 60 L and 75% FiO2. He is feeling slightly better today. Still not near his baseline. White count 10.2. Hemoglobin 11.7. Sodium 136. Potassium 3.6. BUN 48. Creatinine 0.96. Follow-up pro- calcitonin still 0.64. Blood and sputum cultures revealed no growth. White count 10.2. Hemoglobin 11.7. Platelet count 130. Sodium 136. Potassium 3.6. Bicarb 29. BUN 48. Creatinine 0.96. Glucose 213. He is continued on DuoNeb inhalations, Pulmicort and Perforomist inhalations, IV Solu-Medrol. Remains on IV diuretics. Currently in a -1.3 L balance. The patient is seen today 05/14/2022 in follow-up on the selective care unit. He is awake and alert in no acute distress. Sitting up in a chair at the bedside. Continues on oxygen 60% FiO2. He states he is feeling better each day. Breathing easier. Blood cultures revealed no growth. Sputum culture revealed no growth. Sodium 137. Potassium 3.8. Bicarb 34. BUN 46. Creatinine 0.99. Glucose 139. He is continued on DuoNeb inhalations, Pulmicort and Perforomist inhalations, IV Solu-Medrol. Remains on IV diuretics. Currently in a negative 960 ML balance. The patient is seen today 05/15/2022 in follow-up on the selective care unit. Currently sitting up in a chair at the bedside. Awake and alert in no acute d istress. Denies any worsening shortness of breath, cough or congestion. He states he continues to feel stronger each day. He is currently on AirVo at 60 L and 55% FiO2. Chest x-ray continues to show similar multifocal airspace opacities. Sputum cultures revealed no growth. Blood cultures revealed no growth. Blood sugar 159. He is continued on DuoNeb inhalations, Pulmicort and Perforomist inhalations, IV Solu-Medrol. Remains on IV diuretics. Currently in a negative 1.2 L balance. Objective - Vital Signs Vital signs: Vital Signs Temp 96.8 F L 05/15/22 11:33 Pulse 76 05/15/22 11:33 Resp 18 05/15/22 11:33 BP 111/68 05/15/22 11:33 Pulse Ox 96 05/15/22 11:33 FiO2 55 05/15/22 11:33 Intake & Output 05/14/22 05/15/22 05/15/22 18:59 06:59 18:59 Intake Total 360 360 Output Total 1575 1175 Balance 360 -1575 -815 Weight 79.9 kg Intake: Oral 360 360 Output: Urine 1575 1175 Other: Voiding Method Bedside Commode Urinal Urinal # Voids 2 1 # Bowel Movements 1 1 - Exam GENERAL EXAM: Alert, pleasant 71-year-old male, up in a chair, on AirVo high flow oxygen and 60 L and 55% FiO2, comfortable in no apparent distress. HEAD: Normocephalic. EYES: Normal reaction of pupils, equal size. NOSE: Clear with pink turbinates. THROAT: No erythema or exudates. NECK: No masses, no JVD. CHEST: No chest wall deformity. LUNGS: Equal air entry with bilateral scattered rhonchi more so on the right lung. CVS: S1 and S2 normal with no audible murmur, regular rhythm. ABDOMEN: No hepatosplenomegaly, normal bowel sounds, no guarding or rigidity. SPINE: No scoliosis or deformity SKIN: No rashes CENTRAL NERVOUS SYSTEM: No focal deficits, tone is normal in all 4 extremities. EXTREMITIES: There is no peripheral edema. No clubbing, no cyanosis. Peripheral pulses are intact. - Labs CBC & Chem 7: 05/13/22 09:36 05/14/22 07:41 Labs: Abnormal Lab Results - Last 24 Hours (Table) 05/14/22 05/14/22 05/15/22 Range/Units 16:35 20:35 06:32 POC Glucose (mg/dL) 204 H 207 H 159 H (70-110) mg/dL 05/15/22 Range/Units 11:24 POC Glucose (mg/dL) 214 H (70-110) mg/dL Assessment and Plan Assessment: Acute hypoxic respiratory failure requiring BiPAP support secondary to an acute bilateral pneumonia, community-acquired, doubt aspiration pneumonia, doubt COVID-19 pneumonia considering the patient had negative screening for COVID-19 infection, negative screening for influenza A, influenza B, and RSV. The patient developed worsening shortness of breath and hypoxemia on 05/09/2022 requiring BiPAP support. Today 05/15/2022 the patient remains on AirVo high flow oxygen at 60 L and 55% FiO2 and completed a course of Zosyn Acute non-ST elevation myocardial infarction Acute exacerbation of suspected diastolic congestive heart failure Acute exacerbation of COPD History of coronary artery disease and previous CABG History of previous CVA/TIA Benign essential hypertension Dyslipidemia History of prostate cancer Plan: The patient was seen and evaluated Labs and medications reviewed Continue AirVo high flow oxygen, titrate the FiO2 as tolerated Acceptable of oxygen saturation saturations 88% and greater Encouraged increased use of the incentive spirometer Increase his activity as tolerate Continue the current treatment We will continue to follow I have personally seen and examined the patient, performed the documentation and the assessment and plan as written. Number of minutes spent on the visit: 10.
[2022-05-15 16:37] LABS: Glucose,Whole Blood 217 mg/dL (70-110)
[2022-05-15 20:05] LABS: Glucose,Whole Blood 194 mg/dL (70-110)
[2022-05-15] MEDS: INSULIN DETEMIR (LEVEMIR) 100 UNIT/ML SYR SQ SCH (20:22)
[2022-05-15] MEDS: ATORVASTATIN 80 MG TAB PO SCH (20:22)
[2022-05-15] MEDS: SERTRALINE 100 MG TAB PO SCH (20:22)
[2022-05-15] MEDS: MIRTAZAPINE 15 MG TAB PO SCH (20:22)
[2022-05-15] MEDS: MELATONIN 3 MG TABLET PO PRN (22:59)
--- NOTE | 2022-05-16 02:57 | P.PN ---
Subjective Progress Note Date: 05/15/22 Patient is a 71-year-old male with a known history of coronary disease status post CABG, history of stent placement, hypertension, hyperlipidemia, history of KS, prostate cancer status postsurgery, COPD and prior history of smoking presents to ER with complaints of shortness of breath. Patient states that he went out in the cold to feed cats and felt very short of breath with cough and wheezing. Patient was able to come back inside the home and EMS was called. Patient was given albuterol Atrovent treatments with minimal improvement and was brought to ER. Patient was tachycardic, tachypneic on admission with blood pressure 84/63. Denies any complaints of fever or chills. Patient states that he has been having sinus infection and cough with yellow sputum production recently. Chest x-ray showed interval development of acute cardiopulmonary disease with large partially consolidated infiltrate in the right lower lobe suspicious for pneumonia. Clinical correlation and short-term follow-up to resolution is recommended. CTA chest showed no evidence of PE. Diffuse groundglass densities within the lung consistent with acute inflammatory process possibly COVID-pneumonia and clinical correlation is recommended. EKG showed atrial flutter/tachycardia with heart rate 119 Laboratory data WBC 6.4 hemoglobin 17.7 and platelets 140 D-dimer is 2.23 Sodium 138 potassium 3.9 chloride 102 bicarb is 40 BUN 12 and creatinine 1.23 and lactic acid 8.9 and magnesium 2.4, AST 91 ALT 58 and alk phos 103 Troponin 0.033 and 0.597 and proBNP 672 RSV, influenza A and B and coronavirus PCR not detected. 05/06/2022 Patient is currently sitting in the bed. Awake alert and oriented x3. Currently requiring oxygen and is being titrated down to room air. Saturating at 94%. Patient does have cough without any sputum production. No fever no chills. Is better. Procalcitonin level is elevated 0.35. Patient is being arranged antibiotics in the form of Zosyn. Pulmonary is on board. 05/07/2022 Patient is currently resting in bed. Awake alert and oriented. Saturating at 90% on room air. Still having shortness of breath with minimal exertion. Patient is being continued antibiotics in the form of Zosyn. Chest x-ray showed improved aeration of the lungs with persistent multifocal airspace opacities. Cultures have been negative. Blood cultures negative. Laboratory data showed WBC 8.2 hemoglobin 11.7 and platelets 128 Sodium 137 potassium 4.3 chloride 109 bicarb is 20 BUN 23 and creatinine 1.0 and blood sugar is 168. Cardiology is on board. Heparin is being continued. 2D echocardiogram was done. Showed normal LV systolic function. Moderate MR. Aortic sclerosis without significant stenosis.. 05/08/2022 Patient is sitting in the bed. Awake alert and oriented x3. Patient is requiri ng oxygen today at 2 L via nasal cannula. No complaints of chest pain. Still having exertional dyspnea. No nausea vomiting abdominal pain or diarrhea. Patient is being current on antibiotics in form of Zosyn. Laboratory data showed WBC 15.9 hemoglobin 14.4 and platelets 167 Sodium 141 potassium 4.3 chloride 110 bicarb is 21 BUN 20 and creatinine 1.07 calcium 8.5. Pulmonary and cardiology is on board. Patient is also being continued on IV Solu-Medrol and duo nebs. 05/09/2022 Patient is able to walk to the bathroom. Breathing status is about the same. Today patient is requiring oxygen at 4 L via nasal cannula. No complaints of chest pain. No nausea vomiting abdominal pain or diarrhea. Chest x-ray showed worsening scattered airspace opacities correlate for pneumonia. Correlate with serum BNP to rule out superimposed underlying congestive heart failure. Patient remains on antibiotics Zosyn and also IV steroids. Patient was given a dose of IV Lasix yesterday. 05/10/2022 Patient is in the telemetry unit. Currently on BiPAP. Patient seems to be drowsy and lethargic. Able to open his eyes with verbal stimuli. No complaints of chest pain. Patient has been afebrile. Cultures have been negative. Patient is being continued on IV Solu-Medrol and also IV diuretics and duo nebs. proBNP increased to 70 690. Other laboratory test showed WBC 9.9 hemoglobin 11.8 and platelets 121 sodium 138 potassium 3.8 chloride 109 bicarb is 26 BUN 25 and creatinine 1.1 and calcium 8.0 and procalcitonin level is 0.56. Patient remains on antibiotics in the form of Zosyn. 05/11/2022 Patient is in the psych care unit. Patient is more awake and oriented today. Tolerating BiPAP. Plan is To transition to high flow oxygen. Pulmonary is on board. Continued on IV Lasix with negative balance of 2.6 L. Patient is also on antibiotics and IV steroids. Chest x-ray today showed diffuse bilateral airspace opacities not significantly changed. Laboratory test showed WBC 10.1 hemoglobin 12.3 and platelets 141 sodium 141 potassium 3.3 which is being replaced Chloride 104 bicarb is 32 BUN 31 and creatinine 1.07 and blood sugar is 162 and calcium 8.0. Pulmonary is on board. 05/12/2022 Patient continues to be monitored on stepdown unit. Has been transitioned to Airvo with 75%/60 L FiO2, he reports breathing better. Continues with cough, however is improving. maintained on IV zosyn, IV lasix and IV solumedrol. Tolerating oral intake in small amounts. White count today 13.3, hgb 12.7. BUN 44, creatinine 1.08. Glucose in the mid 200s. proBNP elevated today at 7370. Negative 2.4 L off in the last 24 hours. Heart rate in the 110s today, blood pressure in the high 90s systolic. Serologies, Sputum and blood culture all negative. 05/13/2022 Patient is monitored on stepdown unit. Continues on Airvo 75/60. Continues with cough. He has completed a course of IV zosyn therapy and is being monitored off antibiotics at this time. Repeat procalcitonin level 0.64. ProBNP remains elevated at 7370 and continues on IV lasix Q12 with negative 1.8 L fluid balance. A1C 6.3 consistent with diabetes mellitus. Continue on insulin while inpatient, continues to receive IV solumedrol 60 mg every 6 hours. Sodium 136 today, potassium 3.6, BUN 48, creatinine 0.96. Glucose in the 200s. White count 10.2, hemoglobin 11.7. 05/14/2022 Patient is seen and evaluated in follow-up today continues on airvo 60/60 currently sitting up in the chair. Pulmonary is following and patient is maintained on IV Lasix along with IV steroids. Patient reports he continues to be extremely dyspneic and short of breath although feels somewhat better. Blood sugars being monitored with Accu-Cheks before meals and at bedtime and recommend continue with current regimen. Will encourage increased activity as tolerated once respiratory status is more stable. Patient is maintained on DuoNeb treatments along with Pulmicort and Perforomist and will continue. Will follow- up with chest x-ray in the a.m. Patient is currently afebrile denies chest pain or palpitations. Patient reports to tolerating diet with no reports of nausea or vomiting noted. 05/15/2022 Patient is seen in follow-up this morning continues to be on high flow airvo And weaning as tolerated. Current settings are 60/55 and patient denies any worsening. Patient is maintained on IV Lasix along with IV steroids with pulmonary following. Patient continues with some weakness and continued dyspnea with minimal exertion and is being followed by physical therapy. Patient is tolerating diet with no reports of nausea or vomiting noted. Encouraged patient to increase activity as tolerated along with encouraging oral intake. Will recommend to continue monitoring Accu-Cheks before meals and at bedtime as patient is maintained on IV steroids. Review of Systems Constitutional: Denied any fatigue denied any fever. Cardio vascular: denied any chest pain, palpitations Gastrointestinal: denied any nausea, vomiting, diarrhea Pulmonary: Reports shortness of breath and feels is somewhat improved, cough Neurologic denied any new focal deficits Active Medications Acetaminophen (Acetaminophen Tab 325 Mg Tab) 650 mg PO Q6HR PRN PRN Reason: Fever and/ or Pain Last Admin: 05/13/22 09:40 Dose: 650 mg Albuterol/Ipratropium (Ipratropium-Albuterol 3 Ml Neb) 3 ml INHALATION RT-QID [facility] Last Admin: 05/15/22 20:16 Dose: 3 ml Albuterol/Ipratropium (Ipratropium-Albuterol 3 Ml Neb) 3 ml INHALATION RT-Q2H PRN PRN Reason: Shortness Of Breath Or Wheezing Last Admin: 05/10/22 03:35 Dose: 3 ml Aspirin (Aspirin 81 Mg) 81 mg PO DAILY [facility] Last Admin: 05/15/22 09:07 Dose: 81 mg Atorvastatin Calcium (Atorvastatin 80 Mg Tab) 40 mg PO HS [facility] Last Admin: 05/15/22 20:22 Dose: 40 mg Budesonide (Budesonide 1 Mg/2 Ml Nebu) 1 mg INHALATION RT-BID [facility] Last Admin: 05/15/22 20:16 Dose: 1 mg Dextrose/Water (Dextrose 50% Syringe 50 Ml) 25 ml IVP PER PROTOCOL PRN; Protocol PRN Reason: Hypoglycemia Dextrose/Water (Dextrose 50% Syringe 50 Ml) 50 ml IVP PER PROTOCOL PRN; Protocol PRN Reason: Hypoglycemia Diphenhydramine HCl (Diphenhydramine 25 Mg Cap) 25 mg PO TID PRN PRN Reason: Cough Last Admin: 05/12/22 23:34 Dose: 25 mg Formoterol Fumarate (Formoterol Fumarate 20 Mcg/2 Ml Nebu) 20 mcg INHALATION RT-BID [facility] Last Admin: 05/15/22 20:16 Dose: 20 mcg Furosemide (Furosemide 10 Mg/Ml 4 Ml Vial) 40 mg IV Q12HR [facility] Last Admin: 05/15/22 20:22 Dose: 40 mg Guaifenesin (Guaifenesin Syrup 100mg/5ml 200 Mg/10 Ml Cup) 200 mg PO Q6HR PRN PRN Reason: Cough Last Admin: 05/13/22 18:30 Dose: 200 mg Heparin Sodium (Porcine) (Heparin Sodium,Porcine/Pf 5,000 Unit/0.5 Ml Syringe) 5,000 unit SQ Q8HR JAYSON Last Admin: 05/15/22 22:55 Dose: 5,000 unit Hydroxyzine Pamoate (Hydroxyzine Pamoate 25 Mg Cap) 25 mg PO HS PRN PRN Reason: ANXIETY/SLEEP Last Admin: 05/14/22 23:12 Dose: 25 mg Insulin Aspart (Insulin Aspart (Novolog) 100 Unit/Ml Vial) 0 unit SQ ACHS [facility]; Protocol Last Admin: 05/15/22 20:23 Dose: 2 unit Insulin Aspart (Insulin Aspart (Novolog) 100 Unit/Ml Vial) 4 unit SQ AC-TID [facility] Last Admin: 05/15/22 17:01 Dose: 4 unit Insulin Detemir (Insulin Detemir (Levemir) 100 Unit/Ml Syr) 15 unit SQ HS [facility] Last Admin: 05/15/22 20:22 Dose: 15 unit Isosorbide Mononitrate (Isosorbide Mononitrate Er 30 Mg Tab.Er.24h) 30 mg PO DAILY [facility] Last Admin: 05/15/22 09:07 Dose: 30 mg Lisinopril (Lisinopril 10 Mg Tab) 10 mg PO DAILY [facility] Last Admin: 05/15/22 09:07 Dose: 10 mg Lorazepam (Lorazepam 0.5 Mg Tab) 0.5 mg PO BID PRN PRN Reason: Agitation or Acute Anxiety Melatonin (Melatonin 3 Mg Tablet) 3 mg PO HS PRN PRN Reason: SLEEP Last Admin: 05/15/22 22:59 Dose: 3 mg Methylprednisolone Sodium Succinate (Methylprednisolone Sod Succi 125 Mg/2 Ml Vial) 60 mg IV Q6HR [facility] Last Admin: 05/15/22 22:55 Dose: 60 mg Metoprolol Tartrate (Metoprolol Tartrate 25 Mg Tab) 25 mg PO BID [facility] Last Admin: 05/15/22 20:22 Dose: 25 mg Mirtazapine (Mirtazapine 15 Mg Tab) 15 mg PO HS [facility] Last Admin: 05/15/22 20:22 Dose: 15 mg Pantoprazole Sodium (Pantoprazole 40 Mg/10 Ml Vial) 40 mg IV DAILY [facility] Last Admin: 05/15/22 09:07 Dose: 40 mg Potassium Chloride (Potassium Chloride Er 20 Meq Tab.Er) 20 meq PO DAILY [facility] Last Admin: 05/15/22 09:07 Dose: 20 meq Sertraline HCl (Sertraline 100 Mg Tab) 200 mg PO HS [facility] Last Admin: 05/15/22 20:22 Dose: 200 mg PHYSICAL EXAMINATION: GENERAL: The patient is alert and oriented x3, currently sitting up in the bed Well developed, well nourished. Maintained on 60/55 L Airvo HEENT: Pupils are round and equally reacting to light. EOMI. No scleral icterus. No conjunctival pallor. Normocephalic, atraumatic. No pharyngeal erythema. No thyromegaly. CARDIOVASCULAR: S1 and S2 muffled PULMONARY: Diminished breath sounds bilaterally with Right basilar crackles ABDOMEN: Soft, nontender, nondistended, normoactive bowel sounds. No palpable organomegaly. MUSCULOSKELETAL: No joint swelling or deformity. EXTREMITIES: No cyanosis, clubbing, or pedal edema. NEUROLOGICAL: Gross neurological examination did not reveal any focal deficits. SKIN: No rashes. Assessment: Right lower lobe pneumonia with consolidative changes in the CT thorax. Likely community-acquired pneumonia. COVID-19 PCR not detected. Acute hypoxic respiratory failure multi-focal secondary to likely community acquired pneumonia and acute heart failure requiring supplemental oxygen currently on airvo 60/55. Acute COPD exacerbation Acute CHF with preserved ejection fraction. Mild to moderate MR. Elevated troponin level Likely demand mismatch.No new EKG changes compared to old Diabetes Mellitus type 2 with hgb A1C 6.3. Coronary arteries with history of CABG, PCI history of CVA/TIA Prostate cancer status post surgery Hypertension Hyperlipidemia Former smoker DVT prophylaxis. No code Plan: Continue with IV lasix Q12,DuoNeb treatments, Perforomist along with IV steroids being closely monitored off antibiotics. Repeat labs show improved kidney functions and electrolytes within normal limits. repeat magnesiumis improved Patient is continued on airvo and weaning as tolerated currently on 60/55 FiO2 Patient was seen by cardiology. Unlikely ACS. Cardiology has signed off at this time to follow up outpatient. Pulmonary following as well Patient being followed by PT/OT therapy this patient is weak and has had prolonged hospitalization, Recommend PT/OT daily Prognosis is guarded with multiple medical problems and comorbid conditions. The impression and plan of care has been dictated by Bernice Renteria, Nurse Practitioner as directed. Dr. Leandro MD I have performed a history and examination and MDM of this patient, discussed the same with the dictator, and agree with the dictator's assessment and plan as written ,documented as a scribe. Based on total visit time, I have performed more than 50% of the visit. Objective - Vital Signs Vital signs: Vital Signs Temp 97.9 F 05/16/22 00:00 Pulse 83 05/16/22 00:00 Resp 24 05/16/22 00:00 BP 108/73 05/16/22 00:00 Pulse Ox 96 05/16/22 01:26 FiO2 55 05/16/22 01:26 Intake & Output 05/15/22 05/15/22 05/16/22 06:59 18:59 06:59 Intake Total 540 240 Output Total 1575 1175 525 Balance -1575 -635 -285 Weight 79.9 kg Intake: Oral 540 240 Output: Urine 1575 1175 525 Other: Voiding Method Bedside Commode Urinal Urinal Urinal # Voids 1 # Bowel Movements 1 - Labs CBC & Chem 7: 05/13/22 09:36 05/14/22 07:41 Labs: Abnormal Lab Results - Last 24 Hours (Table) 05/15/22 05/15/22 05/15/22 Range/Units 06:32 11:24 16:35 POC Glucose (mg/dL) 159 H 214 H 217 H (70-110) mg/dL 05/15/22 Range/Units 19:57 POC Glucose (mg/dL) 194 H (70-110) mg/dL
[2022-05-16] MEDS: methylPREDNISolone SOD SUCCI 125 MG/2 ML VIAL IV SCH ×4 (06:12→23:54)
[2022-05-16 07:20] LABS: Glucose,Whole Blood 133 mg/dL (70-110)
[2022-05-16] MEDS: BUDESONIDE 1 MG/2 ML NEBU INHALATION SCH ×2 (08:19→20:52)
[2022-05-16] MEDS: FORMOTEROL FUMARATE 20 MCG/2 ML NEBU INHALATION SCH ×2 (08:19→20:52)
[2022-05-16] MEDS: IPRATROPIUM-ALBUTEROL 3 ML NEB INHALATION SCH ×4 (08:19→20:52)
[2022-05-16] MEDS: INSULIN ASPART (NovoLOG) 100 UNIT/ML VIAL SQ SCH ×7 (08:56→21:19)
[2022-05-16] MEDS: PANTOPRAZOLE 40 MG/10 ML VIAL IV SCH (08:56)
[2022-05-16] MEDS: POTASSIUM CHLORIDE ER 20 MEQ TAB.ER PO SCH (08:56)
[2022-05-16] MEDS: FUROSEMIDE 10 MG/ML 4 ML VIAL IV SCH (08:56)
[2022-05-16] MEDS: ISOSORBIDE MONONITRATE ER 30 MG TAB.ER.24H PO SCH (08:57)
[2022-05-16] MEDS: HEPARIN SODIUM,PORCINE/PF 5,000 UNIT/0.5 ML SYRINGE SQ SCH ×3 (08:57→23:54)
[2022-05-16] MEDS: lisinopriL 10 MG TAB PO SCH (08:57)
[2022-05-16] MEDS: METOPROLOL TARTRATE 25 MG TAB PO SCH ×2 (08:57→21:18)
[2022-05-16] MEDS: ASPIRIN 81 MG PO SCH (08:57)
[2022-05-16 09:29] LABS: Basophils # (A) 0.1 k/uL (0-0.2); Basophils % (A) 0 %; Eosinophils % (A) 0 %; HCT 38.7 % (39.0-53.0); HGB 12.7 gm/dL (13.0-17.5); Lymphocytes # (A) 0.3 k/uL (1.0-4.8); Lymphocytes % (A) 2 %; MCH 29.8 pg (25.0-35.0); MCHC 32.9 g/dL (31.0-37.0); MCV 90.7 fL (80.0-100.0); Mean Platelet Volume 8.7; Monocytes # (A) 0.5 k/uL (0-1.0); Monocytes % (A) 3 %; Neutrophils # (A) 12.6 k/uL (1.3-7.7); Neutrophils % (A) 94 %; Platelet Count 138 k/uL (150-450); RBC 4.27 m/uL (4.30-5.90); WBC 13.5 k/uL (3.8-10.6)
[2022-05-16 09:48] LABS: Calcium 8.4 mg/dL (8.4-10.2)
[2022-05-16 09:59] LABS: Potassium 4.4 mmol/L (3.5-5.1)
--- NOTE | 2022-05-16 11:46 | P.PN ---
Subjective Progress Note Date: 05/16/22 this is a 71-year-old white male with history of COPD, previous history of PA, previous history of stroke without any residual deficits, patient was out in the cold yesterday for about one hour, and he developed shortness of breath cough and wheezing. EMS was called, patient was given albuterol and Atrovent treatment with minimal improvement, patient was brought into the ER, he had no fever, no chills, he had no chest pain, apparently when EMS arrived to pick him up, the patient was clammy and flushed upon his initial evaluation, his respiratory rate was in the 40s, patient was evaluated in the ER, chest x-ray and CT of the chest showed bilateral infiltrates, right more so than left, although the patient denies any history of aspiration, and no history of passing out episodes except he had 1 previous syncopal episode over [address] angiogram ruled out pulmonary embolism although he had a slightly elevated d- dimer of 2.23, and I reviewed the CT angiogram myself, definitely no evidence of pulmonary embolism. His WBC count is 6.4 hemoglobin is 17.7.lactic acid on it is initial evaluation was 8.9, went down to 1.6.his serology came back negative for carbon 19, influenza A, influenza B, and RSV.troponin was noted to be a bit high on presentation 0.033, follow-up troponin was 0.597, and BNP was normal. In spite of significant air space disease noted in both lungs especially in the right lung, patient maintained his O2 saturation, he was on room air with O2 sat showed 94%patient was placed on antibiotics in the form of Rocephin and Zithromax,initially, and he is now on Zosyn and vancomycin. he was also placed on bronchodilators and on steroids/methylprednisolone,considering his elevated troponin, patient was alsoplaced on heparin, full cardiac consultation is pending. Reevaluated today on 05/06/22, patient is doing better today, breathing easier, less cough and less wheezing less shortness of breath, remains on room air, does not seem to be in any distress, he does have intermittent cough, his cough is nonproductive. No fever no chills no hemoptysis no chest pain. CBC is relatively normal electrolytes are normal renal profile is normal, COVID-19 screening RSV screening were negative. Pro-calcitonin level was elevated at 0.35. The patient is seen today 05/07/2022 in follow-up on the selective care unit. He is currently resting comfortably in bed. Awake and alert in no acute distress. He is maintaining O2 saturations in the 90s on room air. He is still short of breath with minimal exertion. He continues with crackles in the right lung. He remains on Zosyn. He is on a heparin drip per cardiology. Non-ST segment elevation myocardial infarction. Echocardiogram revealed preserved left ventricular systolic function. Today's chest x-ray does reveal improved aeration of the lungs with persistent multifocal airspace opacities. Blood cultures reveal no growth. White count 8.2. Hemoglobin 11.7. Platelets 128. Glucose 142. He remains on antibiotics in the form of vancomycin and Zosyn. Continued on bronchodilators, IV Solu-Medrol. Patient is seen today 05/08/2022 in follow-up on the selective care unit. He is currently sitting up in a chair at the bedside. Awake and alert in no acute distress. His O2 saturations drop in the mid 80s while on room air and up and walking. Recovers into the 90s on 2 L/m per nasal cannula. Blood cultures revealed no growth. We count 15.9. Hemoglobin 14.5. Sodium 141. Potassium 4.3. BUN 20. Creatinine 1.07. Glucose 118. He remains on Symbicort, DuoNeb inhalations, IV Solu-Medrol. Antibiotics in the form of Zosyn. Vancomycin discontinued. The patient is seen today 05/09/2022 in follow-up on the selective care unit. He is currently resting comfortably in bed. Awake and alert in no acute distress. He is doing better today compared to yesterday. Not quite back to his baseline. Still congested. Still is some spasm and wheezing. He is maintaining O2 saturations in the 90s on 4 L/m per nasal cannula. Follow-up chest x-ray reveals worsening airspace opacities. No evidence of pleural effusion. No focal consolidation. No pneumothorax. Blood cultures revealed no growth. Sputum cultures pending. Sodium 138. Potassium 3.7. BUN 24. Creatinine 1.05. Glucose 262. He is continued on DuoNeb inhalations, Symbicort, IV Solu-Medrol. Antibiotics in the form of Zosyn. The patient is seen today 05/10/2022 in follow-up on the selective care unit. He did have an episode of worsening shortness of breath and oxygen desaturations last evening. He required BiPAP support which is currently on at 16/8 and 60% FiO2. Sputum culture revealed no growth. Blood cultures revealed no growth. White count 9.9. Hemoglobin 11.8. Platelets 121. Sodium 138. Potassium 3.8. BUN 25. Creatinine 1.0. Glucose 164. ProBNP 7690. ProCalcitonin 0.56. Brooks virus by PCR not detected. He remains on Zosyn, IV Solu-Medrol, Symbicort and DuoNeb inhalations. Heparin for DVT prophylaxis. Continued on IV diuretics. No accurate I&O recorded. Patient is seen today 05/11/2022 in follow-up on the selective care unit. He is currently resting fairly comfortably in bed. Awake and alert in no acute distress. He remains on BiPAP 16/80 and 60% FiO2. He was attempted on high flow nasal cannula with oxygen desaturations down into the 70s. He'll be given a trial of AirVo high flow oxygen at 60 L and 85% FiO2 for meals. Chest x-ray revealed diffuse bilateral airspace opacities. No significant change compared to previous. He is continued on bronchodilators, IV Solu-Medrol, antibiotics in the form of Zosyn. Remains on IV diuretics. Currently in a -2.6 L balance. Blood cultures revealed no growth. Sputum culture revealed no growth. White count 10.1. Hemoglobin 13.3. Sodium 141 potassium 3.3. Bicarb 32. BUN 31. Creatinine 1.07. Glucose 164. The patient is seen today 05/12/2022 in follow-up on the selective care unit. He is sitting up in bed. Awake and alert in no acute distress. Remains on AirVo high flow oxygen currently at 60 L and 75% FiO2. BiPAP has been discontinued. He remains on DuoNeb inhalations, Pulmicort and Perforomist inhalations, IV Solu-Medrol. Heparin for DVT prophylaxis. Remains on IV diuretics. Currently in a -1.6 L balance. Pleaded his course of Zosyn. White count 13.3. Hemoglobin 12.7. Platelets 147. Sodium 142. Potassium 3.5. BUN 44. Creatinine 1.08. Follow-up proBNP 7370. Follow-up pro-calcitonin pending. COVID-19 screen negative. The patient is seen today 05/13/2022 in follow-up on the selective care unit. He is currently sitting up in a chair at the bedside. Continues to require AirVo high flow oxygen currently at 60 L and 75% FiO2. He is feeling slightly better today. Still not near his baseline. White count 10.2. Hemoglobin 11.7. Sodium 136. Potassium 3.6. BUN 48. Creatinine 0.96. Follow-up pro- calcitonin still 0.64. Blood and sputum cultures revealed no growth. White count 10.2. Hemoglobin 11.7. Platelet count 130. Sodium 136. Potassium 3.6. Bicarb 29. BUN 48. Creatinine 0.96. Glucose 213. He is continued on DuoNeb inhalations, Pulmicort and Perforomist inhalations, IV Solu-Medrol. Remains on IV diuretics. Currently in a -1.3 L balance. The patient is seen today 05/14/2022 in follow-up on the selective care unit. He is awake and alert in no acute distress. Sitting up in a chair at the bedside. Continues on oxygen 60% FiO2. He states he is feeling better each day. Breathing easier. Blood cultures revealed no growth. Sputum culture revealed no growth. Sodium 137. Potassium 3.8. Bicarb 34. BUN 46. Creatinine 0.99. Glucose 139. He is continued on DuoNeb inhalations, Pulmicort and Perforomist inhalations, IV Solu-Medrol. Remains on IV diuretics. Currently in a negative 960 ML balance. The patient is seen today 05/15/2022 in follow-up on the selective care unit. Currently sitting up in a chair at the bedside. Awake and alert in no acute distress. Denies any worsening shortness of breath, cough or congestion. He states he continues to feel stronger each day. He is currently on AirVo at 60 L and 55% FiO2. Chest x-ray continues to show similar multifocal airspace opacities. Sputum cultures revealed no growth. Blood cultures revealed no growth. Blood sugar 159. He is continued on DuoNeb inhalations, Pulmicort and Perforomist inhalations, IV Solu-Medrol. Remains on IV diuretics. Currently in a negative 1.2 L balance. On today's evaluation of 05/16/2022, the patient remains on high flow oxygen and is currently on 40 L with an FiO2 of 50%. His current pulse ox is in order of 90%. He is ambulating. Noted the patient did not tests positive for any of the viruses including Covid 19. His chest x-ray showing diffuse bilateral pulmonary infiltrates. His most recent chest x-ray from 05/15/2022 is still showing diffuse reticular another bilateral pulmonary infiltrates essentially unchanged compared to the chest x-ray from 05/11/2022. There is also a CAT scan of the chest that was done at the time of admission on 05/04/2022 that showed no evidence of any pulmonary embolism. There was diffuse groundglass bilateral pulmonary infiltrates which obviously raises concern for Covid 19 infection. Noted the patient was in till on antibiotics and he has currently completed his course of antibiotics and the patient was covered with a combination of Zosyn and vancomycin. His pro calcitonin level that was done at the time of admission was 0.35 and the level remains low without any significant elevation. His white cell count at 13.5 with a hemoglobin of 12.7 and a platelet count of 138. Rest of the electrolytes are normal. Creatinine is also normal. In terms of treatment, the patient is on DuoNeb nebulized treatments [id number], the patient is also on Lasix 40 mg IV every 12 hours and IV Solu-Medrol 60 mg every 6 hours. His echocardiogram that was done on 05/05/2022 showed a preserved LV function with an EF of around 50-55%, [id number] aortic stenosis and mild to moderate mitral regurgitation. Objective - Vital Signs Vital signs: Vital Signs Temp 97.4 F L 05/16/22 08:00 Pulse 90 05/16/22 11:04 Resp 18 05/16/22 08:00 BP 114/52 05/16/22 08:00 Pulse Ox 93 L 05/16/22 08:30 FiO2 48 05/16/22 10:53 Intake & Output 05/15/22 05/16/22 05/16/22 18:59 06:59 18:59 Intake Total 540 240 10 Output Total 1175 950 Balance -635 -710 10 Weight 79.4 kg Intake: IV 10 Invasive Line 4 10 Oral 540 240 Output: Urine 1175 950 Other: Voiding Method Urinal Urinal - Exam GENERAL EXAM: Alert, pleasant 71-year-old male, up in a chair, on AirVo high flow oxygen and 60 L and 50% FiO2, comfortable in no apparent distress. HEAD: Normocephalic. EYES: Normal reaction of pupils, equal size. NOSE: Clear with pink turbinates. THROAT: No erythema or exudates. NECK: No masses, no JVD. CHEST: No chest wall deformity. LUNGS: Equal air entry with bilateral scattered rhonchi more so on the right lung. CVS: S1 and S2 normal with no audible murmur, regular rhythm. ABDOMEN: No hepatosplenomegaly, normal bowel sounds, no guarding or rigidity. SPINE: No scoliosis or deformity SKIN: No rashes CENTRAL NERVOUS SYSTEM: No focal deficits, tone is normal in all 4 extremities. EXTREMITIES: There is no peripheral edema. No clubbing, no cyanosis. Peripheral pulses are intact. - Labs CBC & Chem 7: 05/16/22 08:58 05/16/22 08:58 Labs: Abnormal Lab Results - Last 24 Hours (Table) 05/15/22 05/15/22 05/16/22 Range/Units 16:35 19:57 07:17 WBC (3.8-10.6) k/uL RBC (4.30-5.90) m/uL Hgb (13.0-17.5) gm/dL Hct (39.0-53.0) % Plt Count (150-450) k/uL Neutrophils # (1.3-7.7) k/uL Lymphocytes # (1.0-4.8) k/uL Sodium (137-145) mmol/L BUN (9-20) mg/dL Glucose (74-99) mg/dL POC Glucose (mg/dL) 217 H 194 H 133 H (70-110) mg/dL 05/16/22 05/16/22 Range/Units 08:58 08:58 WBC 13.5 H (3.8-10.6) k/uL RBC 4.27 L (4.30-5.90) m/uL Hgb 12.7 L (13.0-17.5) gm/dL Hct 38.7 L (39.0-53.0) % Plt Count 138 L (150-450) k/uL Neutrophils # 12.6 H (1.3-7.7) k/uL Lymphocytes # 0.3 L (1.0-4.8) k/uL Sodium 133 L (137-145) mmol/L BUN 44 H (9-20) mg/dL Glucose 302 H (74-99) mg/dL POC Glucose (mg/dL) (70-110) mg/dL Assessment and Plan Plan: Acute hypoxic respiratory failure requiring BiPAP support secondary to an acute bilateral pneumonia, community-acquired, doubt aspiration pneumonia, doubt COVID-19 pneumonia considering the patient had negative screening for COVID-19 infection, negative screening for influenza A, influenza B, and RSV. The patient developed worsening shortness of breath and hypoxemia on 05/09/2022 requiring BiPAP support. Today 05/15/2022 the patient remains on AirVo high flow oxygen at 60 L and 50% FiO2 and completed a course of Zosyn Acute non-ST elevation myocardial infarction Acute exacerbation of suspected diastolic congestive heart failure Acute exacerbation of COPD History of coronary artery disease and previous CABG History of previous CVA/TIA Benign essential hypertension Dyslipidemia History of prostate cancer Plan: Exact cause for this acute decompensation in the bilateral pulmonary infiltrates is not known. Strongly suspect viral infection. The patient has already received original series of Covid 19 vaccination. He doesn't negative. Influenza came back negative. Continue high flow oxygen Continue steroids change IV Lasix to 40 mg every 24 hours Increase mobility and will continue to follow.
[2022-05-16 11:53] LABS: Glucose,Whole Blood 322 mg/dL (70-110)
[2022-05-16 16:27] LABS: Glucose,Whole Blood 153 mg/dL (70-110)
[2022-05-16 21:10] LABS: Glucose,Whole Blood 272 mg/dL (70-110)
[2022-05-16] MEDS: INSULIN DETEMIR (LEVEMIR) 100 UNIT/ML SYR SQ SCH (21:18)
[2022-05-16] MEDS: MIRTAZAPINE 15 MG TAB PO SCH (21:18)
[2022-05-16] MEDS: SERTRALINE 100 MG TAB PO SCH (21:18)
[2022-05-16] MEDS: ATORVASTATIN 80 MG TAB PO SCH (21:18)
[2022-05-16] MEDS: hydrOXYzine pamoate 25 MG CAP PO PRN (23:54)
--- NOTE | 2022-05-17 03:10 | P.PN ---
Subjective Progress Note Date: 05/16/22 Patient is a 71-year-old male with a known history of coronary disease status post CABG, history of stent placement, hypertension, hyperlipidemia, history of [place], prostate cancer status postsurgery, COPD and prior history of smoking presents to ER with complaints of shortness of breath. Patient states that he went out in the cold to feed cats and felt very short of breath with cough and wheezing. Patient was able to come back inside the home and EMS was called. Patient was given albuterol Atrovent treatments with minimal improvement and was brought to ER. Patient was tachycardic, tachypneic on admission with blood pressure 84/63. Denies any complaints of fever or chills. Patient states that he has been having sinus infection and cough with yellow sputum production recently. Chest x-ray showed interval development of acute cardiopulmonary disease with large partially consolidated infiltrate in the right lower lobe suspicious for pneumonia. Clinical correlation and short-term follow-up to resolution is recommended. CTA chest showed no evidence of PE. Diffuse groundglass densities within the lung consistent with acute inflammatory process possibly COVID-pneumonia and clinical correlation is recommended. EKG showed atrial flutter/tachycardia with heart rate 119 Laboratory data WBC 6.4 hemoglobin 17.7 and platelets 140 D-dimer is 2.23 Sodium 138 potassium 3.9 chloride 102 bicarb is 40 BUN 12 and creatinine 1.23 and lactic acid 8.9 and magnesium 2.4, AST 91 ALT 58 and alk phos 103 Troponin 0.033 and 0.597 and proBNP 672 RSV, influenza A and B and coronavirus PCR not detected. 05/06/2022 Patient is currently sitting in the bed. Awake alert and oriented x3. Currently requiring oxygen and is being titrated down to room air. Saturating at 94%. Patient does have cough without any sputum production. No fever no chills. Is better. Procalcitonin level is elevated 0.35. Patient is being arranged antibiotics in the form of Zosyn. Pulmonary is on board. 05/07/2022 Patient is currently resting in bed. Awake alert and oriented. Saturating at 90% on room air. Still having shortness of breath with minimal exertion. Patient is being continued antibiotics in the form of Zosyn. Chest x-ray showed improved aeration of the lungs with persistent multifocal airspace opacities. Cultures have been negative. Blood cultures negative. Laboratory data showed WBC 8.2 hemoglobin 11.7 and platelets 128 Sodium 137 potassium 4.3 chloride 109 bicarb is 20 BUN 23 and creatinine 1.0 and blood sugar is 168. Cardiology is on board. Heparin is being continued. 2D echocardiogram was done. Showed normal LV systolic function. Moderate MR. Aortic sclerosis without significant stenosis.. 05/08/2022 Patient is sitting in the bed. Awake alert and oriented x3. Patient is requiri ng oxygen today at 2 L via nasal cannula. No complaints of chest pain. Still having exertional dyspnea. No nausea vomiting abdominal pain or diarrhea. Patient is being current on antibiotics in form of Zosyn. Laboratory data showed WBC 15.9 hemoglobin 14.4 and platelets 167 Sodium 141 potassium 4.3 chloride 110 bicarb is 21 BUN 20 and creatinine 1.07 calcium 8.5. Pulmonary and cardiology is on board. Patient is also being continued on IV Solu-Medrol and duo nebs. 05/09/2022 Patient is able to walk to the bathroom. Breathing status is about the same. Today patient is requiring oxygen at 4 L via nasal cannula. No complaints of chest pain. No nausea vomiting abdominal pain or diarrhea. Chest x-ray showed worsening scattered airspace opacities correlate for pneumonia. Correlate with serum BNP to rule out superimposed underlying congestive heart failure. Patient remains on antibiotics Zosyn and also IV steroids. Patient was given a dose of IV Lasix yesterday. 05/10/2022 Patient is in the telemetry unit. Currently on BiPAP. Patient seems to be drowsy and lethargic. Able to open his eyes with verbal stimuli. No complaints of chest pain. Patient has been afebrile. Cultures have been negative. Patient is being continued on IV Solu-Medrol and also IV diuretics and duo nebs. proBNP increased to 70 690. Other laboratory test showed WBC 9.9 hemoglobin 11.8 and platelets 121 sodium 138 potassium 3.8 chloride 109 bicarb is 26 BUN 25 and creatinine 1.1 and calcium 8.0 and procalcitonin level is 0.56. Patient remains on antibiotics in the form of Zosyn. 05/11/2022 Patient is in the psych care unit. Patient is more awake and oriented today. Tolerating BiPAP. Plan is To transition to high flow oxygen. Pulmonary is on board. Continued on IV Lasix with negative balance of 2.6 L. Patient is also on antibiotics and IV steroids. Chest x-ray today showed diffuse bilateral airspace opacities not significantly changed. Laboratory test showed WBC 10.1 hemoglobin 12.3 and platelets 141 sodium 141 potassium 3.3 which is being replaced Chloride 104 bicarb is 32 BUN 31 and creatinine 1.07 and blood sugar is 162 and calcium 8.0. Pulmonary is on board. 05/12/2022 Patient continues to be monitored on stepdown unit. Has been transitioned to Airvo with 75%/60 L FiO2, he reports breathing better. Continues with cough, however is improving. maintained on IV zosyn, IV lasix and IV solumedrol. Tolerating oral intake in small amounts. White count today 13.3, hgb 12.7. BUN 44, creatinine 1.08. Glucose in the mid 200s. proBNP elevated today at 7370. Negative 2.4 L off in the last 24 hours. Heart rate in the 110s today, blood pressure in the high 90s systolic. Serologies, Sputum and blood culture all negative. 05/13/2022 Patient is monitored on stepdown unit. Continues on Airvo 75/60. Continues with cough. He has completed a course of IV zosyn therapy and is being monitored off antibiotics at this time. Repeat procalcitonin level 0.64. ProBNP remains elevated at 7370 and continues on IV lasix Q12 with negative 1.8 L fluid balance. A1C 6.3 consistent with diabetes mellitus. Continue on insulin while inpatient, continues to receive IV solumedrol 60 mg every 6 hours. Sodium 136 today, potassium 3.6, BUN 48, creatinine 0.96. Glucose in the 200s. White count 10.2, hemoglobin 11.7. 05/14/2022 Patient is seen and evaluated in follow-up today continues on airvo 60/60 currently sitting up in the chair. Pulmonary is following and patient is maintained on IV Lasix along with IV steroids. Patient reports he continues to be extremely dyspneic and short of breath although feels somewhat better. Blood sugars being monitored with Accu-Cheks before meals and at bedtime and recommend continue with current regimen. Will encourage increased activity as tolerated once respiratory status is more stable. Patient is maintained on DuoNeb treatments along with Pulmicort and Perforomist and will continue. Will follow- up with chest x-ray in the a.m. Patient is currently afebrile denies chest pain or palpitations. Patient reports to tolerating diet with no reports of nausea or vomiting noted. 05/15/2022 Patient is seen in follow-up this morning continues to be on high flow airvo And weaning as tolerated. Current settings are 60/55 and patient denies any worsening. Patient is maintained on IV Lasix along with IV steroids with pulmonary following. Patient continues with some weakness and continued dyspnea with minimal exertion and is being followed by physical therapy. Patient is tolerating diet with no reports of nausea or vomiting noted. Encouraged patient to increase activity as tolerated along with encouraging oral intake. Will recommend to continue monitoring Accu-Cheks before meals and at bedtime as patient is maintained on IV steroids. 05/16/2022 Patient is seen and evaluated this morning maintained on high flow oxygen airvo 60/48 And continuing to wean as tolerated. Patient has been up working with physical therapy and recommend continue to encourage increased activity as tolerated. Patient reports he is feeling improved slightly each day. Patient is continued on IV Lasix along with IV steroids and pulmonary is following. Patient has completed antibiotics and Lasix being adjusted to daily and will follow-up with labs. Patient denies chest pain or palpitations. Patient is afebrile. No reported nausea or vomiting noted. Review of Systems Constitutional: Denied any fatigue denied any fever. Cardio vascular: denied any chest pain, palpitations Gastrointestinal: denied any nausea, vomiting, diarrhea Pulmonary: Reports shortness of breath and feels is somewhat improved Neurologic denied any new focal deficits Active Medications Acetaminophen (Acetaminophen Tab 325 Mg Tab) 650 mg PO Q6HR PRN PRN Reason: Fever and/ or Pain Last Admin: 05/13/22 09:40 Dose: 650 mg Albuterol/Ipratropium (Ipratropium-Albuterol 3 Ml Neb) 3 ml INHALATION RT-QID JAYSON Last Admin: 05/16/22 20:52 Dose: 3 ml Albuterol/Ipratropium (Ipratropium-Albuterol 3 Ml Neb) 3 ml INHALATION RT-Q2H PRN PRN Reason: Shortness Of Breath Or Wheezing Last Admin: 05/10/22 03:35 Dose: 3 ml Aspirin (Aspirin 81 Mg) 81 mg PO DAILY COUNT INCLUDES THE [facility] Last Admin: 05/16/22 08:57 Dose: 81 mg Atorvastatin Calcium (Atorvastatin 80 Mg Tab) 40 mg PO HS COUNT INCLUDES THE [facility] Last Admin: 05/16/22 21:18 Dose: 40 mg Budesonide (Budesonide 1 Mg/2 Ml Nebu) 1 mg INHALATION RT-BID COUNT INCLUDES THE [facility] Last Admin: 05/16/22 20:52 Dose: 1 mg Dextrose/Water (Dextrose 50% Syringe 50 Ml) 25 ml IVP PER PROTOCOL PRN; Protocol PRN Reason: Hypoglycemia Dextrose/Water (Dextrose 50% Syringe 50 Ml) 50 ml IVP PER PROTOCOL PRN; Protocol PRN Reason: Hypoglycemia Diphenhydramine HCl (Diphenhydramine 25 Mg Cap) 25 mg PO TID PRN PRN Reason: Cough Last Admin: 05/12/22 23:34 Dose: 25 mg Formoterol Fumarate (Formoterol Fumarate 20 Mcg/2 Ml Nebu) 20 mcg INHALATION RT-BID COUNT INCLUDES THE [facility] Last Admin: 05/16/22 20:52 Dose: 20 mcg Furosemide (Furosemide 10 Mg/Ml 4 Ml Vial) 40 mg IV DAILY COUNT INCLUDES THE [facility] Guaifenesin (Guaifenesin Syrup 100mg/5ml 200 Mg/10 Ml Cup) 200 mg PO Q6HR PRN PRN Reason: Cough Last Admin: 05/13/22 18:30 Dose: 200 mg Heparin Sodium (Porcine) (Heparin Sodium,Porcine/Pf 5,000 Unit/0.5 Ml Syringe) 5,000 unit SQ Q8HR COUNT INCLUDES THE [facility] Last Admin: 05/16/22 23:54 Dose: 5,000 unit Hydroxyzine Pamoate (Hydroxyzine Pamoate 25 Mg Cap) 25 mg PO HS PRN PRN Reason: ANXIETY/SLEEP Last Admin: 05/16/22 23:54 Dose: 25 mg Insulin Aspart (Insulin Aspart (Novolog) 100 Unit/Ml Vial) 0 unit SQ ACHS COUNT INCLUDES THE [facility]; Protocol Last Admin: 05/16/22 21:19 Dose: 6 unit Insulin Aspart (Insulin Aspart (Novolog) 100 Unit/Ml Vial) 4 unit SQ AC-TID COUNT INCLUDES THE [facility] Last Admin: 05/16/22 17:10 Dose: 4 unit Insulin Detemir (Insulin Detemir (Levemir) 100 Unit/Ml Syr) 15 unit SQ HS COUNT INCLUDES THE [facility] Last Admin: 05/16/22 21:18 Dose: 15 unit Isosorbide Mononitrate (Isosorbide Mononitrate Er 30 Mg Tab.Er.24h) 30 mg PO DAILY COUNT INCLUDES THE [facility] Last Admin: 05/16/22 08:57 Dose: 30 mg Lisinopril (Lisinopril 10 Mg Tab) 10 mg PO DAILY COUNT INCLUDES THE [facility] Last Admin: 05/16/22 08:57 Dose: 10 mg Lorazepam (Lorazepam 0.5 Mg Tab) 0.5 mg PO BID PRN PRN Reason: Agitation or Acute Anxiety Melatonin (Melatonin 3 Mg Tablet) 3 mg PO HS PRN PRN Reason: SLEEP Last Admin: 05/15/22 22:59 Dose: 3 mg Methylprednisolone Sodium Succinate (Methylprednisolone Sod Succi 125 Mg/2 Ml Vial) 60 mg IV Q6HR COUNT INCLUDES THE [facility] Last Admin: 05/16/22 23:54 Dose: 60 mg Metoprolol Tartrate (Metoprolol Tartrate 25 Mg Tab) 25 mg PO BID COUNT INCLUDES THE [facility] Last Admin: 05/16/22 21:18 Dose: 25 mg Mirtazapine (Mirtazapine 15 Mg Tab) 15 mg PO HS COUNT INCLUDES THE [facility] Last Admin: 05/16/22 21:18 Dose: 15 mg Pantoprazole Sodium (Pantoprazole 40 Mg/10 Ml Vial) 40 mg IV DAILY COUNT INCLUDES THE [facility] Last Admin: 05/16/22 08:56 Dose: 40 mg Potassium Chloride (Potassium Chloride Er 20 Meq Tab.Er) 20 meq PO DAILY COUNT INCLUDES THE [facility] Last Admin: 05/16/22 08:56 Dose: 20 meq Sertraline HCl (Sertraline 100 Mg Tab) 200 mg PO HS COUNT INCLUDES THE [facility] Last Admin: 05/16/22 21:18 Dose: 200 mg PHYSICAL EXAMINATION: GENERAL: The patient is alert and oriented x3, currently sitting up in the bed Well developed, well nourished. Maintained on 60/48 L Airvo HEENT: Pupils are round and equally reacting to light. EOMI. No scleral icterus. No conjunctival pallor. Normocephalic, atraumatic. No pharyngeal erythema. No thyromegaly. CARDIOVASCULAR: S1 and S2 muffled PULMONARY: Diminished breath sounds bilaterally with coarse scattered rhonchi noted ABDOMEN: Soft, nontender, nondistended, normoactive bowel sounds. No palpable organomegaly. MUSCULOSKELETAL: No joint swelling or deformity. EXTREMITIES: No cyanosis, clubbing, or pedal edema. NEUROLOGICAL: Gross neurological examination did not reveal any focal deficits. SKIN: No rashes. Assessment: Right lower lobe pneumonia with consolidative changes in the CT thorax. Likely community-acquired pneumonia. COVID-19 PCR not detected. Acute hypoxic respiratory failure multi-focal secondary to likely community acquired pneumonia along with acute heart failure exacerbation Acute COPD exacerbation Acute CHF with preserved ejection fraction. Mild to moderate MR. Elevated troponin level Likely demand mismatch. Diabetes Mellitus type 2 with hgb A1C 6.3. Coronary arteries with history of CABG, PCI history of CVA/TIA Prostate cancer status post surgery Hypertension Hyperlipidemia Former smoker DVT prophylaxis. No code Plan: Continue with IV lasix and being adjusted daily, DuoNeb treatments, along with IV steroids being closely monitored off antibiotics. Recommend to monitor Accu-Cheks before meals and at bedtime and continue current regimen Patient is continued on airvo and weaning as tolerated currently on 60/48 FiO2 Patient was seen by cardiology. Unlikely ACS. Cardiology has signed off at this time to follow up outpatient. Pulmonary following as well Patient being followed by PT/OT therapy this patient is weak and has had prolonged hospitalization, Recommend PT/OT daily Prognosis is guarded with multiple medical problems and comorbid conditions. The impression and plan of care has been dictated by Bernice Renteria, Nurse Practitioner as directed. Dr. Leandro MD I have performed a history and examination and MDM of this patient, discussed the same with the dictator, and agree with the dictator's assessment and plan as written ,documented as a scribe. Based on total visit time, I have performed more than 50% of the visit. Objective - Vital Signs Vital signs: Vital Signs Temp 97.4 F L 05/16/22 08:00 Pulse 89 05/16/22 11:29 Resp 18 05/16/22 08:00 BP 114/52 05/16/22 08:00 Pulse Ox 91 L 05/16/22 11:29 FiO2 48 05/16/22 10:53 Intake & Output 05/15/22 05/16/22 05/16/22 18:59 06:59 18:59 Intake Total 540 240 10 Output Total 1175 950 850 Balance -143 -350 -647 Weight 79.4 kg Intake: IV 10 Invasive Line 4 10 Oral 540 240 Output: Urine 1175 950 850 Other: Voiding Method Urinal Urinal - Labs CBC & Chem 7: 05/16/22 08:58 05/16/22 08:58 Labs: Abnormal Lab Results - Last 24 Hours (Table) 05/15/22 05/15/22 05/16/22 Range/Units 16:35 19:57 07:17 WBC (3.8-10.6) k/uL RBC (4.30-5.90) m/uL Hgb (13.0-17.5) gm/dL Hct (39.0-53.0) % Plt Count (150-450) k/uL Neutrophils # (1.3-7.7) k/uL Lymphocytes # (1.0-4.8) k/uL Sodium (137-145) mmol/L BUN (9-20) mg/dL Glucose (74-99) mg/dL POC Glucose (mg/dL) 217 H 194 H 133 H (70-110) mg/dL 05/16/22 05/16/22 05/16/22 Range/Units 08:58 08:58 11:50 WBC 13.5 H (3.8-10.6) k/uL RBC 4.27 L (4.30-5.90) m/uL Hgb 12.7 L (13.0-17.5) gm/dL Hct 38.7 L (39.0-53.0) % Plt Count 138 L (150-450) k/uL Neutrophils # 12.6 H (1.3-7.7) k/uL Lymphocytes # 0.3 L (1.0-4.8) k/uL Sodium 133 L (137-145) mmol/L BUN 44 H (9-20) mg/dL Glucose 302 H (74-99) mg/dL POC Glucose (mg/dL) 322 H (70-110) mg/dL
[2022-05-17] MEDS: methylPREDNISolone SOD SUCCI 125 MG/2 ML VIAL IV SCH ×3 (06:15→17:23)
--- NOTE | 2022-05-17 07:49 | CDI ---
Documentation Clarification Form Date: 05/09/2022 11:23:00 AM From: Michelle Dias CCS, CCDS Admit Date: 05/04/2022 7:00:00 PM Patient Name: Dominic Pacheco Visit Number: [id number] Discharge Date: ATTENTION: The Clinical Documentation Specialists (CDI) and [facility] Coding Staff appreciate your assistance in clarifying documentation. Please respond to the clarification below the line at the bottom and electronically sign. The CDI & [facility] Coding staff will review the response and follow-up if needed. Please note: Queries are made part of the Legal Health Record. If you have any questions, please contact the author of this message via ITS. Dr. Madison Finch: Acute Non-STEMI is documented in the 05/05 Pulmonary Consult and the 05/06 Cardiology Consult and also in subsequent Progress Notes. Per the 05/08 Cardiology Progress Note: [id number] myocardial infarction, probably with oxygen mismatch. Additional clarification regarding the type of MT is requested. Patient History/Risk Factors per the 05/05 H/P: CAD status post CABG and Heart Catheterization with Stent, TIA, Prostate Cancer status post Prostatectomy, Hypertension, Hyperlipidemia, Former smoker. Clinical Indicators: Presented to the ED on 05/04 with SOB via EMS from home. Admit with Sepsis, Pneumonia, COPD with exacerbation, Dehydration, Lactic Acid, Hypotensive episode. 05/04 VS: T 96.8, P 116, R 28, BP 84/63, PO 100 3Lnc 05/04 LAB: D dimer 2.23; CO2 14, Glucose 165, Lactic Acid 8.9, Magnesium 2.4, AST 91, ALT 58, Troponin 0.033, 0.597. 05/04 RAD: CXR: Interval development of acute cardiopulmonary disease partially consolidative infiltrate in the right lower lobe suspicious for pneumonia. CT Chest: Diffuse groundglass densities within the lung consistent with acute inflammatory process possibly COVID pneumonia. 05/04 EKG: R 119 Atrial flutter/Tachycardia w/RVR, Intraventricular conduction delay, Left ventricular hypertrophy & ST-T change, Inferior MT of indeterminate age, Abnormal ECG. Treatment 05/04: Blood cultures, O2 3Lnc, IVF 1,000 mls @ 999 mls/hr q1H x2, IV Rocephin 2,000 mg x1, IV Azithromycin 250 mls @ 250 mls/hr x1, INH Duoneb 3 ml q2H/prn, - QID; IV zosyn 100 mls @ 25 mls/hr q8H, IV Vancomycin 500 mls @ 157 mls/hr x1. Please clarify the Type of MT if known: [ ] Type 2 MT, please specify cause if known: [ ] NSTEMI [ ] Unable to determine [ ] Other, please specify: (Template Last Revised: July 2020) Type 2 MT, please specify cause if known: MTDD
[2022-05-17] MEDS: BUDESONIDE 1 MG/2 ML NEBU INHALATION SCH ×2 (08:05→20:11)
[2022-05-17] MEDS: FORMOTEROL FUMARATE 20 MCG/2 ML NEBU INHALATION SCH ×2 (08:05→20:11)
[2022-05-17] MEDS: IPRATROPIUM-ALBUTEROL 3 ML NEB INHALATION SCH ×4 (08:06→20:11)
[2022-05-17] MEDS: INSULIN ASPART (NovoLOG) 100 UNIT/ML VIAL SQ SCH ×7 (08:55→21:08)
[2022-05-17] MEDS: HEPARIN SODIUM,PORCINE/PF 5,000 UNIT/0.5 ML SYRINGE SQ SCH ×2 (09:09→17:23)
[2022-05-17] MEDS: lisinopriL 10 MG TAB PO SCH (09:10)
[2022-05-17] MEDS: PANTOPRAZOLE 40 MG/10 ML VIAL IV SCH (09:10)
[2022-05-17] MEDS: METOPROLOL TARTRATE 25 MG TAB PO SCH ×2 (09:10→21:08)
[2022-05-17] MEDS: FUROSEMIDE 10 MG/ML 4 ML VIAL IV SCH (09:10)
[2022-05-17] MEDS: ISOSORBIDE MONONITRATE ER 30 MG TAB.ER.24H PO SCH (09:10)
[2022-05-17] MEDS: ASPIRIN 81 MG PO SCH (09:10)
[2022-05-17] MEDS: POTASSIUM CHLORIDE ER 20 MEQ TAB.ER PO SCH (09:10)
--- NOTE | 2022-05-17 10:22 | P.PN ---
Subjective Progress Note Date: 05/17/22 this is a 71-year-old white male with history of COPD, previous history of RI, previous history of stroke without any residual deficits, patient was out in the cold yesterday for about one hour, and he developed shortness of breath cough and wheezing. EMS was called, patient was given albuterol and Atrovent treatment with minimal improvement, patient was brought into the ER, he had no fever, no chills, he had no chest pain, apparently when EMS arrived to pick him up, the patient was clammy and flushed upon his initial evaluation, his respiratory rate was in the 40s, patient was evaluated in the ER, chest x-ray and CT of the chest showed bilateral infiltrates, right more so than left, although the patient denies any history of aspiration, and no history of passing out episodes except he had 1 previous syncopal episode over [address] angiogram ruled out pulmonary embolism although he had a slightly elevated d- dimer of 2.23, and I reviewed the CT angiogram myself, definitely no evidence of pulmonary embolism. His WBC count is 6.4 hemoglobin is 17.7.lactic acid on it is initial evaluation was 8.9, went down to 1.6.his serology came back negative for carbon 19, influenza A, influenza B, and RSV.troponin was noted to be a bit high on presentation 0.033, follow-up troponin was 0.597, and BNP was normal. In spite of significant air space disease noted in both lungs especially in the right lung, patient maintained his O2 saturation, he was on room air with O2 sat showed 94%patient was placed on antibiotics in the form of Rocephin and Zithromax,initially, and he is now on Zosyn and vancomycin. he was also placed on bronchodilators and on steroids/methylprednisolone,considering his elevated troponin, patient was alsoplaced on heparin, full cardiac consultation is pending. Reevaluated today on 05/06/22, patient is doing better today, breathing easier, less cough and less wheezing less shortness of breath, remains on room air, does not seem to be in any distress, he does have intermittent cough, his cough is nonproductive. No fever no chills no hemoptysis no chest pain. CBC is relatively normal electrolytes are normal renal profile is normal, COVID-19 screening RSV screening were negative. Pro-calcitonin level was elevated at 0.35. The patient is seen today 05/07/2022 in follow-up on the selective care unit. He is currently resting comfortably in bed. Awake and alert in no acute distress. He is maintaining O2 saturations in the 90s on room air. He is still short of breath with minimal exertion. He continues with crackles in the right lung. He remains on Zosyn. He is on a heparin drip per cardiology. Non-ST segment elevation myocardial infarction. Echocardiogram revealed preserved left ventricular systolic function. Today's chest x-ray does reveal improved aeration of the lungs with persistent multifocal airspace opacities. Blood cultures reveal no growth. White count 8.2. Hemoglobin 11.7. Platelets 128. Glucose 142. He remains on antibiotics in the form of vancomycin and Zosyn. Continued on bronchodilators, IV Solu-Medrol. Patient is seen today 05/08/2022 in follow-up on the selective care unit. He is currently sitting up in a chair at the bedside. Awake and alert in no acute distress. His O2 saturations drop in the mid 80s while on room air and up and walking. Recovers into the 90s on 2 L/m per nasal cannula. Blood cultures revealed no growth. We count 15.9. Hemoglobin 14.5. Sodium 141. Potassium 4.3. BUN 20. Creatinine 1.07. Glucose 118. He remains on Symbicort, DuoNeb inhalations, IV Solu-Medrol. Antibiotics in the form of Zosyn. Vancomycin discontinued. The patient is seen today 05/09/2022 in follow-up on the selective care unit. He is currently resting comfortably in bed. Awake and alert in no acute distress. He is doing better today compared to yesterday. Not quite back to his baseline. Still congested. Still is some spasm and wheezing. He is maintaining O2 saturations in the 90s on 4 L/m per nasal cannula. Follow-up chest x-ray reveals worsening airspace opacities. No evidence of pleural effusion. No focal consolidation. No pneumothorax. Blood cultures revealed no growth. Sputum cultures pending. Sodium 138. Potassium 3.7. BUN 24. Creatinine 1.05. Glucose 262. He is continued on DuoNeb inhalations, Symbicort, IV Solu-Medrol. Antibiotics in the form of Zosyn. The patient is seen today 05/10/2022 in follow-up on the selective care unit. He did have an episode of worsening shortness of breath and oxygen desaturations last evening. He required BiPAP support which is currently on at 16/8 and 60% FiO2. Sputum culture revealed no growth. Blood cultures revealed no growth. White count 9.9. Hemoglobin 11.8. Platelets 121. Sodium 138. Potassium 3.8. BUN 25. Creatinine 1.0. Glucose 164. ProBNP 7690. ProCalcitonin 0.56. Brooks virus by PCR not detected. He remains on Zosyn, IV Solu-Medrol, Symbicort and DuoNeb inhalations. Heparin for DVT prophylaxis. Continued on IV diuretics. No accurate I&O recorded. Patient is seen today 05/11/2022 in follow-up on the selective care unit. He is currently resting fairly comfortably in bed. Awake and alert in no acute distress. He remains on BiPAP 16/80 and 60% FiO2. He was attempted on high flow nasal cannula with oxygen desaturations down into the 70s. He'll be given a trial of AirVo high flow oxygen at 60 L and 85% FiO2 for meals. Chest x-ray revealed diffuse bilateral airspace opacities. No significant change compared to previous. He is continued on bronchodilators, IV Solu-Medrol, antibiotics in the form of Zosyn. Remains on IV diuretics. Currently in a -2.6 L balance. Blood cultures revealed no growth. Sputum culture revealed no growth. White count 10.1. Hemoglobin 13.3. Sodium 141 potassium 3.3. Bicarb 32. BUN 31. Creatinine 1.07. Glucose 164. The patient is seen today 05/12/2022 in follow-up on the selective care unit. He is sitting up in bed. Awake and alert in no acute distress. Remains on AirVo high flow oxygen currently at 60 L and 75% FiO2. BiPAP has been discontinued. He remains on DuoNeb inhalations, Pulmicort and Perforomist inhalations, IV Solu-Medrol. Heparin for DVT prophylaxis. Remains on IV diuretics. Currently in a -1.6 L balance. Pleaded his course of Zosyn. White count 13.3. Hemoglobin 12.7. Platelets 147. Sodium 142. Potassium 3.5. BUN 44. Creatinine 1.08. Follow-up proBNP 7370. Follow-up pro-calcitonin pending. COVID-19 screen negative. The patient is seen today 05/13/2022 in follow-up on the selective care unit. He is currently sitting up in a chair at the bedside. Continues to require AirVo high flow oxygen currently at 60 L and 75% FiO2. He is feeling slightly better today. Still not near his baseline. White count 10.2. Hemoglobin 11.7. Sodium 136. Potassium 3.6. BUN 48. Creatinine 0.96. Follow-up pro- calcitonin still 0.64. Blood and sputum cultures revealed no growth. White count 10.2. Hemoglobin 11.7. Platelet count 130. Sodium 136. Potassium 3.6. Bicarb 29. BUN 48. Creatinine 0.96. Glucose 213. He is continued on DuoNeb inhalations, Pulmicort and Perforomist inhalations, IV Solu-Medrol. Remains on IV diuretics. Currently in a -1.3 L balance. The patient is seen today 05/14/2022 in follow-up on the selective care unit. He is awake and alert in no acute distress. Sitting up in a chair at the bedside. Continues on oxygen 60% FiO2. He states he is feeling better each day. Breathing easier. Blood cultures revealed no growth. Sputum culture revealed no growth. Sodium 137. Potassium 3.8. Bicarb 34. BUN 46. Creatinine 0.99. Glucose 139. He is continued on DuoNeb inhalations, Pulmicort and Perforomist inhalations, IV Solu-Medrol. Remains on IV diuretics. Currently in a negative 960 ML balance. The patient is seen today 05/15/2022 in follow-up on the selective care unit. Currently sitting up in a chair at the bedside. Awake and alert in no acute distress. Denies any worsening shortness of breath, cough or congestion. He states he continues to feel stronger each day. He is currently on AirVo at 60 L and 55% FiO2. Chest x-ray continues to show similar multifocal airspace opacities. Sputum cultures revealed no growth. Blood cultures revealed no growth. Blood sugar 159. He is continued on DuoNeb inhalations, Pulmicort and Perforomist inhalations, IV Solu-Medrol. Remains on IV diuretics. Currently in a negative 1.2 L balance. On today's evaluation of 05/16/2022, the patient remains on high flow oxygen and is currently on 40 L with an FiO2 of 50%. His current pulse ox is in order of 90%. He is ambulating. Noted the patient did not tests positive for any of the viruses including Covid 19. His chest x-ray showing diffuse bilateral pulmonary infiltrates. His most recent chest x-ray from 05/15/2022 is still showing diffuse reticular another bilateral pulmonary infiltrates essentially unchanged compared to the chest x-ray from 05/11/2022. There is also a CAT scan of the chest that was done at the time of admission on 05/04/2022 that showed no evidence of any pulmonary embolism. There was diffuse groundglass bilateral pulmonary infiltrates which obviously raises concern for Covid 19 infection. Noted the patient was in till on antibiotics and he has currently completed his course of antibiotics and the patient was covered with a combination of Zosyn and vancomycin. His pro calcitonin level that was done at the time of admission was 0.35 and the level remains low without any significant elevation. His white cell count at 13.5 with a hemoglobin of 12.7 and a platelet count of 138. Rest of the electrolytes are normal. Creatinine is also normal. In terms of treatment, the patient is on DuoNeb nebulized treatments [id number], the patient is also on Lasix 40 mg IV every 12 hours and IV Solu-Medrol 60 mg every 6 hours. His echocardiogram that was done on 05/05/2022 showed a preserved LV function with an EF of around 50-55%, [id number] aortic stenosis and mild to moderate mitral regurgitation. On 05/17/2022, the patient is being seen for a follow-up. He remains on high flow oxygen with 50 L with an FiO2 of 50%. Current pulse ox is above 90%. On today's evaluation, the patient is clinically the same. He stated that he was feeling better yesterday and he feels that is progressively improving. Nevertheless, his oxygenation is still impaired. No new labs from today. Influenza screen was done yesterday and influenza A and influenza B came back negative. Remains on DuoNeb about treatments [id number]. Remains on Pulmicort Respules. Remains on IV Solu-Medrol 60 mg every 6 hours. Remains on IV Lasix 40 mg every any 4 hours and he is achieved and negative fluid balance. Objective - Vital Signs Vital signs: Vital Signs Temp 97.9 F 05/17/22 04:00 Pulse 85 05/17/22 08:31 Resp 18 05/17/22 04:00 BP 124/62 05/17/22 04:00 Pulse Ox 90 L 05/17/22 08:07 FiO2 50 05/17/22 08:07 Intake & Output 05/16/22 05/17/22 05/17/22 18:59 06:59 18:59 Intake Total 970 10 240 Output Total 850 600 Balance 120 -590 240 Intake: IV 10 10 Invasive Line 4 10 10 Oral 960 240 Output: Urine 850 600 Other: Voiding Method Urinal # Voids 1 - Exam GENERAL EXAM: Alert, pleasant 71-year-old male, up in a chair, on AirVo high flow oxygen and 50 L and 50% FiO2, comfortable in no apparent distress. HEAD: Normocephalic. EYES: Normal reaction of pupils, equal size. NOSE: Clear with pink turbinates. THROAT: No erythema or exudates. NECK: No masses, no JVD. CHEST: No chest wall deformity. LUNGS: Equal air entry with bilateral scattered rhonchi more so on the right lung. CVS: S1 and S2 normal with no audible murmur, regular rhythm. ABDOMEN: No hepatosplenomegaly, normal bowel sounds, no guarding or rigidity. SPINE: No scoliosis or deformity SKIN: No rashes CENTRAL NERVOUS SYSTEM: No focal deficits, tone is normal in all 4 extremities. EXTREMITIES: There is no peripheral edema. No clubbing, no cyanosis. Peripheral pulses are intact. - Labs CBC & Chem 7: 05/16/22 08:58 05/16/22 08:58 Labs: Abnormal Lab Results - Last 24 Hours (Table) 05/16/22 05/16/22 05/16/22 Range/Units 11:50 16:25 21:09 POC Glucose (mg/dL) 322 H 153 H 272 H (70-110) mg/dL Assessment and Plan Plan: Acute hypoxic respiratory failure requiring BiPAP support secondary to an acute bilateral pneumonia, community-acquired, doubt aspiration pneumonia, doubt COVID-19 pneumonia considering the patient had negative screening for COVID-19 infection, negative screening for influenza A, influenza B, and RSV. The patient developed worsening shortness of breath and hypoxemia on 05/09/2022 requiring BiPAP support. Today 05/15/2022 the patient remains on AirVo high flow oxygen at 50 L and 50% FiO2 and completed a course of Zosyn Acute non-ST elevation myocardial infarction Acute exacerbation of suspected diastolic congestive heart failure Acute exacerbation of COPD History of coronary artery disease and previous CABG History of previous CVA/TIA Benign essential hypertension Dyslipidemia History of prostate cancer Plan: Unchanged since yesterday Exact cause for this acute decompensation in the bilateral pulmonary infiltrates is not known. Strongly suspect viral infection. The patient has already received original series of Covid 19 vaccination. He had a negative Covid 19 screen, and Influenza came back negative. Continue high flow oxygen and the patient is on a 50 L an FiO2 of 50% Continue steroids change IV Lasix to 40 mg every 24 hours Increase mobility and will continue to follow.
[2022-05-17 11:57] LABS: Glucose,Whole Blood 224 mg/dL (70-110)
[2022-05-17 17:08] LABS: Glucose,Whole Blood 173 mg/dL (70-110)
--- NOTE | 2022-05-17 19:03 | P.PN ---
Subjective Progress Note Date: 05/17/22 Patient is a 71-year-old male with a known history of coronary disease status post CABG, history of stent placement, hypertension, hyperlipidemia, history of OR, prostate cancer status postsurgery, COPD and prior history of smoking presents to ER with complaints of shortness of breath. Patient states that he went out in the cold to feed cats and felt very short of breath with cough and wheezing. Patient was able to come back inside the home and EMS was called. Patient was given albuterol Atrovent treatments with minimal improvement and was brought to ER. Patient was tachycardic, tachypneic on admission with blood pressure 84/63. Denies any complaints of fever or chills. Patient states that he has been having sinus infection and cough with yellow sputum production recently. Chest x-ray showed interval development of acute cardiopulmonary disease with large partially consolidated infiltrate in the right lower lobe suspicious for pneumonia. Clinical correlation and short-term follow-up to resolution is recommended. CTA chest showed no evidence of PE. Diffuse groundglass densities within the lung consistent with acute inflammatory process possibly COVID-pneumonia and clinical correlation is recommended. EKG showed atrial flutter/tachycardia with heart rate 119 Laboratory data WBC 6.4 hemoglobin 17.7 and platelets 140 D-dimer is 2.23 Sodium 138 potassium 3.9 chloride 102 bicarb is 40 BUN 12 and creatinine 1.23 and lactic acid 8.9 and magnesium 2.4, AST 91 ALT 58 and alk phos 103 Troponin 0.033 and 0.597 and proBNP 672 RSV, influenza A and B and coronavirus PCR not detected. 05/06/2022 Patient is currently sitting in the bed. Awake alert and oriented x3. Currently requiring oxygen and is being titrated down to room air. Saturating at 94%. Patient does have cough without any sputum production. No fever no chills. Is better. Procalcitonin level is elevated 0.35. Patient is being arranged antibiotics in the form of Zosyn. Pulmonary is on board. 05/07/2022 Patient is currently resting in bed. Awake alert and oriented. Saturating at 90% on room air. Still having shortness of breath with minimal exertion. Patient is being continued antibiotics in the form of Zosyn. Chest x-ray showed improved aeration of the lungs with persistent multifocal airspace opacities. Cultures have been negative. Blood cultures negative. Laboratory data showed WBC 8.2 hemoglobin 11.7 and platelets 128 Sodium 137 potassium 4.3 chloride 109 bicarb is 20 BUN 23 and creatinine 1.0 and blood sugar is 168. Cardiology is on board. Heparin is being continued. 2D echocardiogram was done. Showed normal LV systolic function. Moderate MR. Aortic sclerosis without significant stenosis.. 05/08/2022 Patient is sitting in the bed. Awake alert and oriented x3. Patient is requiri ng oxygen today at 2 L via nasal cannula. No complaints of chest pain. Still having exertional dyspnea. No nausea vomiting abdominal pain or diarrhea. Patient is being current on antibiotics in form of Zosyn. Laboratory data showed WBC 15.9 hemoglobin 14.4 and platelets 167 Sodium 141 potassium 4.3 chloride 110 bicarb is 21 BUN 20 and creatinine 1.07 calcium 8.5. Pulmonary and cardiology is on board. Patient is also being continued on IV Solu-Medrol and duo nebs. 05/09/2022 Patient is able to walk to the bathroom. Breathing status is about the same. Today patient is requiring oxygen at 4 L via nasal cannula. No complaints of chest pain. No nausea vomiting abdominal pain or diarrhea. Chest x-ray showed worsening scattered airspace opacities correlate for pneumonia. Correlate with serum BNP to rule out superimposed underlying congestive heart failure. Patient remains on antibiotics Zosyn and also IV steroids. Patient was given a dose of IV Lasix yesterday. 05/10/2022 Patient is in the telemetry unit. Currently on BiPAP. Patient seems to be drowsy and lethargic. Able to open his eyes with verbal stimuli. No complaints of chest pain. Patient has been afebrile. Cultures have been negative. Patient is being continued on IV Solu-Medrol and also IV diuretics and duo nebs. proBNP increased to 70 690. Other laboratory test showed WBC 9.9 hemoglobin 11.8 and platelets 121 sodium 138 potassium 3.8 chloride 109 bicarb is 26 BUN 25 and creatinine 1.1 and calcium 8.0 and procalcitonin level is 0.56. Patient remains on antibiotics in the form of Zosyn. 05/11/2022 Patient is in the psych care unit. Patient is more awake and oriented today. Tolerating BiPAP. Plan is To transition to high flow oxygen. Pulmonary is on board. Continued on IV Lasix with negative balance of 2.6 L. Patient is also on antibiotics and IV steroids. Chest x-ray today showed diffuse bilateral airspace opacities not significantly changed. Laboratory test showed WBC 10.1 hemoglobin 12.3 and platelets 141 sodium 141 potassium 3.3 which is being replaced Chloride 104 bicarb is 32 BUN 31 and creatinine 1.07 and blood sugar is 162 and calcium 8.0. Pulmonary is on board. 05/12/2022 Patient continues to be monitored on stepdown unit. Has been transitioned to Airvo with 75%/60 L FiO2, he reports breathing better. Continues with cough, however is improving. maintained on IV zosyn, IV lasix and IV solumedrol. Tolerating oral intake in small amounts. White count today 13.3, hgb 12.7. BUN 44, creatinine 1.08. Glucose in the mid 200s. proBNP elevated today at 7370. Negative 2.4 L off in the last 24 hours. Heart rate in the 110s today, blood pressure in the high 90s systolic. Serologies, Sputum and blood culture all negative. 05/13/2022 Patient is monitored on stepdown unit. Continues on Airvo 75/60. Continues with cough. He has completed a course of IV zosyn therapy and is being monitored off antibiotics at this time. Repeat procalcitonin level 0.64. ProBNP remains elevated at 7370 and continues on IV lasix Q12 with negative 1.8 L fluid balance. A1C 6.3 consistent with diabetes mellitus. Continue on insulin while inpatient, continues to receive IV solumedrol 60 mg every 6 hours. Sodium 136 today, potassium 3.6, BUN 48, creatinine 0.96. Glucose in the 200s. White count 10.2, hemoglobin 11.7. 05/14/2022 Patient is seen and evaluated in follow-up today continues on airvo 60/60 currently sitting up in the chair. Pulmonary is following and patient is maintained on IV Lasix along with IV steroids. Patient reports he continues to be extremely dyspneic and short of breath although feels somewhat better. Blood sugars being monitored with Accu-Cheks before meals and at bedtime and recommend continue with current regimen. Will encourage increased activity as tolerated once respiratory status is more stable. Patient is maintained on DuoNeb treatments along with Pulmicort and Perforomist and will continue. Will follow- up with chest x-ray in the a.m. Patient is currently afebrile denies chest pain or palpitations. Patient reports to tolerating diet with no reports of nausea or vomiting noted. 05/15/2022 Patient is seen in follow-up this morning continues to be on high flow airvo And weaning as tolerated. Current settings are 60/55 and patient denies any worsening. Patient is maintained on IV Lasix along with IV steroids with pulmonary following. Patient continues with some weakness and continued dyspnea with minimal exertion and is being followed by physical therapy. Patient is tolerating diet with no reports of nausea or vomiting noted. Encouraged patient to increase activity as tolerated along with encouraging oral intake. Will recommend to continue monitoring Accu-Cheks before meals and at bedtime as patient is maintained on IV steroids. 05/16/2022 Patient is seen and evaluated this morning maintained on high flow oxygen airvo 60/48 And continuing to wean as tolerated. Patient has been up working with physical therapy and recommend continue to encourage increased activity as tolerated. Patient reports he is feeling improved slightly each day. Patient is continued on IV Lasix along with IV steroids and pulmonary is following. Patient has completed antibiotics and Lasix being adjusted to daily and will follow-up with labs. Patient denies chest pain or palpitations. Patient is afebrile. No reported nausea or vomiting noted. 05/17/2022 Patient seen in follow-up today currently sitting up continued on high flow 5050 FiO2 with pulmonary following. Patient is weaning as tolerated and reports to continuing to feel improved each day also extremely dyspneic without the oxygen. Patient is tolerating diet and recommend continue monitoring blood sugars closely as patient is maintained on steroids and blood sugars have been mildly elevated. Will continue current regimen and also continue with consistent carb diet. Patient has been on IV Lasix push 40 mg and has decreased to daily and labs reviewed and within normal limits recommend continue for now. Encouraged continued activity as tolerated and also continued to encourage incentive spirometer use at least 10 times every hour while awake. Patient is currently afebrile and denies chest pain or palpitations. No reports of nausea or vomiting noted and patient is tolerating diet. Review of Systems Constitutional: Denied any fatigue denied any fever. Cardio vascular: denied any chest pain, palpitations Gastrointestinal: denied any nausea, vomiting, diarrhea Pulmonary: Reports shortness of breath and feels is somewhat improved Neurologic denied any new focal deficits PHYSICAL EXAMINATION: GENERAL: The patient is alert and oriented x3, currently sitting up in the bed Well developed, well nourished. Maintained on 5050 L Airvo HEENT: Pupils are round and equally reacting to light. EOMI. No scleral icterus. No conjunctival pallor. Normocephalic, atraumatic. No pharyngeal erythema. No thyromegaly. CARDIOVASCULAR: S1 and S2 muffled PULMONARY: Diminished breath sounds bilaterally with coarse scattered rhonchi noted ABDOMEN: Soft, nontender, nondistended, normoactive bowel sounds. No palpable organomegaly. MUSCULOSKELETAL: No joint swelling or deformity. EXTREMITIES: No cyanosis, clubbing, or pedal edema. NEUROLOGICAL: Gross neurological examination did not reveal any focal deficits. SKIN: No rashes. Assessment: Right lower lobe pneumonia with consolidative changes in the CT thorax. Likely community-acquired pneumonia. COVID-19 PCR not detected. Acute hypoxic respiratory failure multi-focal secondary to likely community acquired pneumonia along with acute heart failure exacerbation Acute COPD exacerbation Acute CHF with preserved ejection fraction. Mild to moderate MR. Elevated troponin level Likely demand mismatch. Diabetes Mellitus type 2 with hgb A1C 6.3. Coronary arteries with history of CABG, PCI history of CVA/TIA Prostate cancer status post surgery Hypertension Hyperlipidemia Former smoker DVT prophylaxis. No code Plan: Continue with IV lasix and daily, DuoNeb treatments, along with IV steroids being closely monitored off antibiotics. Recommend to monitor Accu-Cheks before meals and at bedtime and continue current regimen Patient is continued on airvo and weaning as tolerated currently on 50/50 FiO2 Patient was seen by cardiology. Unlikely ACS. Cardiology has signed off at this time to follow up outpatient. Pulmonary following as well Patient being followed by PT/OT therapy this patient is weak and has had prolonged hospitalization, Recommend PT/OT daily Prognosis is guarded with multiple medical problems and comorbid conditions. The impression and plan of care has been dictated by Bernice Renteria, Nurse Practitioner as directed. Dr. Leandro MD I have performed a history and examination and MDM of this patient, discussed the same with the dictator, and agree with the dictator's assessment and plan as written ,documented as a scribe. Based on total visit time, I have performed more than 50% of the visit. Objective - Vital Signs Vital signs: Vital Signs Temp 98 F 05/17/22 16:42 Pulse 84 05/17/22 16:42 Resp 24 05/17/22 16:42 BP 103/62 05/17/22 16:42 Pulse Ox 88 L 05/17/22 16:42 FiO2 50 05/17/22 16:42 Intake & Output 05/16/22 05/17/22 05/17/22 18:59 06:59 18:59 Intake Total 970 10 480 Output Total 850 600 350 Balance 120 -590 130 Intake: IV 10 10 Invasive Line 4 10 10 Oral 960 480 Output: Urine 850 600 350 Other: Voiding Method Urinal # Voids 1 - Labs CBC & Chem 7: 05/16/22 08:58 05/16/22 08:58 Labs: Abnormal Lab Results - Last 24 Hours (Table) 05/16/22 05/17/22 05/17/22 Range/Units 21:09 11:42 17:03 POC Glucose (mg/dL) 272 H 224 H 173 H (70-110) mg/dL
[2022-05-17 20:04] LABS: Glucose,Whole Blood 276 mg/dL (70-110)
[2022-05-17] MEDS: INSULIN DETEMIR (LEVEMIR) 100 UNIT/ML SYR SQ SCH (21:08)
[2022-05-17] MEDS: MIRTAZAPINE 15 MG TAB PO SCH (21:08)
[2022-05-17] MEDS: ATORVASTATIN 80 MG TAB PO SCH (21:08)
[2022-05-17] MEDS: SERTRALINE 100 MG TAB PO SCH (21:08)
[2022-05-17] MEDS: MELATONIN 3 MG TABLET PO PRN (21:13)
[2022-05-17] MEDS: hydrOXYzine pamoate 25 MG CAP PO PRN (21:13)
[2022-05-18] MEDS: methylPREDNISolone SOD SUCCI 125 MG/2 ML VIAL IV SCH ×2 (00:58→06:43)
[2022-05-18] MEDS: HEPARIN SODIUM,PORCINE/PF 5,000 UNIT/0.5 ML SYRINGE SQ SCH ×4 (00:58→23:27)
[2022-05-18 06:07] LABS: Glucose,Whole Blood 159 mg/dL (70-110)
[2022-05-18] MEDS: INSULIN ASPART (NovoLOG) 100 UNIT/ML VIAL SQ SCH ×7 (08:27→21:36)
[2022-05-18] MEDS: diphenhydrAMINE 25 MG CAP PO PRN ×2 (08:35→17:19)
[2022-05-18] MEDS: ISOSORBIDE MONONITRATE ER 30 MG TAB.ER.24H PO SCH (08:35)
[2022-05-18] MEDS: PANTOPRAZOLE 40 MG/10 ML VIAL IV SCH (08:35)
[2022-05-18] MEDS: FUROSEMIDE 10 MG/ML 4 ML VIAL IV SCH (08:35)
[2022-05-18] MEDS: ACETAMINOPHEN TAB 325 MG TAB PO PRN ×2 (08:35→23:27)
[2022-05-18] MEDS: ASPIRIN 81 MG PO SCH (08:36)
[2022-05-18] MEDS: lisinopriL 10 MG TAB PO SCH (08:36)
[2022-05-18] MEDS: METOPROLOL TARTRATE 25 MG TAB PO SCH ×2 (08:36→21:35)
[2022-05-18] MEDS: POTASSIUM CHLORIDE ER 20 MEQ TAB.ER PO SCH (08:36)
[2022-05-18] MEDS: IPRATROPIUM-ALBUTEROL 3 ML NEB INHALATION SCH ×4 (08:46→19:50)
[2022-05-18] MEDS: BUDESONIDE 1 MG/2 ML NEBU INHALATION SCH ×2 (08:46→19:54)
[2022-05-18] MEDS: FORMOTEROL FUMARATE 20 MCG/2 ML NEBU INHALATION SCH ×2 (08:46→20:02)
[2022-05-18 08:53] LABS: Calcium 8.7 mg/dL (8.4-10.2); Potassium 4.8 mmol/L (3.5-5.1)
--- NOTE | 2022-05-18 09:05 | XR ---
EXAMINATION TYPE: XR chest 1V portable DATE OF EXAM: 05/18/2022 COMPARISON: 05/15/2022 INDICATION: Short of breath TECHNIQUE: Single frontal view of the chest is obtained. FINDINGS: The heart size is mildly prominent. The pulmonary vasculature is normal. Diffuse increased lung opacity is present, stable from comparison. Note is made of bilateral chronic rotator cuff tears IMPRESSION: 1. Stable diffuse increased lung markings. Continued follow-up is recommended.
--- NOTE | 2022-05-18 10:40 | P.PN ---
Subjective Progress Note Date: 05/18/22 this is a 71-year-old white male with history of COPD, previous history of NV, previous history of stroke without any residual deficits, patient was out in the cold yesterday for about one hour, and he developed shortness of breath cough and wheezing. EMS was called, patient was given albuterol and Atrovent treatment with minimal improvement, patient was brought into the ER, he had no fever, no chills, he had no chest pain, apparently when EMS arrived to pick him up, the patient was clammy and flushed upon his initial evaluation, his respiratory rate was in the 40s, patient was evaluated in the ER, chest x-ray and CT of the chest showed bilateral infiltrates, right more so than left, although the patient denies any history of aspiration, and no history of passing out episodes except he had 1 previous syncopal episode over [address] angiogram ruled out pulmonary embolism although he had a slightly elevated d- dimer of 2.23, and I reviewed the CT angiogram myself, definitely no evidence of pulmonary embolism. His WBC count is 6.4 hemoglobin is 17.7.lactic acid on it is initial evaluation was 8.9, went down to 1.6.his serology came back negative for carbon 19, influenza A, influenza B, and RSV.troponin was noted to be a bit high on presentation 0.033, follow-up troponin was 0.597, and BNP was normal. In spite of significant air space disease noted in both lungs especially in the right lung, patient maintained his O2 saturation, he was on room air with O2 sat showed 94%patient was placed on antibiotics in the form of Rocephin and Zithromax,initially, and he is now on Zosyn and vancomycin. he was also placed on bronchodilators and on steroids/methylprednisolone,considering his elevated troponin, patient was alsoplaced on heparin, full cardiac consultation is pending. Reevaluated today on 05/06/22, patient is doing better today, breathing easier, less cough and less wheezing less shortness of breath, remains on room air, does not seem to be in any distress, he does have intermittent cough, his cough is nonproductive. No fever no chills no hemoptysis no chest pain. CBC is relatively normal electrolytes are normal renal profile is normal, COVID-19 screening RSV screening were negative. Pro-calcitonin level was elevated at 0.35. The patient is seen today 05/07/2022 in follow-up on the selective care unit. He is currently resting comfortably in bed. Awake and alert in no acute distress. He is maintaining O2 saturations in the 90s on room air. He is still short of breath with minimal exertion. He continues with crackles in the right lung. He remains on Zosyn. He is on a heparin drip per cardiology. Non-ST segment elevation myocardial infarction. Echocardiogram revealed preserved left ventricular systolic function. Today's chest x-ray does reveal improved aeration of the lungs with persistent multifocal airspace opacities. Blood cultures reveal no growth. White count 8.2. Hemoglobin 11.7. Platelets 128. Glucose 142. He remains on antibiotics in the form of vancomycin and Zosyn. Continued on bronchodilators, IV Solu-Medrol. Patient is seen today 05/08/2022 in follow-up on the selective care unit. He is currently sitting up in a chair at the bedside. Awake and alert in no acute distress. His O2 saturations drop in the mid 80s while on room air and up and walking. Recovers into the 90s on 2 L/m per nasal cannula. Blood cultures revealed no growth. We count 15.9. Hemoglobin 14.5. Sodium 141. Potassium 4.3. BUN 20. Creatinine 1.07. Glucose 118. He remains on Symbicort, DuoNeb inhalations, IV Solu-Medrol. Antibiotics in the form of Zosyn. Vancomycin discontinued. The patient is seen today 05/09/2022 in follow-up on the selective care unit. He is currently resting comfortably in bed. Awake and alert in no acute distress. He is doing better today compared to yesterday. Not quite back to his baseline. Still congested. Still is some spasm and wheezing. He is maintaining O2 saturations in the 90s on 4 L/m per nasal cannula. Follow-up chest x-ray reveals worsening airspace opacities. No evidence of pleural effusion. No focal consolidation. No pneumothorax. Blood cultures revealed no growth. Sputum cultures pending. Sodium 138. Potassium 3.7. BUN 24. Creatinine 1.05. Glucose 262. He is continued on DuoNeb inhalations, Symbicort, IV Solu-Medrol. Antibiotics in the form of Zosyn. The patient is seen today 05/10/2022 in follow-up on the selective care unit. He did have an episode of worsening shortness of breath and oxygen desaturations last evening. He required BiPAP support which is currently on at 16/8 and 60% FiO2. Sputum culture revealed no growth. Blood cultures revealed no growth. White count 9.9. Hemoglobin 11.8. Platelets 121. Sodium 138. Potassium 3.8. BUN 25. Creatinine 1.0. Glucose 164. ProBNP 7690. ProCalcitonin 0.56. Brooks virus by PCR not detected. He remains on Zosyn, IV Solu-Medrol, Symbicort and DuoNeb inhalations. Heparin for DVT prophylaxis. Continued on IV diuretics. No accurate I&O recorded. Patient is seen today 05/11/2022 in follow-up on the selective care unit. He is currently resting fairly comfortably in bed. Awake and alert in no acute distress. He remains on BiPAP 16/80 and 60% FiO2. He was attempted on high flow nasal cannula with oxygen desaturations down into the 70s. He'll be given a trial of AirVo high flow oxygen at 60 L and 85% FiO2 for meals. Chest x-ray revealed diffuse bilateral airspace opacities. No significant change compared to previous. He is continued on bronchodilators, IV Solu-Medrol, antibiotics in the form of Zosyn. Remains on IV diuretics. Currently in a -2.6 L balance. Blood cultures revealed no growth. Sputum culture revealed no growth. White count 10.1. Hemoglobin 13.3. Sodium 141 potassium 3.3. Bicarb 32. BUN 31. Creatinine 1.07. Glucose 164. The patient is seen today 05/12/2022 in follow-up on the selective care unit. He is sitting up in bed. Awake and alert in no acute distress. Remains on AirVo high flow oxygen currently at 60 L and 75% FiO2. BiPAP has been discontinued. He remains on DuoNeb inhalations, Pulmicort and Perforomist inhalations, IV Solu-Medrol. Heparin for DVT prophylaxis. Remains on IV diuretics. Currently in a -1.6 L balance. Pleaded his course of Zosyn. White count 13.3. Hemoglobin 12.7. Platelets 147. Sodium 142. Potassium 3.5. BUN 44. Creatinine 1.08. Follow-up proBNP 7370. Follow-up pro-calcitonin pending. COVID-19 screen negative. The patient is seen today 05/13/2022 in follow-up on the selective care unit. He is currently sitting up in a chair at the bedside. Continues to require AirVo high flow oxygen currently at 60 L and 75% FiO2. He is feeling slightly better today. Still not near his baseline. White count 10.2. Hemoglobin 11.7. Sodium 136. Potassium 3.6. BUN 48. Creatinine 0.96. Follow-up pro- calcitonin still 0.64. Blood and sputum cultures revealed no growth. White count 10.2. Hemoglobin 11.7. Platelet count 130. Sodium 136. Potassium 3.6. Bicarb 29. BUN 48. Creatinine 0.96. Glucose 213. He is continued on DuoNeb inhalations, Pulmicort and Perforomist inhalations, IV Solu-Medrol. Remains on IV diuretics. Currently in a -1.3 L balance. The patient is seen today 05/14/2022 in follow-up on the selective care unit. He is awake and alert in no acute distress. Sitting up in a chair at the bedside. Continues on oxygen 60% FiO2. He states he is feeling better each day. Breathing easier. Blood cultures revealed no growth. Sputum culture revealed no growth. Sodium 137. Potassium 3.8. Bicarb 34. BUN 46. Creatinine 0.99. Glucose 139. He is continued on DuoNeb inhalations, Pulmicort and Perforomist inhalations, IV Solu-Medrol. Remains on IV diuretics. Currently in a negative 960 ML balance. The patient is seen today 05/15/2022 in follow-up on the selective care unit. Currently sitting up in a chair at the bedside. Awake and alert in no acute distress. Denies any worsening shortness of breath, cough or congestion. He states he continues to feel stronger each day. He is currently on AirVo at 60 L and 55% FiO2. Chest x-ray continues to show similar multifocal airspace opacities. Sputum cultures revealed no growth. Blood cultures revealed no growth. Blood sugar 159. He is continued on DuoNeb inhalations, Pulmicort and Perforomist inhalations, IV Solu-Medrol. Remains on IV diuretics. Currently in a negative 1.2 L balance. On today's evaluation of 05/16/2022, the patient remains on high flow oxygen and is currently on 40 L with an FiO2 of 50%. His current pulse ox is in order of 90%. He is ambulating. Noted the patient did not tests positive for any of the viruses including Covid 19. His chest x-ray showing diffuse bilateral pulmonary infiltrates. His most recent chest x-ray from 05/15/2022 is still showing diffuse reticular another bilateral pulmonary infiltrates essentially unchanged compared to the chest x-ray from 05/11/2022. There is also a CAT scan of the chest that was done at the time of admission on 05/04/2022 that showed no evidence of any pulmonary embolism. There was diffuse groundglass bilateral pulmonary infiltrates which obviously raises concern for Covid 19 infection. Noted the patient was in till on antibiotics and he has currently completed his course of antibiotics and the patient was covered with a combination of Zosyn and vancomycin. His pro calcitonin level that was done at the time of admission was 0.35 and the level remains low without any significant elevation. His white cell count at 13.5 with a hemoglobin of 12.7 and a platelet count of 138. Rest of the electrolytes are normal. Creatinine is also normal. In terms of treatment, the patient is on DuoNeb nebulized treatments [id number], the patient is also on Lasix 40 mg IV every 12 hours and IV Solu-Medrol 60 mg every 6 hours. His echocardiogram that was done on 05/05/2022 showed a preserved LV function with an EF of around 50-55%, [id number] aortic stenosis and mild to moderate mitral regurgitation. On 05/17/2022, the patient is being seen for a follow-up. He remains on high flow oxygen with 50 L with an FiO2 of 50%. Current pulse ox is above 90%. On today's evaluation, the patient is clinically the same. He stated that he was feeling better yesterday and he feels that is progressively improving. Nevertheless, his oxygenation is still impaired. No new labs from today. Influenza screen was done yesterday and influenza A and influenza B came back negative. Remains on DuoNeb about treatments [id number]. Remains on Pulmicort Respules. Remains on IV Solu-Medrol 60 mg every 6 hours. Remains on IV Lasix 40 mg every any 4 hours and he is achieved and negative fluid balance. 05/18/2022, clinically unchanged. Still on high flow oxygen with 50 L and 50% FiO2 with a pulse ox of 90%. Chest x-ray was repeated and it shows stable bilateral pulmonary infiltrates, unchanged. The patient remains on bronchodilators. The patient remains on IV Solu-Medrol and I think it's time to gradually wean off the Solu-Medrol to prednisone burst taper. The patient is also on Lasix 40 mg IV every 24 hours. He was in a negative fluid balance. His viral screen was negative. Echocardiogram showed preserved LV function, mild to moderate aortic stenosis and moderate mitral regurgitation. No fever or chills. Labs from today shows a sodium level of 134, potassium level is at 4.8 units 32 creatinine is 1.03. Influenza screen was negative. Objective - Vital Signs Vital signs: Vital Signs Temp 98.1 F 05/18/22 08:00 Pulse 88 05/18/22 09:08 Resp 24 05/18/22 08:00 BP 123/65 05/18/22 08:00 Pulse Ox 90 L 05/18/22 08:48 FiO2 50 05/18/22 08:48 Intake & Output 05/17/22 05/18/22 05/18/22 18:59 06:59 18:59 Intake Total 480 130 Output Total 350 Balance 130 130 Weight 80.3 kg Intake: IV 10 Invasive Line 4 10 Oral 480 120 Output: Urine 350 Other: Voiding Method Urinal # Voids 2 - Exam GENERAL EXAM: Alert, pleasant 71-year-old male, up in a chair, on AirVo high flow oxygen and 50 L and 50% FiO2, comfortable in no apparent distress. HEAD: Normocephalic. EYES: Normal reaction of pupils, equal size. NOSE: Clear with pink turbinates. THROAT: No erythema or exudates. NECK: No masses, no JVD. CHEST: No chest wall deformity. LUNGS: Equal air entry with bilateral scattered rhonchi more so on the right lung. CVS: S1 and S2 normal with no audible murmur, regular rhythm. ABDOMEN: No hepatosplenomegaly, normal bowel sounds, no guarding or rigidity. SPINE: No scoliosis or deformity SKIN: No rashes CENTRAL NERVOUS SYSTEM: No focal deficits, tone is normal in all 4 extremities. EXTREMITIES: There is no peripheral edema. No clubbing, no cyanosis. Periph eral pulses are intact. - Labs CBC & Chem 7: 05/16/22 08:58 05/18/22 07:31 Labs: Abnormal Lab Results - Last 24 Hours (Table) 05/17/22 05/17/22 05/17/22 Range/Units 11:42 17:03 20:03 Sodium (137-145) mmol/L BUN (9-20) mg/dL Glucose (74-99) mg/dL POC Glucose (mg/dL) 224 H 173 H 276 H (70-110) mg/dL 05/18/22 05/18/22 Range/Units 06:05 07:31 Sodium 134 L (137-145) mmol/L BUN 32 H (9-20) mg/dL Glucose 121 H (74-99) mg/dL POC Glucose (mg/dL) 159 H (70-110) mg/dL Assessment and Plan Plan: Acute hypoxic respiratory failure requiring BiPAP support secondary to an acute bilateral pneumonia, community-acquired, doubt aspiration pneumonia, doubt COVID-19 pneumonia considering the patient had negative screening for COVID-19 infection, negative screening for influenza A, influenza B, and RSV. The patient developed worsening shortness of breath and hypoxemia on 05/09/2022 requiring BiPAP support. Today 05/15/2022 the patient remains on AirVo high flow oxygen at 50 L and 50% FiO2 and completed a course of Zosyn Acute non-ST elevation myocardial infarction Acute exacerbation of suspected diastolic congestive heart failure Acute exacerbation of COPD History of coronary artery disease and previous CABG History of previous CVA/TIA Benign essential hypertension Dyslipidemia History of prostate cancer Plan: Unchanged since yesterday, remains on Arava. Chest x-ray showing stable bilateral pulmonary infiltrates. Exact cause for this acute decompensation in the bilateral pulmonary infiltrates is not known. Strongly suspect viral infection. The patient has already received original series of Covid 19 vaccination. He had a negative Covid 19 screen, and Influenza came back negative. Continue high flow oxygen and the patient is on a 50 L an FiO2 of 50% Continue steroids, we will going to discontinue the IV Solu-Medrol and start the patient prednisone burst taper Continue IV Lasix to 40 mg every 24 hours Increase mobility and will continue to follow.
[2022-05-18 11:59] LABS: Glucose,Whole Blood 242 mg/dL (70-110)
[2022-05-18 16:59] LABS: Glucose,Whole Blood 124 mg/dL (70-110)
[2022-05-18] MEDS: guaiFENesin SYRUP 100MG/5ML 200 MG/10 ML CUP PO PRN (17:19)
--- NOTE | 2022-05-18 18:54 | P.PN ---
Subjective Progress Note Date: 05/18/22 Patient is a 71-year-old male with a known history of coronary disease status post CABG, history of stent placement, hypertension, hyperlipidemia, history of RI, prostate cancer status postsurgery, COPD and prior history of smoking presents to ER with complaints of shortness of breath. Patient states that he went out in the cold to feed cats and felt very short of breath with cough and wheezing. Patient was able to come back inside the home and EMS was called. Patient was given albuterol Atrovent treatments with minimal improvement and was brought to ER. Patient was tachycardic, tachypneic on admission with blood pressure 84/63. Denies any complaints of fever or chills. Patient states that he has been having sinus infection and cough with yellow sputum production recently. Chest x-ray showed interval development of acute cardiopulmonary disease with large partially consolidated infiltrate in the right lower lobe suspicious for pneumonia. Clinical correlation and short-term follow-up to resolution is recommended. CTA chest showed no evidence of PE. Diffuse groundglass densities within the lung consistent with acute inflammatory process possibly COVID-pneumonia and clinical correlation is recommended. EKG showed atrial flutter/tachycardia with heart rate 119 Laboratory data WBC 6.4 hemoglobin 17.7 and platelets 140 D-dimer is 2.23 Sodium 138 potassium 3.9 chloride 102 bicarb is 40 BUN 12 and creatinine 1.23 and lactic acid 8.9 and magnesium 2.4, AST 91 ALT 58 and alk phos 103 Troponin 0.033 and 0.597 and proBNP 672 RSV, influenza A and B and coronavirus PCR not detected. 05/06/2022 Patient is currently sitting in the bed. Awake alert and oriented x3. Currently requiring oxygen and is being titrated down to room air. Saturating at 94%. Patient does have cough without any sputum production. No fever no chills. Is better. Procalcitonin level is elevated 0.35. Patient is being arranged antibiotics in the form of Zosyn. Pulmonary is on board. 05/07/2022 Patient is currently resting in bed. Awake alert and oriented. Saturating at 90% on room air. Still having shortness of breath with minimal exertion. Patient is being continued antibiotics in the form of Zosyn. Chest x-ray showed improved aeration of the lungs with persistent multifocal airspace opacities. Cultures have been negative. Blood cultures negative. Laboratory data showed WBC 8.2 hemoglobin 11.7 and platelets 128 Sodium 137 potassium 4.3 chloride 109 bicarb is 20 BUN 23 and creatinine 1.0 and blood sugar is 168. Cardiology is on board. Heparin is being continued. 2D echocardiogram was done. Showed normal LV systolic function. Moderate MR. Aortic sclerosis without significant stenosis.. 05/08/2022 Patient is sitting in the bed. Awake alert and oriented x3. Patient is requiri ng oxygen today at 2 L via nasal cannula. No complaints of chest pain. Still having exertional dyspnea. No nausea vomiting abdominal pain or diarrhea. Patient is being current on antibiotics in form of Zosyn. Laboratory data showed WBC 15.9 hemoglobin 14.4 and platelets 167 Sodium 141 potassium 4.3 chloride 110 bicarb is 21 BUN 20 and creatinine 1.07 calcium 8.5. Pulmonary and cardiology is on board. Patient is also being continued on IV Solu-Medrol and duo nebs. 05/09/2022 Patient is able to walk to the bathroom. Breathing status is about the same. Today patient is requiring oxygen at 4 L via nasal cannula. No complaints of chest pain. No nausea vomiting abdominal pain or diarrhea. Chest x-ray showed worsening scattered airspace opacities correlate for pneumonia. Correlate with serum BNP to rule out superimposed underlying congestive heart failure. Patient remains on antibiotics Zosyn and also IV steroids. Patient was given a dose of IV Lasix yesterday. 05/10/2022 Patient is in the telemetry unit. Currently on BiPAP. Patient seems to be drowsy and lethargic. Able to open his eyes with verbal stimuli. No complaints of chest pain. Patient has been afebrile. Cultures have been negative. Patient is being continued on IV Solu-Medrol and also IV diuretics and duo nebs. proBNP increased to 70 690. Other laboratory test showed WBC 9.9 hemoglobin 11.8 and platelets 121 sodium 138 potassium 3.8 chloride 109 bicarb is 26 BUN 25 and creatinine 1.1 and calcium 8.0 and procalcitonin level is 0.56. Patient remains on antibiotics in the form of Zosyn. 05/11/2022 Patient is in the psych care unit. Patient is more awake and oriented today. Tolerating BiPAP. Plan is To transition to high flow oxygen. Pulmonary is on board. Continued on IV Lasix with negative balance of 2.6 L. Patient is also on antibiotics and IV steroids. Chest x-ray today showed diffuse bilateral airspace opacities not significantly changed. Laboratory test showed WBC 10.1 hemoglobin 12.3 and platelets 141 sodium 141 potassium 3.3 which is being replaced Chloride 104 bicarb is 32 BUN 31 and creatinine 1.07 and blood sugar is 162 and calcium 8.0. Pulmonary is on board. 05/12/2022 Patient continues to be monitored on stepdown unit. Has been transitioned to Airvo with 75%/60 L FiO2, he reports breathing better. Continues with cough, however is improving. maintained on IV zosyn, IV lasix and IV solumedrol. Tolerating oral intake in small amounts. White count today 13.3, hgb 12.7. BUN 44, creatinine 1.08. Glucose in the mid 200s. proBNP elevated today at 7370. Negative 2.4 L off in the last 24 hours. Heart rate in the 110s today, blood pressure in the high 90s systolic. Serologies, Sputum and blood culture all negative. 05/13/2022 Patient is monitored on stepdown unit. Continues on Airvo 75/60. Continues with cough. He has completed a course of IV zosyn therapy and is being monitored off antibiotics at this time. Repeat procalcitonin level 0.64. ProBNP remains elevated at 7370 and continues on IV lasix Q12 with negative 1.8 L fluid balance. A1C 6.3 consistent with diabetes mellitus. Continue on insulin while inpatient, continues to receive IV solumedrol 60 mg every 6 hours. Sodium 136 today, potassium 3.6, BUN 48, creatinine 0.96. Glucose in the 200s. White count 10.2, hemoglobin 11.7. 05/14/2022 Patient is seen and evaluated in follow-up today continues on airvo 60/60 currently sitting up in the chair. Pulmonary is following and patient is maintained on IV Lasix along with IV steroids. Patient reports he continues to be extremely dyspneic and short of breath although feels somewhat better. Blood sugars being monitored with Accu-Cheks before meals and at bedtime and recommend continue with current regimen. Will encourage increased activity as tolerated once respiratory status is more stable. Patient is maintained on DuoNeb treatments along with Pulmicort and Perforomist and will continue. Will follow- up with chest x-ray in the a.m. Patient is currently afebrile denies chest pain or palpitations. Patient reports to tolerating diet with no reports of nausea or vomiting noted. 05/15/2022 Patient is seen in follow-up this morning continues to be on high flow airvo And weaning as tolerated. Current settings are 60/55 and patient denies any worsening. Patient is maintained on IV Lasix along with IV steroids with pulmonary following. Patient continues with some weakness and continued dyspnea with minimal exertion and is being followed by physical therapy. Patient is tolerating diet with no reports of nausea or vomiting noted. Encouraged patient to increase activity as tolerated along with encouraging oral intake. Will recommend to continue monitoring Accu-Cheks before meals and at bedtime as patient is maintained on IV steroids. 05/16/2022 Patient is seen and evaluated this morning maintained on high flow oxygen airvo 60/48 And continuing to wean as tolerated. Patient has been up working with physical therapy and recommend continue to encourage increased activity as tolerated. Patient reports he is feeling improved slightly each day. Patient is continued on IV Lasix along with IV steroids and pulmonary is following. Patient has completed antibiotics and Lasix being adjusted to daily and will follow-up with labs. Patient denies chest pain or palpitations. Patient is afebrile. No reported nausea or vomiting noted. 05/17/2022 Patient seen in follow-up today currently sitting up continued on high flow 5050 FiO2 with pulmonary following. Patient is weaning as tolerated and reports to continuing to feel improved each day also extremely dyspneic without the oxygen. Patient is tolerating diet and recommend continue monitoring blood sugars closely as patient is maintained on steroids and blood sugars have been mildly elevated. Will continue current regimen and also continue with consistent carb diet. Patient has been on IV Lasix push 40 mg and has decreased to daily and labs reviewed and within normal limits recommend continue for now. Encouraged continued activity as tolerated and also continued to encourage incentive spirometer use at least 10 times every hour while awake. Patient is currently afebrile and denies chest pain or palpitations. No reports of nausea or vomiting noted and patient is tolerating diet. 06/01/2022 Patient is seen in follow-up today sitting up in the chair with family at bedside. Patient continues to be in positive spirits CONTINUES to be extremely dyspneic. Patient is up independently and has been getting up frequently throughout the day. Patient is maintained on high flow airvo 50/50 currently 88% during exam. Encouraged continued incentive spirometer use at least 10 times every hour on coughing and deep breathing. Patient is maintained on IV steroids along with DuoNeb treatments and will be transitioned to oral prednisone. Patient is also continued on IV Lasix and diuresing well. Will follow-up with repeat labs and chest x-ray today shows stable findings with continued from comparable. Patient remains in negative fluid balance and will n eed to consider transitioning to oral Lasix as well. Follow-up labs recommended. Patient is afebrile denies chest pain or worsening shortness of breath. Patient denies nausea or vomiting and is tolerating diet. Review of Systems Constitutional: Denied any fatigue denied any fever. Cardio vascular: denied any chest pain, palpitations Gastrointestinal: denied any nausea, vomiting, diarrhea Pulmonary: Reports shortness of breath and feels is somewhat improved Neurologic denied any new focal deficits PHYSICAL EXAMINATION: GENERAL: The patient is alert and oriented x3, currently sitting up in the bed Well developed, well nourished. Maintained on 5050 L Airvo HEENT: Pupils are round and equally reacting to light. EOMI. No scleral icterus. No conjunctival pallor. Normocephalic, atraumatic. No pharyngeal erythema. No thyromegaly. CARDIOVASCULAR: S1 and S2 muffled PULMONARY: Diminished breath sounds bilaterally with coarse scattered rhonchi noted ABDOMEN: Soft, nontender, nondistended, normoactive bowel sounds. No palpable organomegaly. MUSCULOSKELETAL: No joint swelling or deformity. EXTREMITIES: No cyanosis, clubbing, or pedal edema. NEUROLOGICAL: Gross neurological examination did not reveal any focal deficits. SKIN: No rashes. Assessment: Right lower lobe pneumonia with consolidative changes in the CT thorax. Likely community-acquired pneumonia. COVID-19 PCR not detected. Acute hypoxic respiratory failure multi-focal secondary to likely community acquired pneumonia along with acute heart failure exacerbation Acute COPD exacerbation Acute CHF with preserved ejection fraction. Mild to moderate MR. Elevated troponin level Likely demand mismatch. Diabetes Mellitus type 2 with hgb A1C 6.3. Coronary arteries with history of CABG, PCI history of CVA/TIA Prostate cancer status post surgery Hypertension Hyperlipidemia Former smoker DVT prophylaxis. No code Plan: Continue with IV lasix daily will follow-up labs and consider transitioning to oral Lasix Recommend to DuoNeb treatmenand IV steroids being transition to oral prednisone taper with pulmonary following closely Recommend to monitor Accu-Cheks before meals and at bedtime and continue current regimen Patient is continued on airvo and weaning as tolerated currently on 50/50 FiO2. Repeat chest x-ray today shows stable findings and consistent with previous exam Patient was seen by cardiology. Unlikely ACS. Cardiology has signed off at this time to follow up outpatient. Patient being followed by PT/OT therapy and has had prolonged hospitalization, Recommend PT/OT daily Prognosis is guarded with multiple medical problems and comorbid conditions. The impression and plan of care has been dictated by Bernice Renteria, Nurse Practitioner as directed. Dr. Marva MD I have performed a history and examination and MDM of this patient, discussed the same with the dictator, and agree with the dictator's assessment and plan as written ,documented as a scribe. Based on total visit time, I have performed more than 50% of the visit. Objective - Vital Signs Vital signs: Vital Signs Temp 97.9 F 05/18/22 15:35 Pulse 90 05/18/22 15:35 Resp 24 05/18/22 15:35 BP 96/58 05/18/22 15:35 Pulse Ox 87 L 05/18/22 15:35 FiO2 50 05/18/22 15:17 Intake & Output 05/17/22 05/18/22 05/18/22 18:59 06:59 18:59 Intake Total 480 130 Output Total 350 1200 Balance 130 130 -1200 Weight 80.3 kg Intake: IV 10 Invasive Line 4 10 Oral 480 120 Output: Urine 350 1200 Other: Voiding Method Urinal # Voids 2 - Labs CBC & Chem 7: 05/16/22 08:58 05/18/22 07:31 Labs: Abnormal Lab Results - Last 24 Hours (Table) 05/17/22 05/18/22 05/18/22 Range/Units 20:03 06:05 07:31 Sodium 134 L (137-145) mmol/L BUN 32 H (9-20) mg/dL Glucose 121 H (74-99) mg/dL POC Glucose (mg/dL) 276 H 159 H (70-110) mg/dL 05/18/22 05/18/22 Range/Units 11:58 16:55 Sodium (137-145) mmol/L BUN (9-20) mg/dL Glucose (74-99) mg/dL POC Glucose (mg/dL) 242 H 124 H (70-110) mg/dL
[2022-05-18 20:07] LABS: Glucose,Whole Blood 162 mg/dL (70-110)
[2022-05-18] MEDS: MIRTAZAPINE 15 MG TAB PO SCH (21:34)
[2022-05-18] MEDS: SERTRALINE 100 MG TAB PO SCH (21:34)
[2022-05-18] MEDS: ATORVASTATIN 80 MG TAB PO SCH (21:35)
[2022-05-18] MEDS: INSULIN DETEMIR (LEVEMIR) 100 UNIT/ML SYR SQ SCH (21:36)
[2022-05-18] MEDS: MELATONIN 3 MG TABLET PO PRN (21:41)
[2022-05-18] MEDS: LORazepam 0.5 MG TAB PO PRN (21:41)
[2022-05-18] MEDS: IPRATROPIUM-ALBUTEROL 3 ML NEB INHALATION PRN (23:24)
[2022-05-18] MEDS ORDERED: FUROSEMIDE 10 MG/ML 4 ML VIAL IV STA (23:38)
[2022-05-19 04:06] LABS: Glucose,Whole Blood 57 mg/dL (70-110)
[2022-05-19 04:06] LABS: Glucose,Whole Blood 46 mg/dL (70-110)
[2022-05-19 04:21] LABS: Glucose,Whole Blood 59 mg/dL (70-110)
[2022-05-19 04:39] LABS: Glucose,Whole Blood 84 mg/dL (70-110)
[2022-05-19 05:51] LABS: Glucose,Whole Blood 75 mg/dL (70-110)
[2022-05-19] MEDS: INSULIN ASPART (NovoLOG) 100 UNIT/ML VIAL SQ SCH ×7 (05:52→20:33)
[2022-05-19 07:02] LABS: Glucose,Whole Blood 207 mg/dL (70-110)
[2022-05-19] MEDS: BUDESONIDE 1 MG/2 ML NEBU INHALATION SCH ×2 (08:21→19:41)
[2022-05-19] MEDS: FORMOTEROL FUMARATE 20 MCG/2 ML NEBU INHALATION SCH ×2 (08:21→19:54)
[2022-05-19] MEDS: IPRATROPIUM-ALBUTEROL 3 ML NEB INHALATION SCH ×4 (08:21→19:41)
[2022-05-19] MEDS: PANTOPRAZOLE 40 MG/10 ML VIAL IV SCH (08:36)
[2022-05-19] MEDS: HEPARIN SODIUM,PORCINE/PF 5,000 UNIT/0.5 ML SYRINGE SQ SCH ×2 (08:36→17:18)
[2022-05-19] MEDS: FUROSEMIDE 10 MG/ML 4 ML VIAL IV SCH (08:36)
[2022-05-19] MEDS: ISOSORBIDE MONONITRATE ER 30 MG TAB.ER.24H PO SCH (08:37)
[2022-05-19] MEDS: METOPROLOL TARTRATE 25 MG TAB PO SCH ×2 (08:37→20:32)
[2022-05-19] MEDS: ASPIRIN 81 MG PO SCH (08:37)
[2022-05-19] MEDS: POTASSIUM CHLORIDE ER 20 MEQ TAB.ER PO SCH (08:37)
[2022-05-19] MEDS: lisinopriL 10 MG TAB PO SCH (08:37)
[2022-05-19] MEDS ORDERED: predniSONE 20 MG TAB PO SCH (09:00)
--- NOTE | 2022-05-19 09:42 | XR ---
EXAMINATION TYPE: XR chest 1V portable DATE OF EXAM: 05/19/2022 CLINICAL HISTORY: Difficulty breathing progress study. TECHNIQUE: Single AP portable upright view of the chest is obtained. COMPARISON: Chest x-ray from one day earlier and older studies. FINDINGS: Overlying sternal wires and mediastinal clips are redemonstrated. Persistent cardiomegaly. Continued worsening alveolar and interstitial opacities bilaterally. No pleural effusion or pneumoth orax is seen. Osseous structures are intact. IMPRESSION: Worsening bilateral multifocal and diffuse edema and/or atypical infiltrates. Correlate f or COVID-19 infection and/or ARDS.
[2022-05-19 11:32] LABS: Glucose,Whole Blood 134 mg/dL (70-110)
[2022-05-19 11:46] LABS: Calcium 8.3 mg/dL (8.4-10.2); Potassium 4.6 mmol/L (3.5-5.1)
--- NOTE | 2022-05-19 12:12 | P.PN ---
Subjective Progress Note Date: 05/19/22 this is a 71-year-old white male with history of COPD, previous history of NE, previous history of stroke without any residual deficits, patient was out in the cold yesterday for about one hour, and he developed shortness of breath cough and wheezing. EMS was called, patient was given albuterol and Atrovent treatment with minimal improvement, patient was brought into the ER, he had no fever, no chills, he had no chest pain, apparently when EMS arrived to pick him up, the patient was clammy and flushed upon his initial evaluation, his respiratory rate was in the 40s, patient was evaluated in the ER, chest x-ray and CT of the chest showed bilateral infiltrates, right more so than left, although the patient denies any history of aspiration, and no history of passing out episodes except he had 1 previous syncopal episode over [address] angiogram ruled out pulmonary embolism although he had a slightly elevated d- dimer of 2.23, and I reviewed the CT angiogram myself, definitely no evidence of pulmonary embolism. His WBC count is 6.4 hemoglobin is 17.7.lactic acid on it is initial evaluation was 8.9, went down to 1.6.his serology came back negative for carbon 19, influenza A, influenza B, and RSV.troponin was noted to be a bit high on presentation 0.033, follow-up troponin was 0.597, and BNP was normal. In spite of significant air space disease noted in both lungs especially in the right lung, patient maintained his O2 saturation, he was on room air with O2 sat showed 94%patient was placed on antibiotics in the form of Rocephin and Zithromax,initially, and he is now on Zosyn and vancomycin. he was also placed on bronchodilators and on steroids/methylprednisolone,considering his elevated troponin, patient was alsoplaced on heparin, full cardiac consultation is pending. Reevaluated today on 05/06/22, patient is doing better today, breathing easier, less cough and less wheezing less shortness of breath, remains on room air, does not seem to be in any distress, he does have intermittent cough, his cough is nonproductive. No fever no chills no hemoptysis no chest pain. CBC is relatively normal electrolytes are normal renal profile is normal, COVID-19 screening RSV screening were negative. Pro-calcitonin level was elevated at 0.35. The patient is seen today 05/07/2022 in follow-up on the selective care unit. He is currently resting comfortably in bed. Awake and alert in no acute distress. He is maintaining O2 saturations in the 90s on room air. He is still short of breath with minimal exertion. He continues with crackles in the right lung. He remains on Zosyn. He is on a heparin drip per cardiology. Non-ST segment elevation myocardial infarction. Echocardiogram revealed preserved left ventricular systolic function. Today's chest x-ray does reveal improved aeration of the lungs with persistent multifocal airspace opacities. Blood cultures reveal no growth. White count 8.2. Hemoglobin 11.7. Platelets 128. Glucose 142. He remains on antibiotics in the form of vancomycin and Zosyn. Continued on bronchodilators, IV Solu-Medrol. Patient is seen today 05/08/2022 in follow-up on the selective care unit. He is currently sitting up in a chair at the bedside. Awake and alert in no acute distress. His O2 saturations drop in the mid 80s while on room air and up and walking. Recovers into the 90s on 2 L/m per nasal cannula. Blood cultures revealed no growth. We count 15.9. Hemoglobin 14.5. Sodium 141. Potassium 4.3. BUN 20. Creatinine 1.07. Glucose 118. He remains on Symbicort, DuoNeb inhalations, IV Solu-Medrol. Antibiotics in the form of Zosyn. Vancomycin discontinued. The patient is seen today 05/09/2022 in follow-up on the selective care unit. He is currently resting comfortably in bed. Awake and alert in no acute distress. He is doing better today compared to yesterday. Not quite back to his baseline. Still congested. Still is some spasm and wheezing. He is maintaining O2 saturations in the 90s on 4 L/m per nasal cannula. Follow-up chest x-ray reveals worsening airspace opacities. No evidence of pleural effusion. No focal consolidation. No pneumothorax. Blood cultures revealed no growth. Sputum cultures pending. Sodium 138. Potassium 3.7. BUN 24. Creatinine 1.05. Glucose 262. He is continued on DuoNeb inhalations, Symbicort, IV Solu-Medrol. Antibiotics in the form of Zosyn. The patient is seen today 05/10/2022 in follow-up on the selective care unit. He did have an episode of worsening shortness of breath and oxygen desaturations last evening. He required BiPAP support which is currently on at 16/8 and 60% FiO2. Sputum culture revealed no growth. Blood cultures revealed no growth. White count 9.9. Hemoglobin 11.8. Platelets 121. Sodium 138. Potassium 3.8. BUN 25. Creatinine 1.0. Glucose 164. ProBNP 7690. ProCalcitonin 0.56. Brooks virus by PCR not detected. He remains on Zosyn, IV Solu-Medrol, Symbicort and DuoNeb inhalations. Heparin for DVT prophylaxis. Continued on IV diuretics. No accurate I&O recorded. Patient is seen today 05/11/2022 in follow-up on the selective care unit. He is currently resting fairly comfortably in bed. Awake and alert in no acute distress. He remains on BiPAP 16/80 and 60% FiO2. He was attempted on high flow nasal cannula with oxygen desaturations down into the 70s. He'll be given a trial of AirVo high flow oxygen at 60 L and 85% FiO2 for meals. Chest x-ray revealed diffuse bilateral airspace opacities. No significant change compared to previous. He is continued on bronchodilators, IV Solu-Medrol, antibiotics in the form of Zosyn. Remains on IV diuretics. Currently in a -2.6 L balance. Blood cultures revealed no growth. Sputum culture revealed no growth. White count 10.1. Hemoglobin 13.3. Sodium 141 potassium 3.3. Bicarb 32. BUN 31. Creatinine 1.07. Glucose 164. The patient is seen today 05/12/2022 in follow-up on the selective care unit. He is sitting up in bed. Awake and alert in no acute distress. Remains on AirVo high flow oxygen currently at 60 L and 75% FiO2. BiPAP has been discontinued. He remains on DuoNeb inhalations, Pulmicort and Perforomist inhalations, IV Solu-Medrol. Heparin for DVT prophylaxis. Remains on IV diuretics. Currently in a -1.6 L balance. Pleaded his course of Zosyn. White count 13.3. Hemoglobin 12.7. Platelets 147. Sodium 142. Potassium 3.5. BUN 44. Creatinine 1.08. Follow-up proBNP 7370. Follow-up pro-calcitonin pending. COVID-19 screen negative. The patient is seen today 05/13/2022 in follow-up on the selective care unit. He is currently sitting up in a chair at the bedside. Continues to require AirVo high flow oxygen currently at 60 L and 75% FiO2. He is feeling slightly better today. Still not near his baseline. White count 10.2. Hemoglobin 11.7. Sodium 136. Potassium 3.6. BUN 48. Creatinine 0.96. Follow-up pro- calcitonin still 0.64. Blood and sputum cultures revealed no growth. White count 10.2. Hemoglobin 11.7. Platelet count 130. Sodium 136. Potassium 3.6. Bicarb 29. BUN 48. Creatinine 0.96. Glucose 213. He is continued on DuoNeb inhalations, Pulmicort and Perforomist inhalations, IV Solu-Medrol. Remains on IV diuretics. Currently in a -1.3 L balance. The patient is seen today 05/14/2022 in follow-up on the selective care unit. He is awake and alert in no acute distress. Sitting up in a chair at the bedside. Continues on oxygen 60% FiO2. He states he is feeling better each day. Breathing easier. Blood cultures revealed no growth. Sputum culture revealed no growth. Sodium 137. Potassium 3.8. Bicarb 34. BUN 46. Creatinine 0.99. Glucose 139. He is continued on DuoNeb inhalations, Pulmicort and Perforomist inhalations, IV Solu-Medrol. Remains on IV diuretics. Currently in a negative 960 ML balance. The patient is seen today 05/15/2022 in follow-up on the selective care unit. Currently sitting up in a chair at the bedside. Awake and alert in no acute distress. Denies any worsening shortness of breath, cough or congestion. He states he continues to feel stronger each day. He is currently on AirVo at 60 L and 55% FiO2. Chest x-ray continues to show similar multifocal airspace opacities. Sputum cultures revealed no growth. Blood cultures revealed no growth. Blood sugar 159. He is continued on DuoNeb inhalations, Pulmicort and Perforomist inhalations, IV Solu-Medrol. Remains on IV diuretics. Currently in a negative 1.2 L balance. On today's evaluation of 05/16/2022, the patient remains on high flow oxygen and is currently on 40 L with an FiO2 of 50%. His current pulse ox is in order of 90%. He is ambulating. Noted the patient did not tests positive for any of the viruses including Covid 19. His chest x-ray showing diffuse bilateral pulmonary infiltrates. His most recent chest x-ray from 05/15/2022 is still showing diffuse reticular another bilateral pulmonary infiltrates essentially unchanged compared to the chest x-ray from 05/11/2022. There is also a CAT scan of the chest that was done at the time of admission on 05/04/2022 that showed no evidence of any pulmonary embolism. There was diffuse groundglass bilateral pulmonary infiltrates which obviously raises concern for Covid 19 infection. Noted the patient was in till on antibiotics and he has currently completed his course of antibiotics and the patient was covered with a combination of Zosyn and vancomycin. His pro calcitonin level that was done at the time of admission was 0.35 and the level remains low without any significant elevation. His white cell count at 13.5 with a hemoglobin of 12.7 and a platelet count of 138. Rest of the electrolytes are normal. Creatinine is also normal. In terms of treatment, the patient is on DuoNeb nebulized treatments [id number], the patient is also on Lasix 40 mg IV every 12 hours and IV Solu-Medrol 60 mg every 6 hours. His echocardiogram that was done on 05/05/2022 showed a preserved LV function with an EF of around 50-55%, [id number] aortic stenosis and mild to moderate mitral regurgitation. On 05/17/2022, the patient is being seen for a follow-up. He remains on high flow oxygen with 50 L with an FiO2 of 50%. Current pulse ox is above 90%. On today's evaluation, the patient is clinically the same. He stated that he was feeling better yesterday and he feels that is progressively improving. Nevertheless, his oxygenation is still impaired. No new labs from today. Influenza screen was done yesterday and influenza A and influenza B came back negative. Remains on DuoNeb about treatments [id number]. Remains on Pulmicort Respules. Remains on IV Solu-Medrol 60 mg every 6 hours. Remains on IV Lasix 40 mg every any 4 hours and he is achieved and negative fluid balance. 05/18/2022, clinically unchanged. Still on high flow oxygen with 50 L and 50% FiO2 with a pulse ox of 90%. Chest x-ray was repeated and it shows stable bilateral pulmonary infiltrates, unchanged. The patient remains on bronchodilators. The patient remains on IV Solu-Medrol and I think it's time to gradually wean off the Solu-Medrol to prednisone burst taper. The patient is also on Lasix 40 mg IV every 24 hours. He was in a negative fluid balance. His viral screen was negative. Echocardiogram showed preserved LV function, mild to moderate aortic stenosis and moderate mitral regurgitation. No fever or chills. Labs from today shows a sodium level of 134, potassium level is at 4.8 units 32 creatinine is 1.03. Influenza screen was negative. Today's evaluation of 05/19/2022, I'm not seeing any clinical improvement in the patient's condition. The patient remains on high flow oxygen and is currently on 50 L with an FiO2 of 80%. A repeat chest x-ray was done and showed diffuse bilateral pulmonary infiltrates and findings of essentially unchanged. The patient is overall doing poorly and the not seeing any signs of recovery. He remains on steroids. He was on IV Solu-Medrol and currently he is on by mouth prednisone. He remains on bronchodilators. He is also on broad-spectrum antibiotics for now. Unfortunately, no signs of any recovery or improvement. Nevertheless, despite all this, he declines being short of breath at rest. So being good spirits still. Potassium levels of 4.6. His sodium level is at 131, BUN is 33 with a creatinine of 1.1. Calcium levels at 3.3. He is receiving Lasix 40 mg IV on a daily basis. He is on Levemir insulin. He completed his course of antibiotics and he received a combination of antibiotics during the course of his illness and this included Zithromax, Zosyn and vancomycin. His ejection fraction is around 50-55% and the patient also has mild to moderate aortic stenosis and moderate mitral regurgitation. Objective - Vital Signs Vital signs: Vital Signs Temp 97.8 F 05/19/22 08:32 Pulse 74 05/19/22 08:43 Resp 24 05/19/22 08:32 BP 112/70 05/19/22 08:32 Pulse Ox 90 L 05/19/22 08:32 FiO2 80 05/19/22 08:32 Intake & Output 05/18/22 05/19/22 05/19/22 18:59 06:59 18:59 Intake Total 20 240 Output Total 1200 1050 1300 Balance -1200 -1030 -1060 Weight 79.6 kg Intake: IV 20 Invasive Line 4 20 Oral 240 Output: Urine 1200 1050 1300 Other: Voiding Method Urinal Urinal # Voids 2 - Exam GENERAL EXAM: Alert, pleasant 71-year-old male, up in a chair, on AirVo high flow oxygen and 50 L and 80% FiO2, comfortable in no apparent distress. HEAD: Normocephalic. EYES: Normal reaction of pupils, equal size. NOSE: Clear with pink turbinates. THROAT: No erythema or exudates. NECK: No masses, no JVD. CHEST: No chest wall deformity. LUNGS: Equal air entry with bilateral scattered rhonchi more so on the right lung. CVS: S1 and S2 normal with no audible murmur, regular rhythm. ABDOMEN: No hepatosplenomegaly, normal bowel sounds, no guarding or rigidity. SPINE: No scoliosis or deformity SKIN: No rashes CENTRAL NERVOUS SYSTEM: No focal deficits, tone is normal in all 4 extremities. EXTREMITIES: There is no peripheral edema. No clubbing, no cyanosis. Peripheral pulses are intact. - Labs CBC & Chem 7: 05/16/22 08:58 05/19/22 10:49 Labs: Abnormal Lab Results - Last 24 Hours (Table) 05/18/22 05/18/22 05/19/22 Range/Units 16:55 20:06 04:03 Sodium (137-145) mmol/L Chloride (98-107) mmol/L Carbon Dioxide (22-30) mmol/L BUN (9-20) mg/dL Glucose (74-99) mg/dL POC Glucose (mg/dL) 124 H 162 H 46 L (70-110) mg/dL Calcium (8.4-10.2) mg/dL 05/19/22 05/19/22 05/19/22 Range/Units 04:04 04:19 07:00 Sodium (137-145) mmol/L Chloride (98-107) mmol/L Carbon Dioxide (22-30) mmol/L BUN (9-20) mg/dL Glucose (74-99) mg/dL POC Glucose (mg/dL) 57 L 59 L 207 H (70-110) mg/dL Calcium (8.4-10.2) mg/dL 05/19/22 05/19/22 Range/Units 10:49 11:29 Sodium 131 L (137-145) mmol/L Chloride 95 L (98-107) mmol/L Carbon Dioxide 33 H (22-30) mmol/L BUN 33 H (9-20) mg/dL Glucose 148 H (74-99) mg/dL POC Glucose (mg/dL) 134 H (70-110) mg/dL Calcium 8.3 L (8.4-10.2) mg/dL Assessment and Plan Plan: Acute hypoxic respiratory failure requiring BiPAP support secondary to an acute bilateral pneumonia, community-acquired, doubt aspiration pneumonia, doubt COVID-19 pneumonia considering the patient had negative screening for COVID-19 infection, negative screening for influenza A, influenza B, and RSV. The patient developed worsening shortness of breath and hypoxemia on 05/09/2022 requiring BiPAP support. Today 05/15/2022 the patient remains on AirVo high flow oxygen at 50 L and 80% FiO2 , currently on unknown antibiotics, currently on by mouth prednisone, currently receiving diuretics 40 mg of Lasix every day. Oxygenation is very borderline and the chest x-ray remains unchanged. Acute non-ST elevation myocardial infarction Acute exacerbation of suspected diastolic congestive heart failure Acute exacerbation of COPD History of coronary artery disease and previous CABG History of previous CVA/TIA Benign essential hypertension Dyslipidemia History of prostate cancer Plan: Clinically unchanged. Oxygenation is poor. Remains on high flow oxygen with 50 L an FiO2 of 80% . Chest x-ray showing stable bilateral pulmonary infiltrates. The chest x-ray findings are unchanged. Exact cause for this acute decompensation in the bilateral pulmonary infiltrates is not known. Strongly suspect viral infection. The patient has already received original series of Covid 19 vaccination. He had a negative Covid 19 screen, and Influenza came back negative. Could be ARDS post bilateral DNR/DNI CODE STATUS Poor prognosis
[2022-05-19] MEDS: LORazepam 0.5 MG TAB PO PRN (13:10)
[2022-05-19 16:58] LABS: Glucose,Whole Blood 222 mg/dL (70-110)
[2022-05-19 20:13] LABS: Glucose,Whole Blood 182 mg/dL (70-110)
[2022-05-19] MEDS: MELATONIN 3 MG TABLET PO PRN (20:32)
[2022-05-19] MEDS: MIRTAZAPINE 15 MG TAB PO SCH (20:32)
[2022-05-19] MEDS: SERTRALINE 100 MG TAB PO SCH (20:32)
[2022-05-19] MEDS: ATORVASTATIN 80 MG TAB PO SCH (20:33)
[2022-05-19] MEDS: hydrOXYzine pamoate 25 MG CAP PO PRN (21:48)
[2022-05-19] MEDS: INSULIN DETEMIR (LEVEMIR) 100 UNIT/ML SYR SQ SCH (22:42)
[2022-05-19] MEDS: IPRATROPIUM-ALBUTEROL 3 ML NEB INHALATION PRN (23:21)
[2022-05-20] MEDS: HEPARIN SODIUM,PORCINE/PF 5,000 UNIT/0.5 ML SYRINGE SQ SCH (00:02)
[2022-05-20] MEDS: MORPHINE SULFATE 2 MG/ML SYRINGE IVP PRN ×4 (00:32→11:43)
[2022-05-20] MEDS: IPRATROPIUM-ALBUTEROL 3 ML NEB INHALATION PRN (04:05)
[2022-05-20 04:17] VITALS: BP 131/77; TEMP 96.3
[2022-05-20 06:12] LABS: Glucose,Whole Blood 130 mg/dL (70-110)
[2022-05-20] MEDS: INSULIN ASPART (NovoLOG) 100 UNIT/ML VIAL SQ SCH ×2 (06:12)
[2022-05-20] MEDS: BUDESONIDE 1 MG/2 ML NEBU INHALATION SCH (07:58)
[2022-05-20] MEDS: FORMOTEROL FUMARATE 20 MCG/2 ML NEBU INHALATION SCH (07:58)
[2022-05-20] MEDS: IPRATROPIUM-ALBUTEROL 3 ML NEB INHALATION SCH ×2 (07:58→11:39)
[2022-05-20 08:20] VITALS: PULSE 95
[2022-05-20] MEDS ORDERED: LORazepam 2 MG/ML INJ IV PRN (08:36)
[2022-05-20] MEDS ORDERED: MORPHINE SULFATE (100 MG/2 ML) 100 MG in SODIUM CHLORIDE 0.9% 100 ML IV SCH (10:00)
--- NOTE | 2022-05-20 10:15 | P.PN ---
Subjective Progress Note Date: 05/20/22 this is a 71-year-old white male with history of COPD, previous history of CA, previous history of stroke without any residual deficits, patient was out in the cold yesterday for about one hour, and he developed shortness of breath cough and wheezing. EMS was called, patient was given albuterol and Atrovent treatment with minimal improvement, patient was brought into the ER, he had no fever, no chills, he had no chest pain, apparently when EMS arrived to pick him up, the patient was clammy and flushed upon his initial evaluation, his respiratory rate was in the 40s, patient was evaluated in the ER, chest x-ray and CT of the chest showed bilateral infiltrates, right more so than left, although the patient denies any history of aspiration, and no history of passing out episodes except he had 1 previous syncopal episode over [address] angiogram ruled out pulmonary embolism although he had a slightly elevated d- dimer of 2.23, and I reviewed the CT angiogram myself, definitely no evidence of pulmonary embolism. His WBC count is 6.4 hemoglobin is 17.7.lactic acid on it is initial evaluation was 8.9, went down to 1.6.his serology came back negative for carbon 19, influenza A, influenza B, and RSV.troponin was noted to be a bit high on presentation 0.033, follow-up troponin was 0.597, and BNP was normal. In spite of significant air space disease noted in both lungs especially in the right lung, patient maintained his O2 saturation, he was on room air with O2 sat showed 94%patient was placed on antibiotics in the form of Rocephin and Zithromax,initially, and he is now on Zosyn and vancomycin. he was also placed on bronchodilators and on steroids/methylprednisolone,considering his elevated troponin, patient was alsoplaced on heparin, full cardiac consultation is pending. Reevaluated today on 05/06/22, patient is doing better today, breathing easier, less cough and less wheezing less shortness of breath, remains on room air, does not seem to be in any distress, he does have intermittent cough, his cough is nonproductive. No fever no chills no hemoptysis no chest pain. CBC is relatively normal electrolytes are normal renal profile is normal, COVID-19 screening RSV screening were negative. Pro-calcitonin level was elevated at 0.35. The patient is seen today 05/07/2022 in follow-up on the selective care unit. He is currently resting comfortably in bed. Awake and alert in no acute distress. He is maintaining O2 saturations in the 90s on room air. He is still short of breath with minimal exertion. He continues with crackles in the right lung. He remains on Zosyn. He is on a heparin drip per cardiology. Non-ST segment elevation myocardial infarction. Echocardiogram revealed preserved left ventricular systolic function. Today's chest x-ray does reveal improved aeration of the lungs with persistent multifocal airspace opacities. Blood cultures reveal no growth. White count 8.2. Hemoglobin 11.7. Platelets 128. Glucose 142. He remains on antibiotics in the form of vancomycin and Zosyn. Continued on bronchodilators, IV Solu-Medrol. Patient is seen today 05/08/2022 in follow-up on the selective care unit. He is currently sitting up in a chair at the bedside. Awake and alert in no acute distress. His O2 saturations drop in the mid 80s while on room air and up and walking. Recovers into the 90s on 2 L/m per nasal cannula. Blood cultures revealed no growth. We count 15.9. Hemoglobin 14.5. Sodium 141. Potassium 4.3. BUN 20. Creatinine 1.07. Glucose 118. He remains on Symbicort, DuoNeb inhalations, IV Solu-Medrol. Antibiotics in the form of Zosyn. Vancomycin discontinued. The patient is seen today 05/09/2022 in follow-up on the selective care unit. He is currently resting comfortably in bed. Awake and alert in no acute distress. He is doing better today compared to yesterday. Not quite back to his baseline. Still congested. Still is some spasm and wheezing. He is maintaining O2 saturations in the 90s on 4 L/m per nasal cannula. Follow-up chest x-ray reveals worsening airspace opacities. No evidence of pleural effusion. No focal consolidation. No pneumothorax. Blood cultures revealed no growth. Sputum cultures pending. Sodium 138. Potassium 3.7. BUN 24. Creatinine 1.05. Glucose 262. He is continued on DuoNeb inhalations, Symbicort, IV Solu-Medrol. Antibiotics in the form of Zosyn. The patient is seen today 05/10/2022 in follow-up on the selective care unit. He did have an episode of worsening shortness of breath and oxygen desaturations last evening. He required BiPAP support which is currently on at 16/8 and 60% FiO2. Sputum culture revealed no growth. Blood cultures revealed no growth. White count 9.9. Hemoglobin 11.8. Platelets 121. Sodium 138. Potassium 3.8. BUN 25. Creatinine 1.0. Glucose 164. ProBNP 7690. ProCalcitonin 0.56. Brooks virus by PCR not detected. He remains on Zosyn, IV Solu-Medrol, Symbicort and DuoNeb inhalations. Heparin for DVT prophylaxis. Continued on IV diuretics. No accurate I&O recorded. Patient is seen today 05/11/2022 in follow-up on the selective care unit. He is currently resting fairly comfortably in bed. Awake and alert in no acute distress. He remains on BiPAP 16/80 and 60% FiO2. He was attempted on high flow nasal cannula with oxygen desaturations down into the 70s. He'll be given a trial of AirVo high flow oxygen at 60 L and 85% FiO2 for meals. Chest x-ray revealed diffuse bilateral airspace opacities. No significant change compared to previous. He is continued on bronchodilators, IV Solu-Medrol, antibiotics in the form of Zosyn. Remains on IV diuretics. Currently in a -2.6 L balance. Blood cultures revealed no growth. Sputum culture revealed no growth. White count 10.1. Hemoglobin 13.3. Sodium 141 potassium 3.3. Bicarb 32. BUN 31. Creatinine 1.07. Glucose 164. The patient is seen today 05/12/2022 in follow-up on the selective care unit. He is sitting up in bed. Awake and alert in no acute distress. Remains on AirVo high flow oxygen currently at 60 L and 75% FiO2. BiPAP has been discontinued. He remains on DuoNeb inhalations, Pulmicort and Perforomist inhalations, IV Solu-Medrol. Heparin for DVT prophylaxis. Remains on IV diuretics. Currently in a -1.6 L balance. Pleaded his course of Zosyn. White count 13.3. Hemoglobin 12.7. Platelets 147. Sodium 142. Potassium 3.5. BUN 44. Creatinine 1.08. Follow-up proBNP 7370. Follow-up pro-calcitonin pending. COVID-19 screen negative. The patient is seen today 05/13/2022 in follow-up on the selective care unit. He is currently sitting up in a chair at the bedside. Continues to require AirVo high flow oxygen currently at 60 L and 75% FiO2. He is feeling slightly better today. Still not near his baseline. White count 10.2. Hemoglobin 11.7. Sodium 136. Potassium 3.6. BUN 48. Creatinine 0.96. Follow-up pro- calcitonin still 0.64. Blood and sputum cultures revealed no growth. White count 10.2. Hemoglobin 11.7. Platelet count 130. Sodium 136. Potassium 3.6. Bicarb 29. BUN 48. Creatinine 0.96. Glucose 213. He is continued on DuoNeb inhalations, Pulmicort and Perforomist inhalations, IV Solu-Medrol. Remains on IV diuretics. Currently in a -1.3 L balance. The patient is seen today 05/14/2022 in follow-up on the selective care unit. He is awake and alert in no acute distress. Sitting up in a chair at the bedside. Continues on oxygen 60% FiO2. He states he is feeling better each day. Breathing easier. Blood cultures revealed no growth. Sputum culture revealed no growth. Sodium 137. Potassium 3.8. Bicarb 34. BUN 46. Creatinine 0.99. Glucose 139. He is continued on DuoNeb inhalations, Pulmicort and Perforomist inhalations, IV Solu-Medrol. Remains on IV diuretics. Currently in a negative 960 ML balance. The patient is seen today 05/15/2022 in follow-up on the selective care unit. Currently sitting up in a chair at the bedside. Awake and alert in no acute distress. Denies any worsening shortness of breath, cough or congestion. He states he continues to feel stronger each day. He is currently on AirVo at 60 L and 55% FiO2. Chest x-ray continues to show similar multifocal airspace opacities. Sputum cultures revealed no growth. Blood cultures revealed no growth. Blood sugar 159. He is continued on DuoNeb inhalations, Pulmicort and Perforomist inhalations, IV Solu-Medrol. Remains on IV diuretics. Currently in a negative 1.2 L balance. On today's evaluation of 05/16/2022, the patient remains on high flow oxygen and is currently on 40 L with an FiO2 of 50%. His current pulse ox is in order of 90%. He is ambulating. Noted the patient did not tests positive for any of the viruses including Covid 19. His chest x-ray showing diffuse bilateral pulmonary infiltrates. His most recent chest x-ray from 05/15/2022 is still showing diffuse reticular another bilateral pulmonary infiltrates essentially unchanged compared to the chest x-ray from 05/11/2022. There is also a CAT scan of the chest that was done at the time of admission on 05/04/2022 that showed no evidence of any pulmonary embolism. There was diffuse groundglass bilateral pulmonary infiltrates which obviously raises concern for Covid 19 infection. Noted the patient was in till on antibiotics and he has currently completed his course of antibiotics and the patient was covered with a combination of Zosyn and vancomycin. His pro calcitonin level that was done at the time of admission was 0.35 and the level remains low without any significant elevation. His white cell count at 13.5 with a hemoglobin of 12.7 and a platelet count of 138. Rest of the electrolytes are normal. Creatinine is also normal. In terms of treatment, the patient is on DuoNeb nebulized treatments [id number], the patient is also on Lasix 40 mg IV every 12 hours and IV Solu-Medrol 60 mg every 6 hours. His echocardiogram that was done on 05/05/2022 showed a preserved LV function with an EF of around 50-55%, [id number] aortic stenosis and mild to moderate mitral regurgitation. On 05/17/2022, the patient is being seen for a follow-up. He remains on high flow oxygen with 50 L with an FiO2 of 50%. Current pulse ox is above 90%. On today's evaluation, the patient is clinically the same. He stated that he was feeling better yesterday and he feels that is progressively improving. Nevertheless, his oxygenation is still impaired. No new labs from today. Influenza screen was done yesterday and influenza A and influenza B came back negative. Remains on DuoNeb about treatments [id number]. Remains on Pulmicort Respules. Remains on IV Solu-Medrol 60 mg every 6 hours. Remains on IV Lasix 40 mg every any 4 hours and he is achieved and negative fluid balance. 05/18/2022, clinically unchanged. Still on high flow oxygen with 50 L and 50% FiO2 with a pulse ox of 90%. Chest x-ray was repeated and it shows stable bilateral pulmonary infiltrates, unchanged. The patient remains on bronchodilators. The patient remains on IV Solu-Medrol and I think it's time to gradually wean off the Solu-Medrol to prednisone burst taper. The patient is also on Lasix 40 mg IV every 24 hours. He was in a negative fluid balance. His viral screen was negative. Echocardiogram showed preserved LV function, mild to moderate aortic stenosis and moderate mitral regurgitation. No fever or chills. Labs from today shows a sodium level of 134, potassium level is at 4.8 units 32 creatinine is 1.03. Influenza screen was negative. Today's evaluation of 05/19/2022, I'm not seeing any clinical improvement in the patient's condition. The patient remains on high flow oxygen and is currently on 50 L with an FiO2 of 80%. A repeat chest x-ray was done and showed diffuse bilateral pulmonary infiltrates and findings of essentially unchanged. The patient is overall doing poorly and the not seeing any signs of recovery. He remains on steroids. He was on IV Solu-Medrol and currently he is on by mouth prednisone. He remains on bronchodilators. He is also on broad-spectrum antibiotics for now. Unfortunately, no signs of any recovery or improvement. Nevertheless, despite all this, he declines being short of breath at rest. So being good spirits still. Potassium levels of 4.6. His sodium level is at 131, BUN is 33 with a creatinine of 1.1. Calcium levels at 3.3. He is receiving Lasix 40 mg IV on a daily basis. He is on Levemir insulin. He completed his course of antibiotics and he received a combination of antibiotics during the course of his illness and this included Zithromax, Zosyn and vancomycin. His ejection fraction is around 50-55% and the patient also has mild to moderate aortic stenosis and moderate mitral regurgitation. 05/20/2022, the patient is doing extremely poor. His condition is further decompensated yesterday. After being on high flow oxygen for almost a week, the patient got even worse yesterday and he was placed on a BiPAP at a pressure of 12/6 cm of water and his current FiO2 is at 95%. His breathing is labored. He has become more lethargic. He is having difficulties in tolerating the BiPAP. He is slightly anxious. He understands that his condition is poor and he is considering comfort care measures. Hospice services has been consulted on this patient. Noted the patient did not show any signs of improvement. His chest x- ray continued to show diffuse bilateral pulmonary infiltrates and his oxygenatio n progressively got worse. No other complaints otherwise for now. He is hemodynamically stable. Blood sugars at 130. He is awaiting family members and following that is going to proceed with hospice care. He remains on bronchodilators. He remains on steroids. Remains on diuretics. Objective - Vital Signs Vital signs: Vital Signs Temp 96.3 F L 05/20/22 04:00 Pulse 95 05/20/22 08:19 Resp 30 H 05/20/22 09:35 BP 131/77 05/20/22 04:00 Pulse Ox 85 L 05/20/22 08:46 FiO2 100 05/20/22 08:46 Intake & Output 05/19/22 05/20/22 05/20/22 18:59 06:59 18:59 Intake Total 698 240 Output Total 1300 250 Balance -602 -10 Weight 77.3 kg Intake: Oral 698 240 Output: Urine 1300 250 Other: Voiding Method Urinal Urinal Urinal - Exam GENERAL EXAM: Alert, pleasant 71-year-old male, patient is currently on a BiPAP at a pressure of 12/6 with an FiO2 of 95% HEAD: Normocephalic. EYES: Normal reaction of pupils, equal size. NOSE: Clear with pink turbinates. THROAT: No erythema or exudates. NECK: No masses, no JVD. CHEST: No chest wall deformity. LUNGS: Equal air entry with bilateral scattered rhonchi more so on the right lung. CVS: S1 and S2 normal with no audible murmur, regular rhythm. ABDOMEN: No hepatosplenomegaly, normal bowel sounds, no guarding or rigidity. SPINE: No scoliosis or deformity SKIN: No rashes CENTRAL NERVOUS SYSTEM: No focal deficits, tone is normal in all 4 extremities. EXTREMITIES: There is no peripheral edema. No clubbing, no cyanosis. Peripheral pulses are intact. - Labs CBC & Chem 7: 05/16/22 08:58 05/19/22 10:49 Labs: Abnormal Lab Results - Last 24 Hours (Table) 05/19/22 05/19/22 05/19/22 Range/Units 10:49 11:29 16:48 Sodium 131 L (137-145) mmol/L Chloride 95 L (98-107) mmol/L Carbon Dioxide 33 H (22-30) mmol/L BUN 33 H (9-20) mg/dL Glucose 148 H (74-99) mg/dL POC Glucose (mg/dL) 134 H 222 H (70-110) mg/dL Calcium 8.3 L (8.4-10.2) mg/dL 05/19/22 05/20/22 Range/Units 20:12 06:10 Sodium (137-145) mmol/L Chloride (98-107) mmol/L Carbon Dioxide (22-30) mmol/L BUN (9-20) mg/dL Glucose (74-99) mg/dL POC Glucose (mg/dL) 182 H 130 H (70-110) mg/dL Calcium (8.4-10.2) mg/dL Assessment and Plan Plan: Acute hypoxic respiratory failure requiring BiPAP support secondary to an acute bilateral pneumonia, community-acquired, doubt aspiration pneumonia, doubt COVID-19 pneumonia considering the patient had negative screening for COVID-19 infection, negative screening for influenza A, influenza B, and RSV. The patient developed worsening shortness of breath and hypoxemia on 05/09/2022 requiring BiPAP support. Today 05/15/2022 the patient remains on AirVo high flow oxygen at 50 L and 80% FiO2 , currently on unknown antibiotics, currently on by mouth prednisone, currently receiving diuretics 40 mg of Lasix every day. Oxygenation is further decompensated and the patient is currently on BiPAP pressures of 12/6 with an FiO2 of 95%. Breathing remains labored and the patient is considering comfort care measures. Acute non-ST elevation myocardial infarction Acute exacerbation of suspected diastolic congestive heart failure Acute exacerbation of COPD History of coronary artery disease and previous CABG History of previous CVA/TIA Benign essential hypertension Dyslipidemia History of prostate cancer Plan: Awaiting family members to arrive. Keep the BiPAP on Hospice care is recommended Very poor prognosis DNR/DNI CODE STATUS Poor prognosis
[2022-05-20 12:22] VITALS: RESP 22
--- NOTE | 2022-05-28 09:05 | CDI ---
Documentation Clarification Form Date: 05/10/2022 1:54:00 PM From: Michelle DiasKHRIS [email or web address], CCDS Admit Date: 05/04/2022 7:00:00 PM Patient Name: Dominic Pacheco Visit Number: [id number] Discharge Date: 05/20/2022 1:00:00 PM ATTENTION: The Clinical Documentation Specialists (CDI) and [facility] Coding Staff appreciate your assistance in clarifying documentation. Please respond to the clarification below the line at the bottom and electronically sign. The CDI & [facility] Coding staff will review the response and follow-up if needed. Please note: Queries are made part of the Legal Health Record. If you have any questions, please contact the author of this message via ITS. Dr. Minna Reeves: The patient presented with the following clinical indicators. Additional clarification regarding the etiology/cause of the clinical indicators is requested. Per the 05/04 ED Note, admit with Pneumonia, Sepsis, COPD with Exacerbation, Dehydration, Lactic Acidosis & Hypotensive Episode. History/Risk Factors per the H/P 05/05: CAD status post CABG & stent placement, Hypertension, Hyperlipidemia, Prostate Cancer status post surgery, COPD, Former smoker. Clinical Indicators: Presented to the ED on 05/04 via EMS from home, became SOB after being outside for about an hour. Admit as per above. 05/04 VS: T 96.8, P 116, R 28, BP 84/63, PO 100 3Lnc, BMI: 29.1 05/04 LAB: WBC 6.4, Hgb 17.7, Hct 53.3, Plt Ct 140, Neutrophils 4.0; D Dimer 2.23; CO2 14, Glucose 165, Lactic Acid 8.9, Mag 2.4, AST 91, ALT 58. 05/04 CXR: Interval development of acute cardiopulmonary disease with a large partially consolidative infiltrate in the right lower lobe suspicious for pneumonia. Treatment 05/04: Blood cultures, O2, IV Na Chl 1,000 mls @ 999 mls/hr q1H x2, IV Rocephin 2,000 mg x1, IV Azithromycin 250 mls @ 250 mls/hr x1, INH Duoneb 3 ml q2H/prn - QID, IV Zosyn 100 mls @ 25 mls/hr q8H, IV Vancomycin 500 mls @ 167 mls/hr x1 In your professional opinion, please clarify if these findings signify one of the following conditions: [ ] Sepsis POA [ ] Sepsis, Not POA [ ] Sepsis ruled out [ ] Severe Sepsis with organ failure [ ] Other, please specify: [ ] Unable to determine Sepsis POA MTDD
--- NOTE | 2022-05-30 16:10 | P.DS ---
Providers Date of admission: 05/04/22 19:00 Expected date of discharge: 05/20/22 Attending physician: Dari Ho MD Consults: 05/04/22 19:00 Consult Physician Stat Consulting Provider: Yudy Gudino Consult Reason/Comments: Right lower lobe pneumonia, COPD Do you want consulting provider notified?: Yes 05/05/22 13:11 Consult Physician Routine Consulting Provider: Ramo Tripp Consult Reason/Comments: elevated troponin, syncopal episode. Do you want consulting provider notified?: Already Contacted Primary care physician: Stated None Hospital Course: Discharge diagnosis Right lower lobe pneumonia with consolidative changes in the CT thorax. Likely community-acquired pneumonia. COVID-19 PCR not detected. Acute hypoxic respiratory failure multi-focal secondary to likely community acquired pneumonia along with acute heart failure exacerbation Acute COPD exacerbation Acute CHF with preserved ejection fraction. Mild to moderate MR. Elevated troponin level Likely demand mismatch. Diabetes Mellitus type 2 with hgb A1C 6.3. Coronary arteries with history of CABG, PCI history of CVA/TIA Prostate cancer status post surgery Hypertension Hyperlipidemia Former smoker DVT prophylaxis. No code Hospital course Patient is a 71-year-old male with a known history of coronary disease status post CABG, history of stent placement, hypertension, hyperlipidemia, history of ID, prostate cancer status postsurgery, COPD and prior history of smoking presents to ER with complaints of shortness of breath. Patient states that he went out in the cold to feed cats and felt very short of breath with cough and wheezing. Patient was able to come back inside the home and EMS was called. Patient was given albuterol Atrovent treatments with minimal improvement and was brought to ER. Patient was tachycardic, tachypneic on admission with blood pressure 84/63. Denies any complaints of fever or chills. Patient states that he has been having sinus infection and cough with yellow sputum production recently. Chest x-ray showed interval development of acute cardiopulmonary disease with large partially consolidated infiltrate in the right lower lobe suspicious for pneumonia. Clinical correlation and short-term follow-up to resolution is recommended. CTA chest showed no evidence of PE. Diffuse groundglass densities within the lung consistent with acute inflammatory process possibly COVID-pneumonia and clinical correlation is recommended. EKG showed atrial flutter/tachycardia with heart rate 119 Laboratory data WBC 6.4 hemoglobin 17.7 and platelets 140 D-dimer is 2.23 Sodium 138 potassium 3.9 chloride 102 bicarb is 40 BUN 12 and creatinine 1.23 and lactic acid 8.9 and magnesium 2.4, AST 91 ALT 58 and alk phos 103 Troponin 0.033 and 0.597 and proBNP 672 RSV, influenza A and B and coronavirus PCR not detected. 05/06/2022 Patient is currently sitting in the bed. Awake alert and oriented x3. Currently requiring oxygen and is being titrated down to room air. Saturating at 94%. Patient does have cough without any sputum production. No fever no chills. Is better. Procalcitonin level is elevated 0.35. Patient is being arranged antibiotics in the form of Zosyn. Pulmonary is on board. 05/07/2022 Patient is currently resting in bed. Awake alert and oriented. Saturating at 90% on room air. Still having shortness of breath with minimal exertion. Patient is being continued antibiotics in the form of Zosyn. Chest x-ray showed improved aeration of the lungs with persistent multifocal airspace opacities. Cultures have been negative. Blood cultures negative. Laboratory data showed WBC 8.2 hemoglobin 11.7 and platelets 128 Sodium 137 potassium 4.3 chloride 109 bicarb is 20 BUN 23 and creatinine 1.0 and blood sugar is 168. Cardiology is on board. Heparin is being continued. 2D echocardiogram was done. Showed normal LV systolic function. Moderate MR. Aortic sclerosis without significant stenosis.. 05/08/2022 Patient is sitting in the bed. Awake alert and oriented x3. Patient is requiring oxygen today at 2 L via nasal cannula. No complaints of chest pain. Still having exertional dyspnea. No nausea vomiting abdominal pain or diarrhea. Patient is being current on antibiotics in form of Zosyn. Laboratory data showed WBC 15.9 hemoglobin 14.4 and platelets 167 Sodium 141 potassium 4.3 chloride 110 bicarb is 21 BUN 20 and creatinine 1.07 calcium 8.5. Pulmonary and cardiology is on board. Patient is also being continued on IV Solu-Medrol and duo nebs. 05/09/2022 Patient is able to walk to the bathroom. Breathing status is about the same. Today patient is requiring oxygen at 4 L via nasal cannula. No complaints of chest pain. No nausea vomiting abdominal pain or diarrhea. Chest x-ray showed worsening scattered airspace opacities correlate for pneumonia. Correlate with serum BNP to rule out superimposed underlying congestive heart failure. Patient remains on antibiotics Zosyn and also IV steroids. Patient was given a dose of IV Lasix yesterday. 05/10/2022 Patient is in the telemetry unit. Currently on BiPAP. Patient seems to be drowsy and lethargic. Able to open his eyes with verbal stimuli. No complaints of chest pain. Patient has been afebrile. Cultures have been negative. Patient is being continued on IV Solu-Medrol and also IV diuretics and duo nebs. proBNP increased to 70 690. Other laboratory test showed WBC 9.9 hemoglobin 11.8 and platelets 121 sodium 138 potassium 3.8 chloride 109 bicarb is 26 BUN 25 and creatinine 1.1 and calcium 8.0 and procalcitonin level is 0.56. Patient remains on antibiotics in the form of Zosyn. 05/11/2022 Patient is in the psych care unit. Patient is more awake and oriented today. Tolerating BiPAP. Plan is To transition to high flow oxygen. Pulmonary is on board. Continued on IV Lasix with negative balance of 2.6 L. Patient is also on antibiotics and IV steroids. Chest x-ray today showed diffuse bilateral airspace opacities not significantly changed. Laboratory test showed WBC 10.1 hemoglobin 12.3 and platelets 141 sodium 141 potassium 3.3 which is being replaced Chloride 104 bicarb is 32 BUN 31 and creatinine 1.07 and blood sugar is 162 and calcium 8.0. Pulmonary is on board. 05/12/2022 Patient continues to be monitored on stepdown unit. Has been transitioned to Airvo with 75%/60 L FiO2, he reports breathing better. Continues with cough, however is improving. maintained on IV zosyn, IV lasix and IV solumedrol. Tolerating oral intake in small amounts. White count today 13.3, hgb 12.7. BUN 44, creatinine 1.08. Glucose in the mid 200s. proBNP elevated today at 7370. Negative 2.4 L off in the last 24 hours. Heart rate in the 110s today, blood pressure in the high 90s systolic. Serologies, Sputum and blood culture all negative. 05/13/2022 Patient is monitored on stepdown unit. Continues on Airvo 75/60. Continues with cough. He has completed a course of IV zosyn therapy and is being monitored off antibiotics at this time. Repeat procalcitonin level 0.64. ProBNP remains elevated at 7370 and continues on IV lasix Q12 with negative 1.8 L fluid balance. A1C 6.3 consistent with diabetes mellitus. Continue on insulin while inpatient, continues to receive IV solumedrol 60 mg every 6 hours. Sodium 136 today, potassium 3.6, BUN 48, creatinine 0.96. Glucose in the 200s. White count 10.2, hemoglobin 11.7. 05/14/2022 Patient is seen and evaluated in follow-up today continues on airvo 60/60 currently sitting up in the chair. Pulmonary is following and patient is maintained on IV Lasix along with IV steroids. Patient reports he continues to be extremely dyspneic and short of breath although feels somewhat better. Blood sugars being monitored with Accu-Cheks before meals and at bedtime and recommend continue with current regimen. Will encourage increased activity as tolerated once respiratory status is more stable. Patient is maintained on DuoNeb treatments along with Pulmicort and Perforomist and will continue. Will follow- up with chest x-ray in the a.m. Patient is currently afebrile denies chest pain or palpitations. Patient reports to tolerating diet with no reports of nausea or vomiting noted. 05/15/2022 Patient is seen in follow-up this morning continues to be on high flow airvo And weaning as tolerated. Current settings are 60/55 and patient denies any worsening. Patient is maintained on IV Lasix along with IV steroids with pulmonary following. Patient continues with some weakness and continued dyspnea with minimal exertion and is being followed by physical therapy. Patient is tolerating diet with no reports of nausea or vomiting noted. Encouraged patient to increase activity as tolerated along with encouraging oral intake. Will recommend to continue monitoring Accu-Cheks before meals and at bedtime as patient is maintained on IV steroids. 05/16/2022 Patient is seen and evaluated this morning maintained on high flow oxygen airvo 60/48 And continuing to wean as tolerated. Patient has been up working with physical therapy and recommend continue to encourage increased activity as tolerated. Patient reports he is feeling improved slightly each day. Patient is continued on IV Lasix along with IV steroids and pulmonary is following. Patient has completed antibiotics and Lasix being adjusted to daily and will follow-up with labs. Patient denies chest pain or palpitations. Patient is afebrile. No reported nausea or vomiting noted. 05/17/2022 Patient seen in follow-up today currently sitting up continued on high flow 5050 FiO2 with pulmonary following. Patient is weaning as tolerated and reports to continuing to feel improved each day also extremely dyspneic without the oxygen. Patient is tolerating diet and recommend continue monitoring blood sugars closely as patient is maintained on steroids and blood sugars have been mildly elevated. Will continue current regimen and also continue with consistent carb diet. Patient has been on IV Lasix push 40 mg and has decreased to daily and labs reviewed and within normal limits recommend continue for now. Encouraged continued activity as tolerated and also continued to encourage incentive spirometer use at least 10 times every hour while awake. Patient is currently afebrile and denies chest pain or palpitations. No reports of nausea or vomiting noted and patient is tolerating diet. 05/18/2022 Patient is seen in follow-up today sitting up in the chair with family at bedside. Patient continues to be in positive spirits CONTINUES to be extremely dyspneic. Patient is up independently and has been getting up frequently throughout the day. Patient is maintained on high flow airvo 50/50 currently 88% during exam. Encouraged continued incentive spirometer use at least 10 times every hour on coughing and deep breathing. Patient is maintained on IV steroids along with DuoNeb treatments and will be transitioned to oral prednisone. Patient is also continued on IV Lasix and diuresing well. Will f ollow-up with repeat labs and chest x-ray today shows stable findings with continued from comparable. Patient remains in negative fluid balance and will need to consider transitioning to oral Lasix as well. Follow-up labs recommended. Patient is afebrile denies chest pain or worsening shortness of breath. Patient denies nausea or vomiting and is tolerating diet. 05/19/2022 Patient is currently lying in the bed. On BiPAP with 50 L and FiO2 80%. Repeat chest x-ray showed diffuse bilateral pulmonary infiltrates and findings are essentially unchanged. Overall patient is not improving well. Remains on IV steroids and bronchodilators and broad-spectrum antibiotics. Laboratory data showed sodium 131 potassium 4.6 chloride 95 bicarb 33 BUN 33 and creatinine 1.15 and calcium 8.3. Pulmonary is on board. 05/20/2022. Patient still remains on BiPAP with FiO2 95 percent. Patient is otherwise more lethargic and drowsy today. Due to worsening mental status patient would like to go for hospice care at this time. Patient was initiated on comfort measures. Discussed with his sister at bedside. Patient was continued on medical management and comfort measures. Patient was transferred to hospice care. PHYSICAL EXAMINATION: GENERAL: The patient is alert and oriented x2, lethargic and weak. Well developed, well nourished. Maintained on BiPAP. HEENT: Pupils are round and equally reacting to light. EOMI. No scleral icterus. No conjunctival pallor. Normocephalic, atraumatic. No pharyngeal erythema. No thyromegaly. CARDIOVASCULAR: S1 and S2 muffled PULMONARY: Diminished breath sounds bilaterally with coarse scattered rhonchi noted ABDOMEN: Soft, nontender, nondistended, normoactive bowel sounds. No palpable organomegaly. MUSCULOSKELETAL: No joint swelling or deformity. EXTREMITIES: No cyanosis, clubbing, or pedal edema. NEUROLOGICAL: Gross neurological examination did not reveal any focal deficits. SKIN: No rashes. - Vital Signs Vital signs: Vital Signs Temp 96.3 F L 05/20/22 04:00 Pulse 95 05/20/22 08:19 Resp 30 H 05/20/22 09:35 BP 131/77 05/20/22 04:00 Pulse Ox 85 L 05/20/22 08:46 FiO2 100 05/20/22 08:46 Intake & Output 05/19/22 05/20/22 05/20/22 18:59 06:59 18:59 Intake Total 698 240 Output Total 1300 250 Balance -602 -10 Weight 77.3 kg Intake: Oral 698 240 Output: Urine 1300 250 Other: Voiding Method Urinal Urinal Urinal Time taking greater than 35 minutes in patient care out of which more than 50% was spent counseling and coordination of care. Patient Condition at Discharge: Poor Plan - Discharge Summary Discharge Rx Participant: Yes New Discharge Prescriptions: No Action Atorvastatin [Lipitor] 40 mg PO HS Aspirin EC [Ecotrin Low Dose] 81 mg PO DAILY Sertraline [Zoloft] 200 mg PO DAILY Metoprolol Succinate [Metoprolol Succinate ER] 12.5 mg PO DAILY Melatonin 3 mg PO HS PRN PRN Reason: SLEEP hydrOXYzine pamoate [Vistaril] 25 mg PO HS PRN PRN Reason: ANXIETY/SLEEP Albuterol Inhaler [Ventolin Hfa Inhaler] 1 - 2 puff INHALATION RT-Q6H PRN PRN Reason: Shortness Of Breath Mirtazapine [Remeron] 15 mg PO HS lisinopriL [Zestril] 10 mg PO DAILY Discharge Medication List Aspirin EC [Ecotrin Low Dose] 81 mg PO DAILY 12/26/20 [History] Atorvastatin [Lipitor] 40 mg PO HS 12/26/20 [History] Albuterol Inhaler [Ventolin Hfa Inhaler] 1 - 2 puff INHALATION RT-Q6H PRN 05/04/22 [History] Melatonin 3 mg PO HS PRN 05/04/22 [History] Metoprolol Succinate [Metoprolol Succinate ER] 12.5 mg PO DAILY 05/04/22 [History] Mirtazapine [Remeron] 15 mg PO HS 05/04/22 [History] Sertraline [Zoloft] 200 mg PO DAILY 05/04/22 [History] hydrOXYzine pamoate [Vistaril] 25 mg PO HS PRN 05/04/22 [History] lisinopriL [Zestril] 10 mg PO DAILY 05/04/22 [History] Follow up Appointment(s)/Referral(s): Yudy Gudino MD [STAFF PHYSICIAN] - None,Stated [Primary Care Provider] - 1-2 days Activity/Diet/Wound Care/Special Instructions: Follow-up with elder assistant at [facility] for outpatient stress testing. Patient requires home oxygen and a nebulizer to manage his COPD at home. [facility]
== END 2022-05-20 13:00 | disposition hospice, inpatient (51) | DRG 871 ==
LOC: EC 14:33 → 3SCARD 19:00
PROVIDERS: ADMIT Internal Medicine; ATTEND Internal Medicine
PROC: 5A09457 Assistance with Respiratory Ventilation, 24-96 Consecutive Hours, Continuous Positive Airway Pressure (ICD-10-PCS; 2022-05-10)
PROC: 5A0955A Assistance with Respiratory Ventilation, Greater than 96 Consecutive Hours, High Flow/Velocity Cannula (ICD-10-PCS; principal; 2022-05-11)
DX: A41.9 Sepsis, unspecified organism (principal); I21.A1 Myocardial infarction type 2; J18.9 Pneumonia, unspecified organism; J96.01 Acute respiratory failure with hypoxia; I50.33 Acute on chronic diastolic (congestive) heart failure; J44.1 Chronic obstructive pulmonary disease with (acute) exacerbation; J44.0 Chronic obstructive pulmonary disease with (acute) lower respiratory infection; I48.92 Unspecified atrial flutter; E87.20 Acidosis, unspecified; I25.10 Atherosclerotic heart disease of native coronary artery without angina pectoris; R79.1 Abnormal coagulation profile; T38.0X5A Adverse effect of glucocorticoids and synthetic analogues, initial encounter; E66.9 Obesity, unspecified; E11.65 Type 2 diabetes mellitus with hyperglycemia; E78.5 Hyperlipidemia, unspecified; Z20.822 Contact with and (suspected) exposure to COVID-19; I70.0 Atherosclerosis of aorta; I11.0 Hypertensive heart disease with heart failure; I08.0 Rheumatic disorders of both mitral and aortic valves; E86.0 Dehydration; Z66 Do not resuscitate; Z51.5 Encounter for palliative care; M19.90 Unspecified osteoarthritis, unspecified site; I95.9 Hypotension, unspecified; Z68.28 Body mass index [BMI] 28.0-28.9, adult; Z95.1 Presence of aortocoronary bypass graft; Z95.5 Presence of coronary angioplasty implant and graft; I25.2 Old myocardial infarction; Z85.46 Personal history of malignant neoplasm of prostate; Z87.891 Personal history of nicotine dependence; Z86.73 Personal history of transient ischemic attack (TIA), and cerebral infarction without residual deficits; Z79.899 Other long term (current) drug therapy; Z79.82 Long term (current) use of aspirin; Z71.3 Dietary counseling and surveillance
CPT/HCPCS: 36415; 71045; 71046; 71275; 80048; 80053; 80202; 83036; 83605; 83735; 83880; 84145; 84484; 85025; 85027; 85379; 85610; 85730; 87040; 87070; 87205; 87502; 87634; 87635; 93005; 93306; 94640; 94660; 94760; 96361; 96365; 96366; 96367; 96375; 99291

== ENCOUNTER 2022-05-20 12:48 | Inpatient (IN) | payer MEDICAID ==
[2022-05-20] MEDS ORDERED: ATROPINE OPHTH SOLN 1% 5ML BTL SUBLINGUAL PRN (12:51)
[2022-05-20] MEDS ORDERED: ACETAMINOPHEN SUPPOSITORY 650 MG SUPP RECTAL PRN (12:51)
[2022-05-20] MEDS ORDERED: ONDANSETRON 4 MG/2 ML VIAL IVP PRN (12:51)
[2022-05-20] MEDS ORDERED: GLYCOPYRROLATE 0.2 MG/ML 2 ML VIAL IVP PRN (12:51)
[2022-05-20] MEDS ORDERED: LORazepam 2 MG/ML INJ IV PRN (12:51)
[2022-05-20] MEDS ORDERED: MORPHINE SULFATE (100 MG/2 ML) 100 MG in SODIUM CHLORIDE 0.9% 100 ML IV SCH (13:00)
[2022-05-20] MEDS ORDERED: SCOPOLAMINE 1 MG/72 HR PATCH TRANSDERM SCH (13:00)
[2022-05-20] MEDS: MORPHINE SULFATE 2 MG/ML SYRINGE IV PRN ×4 (14:50→19:48)
[2022-05-20 21:33] VITALS: RESP 22
[2022-05-20 21:37] VITALS: PULSE 120
--- NOTE | 2022-05-21 19:36 | P.DS ---
Providers Date of admission: 05/20/22 13:04 Expected date of discharge: 05/21/22 Attending physician: Tara Durham Primary care physician: Stated None Hospital Course: A preliminary cause of End-stage COPD final diagnosis Right lower lobe pneumonia with consolidative changes in the CT thorax. Likely community-acquired pneumonia. COVID-19 PCR not detected. Acute hypoxic respiratory failure multi-focal secondary to likely community acquired pneumonia along with acute heart failure exacerbation Acute COPD exacerbation Acute CHF with preserved ejection fraction. Mild to moderate MR. Elevated troponin level Likely demand mismatch. Diabetes Mellitus type 2 with hgb A1C 6.3. Coronary arteries with history of CABG, PCI history of CVA/TIA Prostate cancer status post surgery Hypertension Hyperlipidemia Former smoker DVT prophylaxis. No code Discharge disposition Patient has . According to nursing Documentation time of was 2149 and 05/20/2022. Patient had opted for hospice and made GIP hospice with comfort measures only. Please refer to previous dictations another consult notes for further HPI. Hospital course This is a 71-year-old male who was recently admitted with CHF and COPD exacerbat ion. Patient at first requiring BiPAP and then transitioned to high flow airvo In continue to slowly progress. Patient was maintained on IV Lasix along with IV steroids and showed no real clinical improvement as unable to wean FiO2. Patient becoming more short of breath and dyspneic and wanting to remain no code patient opted for hospice comfort measures and consult was placed. Patient and family were agreeable and met with [facility] meet inpatient GIP. Patient eventually at 2150 on 05/20/2022. Again please refer to other consultation notes for further HPI. The impression and plan of care has been dictated by Bernice Renteria, Nurse Practitioner as directed. Dr. Marva MD I have performed a history and examination and MDM of this patient, discussed the same with the dictator, and agree with the dictator's assessment and plan as written ,documented as a scribe. Based on total visit time, I have performed more than 50% of the visit. Patient Condition at Discharge: Poor Plan - Discharge Summary New Discharge Prescriptions: No Action Atorvastatin [Lipitor] 40 mg PO HS Aspirin EC [Ecotrin Low Dose] 81 mg PO DAILY Sertraline [Zoloft] 200 mg PO DAILY Metoprolol Succinate [Metoprolol Succinate ER] 12.5 mg PO DAILY Melatonin 3 mg PO HS PRN PRN Reason: SLEEP hydrOXYzine pamoate [Vistaril] 25 mg PO HS PRN PRN Reason: ANXIETY/SLEEP Albuterol Inhaler [Ventolin Hfa Inhaler] 1 - 2 puff INHALATION RT-Q6H PRN PRN Reason: Shortness Of Breath Mirtazapine [Remeron] 15 mg PO HS lisinopriL [Zestril] 10 mg PO DAILY Discharge Medication List Aspirin EC [Ecotrin Low Dose] 81 mg PO DAILY 12/26/20 [History] Atorvastatin [Lipitor] 40 mg PO HS 12/26/20 [History] Albuterol Inhaler [Ventolin Hfa Inhaler] 1 - 2 puff INHALATION RT-Q6H PRN 05/04/22 [History] Melatonin 3 mg PO HS PRN 05/04/22 [History] Metoprolol Succinate [Metoprolol Succinate ER] 12.5 mg PO DAILY 05/04/22 [History] Mirtazapine [Remeron] 15 mg PO HS 05/04/22 [History] Sertraline [Zoloft] 200 mg PO DAILY 05/04/22 [History] hydrOXYzine pamoate [Vistaril] 25 mg PO HS PRN 05/04/22 [History] lisinopriL [Zestril] 10 mg PO DAILY 05/04/22 [History] Discharge Disposition: - Preliminary Cause of Preliminary Cause of : end stage copd
--- NOTE | 2022-05-21 19:41 | P.HPIM ---
History of Present Illness H&P Date: 05/20/22 Patient is a 71-year-old male with a known history of coronary disease status post CABG, history of stent placement, hypertension, hyperlipidemia, history of RI, prostate cancer status postsurgery, COPD and prior history of smoking presents to ER with complaints of shortness of breath. Patient states that he went out in the cold to feed cats and felt very short of breath with cough and wheezing. Patient was able to come back inside the home and EMS was called. Patient was given albuterol Atrovent treatments with minimal improvement and was brought to ER. Patient was tachycardic, tachypneic on admission with blood pressure 84/63. Denies any complaints of fever or chills. Patient states that he has been having sinus infection and cough with yellow sputum production recently. Chest x-ray showed interval development of acute cardiopulmonary disease with large partially consolidated infiltrate in the right lower lobe suspicious for pneumonia. Clinical correlation and short-term follow-up to resolution is recommended. CTA chest showed no evidence of PE. Diffuse groundglass densities within the lung consistent with acute inflammatory process possibly COVID-pneumonia and clinical correlation is recommended. EKG showed atrial flutter/tachycardia with heart rate 119 Laboratory data WBC 6.4 hemoglobin 17.7 and platelets 140 D-dimer is 2.23 Sodium 138 potassium 3.9 chloride 102 bicarb is 40 BUN 12 and creatinine 1.23 and lactic acid 8.9 and magnesium 2.4, AST 91 ALT 58 and alk phos 103 Troponin 0.033 and 0.597 and proBNP 672 RSV, influenza A and B and coronavirus PCR not detected. 05/06/2022 Patient is currently sitting in the bed. Awake alert and oriented x3. Currently requiring oxygen and is being titrated down to room air. Saturating at 94%. Patient does have cough without any sputum production. No fever no chills. Is better. Procalcitonin level is elevated 0.35. Patient is being arranged antibiotics in the form of Zosyn. Pulmonary is on board. 05/07/2022 Patient is currently resting in bed. Awake alert and oriented. Saturating at 90% on room air. Still having shortness of breath with minimal exertion. Patient is being continued antibiotics in the form of Zosyn. Chest x-ray showed improved aeration of the lungs with persistent multifocal airspace opacities. Cultures have been negative. Blood cultures negative. Laboratory data showed WBC 8.2 hemoglobin 11.7 and platelets 128 Sodium 137 potassium 4.3 chloride 109 bicarb is 20 BUN 23 and creatinine 1.0 and blood sugar is 168. Cardiology is on board. Heparin is being continued. 2D echocardiogram was done. Showed normal LV systolic function. Moderate MR. Aortic sclerosis without significant stenosis.. 05/08/2022 Patient is sitting in the bed. Awake alert and oriented x3. Patient is requiring oxygen today at 2 L via nasal cannula. No complaints of chest pain. Still having exertional dyspnea. No nausea vomiting abdominal pain or diarrhea. Patient is being current on antibiotics in form of Zosyn. Laboratory data showed WBC 15.9 hemoglobin 14.4 and platelets 167 Sodium 141 potassium 4.3 chloride 110 bicarb is 21 BUN 20 and creatinine 1.07 calcium 8.5. Pulmonary and cardiology is on board. Patient is also being continued on IV Solu-Medrol and duo nebs. 05/09/2022 Patient is able to walk to the bathroom. Breathing status is about the same. Today patient is requiring oxygen at 4 L via nasal cannula. No complaints of chest pain. No nausea vomiting abdominal pain or diarrhea. Chest x-ray showed worsening scattered airspace opacities correlate for pneumonia. Correlate with serum BNP to rule out superimposed underlying congestive heart failure. Patient remains on antibiotics Zosyn and also IV steroids. Patient was given a dose of IV Lasix yesterday. 05/10/2022 Patient is in the telemetry unit. Currently on BiPAP. Patient seems to be drowsy and lethargic. Able to open his eyes with verbal stimuli. No complaints of chest pain. Patient has been afebrile. Cultures have been negative. Patient is being continued on IV Solu-Medrol and also IV diuretics and duo nebs. proBNP increased to 70 690. Other laboratory test showed WBC 9.9 hemoglobin 11.8 and platelets 121 sodium 138 potassium 3.8 chloride 109 bicarb is 26 BUN 25 and creatinine 1.1 and calcium 8.0 and procalcitonin level is 0.56. Patient remains on antibiotics in the form of Zosyn. 05/11/2022 Patient is in the psych care unit. Patient is more awake and oriented today. Tolerating BiPAP. Plan is To transition to high flow oxygen. Pulmonary is on board. Continued on IV Lasix with negative balance of 2.6 L. Patient is also on antibiotics and IV steroids. Chest x-ray today showed diffuse bilateral airspace opacities not significantly changed. Laboratory test showed WBC 10.1 hemoglobin 12.3 and platelets 141 sodium 141 potassium 3.3 which is being replaced Chloride 104 bicarb is 32 BUN 31 and creatinine 1.07 and blood sugar is 162 and calcium 8.0. Pulmonary is on board. 05/12/2022 Patient continues to be monitored on stepdown unit. Has been transitioned to Airvo with 75%/60 L FiO2, he reports breathing better. Continues with cough, however is improving. maintained on IV zosyn, IV lasix and IV solumedrol. Tolerating oral intake in small amounts. White count today 13.3, hgb 12.7. BUN 44, creatinine 1.08. Glucose in the mid 200s. proBNP elevated today at 7370. Negative 2.4 L off in the last 24 hours. Heart rate in the 110s today, blood pressure in the high 90s systolic. Serologies, Sputum and blood culture all negative. 05/13/2022 Patient is monitored on stepdown unit. Continues on Airvo 75/60. Continues with cough. He has completed a course of IV zosyn therapy and is being monitored off antibiotics at this time. Repeat procalcitonin level 0.64. ProBNP remains elevated at 7370 and continues on IV lasix Q12 with negative 1.8 L fluid balance. A1C 6.3 consistent with diabetes mellitus. Continue on insulin while inpatient, continues to receive IV solumedrol 60 mg every 6 hours. Sodium 136 today, potassium 3.6, BUN 48, creatinine 0.96. Glucose in the 200s. White count 10.2, hemoglobin 11.7. 05/14/2022 Patient is seen and evaluated in follow-up today continues on airvo 60/60 currently sitting up in the chair. Pulmonary is following and patient is maintained on IV Lasix along with IV steroids. Patient reports he continues to be extremely dyspneic and short of breath although feels somewhat better. Blood sugars being monitored with Accu-Cheks before meals and at bedtime and recommend continue with current regimen. Will encourage increased activity as tolerated once respiratory status is more stable. Patient is maintained on DuoNeb treatments along with Pulmicort and Perforomist and will continue. Will follow- up with chest x-ray in the a.m. Patient is currently afebrile denies chest pain or palpitations. Patient reports to tolerating diet with no reports of nausea or vomiting noted. 05/15/2022 Patient is seen in follow-up this morning continues to be on high flow airvo And weaning as tolerated. Current settings are 60/55 and patient denies any worsening. Patient is maintained on IV Lasix along with IV steroids with pulmonary following. Patient continues with some weakness and continued dyspnea with minimal exertion and is being followed by physical therapy. Patient is tolerating diet with no reports of nausea or vomiting noted. Encouraged patient to increase activity as tolerated along with encouraging oral intake. Will rec ommend to continue monitoring Accu-Cheks before meals and at bedtime as patient is maintained on IV steroids. 05/16/2022 Patient is seen and evaluated this morning maintained on high flow oxygen airvo 60/48 And continuing to wean as tolerated. Patient has been up working with physical therapy and recommend continue to encourage increased activity as tolerated. Patient reports he is feeling improved slightly each day. Patient is continued on IV Lasix along with IV steroids and pulmonary is following. Patient has completed antibiotics and Lasix being adjusted to daily and will follow-up with labs. Patient denies chest pain or palpitations. Patient is afebrile. No reported nausea or vomiting noted. 05/17/2022 Patient seen in follow-up today currently sitting up continued on high flow 5050 FiO2 with pulmonary following. Patient is weaning as tolerated and reports to continuing to feel improved each day also extremely dyspneic without the oxygen. Patient is tolerating diet and recommend continue monitoring blood sugars closely as patient is maintained on steroids and blood sugars have been mildly elevated. Will continue current regimen and also continue with consistent carb diet. Patient has been on IV Lasix push 40 mg and has decreased to daily and labs reviewed and within normal limits recommend continue for now. Encouraged continued activity as tolerated and also continued to encourage incentive spirometer use at least 10 times every hour while awake. Patient is currently afebrile and denies chest pain or palpitations. No reports of nausea or vomiting noted and patient is tolerating diet. 05/18/2022 Patient is seen in follow-up today sitting up in the chair with family at bedside. Patient continues to be in positive spirits CONTINUES to be extremely dyspneic. Patient is up independently and has been getting up frequently throughout the day. Patient is maintained on high flow airvo 50/50 currently 88% during exam. Encouraged continued incentive spirometer use at least 10 times every hour on coughing and deep breathing. Patient is maintained on IV steroids along with DuoNeb treatments and will be transitioned to oral prednisone. Patient is also continued on IV Lasix and diuresing well. Will follow-up with repeat labs and chest x-ray today shows stable findings with continued from comparable. Patient remains in negative fluid balance and will need to consider transitioning to oral Lasix as well. Follow-up labs recommended. Patient is afebrile denies chest pain or worsening shortness of breath. Patient denies nausea or vomiting and is tolerating diet. 05/20/2022 Patient is clinically deteriorating with hospice and agreeable with hospice comfort care measures. [facility] making patient inpatient GIP criteria. We will continue to follow along and continue comfort measures only per patient request. Review of Systems Constitutional: Denied any fatigue denied any fever. Cardio vascular: denied any chest pain, palpitations Gastrointestinal: denied any nausea, vomiting, diarrhea Pulmonary: Reports shortness of breath and feels is somewhat improved Neurologic denied any new focal deficits PHYSICAL EXAMINATION: GENERAL: The patient is alert and oriented x3, restless, anxious, tachypneic HEENT: Pupils are round and equally reacting to light. EOMI. No scleral icterus. No conjunctival pallor. Normocephalic, atraumatic. No pharyngeal erythema. No thyromegaly. CARDIOVASCULAR: S1 and S2 muffled PULMONARY: Diminished breath sounds bilaterally with coarse scattered rhonchi noted ABDOMEN: Soft, nontender, nondistended, normoactive bowel sounds. No palpable organomegaly. MUSCULOSKELETAL: No joint swelling or deformity. EXTREMITIES: No cyanosis, clubbing, or pedal edema. NEUROLOGICAL: Gross neurological examination did not reveal any focal deficits. SKIN: No rashes. Assessment: Right lower lobe pneumonia with consolidative changes in the CT thorax. Likely community-acquired pneumonia. COVID-19 PCR not detected. Acute hypoxic respiratory failure multi-focal secondary to likely community acquired pneumonia along with acute heart failure exacerbation Acute COPD exacerbation Acute CHF with preserved ejection fraction. Mild to moderate MR. Elevated troponin level Likely demand mismatch. Diabetes Mellitus type 2 with hgb A1C 6.3. Coronary arteries with history of CABG, PCI history of CVA/TIA Prostate cancer status post surgery Hypertension Hyperlipidemia Former smoker DVT prophylaxis. No code Plan: Patient clinically deteriorating and wrist remain no code with progressive respiratory decline patient opted for [facility] hospice request and agreeable to sign on with comfort measures only. Patient meeting inpatient criteria for [facility] hospice to follow. Comfort measures ordered and will continue to follow along. Prognosis is guarded. The impression and plan of care has been dictated by Bernice Renteria, Nurse Practitioner as directed. Dr. Marva MD I have performed a history and examination and MDM of this patient, discussed the same with the dictator, and agree with the dictator's assessment and plan as written ,documented as a scribe. Based on total visit time, I have performed more than 50% of the visit. Past Medical History Past Medical History: Coronary Artery Disease (CAD), Cancer, Chest Pain / An heather, COPD, CVA/TIA, Hyperlipidemia, Hypertension, Myocardial Infarction (RI), Osteoarthritis (OA), Pneumonia Additional Past Medical History / Comment(s): COPD, coronary artery disease with increased bypass surgery, CVA/TIA, hypertension, hyperlipidemia, prostate cancer, right lower extremity fracture, hypertension, osteoarthritis Last Myocardial Infarction Date:: UNK History of Any Multi-Drug Resistant Organisms: None Reported Past Surgical History: Coronary Bypass/CABG, Heart Catheterization With Stent, Prostate Surgery Additional Past Surgical History / Comment(s): Right carotid endarterectomy, coronary bypass surgery, prostatectomy, left shoulder surgery, ORIF of the right lower extremity fracture Past Anesthesia/Blood Transfusion Reactions: No Reported Reaction Date of Last Stent Placement:: UNK 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 smoker - Past Family History Father Family Medical History: Myocardial Infarction (RI) Mother Family Medical History: CVA/TIA Medications and Allergies Home Medications Medication Instructions Recorded Confirmed Type Aspirin EC [Ecotrin Low Dose] 81 mg PO DAILY 12/26/20 05/20/22 History Atorvastatin [Lipitor] 40 mg PO HS 12/26/20 05/20/22 History Albuterol Inhaler [Ventolin Hfa 1 - 2 puff INHALATION RT-Q6H PRN 05/04/22 05/20/22 History Inhaler] Melatonin 3 mg PO HS PRN 05/04/22 05/20/22 History Metoprolol Succinate [Metoprolol 12.5 mg PO DAILY 05/04/22 05/20/22 History Succinate ER] Mirtazapine [Remeron] 15 mg PO HS 05/04/22 05/20/22 History Sertraline [Zoloft] 200 mg PO DAILY 05/04/22 05/20/22 History hydrOXYzine pamoate [Vistaril] 25 mg PO HS PRN 05/04/22 05/20/22 History lisinopriL [Zestril] 10 mg PO DAILY 05/04/22 05/20/22 History Allergies Allergy/AdvReac Type Severity Reaction Status Date / Time No Known Allergies Allergy Verified 05/20/22 13:56 Physical Exam Vitals: Vital Signs Resp FiO2 05/20/22 21:32 22 05/20/22 20:18 85 05/20/22 20:00 20
== END 2022-05-20 22:00 | disposition expired | DRG 951 ==
LOC: 3SCARD 13:04
PROVIDERS: ADMIT Internal Medicine; ATTEND Internal Medicine
DX: Z51.5 Encounter for palliative care (principal); J18.9 Pneumonia, unspecified organism; I50.33 Acute on chronic diastolic (congestive) heart failure; J96.01 Acute respiratory failure with hypoxia; J44.0 Chronic obstructive pulmonary disease with (acute) lower respiratory infection; J44.1 Chronic obstructive pulmonary disease with (acute) exacerbation; I48.92 Unspecified atrial flutter; Z66 Do not resuscitate; Z20.822 Contact with and (suspected) exposure to COVID-19; Z85.46 Personal history of malignant neoplasm of prostate; E78.5 Hyperlipidemia, unspecified; I08.0 Rheumatic disorders of both mitral and aortic valves; I11.0 Hypertensive heart disease with heart failure; E11.9 Type 2 diabetes mellitus without complications; I25.10 Atherosclerotic heart disease of native coronary artery without angina pectoris; I25.2 Old myocardial infarction; Z79.82 Long term (current) use of aspirin; Z82.49 Family history of ischemic heart disease and other diseases of the circulatory system; Z86.73 Personal history of transient ischemic attack (TIA), and cerebral infarction without residual deficits; Z87.891 Personal history of nicotine dependence; Z95.1 Presence of aortocoronary bypass graft; Z95.5 Presence of coronary angioplasty implant and graft; Z79.899 Other long term (current) drug therapy
CPT/HCPCS: 94760